=== PATIENT | female | born 1960 | race Caucasian/White ===

== ENCOUNTER 2016-11-08 20:42 | Emergency (ER) | payer MEDICARE ==
[2016-11-08] MEDS ORDERED: IPRATROPIUM/ALBUTEROL 0.5-2.5 MG/3 ML AMPUL NEB ONE ×2 (21:33→23:04)
[2016-11-08 22:10] LABS: HEMATOCRIT 41.4 % (36.0-47.0); HGB HCT DIFFERENCE 0.6; MEAN CORPUSCULAR HEMOGLOBIN 29.6 pg (27.0-33.4); MEAN CORPUSCULAR HGB CONC 33.8 g/dL (32.0-36.0); MEAN CORPUSCULAR VOLUME 88 fl (80-97); RED BLOOD COUNT 4.73 10^6/uL (3.72-5.28); RED CELL DISTRIBUTION WIDTH 14.5 % (11.5-14.0); WHITE BLOOD COUNT 18.8 10^3/uL (4.0-10.5)
--- NOTE | 2016-11-08 22:15 | EKG REPORT ---
SEVERITY:- BORDERLINE ECG - SINUS RHYTHM BORDERLINE RIGHT AXIS DEVIATION BORDERLINE T ABNORMALITIES, ANT-LAT LEADS : Confirmed by: Marcelle Esteves 08-Nov-2016 22:14:47
[2016-11-08 22:22] LABS: ALANINE AMINOTRANSFERASE 31 U/L (9-52); ALBUMIN 3.9 g/dL (3.5-5.0); ALKALINE PHOSPHATASE 121 U/L (38-126); ANION GAP 12 (5-19); ASPARTATE AMINO TRANSFERASE 23 U/L (14-36); BILIRUBIN,DIRECT 0.2 mg/dL (0.0-0.4); BILIRUBIN,TOTAL 0.5 mg/dL (0.2-1.3); BLOOD UREA NITROGEN 8 mg/dL (7-20); CALCIUM 9.8 mg/dL (8.4-10.2); CARBON DIOXIDE 31 mmol/L (22-30); CHLORIDE 94 mmol/L (98-107); CREATININE RESULT 0.54 mg/dL (0.52-1.25); GLUCOSE 142 mg/dL (75-110); SODIUM 136.7 mmol/L (137-145); TOTAL PROTEIN 7.1 g/dL (6.3-8.2)
[2016-11-08 22:27] LABS: BAND NEUTROPHILS % (MANUAL) 5 % (3-5); BASOPHILS % (MANUAL) 0 % (0-2); EOSINOPHILS % (MANUAL) 0 % (0-6); LYMPHOCYTES % (MANUAL) 3 % (13-45); TOTAL CELLS COUNTED 100
[2016-11-08 22:28] LABS: ANISOCYTOSIS SLIGHT; POLYCHROMASIA SLIGHT
[2016-11-08 23:19] LABS: APPEARANCE,URINE CLOUDY; BILIRUBIN,URINE NEGATIVE (NEGATIVE); GLUCOSE, URINE NEGATIVE (NEGATIVE); KETONES,URINE NEGATIVE (NEGATIVE); LEUKOCYTE ESTERASE,URINE NEGATIVE (NEGATIVE); NITRITE,URINE NEGATIVE (NEGATIVE); PROTEIN,URINE NEGATIVE (NEGATIVE); URINE SPECIFIC GRAVITY 1.028; UROBILINOGEN,URINE NEGATIVE mg/dL (<2.0)
[2016-11-08] MEDS ORDERED: ONDANSETRON 4 MG TAB.RAPDIS PO ONE (23:59)
--- NOTE | 2016-11-09 00:37 | ER Document Report ---
ED Respiratory Problem - General Chief Complaint: Shortness Of Breath Stated Complaint: SHORTNESS OF BREATH Notes: patient is a 55 year old female p/w COPD exacerbation since she has run out of nebulizer medications at home about 2 days ago. Admits to shortness of breath, GALLOWAY. Nonproductive cough. Denies chest pain, n/v/d/c. Current smoker with COPD on 2L at baseline. PMH: COPD, chronic pain, CAD (no previous ME, stress 2 years ago, coronary cath 2006) PSH: hysterectomy, cholecystectomy SH: 20 pack years, denies etoh or drug use No PCP, follows with [facility] for pulmonology TRAVEL OUTSIDE OF THE [place] IN LAST 30 DAYS: No - Related Data Allergies/Adverse Reactions: adhesive tape Allergy (Verified 10/18/15 18:12) roflumilast Adverse Reaction (Verified 10/18/15 18:12) Past Medical History - Social History Smoking Status: Smoker,Current Status Unk Frequency of alcohol use: None Drug Abuse: None Family History: Reviewed & Not Pertinent - Past Medical History Cardiac Medical History: Reports: Hx Hypercholesterolemia, Hx Hypertension Pulmonary Medical History: Reports: Hx COPD Endocrine Medical History: Reports: Hx Hypothyroidism GI Medical History: Reports: Hx Gastroesophageal Reflux Disease Musculoskeltal Medical History: Reports Hx Arthritis, Reports Hx Musculoskeletal Deformity, Reports Hx Musculoskeletal Trauma Psychiatric Medical History: Reports: Hx Depression Past Surgical History: Reports: Hx Cholecystectomy, Hx Hysterectomy - Immunizations Immunizations up to date: No Hx Diphtheria, Pertussis, Tetanus Vaccination: No Hx Pneumococcal Vaccination: 07/11/11 Review of Systems - Review of Systems Constitutional: No symptoms reported EENT: No symptoms reported Cardiovascular: No symptoms reported Respiratory: See HPI Gastrointestinal: No symptoms reported -: Yes All other systems reviewed and negative Physical Exam - Vital signs Vitals: Temp 99.5 F 11/08/16 20:51 - Notes Notes: PHYSICAL EXAM GENERAL: Alert, interacts well. HEAD: Normocephalic, atraumatic. EYES: Pupils equal, round, and reactive to light. Extraocular movements intact. ENT: Oral mucosa moist, tongue midline. NECK: Full range of motion. Supple. Trachea midline. LUNGS: On auscultation with bilateral wheezes and rhonchi. No respiratory distress. HEART: Regular rate and rhythm. No murmurs, gallops, or rubs. ABDOMEN: Soft, nondistended, nontender. No guarding, rebound, or rigidity.. Bowel sounds present in all 4 quadrants. EXTREMITIES: Moves all 4 extremities spontaneously. No edema, radial and dorsalis pedis pulses 2/4 bilaterally. No cyanosis. NEUROLOGICAL: Alert and oriented x4. Normal speech. PSYCH: Normal affect, normal mood. SKIN: Warm, dry, normal turgor. No rashes or lesions noted. Course - Re-evaluation Re-evalutation: 11/09/16 07:27 Patient is a 55 old female presents emergency department shortness of breath. Patient has not had access to her normal pulmonary meds at home since she ran out. Patient is responded well to 2 DuoNeb treatments here in the emergency department. During her stay she did admit to nausea but she states that she has baseline nausea that she has had for years. IV Compazine. Patient states that she typically takes Phenergan at home. Initiated patient on steroid therapy and told her to follow up with her ingredient scaler helper later this week. - Vital Signs Vital signs: Temp Pulse Resp BP Pulse Ox 98.1 F 23 H 132/80 H 97 11/09/16 02:00 11/09/16 02:00 11/09/16 02:00 11/09/16 02:00 - Laboratory Result Diagrams: 11/08/16 21:54 11/08/16 21:54 Laboratory results interpreted by me: 11/08/16 11/08/16 21:54 21:54 WBC 18.8 H RDW 14.5 H Seg Neuts % (Manual) 89 H Lymphocytes % (Manual) 3 L Monocytes % (Manual) 1 L Abs Neuts (Manual) 17.7 H Sodium 136.7 L Chloride 94 L Carbon Dioxide 31 H Glucose 142 H - Diagnostic Test Radiology reviewed: Image reviewed, Reports reviewed Discharge - Discharge Clinical Impression: COPD (chronic obstructive pulmonary disease) Qualifiers: COPD type: COPD with acute exacerbation Qualified Code(s): J44.1 - Chronic obstructive pulmonary disease with (acute) exacerbation Condition: Good Disposition: HOME, SELF-CARE Instructions: Chronic Obstructive Lung Disease ([facility]) Additional Instructions: Please be sure to follow up with your ingredient scaler helper within 7-10 days Please return to the emergency department if your symptoms do not improve while at home. Prescriptions: Albuterol Sulfate [Albuterol Sulfate 2.5mg/3 mL] 2.5 mg IH Q4HP PRN 7 Days PRN Reason: Prednisone [Deltasone 20 mg Tablet] 3 tab PO DAILY 5 Days Forms: Elevated Blood Pressure Referrals: KAREN DICKERSON MD [ACTIVE STAFF] - Follow up in 1 week
[2016-11-09] MEDS ORDERED: PROCHLORPERAZINE EDISYLATE INJ 10 MG/2 ML VIAL IV ONE (00:50)
[2016-11-09] MEDS ORDERED: ALBUTEROL SULFATE 0.083% NEB 2.5 MG/3 ML AMPUL NEB ONE (00:50)
[2016-11-09 02:11] VITALS: BP 132/80
== END 2016-11-09 02:20 | disposition home or self-care (01) ==
LOC: ER 20:42
DX: J44.1 Chronic obstructive pulmonary disease with (acute) exacerbation (principal); Z99.81 Dependence on supplemental oxygen; F17.200 Nicotine dependence, unspecified, uncomplicated; R11.0 Nausea; R06.02 Shortness of breath; R05 Cough; I25.10 Atherosclerotic heart disease of native coronary artery without angina pectoris; I10 Essential (primary) hypertension; Z91.048 Other nonmedicinal substance allergy status
CPT/HCPCS: 93005; 94640 ×2; 99285; 96374; 36415; 87070; 87205; 85025; 87077; 80053; 81001; 87186; 71020; 93010; A9270 ×3; J0780; J7620; S0119

== ENCOUNTER 2016-11-13 23:54 | Inpatient (IN) | payer MEDICARE ==
[2016-11-14] MEDS ORDERED: IPRATROPIUM/ALBUTEROL 0.5-2.5 MG/3 ML AMPUL NEB ONE ×2 (00:37→02:49)
[2016-11-14] MEDS ORDERED: LORAZEPAM INJ 2 MG/1 ML VIAL IV ONE (00:41)
--- NOTE | 2016-11-14 00:46 | ER Document Report ---
ED General - General Stated Complaint: SHORT OF BREATH Mode of Arrival: Medic Information source: Patient, Emergency Med Personnel, [facility] Records Notes: This is a 55-year-old female with history of oxygen-dependent COPD and continued tobacco abuse presents to the ER via EMS for worsening shortness of breath for the past 2 days. She states that today she has been too tired to get out of bed and reports increased dyspnea on exertion. She also states she had a fever of 100.5 earlier today. She has a cough productive of green sputum. No chest pain TRAVEL OUTSIDE OF THE [place] IN LAST 30 DAYS: No - Related Data Allergies/Adverse Reactions: adhesive tape Allergy (Verified 10/18/15 18:12) roflumilast Adverse Reaction (Verified 10/18/15 18:12) Past Medical History - Social History Smoking Status: Current Every Day Smoker Frequency of alcohol use: None Drug Abuse: None Lives with: Family Family History: Reviewed & Not Pertinent - Past Medical History Cardiac Medical History: Reports: Hx Hypercholesterolemia, Hx Hypertension Pulmonary Medical History: Reports: Hx COPD, Hx Pneumonia Endocrine Medical History: Reports: Hx Hypothyroidism GI Medical History: Reports: Hx Gastroesophageal Reflux Disease Musculoskeltal Medical History: Reports Hx Arthritis, Reports Hx Musculoskeletal Deformity, Reports Hx Musculoskeletal Trauma Psychiatric Medical History: Reports: Hx Depression Past Surgical History: Reports: Hx Cholecystectomy, Hx Hysterectomy - Immunizations Immunizations up to date: No Hx Diphtheria, Pertussis, Tetanus Vaccination: No Hx Pneumococcal Vaccination: 07/11/11 Review of Systems - Review of Systems Notes: REVIEW OF SYSTEMS: CONSTITUTIONAL : As per history of present illness EENT: Denies eye, ear, throat, or mouth pain or symptoms. Denies nasal or sinus congestion. CARDIOVASCULAR: Denies chest pain. RESPIRATORY: As per history of present illness GASTROINTESTINAL: Denies abdominal pain. Denies nausea, vomiting, or diarrhea. GENITOURINARY: Denies difficulty urinating, painful urination, burning, frequency, or blood in urine.MP: MUSCULOSKELETAL: No complaints SKIN: Denies rash or skin lesions. HEMATOLOGIC : Denies easy bruising or bleeding. LYMPHATIC: Denies swollen, enlarged glands. NEUROLOGICAL: Denies altered mental status or loss of consciousness. Denies headache. PSYCHIATRIC: Denies anxiety or stress or depression. ALL OTHER SYSTEMS REVIEWED AND NEGATIVE. Physical Exam - Vital signs Vitals: Pulse Ox 96 11/13/16 23:55 - Notes Notes: PHYSICAL EXAMINATION: GENERAL: Adult female, awake and conversant somewhat ill-appearing in mild respiratory distress. HEAD: Atraumatic, normocephalic. EYES: Pupils equal round and reactive to light, extraocular movements intact, sclera anicteric, conjunctiva are normal. ENT: nares patent, oropharynx clear without exudates. Moist mucous membranes. NECK: Normal range of motion, supple without lymphadenopathy LUNGS: Diffuse scattered inspiratory and expiratory wheezes bilaterally, air movement is tight. HEART: Tachycardic rate and regular rhythm without murmurs ABDOMEN: Soft, nontender, normoactive bowel sounds. No guarding, no rebound. No masses appreciated. EXTREMITIES: Normal range of motion, no pitting or edema. No cyanosis. NEUROLOGICAL: Cranial nerves grossly intact. Normal speech. No gross focal motor or sensory deficits appreciated. PSYCH: Normal mood, anxious affect SKIN: Warm, Dry, normal turgor, no rashes or lesions noted. Course - Re-evaluation Re-evalutation: 11/14/16 02:51 Patient reevaluated. She is laying on her side trying to sleep but noted to still be tachypneic with respiratory rate of 32. She states that she feels a little bit better since the neb treatment but is still wheezing some. Will proceed with 2 more nebs, Solu-Medrol, and Levaquin for COPD exacerbation. Her labs and chest x-ray are reviewed and there is no evidence of consolidation. 11/14/16 06:23 CTA reviewed, no PE, however there is evidence of inflammation/infection L lung. Discussed with Dr Mckeon, will admit for COPD exacerbation and pneumonia - Vital Signs Vital signs: Temp Pulse Resp BP Pulse Ox 99.2 F 30 H 123/76 93 11/14/16 00:04 11/14/16 04:01 11/14/16 04:01 11/14/16 04:01 - Laboratory Result Diagrams: 11/14/16 01:45 11/14/16 01:45 Laboratory results interpreted by me: 11/14/16 11/14/16 01:45 01:45 WBC 12.0 H RDW 14.2 H Absolute Neutrophils 8.7 H Alkaline Phosphatase 163 H Albumin 3.4 L - Diagnostic Test Radiology reviewed: Reports reviewed - COPD, no infiltrate Critical Care Note - Critical Care Note Total time excluding time spent on procedures (mins): 35 - minutes of critical care time spent in direct contact evaluating and reevaluating the patient, treating symptoms, reviewing labs and studies and speaking with family and consultants excluding any procedures Discharge - Discharge Clinical Impression: Obstructive chronic bronchitis with exacerbation Pneumonia Qualifiers: Pneumonia type: due to unspecified organism Laterality: unspecified laterality Lung location: unspecified part of lung Qualified Code(s): J18.9 - Pneumonia, unspecified organism Condition: Fair Disposition: ADMITTED INPATIENT Admitting Provider: Hospitalist - Dr Mckeon Unit Admitted: Telemetry
[2016-11-14 02:13] LABS: ABSOLUTE EOSINOPHILS # (AUTO) 0.2 10^3/uL (0.0-0.6); ABSOLUTE LYMPHOCYTES (AUTO) 1.9 10^3/uL (0.5-4.7); ABSOLUTE MONOCYTES (AUTO) 1.1 10^3/uL (0.1-1.4); ABSOLUTE NEUT (AUTO) 8.7 10^3/uL (1.7-8.2); BASOPHILS % (AUTO) 0.4 % (0-2); EOSINOPHILS % (AUTO) 1.9 % (0-6); HEMATOCRIT 40.6 % (36.0-47.0); HEMOGLOBIN 13.5 g/dL (12.0-15.5); HGB HCT DIFFERENCE -0.1; LYMPHOCYTES % (AUTO) 15.5 % (13-45); MEAN CORPUSCULAR HEMOGLOBIN 29.2 pg (27.0-33.4); MEAN CORPUSCULAR HGB CONC 33.2 g/dL (32.0-36.0); MEAN CORPUSCULAR VOLUME 88 fl (80-97); MONOCYTES % (AUTO) 9.1 % (3-13); RED BLOOD COUNT 4.62 10^6/uL (3.72-5.28); RED CELL DISTRIBUTION WIDTH 14.2 % (11.5-14.0); SEGMENTED NEUTROPHILS % (AUTO) 73.1 % (42-78)
[2016-11-14 02:27] LABS: ALANINE AMINOTRANSFERASE 44 U/L (9-52); ALBUMIN 3.4 g/dL (3.5-5.0); ALKALINE PHOSPHATASE 163 U/L (38-126); ANION GAP 12 (5-19); ASPARTATE AMINO TRANSFERASE 27 U/L (14-36); BILIRUBIN,DIRECT 0.3 mg/dL (0.0-0.4); BILIRUBIN,TOTAL 0.5 mg/dL (0.2-1.3); BLOOD UREA NITROGEN 7 mg/dL (7-20); CALCIUM 9.7 mg/dL (8.4-10.2); CARBON DIOXIDE 30 mmol/L (22-30); CHLORIDE 99 mmol/L (98-107); CREATINE KINASE 34 U/L (30-135); CREATININE RESULT 0.54 mg/dL (0.52-1.25); GLUCOSE 106 mg/dL (75-110); POTASSIUM 3.7 mmol/L (3.6-5.0); SODIUM 140.9 mmol/L (137-145); TOTAL PROTEIN 6.4 g/dL (6.3-8.2)
[2016-11-14 02:39] LABS: CREATINE KINASE MB 0.66 ng/mL (<4.55)
[2016-11-14 02:45] LABS: TROPONIN I < 0.012 ng/mL
[2016-11-14] MEDS ORDERED: METHYLPREDNISOLONE INJ 125 MG/2 ML SDV IV ONE (02:49)
[2016-11-14] MEDS ORDERED: ALBUTEROL SULFATE 0.083% NEB 2.5 MG/3 ML AMPUL NEB ONE (02:50)
[2016-11-14] MEDS ORDERED: LEVOFLOXACIN 750 MG TABLET PO ONE (02:50)
[2016-11-14] MEDS ORDERED: LEVALBUTEROL HCL NEB 1.25 MG/3 ML AMPUL NEB ONE (05:28)
[2016-11-14] MEDS ORDERED: NORMAL SALINE 1000 ML 1,000 ML IV ONE (05:42)
[2016-11-14] MEDS ORDERED: GUAIFENESIN SYRP 200 MG/10 ML UDC PO PRN (05:49)
--- NOTE | 2016-11-14 06:24 | PDOC H&P ---
History of Present Illness Admission Date/PCP: 11/14/16 05:57 Patient complains of: Shortness of breath and cough History of Present Illness: MAXWELL GREEN is a 55 year old female with a past medical history of COPD with persistent tobacco abuse, hypertension, hypothyroidism, osteoarthritis, fibromyalgia, dyslipidemia, GERD and depression. Who had been her usual state of health until approximately 1 week ago with complaints of shortness of breath and a nonproductive cough she sought evaluation emergency room 4 days ago started on IM prednisone 1 and DuoNeb. However over the last 24 hours she's developed a fever and a productive cough with green sputum and returns the emergency room for evaluation has a fever of 100.5. Chest x-ray is unremarkable but a CT of the chest is negative for PE but positive for left- sided infiltrate suggestive of pneumonia. She started on empiric and buttocks referred to the hospitalist for admission Past Medical History Cardiac Medical History: Reports: Hyperlipidema, Hypertension Pulmonary Medical History: Reports: Chronic Obstructive Pulmonary Disease (COPD) , Pneumonia Endocrine Medical History: Reports: Hypothyroidism GI Medical History: Reports: Gastroesophageal Reflux Disease Musculoskeltal Medical History: Reports: Arthritis Psychiatric Medical History: Reports: Depression Past Surgical History Past Surgical History: Reports: Cholecystectomy, Hysterectomy Social History Lives with: Family Smoking Status: Current Every Day Smoker Cigarettes Packs Per Day: 1 Frequency of Alcohol Use: None Hx Recreational Drug Use: No Drugs: None Hx Prescription Drug Abuse: No - Advance Directive Resuscitation Status: Full Code Family History Family History: COPD, Malignancy Family History: Mother and father of cancer Parental Family History Reviewed: Yes Children Family History Reviewed: Yes Sibling(s) Family History Reviewed.: Yes Medication/Allergy Home Medications: Nexium 40 mg PO DAILY 07/11/11 Premarin 1.25 mg Tablet 1.25 mg PO DAILY 07/11/11 Montelukast Sodium [Singulair 10 mg Tablet] 10 mg PO QHS 03/15/14 Albuterol Sulfate [Albuterol Sulfate Hfa] 1 puff IH PRN PRN 10/12/14 Amlodipine Besylate 10 mg PO DAILY 10/12/14 Duloxetine HCl [Cymbalta] 90 mg PO DAILY 10/12/14 Fluticasone/Salmeterol [Advair 500-50 Diskus 28 Dose] 1 puff IH Q12 10/12/14 Levothyroxine Sodium [Synthroid] 125 mcg PO DAILY 10/12/14 Lisinopril [Prinivil 5 mg Tablet] 5 mg PO DAILY 10/12/14 Metoprolol Succinate 75 mg PO DAILY 10/12/14 Oxycodone HCl [Oxy-Ir 5 mg Tablet] 10 mg PO Q4HP PRN 10/12/14 Oxycodone HCl [Oxycontin] 20 mg PO TID 10/12/14 Simvastatin 20 mg PO DAILY 10/12/14 Tiotropium Taft [Spiriva Handihaler 5 Cap/Kit (18 Mcg/Cap)] 1 cap IH DAILY Amox Tr/Potassium Clavulanate [Augmentin 875-125 mg Tablet] 1 tab PO BID #10 tablet 10/15/14 Aspirin [Aspirin 81 mg Chewable Tablet] 81 mg PO DAILY #0 tab.chew 10/15/14 Prednisone 10 mg PO ASDIR PRN #39 tablet 10/15/14 Levofloxacin [Levaquin 750 mg Tablet] 750 mg PO DAILY #10 tablet 05/31/15 Prednisone [Deltasone 20 mg Tablet] 3 tab PO DAILY 5 Days 05/31/15 Esomeprazole Magnesium [Nexium] 40 mg PO DAILY 09/25/15 Estrogens, Conjugated [Premarin] 0.3 mg PO DAILY 09/25/15 Levothyroxine Sodium [Synthroid] 125 mcg PO DAILY 09/25/15 Metoprolol Succinate [Toprol Xl] 75 mg PO DAILY 09/25/15 Amlodipine Besylate 10 mg PO DAILY 09/26/15 Cyclobenzaprine HCl 10 mg PO BID PRN 09/26/15 Duloxetine HCl 90 mg PO DAILY 09/26/15 Fluticasone Propionate [Flonase Nasal [place] 50 Mcg/[place] 16 gm] 1 spray NASL DAILY 09/26/15 Fluticasone/Salmeterol [Advair 500-50 Diskus 28 Dose] 1 inh IH Q12H 09/26/15 Lisinopril 5 mg PO DAILY 09/26/15 Oxycodone HCl [Oxycodone HCl ER] 20 mg PO TID 09/26/15 Aspirin 81 mg PO DAILY 09/27/15 Albuterol Sulfate [Ventolin 0.083% Neb 2.5 mg/3 mL Ampul] 2.5 mg NEB RTQ2HP PRN #60 vial.neb 09/28/15 Ipratropium/Albuterol Sulfate [Duoneb 3 ml Ampul] [address] [facility] [id number] #120 vial.[facility] 09/28/15 Levofloxacin [Levaquin 750 mg Tablet] 750 mg PO DAILY #9 tablet 10/23/15 Prednisone [Sterapred Ds] 1 pkg PO ASDIR PRN 12 Days 10/23/15 Albuterol Sulfate [Albuterol Sulfate 2.5mg/3 mL] 2.5 mg IH Q4HP PRN 7 Days 11/09 Prednisone [Deltasone 20 mg Tablet] 3 tab PO DAILY 5 Days 11/09/16 Allergies/Adverse Reactions: adhesive tape Allergy (Verified 10/18/15 18:12) roflumilast Adverse Reaction (Verified 10/18/15 18:12) Review of Systems Constitutional: ABSENT: chills, fever(s), headache(s), weight gain, weight loss Eyes: ABSENT: visual disturbances Ears: ABSENT: hearing changes Cardiovascular: ABSENT: chest pain, dyspnea on exertion, edema, orthropnea, palpitations Respiratory: ABSENT: cough, hemoptysis Gastrointestinal: ABSENT: abdominal pain, constipation, diarrhea, hematemesis, hematochezia, nausea, vomiting Genitourinary: ABSENT: dysuria, hematuria Musculoskeletal: ABSENT: joint swelling Integumentary: ABSENT: rash, wounds Neurological: ABSENT: abnormal gait, abnormal speech, confusion, dizziness, focal weakness, syncope Psychiatric: ABSENT: anxiety, depression, homidical ideation, suicidal ideation Endocrine: ABSENT: cold intolerance, heat intolerance, polydipsia, polyuria Hematologic/Lymphatic: ABSENT: easy bleeding, easy bruising Physical Exam Vital Signs: Temp Pulse Resp BP Pulse Ox 99.2 F 30 H 123/76 93 11/14/16 00:04 11/14/16 04:01 11/14/16 04:01 11/14/16 04:01 General appearance: PRESENT: cooperative, disheveled, mild distress, obese Head exam: PRESENT: atraumatic, normocephalic Eye exam: PRESENT: conjunctiva pink, EOMI, PERRLA. ABSENT: scleral icterus Ear exam: PRESENT: normal external ear exam Mouth exam: PRESENT: moist, tongue midline Neck exam: ABSENT: carotid bruit, JVD, lymphadenopathy, thyromegaly Respiratory exam: PRESENT: accessory muscle use, decreased breath sounds, prolonged expiratory phas, rhonchi, tachypnea Cardiovascular exam: PRESENT: RRR. ABSENT: diastolic murmur, rubs, systolic murmur Pulses: PRESENT: normal dorsalis pedis pul Vascular exam: PRESENT: normal capillary refill GI/Abdominal exam: PRESENT: normal bowel sounds, soft. ABSENT: distended, guarding, mass, organolmegaly, rebound, tenderness Rectal exam: PRESENT: deferred Extremities exam: PRESENT: full ROM. ABSENT: calf tenderness, clubbing, pedal edema Neurological exam: PRESENT: alert, awake, oriented to person, oriented to place , oriented to time, oriented to situation, CN II-XII grossly intact. ABSENT: motor sensory deficit Psychiatric exam: PRESENT: appropriate affect, normal mood. ABSENT: homicidal ideation, suicidal ideation Skin exam: PRESENT: dry, intact, warm. ABSENT: cyanosis, rash Results Impressions: Chest X-Ray 11/14/16 00:38 IMPRESSION: COPD. NO ACUTE RADIOGRAPHIC FINDING IN THE CHEST. Chest/Abdomen CTA 11/14/16 04:22 IMPRESSION: 1. NORMAL CTA OF THE CHEST. NO PULMONARY EMBOLI. 2. FAINT TREE-IN-BUD APPEARANCE PARTICULARLY IN THE LEFT LUNG. THIS IS NONSPECIFIC AND COULD BE INDICATIVE OF INFLAMMATION OR INFECTION. Assessment & Plan - Diagnosis (1) COPD exacerbation Is this a current diagnosis for this admission?: YesPlan: Chronic and uncontrolled she is admitted to a monitored bed with oxygen, flutter valve, incentive spirometry, prednisone, Flonase and Claritin (2) Pneumonia Qualifiers: Pneumonia type: due to unspecified organism Laterality: unspecified laterality Lung location: unspecified part of lung Qualified Code(s): J18.9 - Pneumonia, unspecified organism Is this a current diagnosis for this admission?: YesPlan: Acute uncontrolled complicated by COPD,Tobacco Dependence,chronic pain. Admitted to monitored bed with a pneumonia care set empiric antibiotics obtaining blood and sputum culture with reevaluation of labs in a.m. (3) Chronic pain Is this a current diagnosis for this admission?: YesPlan: Chronic and controlled avoid excessive sedation given risk of reduced respiratory drive and worsening pneumonia (4) Tobacco dependence Is this a current diagnosis for this admission?: YesPlan: Tobacco Dependence patient received tobacco cessation counseling and offered nicotine replacement options - Time Time Spent: 30 to 50 Minutes - Inpatient Certification Medical Necessity: Need Close Monitoring Due to Risk of Patient Decompensation
[2016-11-14] MEDS ORDERED: CEFTRIAXONE 1 GM/D5W RTU 50 ML IV SCH (08:00)
--- NOTE | 2016-11-14 08:01 | PDOC PROGRESS REPORT ---
Subjective Progress Note for:: 11/14/16 Subjective:: Patient is complaining of headache this morning and continued shortness of breath. She has no chest pain She has a persistent cough nonproductive She is alert and awake O2 sat is on the low side at 91% on the 3 L nasal cannula Physical Exam Vital Signs: Temp Pulse Resp BP Pulse Ox 98.3 F 30 H 125/77 91 L 11/14/16 06:46 11/14/16 07:01 11/14/16 07:01 11/14/16 07:01 General appearance: PRESENT: mild distress, well-developed, well-nourished Head exam: PRESENT: atraumatic, normocephalic Eye exam: PRESENT: conjunctiva pink, EOMI, PERRLA. ABSENT: scleral icterus Neck exam: ABSENT: carotid bruit, JVD, lymphadenopathy, thyromegaly Respiratory exam: PRESENT: rhonchi - Bilaterally, tachypnea, wheezes. ABSENT: accessory muscle use Cardiovascular exam: PRESENT: RRR, tachycardia Pulses: PRESENT: normal dorsalis pedis pul GI/Abdominal exam: PRESENT: normal bowel sounds, soft. ABSENT: distended, guarding, mass, organolmegaly, rebound, tenderness Rectal exam: PRESENT: deferred Neurological exam: PRESENT: alert, awake, oriented to person, oriented to place , oriented to time, oriented to situation, CN II-XII grossly intact. ABSENT: motor sensory deficit Results Laboratory Results: Labs- Entire Visit 11/14/16 11/14/16 11/14/16 01:45 01:45 01:45 WBC 12.0 H RBC 4.62 Hgb 13.5 Hct 40.6 MCV 88 MCH 29.2 MCHC 33.2 RDW 14.2 H Plt Count 415 Seg Neutrophils % 73.1 Lymphocytes % 15.5 Monocytes % 9.1 Eosinophils % 1.9 Basophils % 0.4 Absolute Neutrophils 8.7 H Absolute Lymphocytes 1.9 Absolute Monocytes 1.1 Absolute Eosinophils 0.2 Absolute Basophils 0.0 Sodium 140.9 Potassium 3.7 Chloride 99 Carbon Dioxide 30 Anion Gap 12 BUN 7 Creatinine 0.54 Est GFR ( Amer) > 60 Est GFR (Non-Af Amer) > 60 Glucose 106 Calcium 9.7 Total Bilirubin 0.5 Direct Bilirubin 0.3 Indirect Bilirubin Not Reportable Neonat Total Bilirubin Not Reportable AST 27 ALT 44 Alkaline Phosphatase 163 H Creatine Kinase 34 CK-MB (CK-2) 0.66 Troponin I < 0.012 NT-Pro-B Natriuret Pep Total Protein 6.4 Albumin 3.4 L 11/14/16 01:45 WBC RBC Hgb Hct MCV MCH MCHC RDW Plt Count Seg Neutrophils % Lymphocytes % Monocytes % Eosinophils % Basophils % Absolute Neutrophils Absolute Lymphocytes Absolute Monocytes Absolute Eosinophils Absolute Basophils Sodium Potassium Chloride Carbon Dioxide Anion Gap BUN Creatinine Est GFR ( Amer) Est GFR (Non-Af Amer) Glucose Calcium Total Bilirubin Direct Bilirubin Indirect Bilirubin Neonat Total Bilirubin AST ALT Alkaline Phosphatase Creatine Kinase CK-MB (CK-2) Troponin I NT-Pro-B Natriuret Pep 68 Total Protein Albumin Impressions: Chest X-Ray 11/14/16 00:38 IMPRESSION: COPD. NO ACUTE RADIOGRAPHIC FINDING IN THE CHEST. Chest/Abdomen CTA 11/14/16 04:22 IMPRESSION: 1. NORMAL CTA OF THE CHEST. NO PULMONARY EMBOLI. 2. FAINT TREE-IN-BUD APPEARANCE PARTICULARLY IN THE LEFT LUNG. THIS IS NONSPECIFIC AND COULD BE INDICATIVE OF INFLAMMATION OR INFECTION. Assessment & Plan - Diagnosis (1) COPD exacerbation Is this a current diagnosis for this admission?: YesPlan: Increased steroids; continue nebs (2) Pneumonia Qualifiers: Pneumonia type: due to unspecified organism Laterality: unspecified laterality Lung location: unspecified part of lung Qualified Code(s): J18.9 - Pneumonia, unspecified organism Is this a current diagnosis for this admission?: YesPlan: Patient does have clinical pneumonia no infiltrates visualized on chest xray We will switch the the coverage to cefepime and Levaquin to cover gram-negative Mucinex and Pulmicort were added (3) Tobacco dependence Is this a current diagnosis for this admission?: Yes - Time Time Spent with patient: 25-34 minutes
[2016-11-14] MEDS ORDERED: BUDESONIDE NEB 0.5 MG/2 ML AMPUL NEB ONE (08:08)
[2016-11-14] MEDS: IPRATROPIUM/ALBUTEROL 0.5-2.5 MG/3 ML AMPUL NEB SCH ×3 (08:08→20:11)
[2016-11-14] MEDS: ACETAMINOPHEN 325 MG TABLET PO PRN ×2 (08:22→20:00)
[2016-11-14] MEDS: AMLODIPINE BESYLATE 10 MG TABLET PO SCH (08:22)
[2016-11-14] MEDS: HEPARIN SOD (PORCINE) 5,000 UNIT/ML 1 ML SYRINGE SUBCUT SCH ×3 (08:24→22:36)
[2016-11-14] MEDS: BUDESONIDE NEB 0.5 MG/2 ML AMPUL NEB SCH ×2 (08:36→20:11)
[2016-11-14] MEDS ORDERED: LANSOPRAZOLE 30 MG TAB.RAP.DR PO ONE (09:30)
[2016-11-14] MEDS ORDERED: LEVOTHYROXINE SODIUM 0.025 MG TABLET PO SCH (10:00)
[2016-11-14] MEDS ORDERED: PREDNISONE 20 MG TABLET PO SCH (10:00)
[2016-11-14] MEDS ORDERED: AZITHROMYCIN 500 MG in DEXTROSE 5%-WATER 250 ML IV SCH (10:00)
[2016-11-14] MEDS: METOPROLOL SUCCINATE 25 MG TAB.SR.24H PO SCH (10:03)
[2016-11-14] MEDS: ASPIRIN 81 MG TABLET, CHEWABLE PO SCH (10:04)
[2016-11-14] MEDS: LISINOPRIL 5 MG TABLET PO SCH (10:04)
[2016-11-14] MEDS: DULOXETINE HCL 30 MG CAPSULE.DR PO SCH (10:04)
[2016-11-14] MEDS: CEFEPIME 1 GM/D5W RTU 50 ML IV SCH ×2 (10:08→22:43)
[2016-11-14] MEDS: GUAIFENESIN 600 MG TABLET.SA PO SCH ×2 (10:09→22:33)
[2016-11-14] MEDS: ESTROGENS,CONJUGATED 0.3 MG TABLET PO SCH (10:10)
[2016-11-14] MEDS: FLUTICASONE NASAL SPRAY 50 MCG/SPRY 120 SPRAY/16 GM NASL SCH (10:10)
[2016-11-14] MEDS: METHYLPREDNISOLONE INJ 125 MG/2 ML SDV IV SCH ×2 (10:10→18:27)
--- NOTE | 2016-11-14 13:31 | EKG REPORT ---
SEVERITY:- BORDERLINE ECG - SINUS TACHYCARDIA BORDERLINE RIGHT AXIS DEVIATION BORDERLINE T WAVE ABNORMALITIES INFEROLATERAL LEADS. : Confirmed by: Paulie Juarez MD 14-Nov-2016 13:30:09
[2016-11-14] MEDS: OXYCODONE HCL SR 10 MG TABLET PO SCH ×2 (14:28→22:34)
[2016-11-14] MEDS: LEVOTHYROXINE SODIUM 0.1 MG TABLET PO SCH (18:27)
[2016-11-14] MEDS: NICOTINE 14 MG/24 HR PATCH.TD24 TD PRN (18:53)
[2016-11-15] MEDS: METHYLPREDNISOLONE INJ 125 MG/2 ML SDV IV SCH ×2 (03:00→09:15)
[2016-11-15 05:41] LABS: ABSOLUTE BASOPHILS # (AUTO) 0.1 10^3/uL (0.0-0.2); ABSOLUTE LYMPHOCYTES (AUTO) 1.3 10^3/uL (0.5-4.7); ABSOLUTE MONOCYTES (AUTO) 0.4 10^3/uL (0.1-1.4); ABSOLUTE NEUT (AUTO) 14.2 10^3/uL (1.7-8.2); BASOPHILS % (AUTO) 0.7 % (0-2); HEMATOCRIT 37.5 % (36.0-47.0); HEMOGLOBIN 12.5 g/dL (12.0-15.5); LYMPHOCYTES % (AUTO) 7.9 % (13-45); MEAN CORPUSCULAR HEMOGLOBIN 29.1 pg (27.0-33.4); MEAN CORPUSCULAR HGB CONC 33.4 g/dL (32.0-36.0); MEAN CORPUSCULAR VOLUME 87 fl (80-97); MONOCYTES % (AUTO) 2.7 % (3-13); RED BLOOD COUNT 4.31 10^6/uL (3.72-5.28); RED CELL DISTRIBUTION WIDTH 14.1 % (11.5-14.0); SEGMENTED NEUTROPHILS % (AUTO) 88.7 % (42-78)
[2016-11-15 05:54] LABS: ANION GAP 11 (5-19); BLOOD UREA NITROGEN 13 mg/dL (7-20); CALCIUM 9.1 mg/dL (8.4-10.2); CARBON DIOXIDE 30 mmol/L (22-30); CHLORIDE 96 mmol/L (98-107); GLUCOSE 158 mg/dL (75-110); POTASSIUM 4.2 mmol/L (3.6-5.0); SODIUM 136.7 mmol/L (137-145)
[2016-11-15] MEDS ORDERED: LEVOFLOXACIN 750 MG/D5W RTU 750 MG/150 ML RTUPB IV SCH (06:00)
[2016-11-15] MEDS ORDERED: LANSOPRAZOLE 30 MG TAB.RAP.DR PO SCH (06:00)
[2016-11-15] MEDS: HEPARIN SOD (PORCINE) 5,000 UNIT/ML 1 ML SYRINGE SUBCUT SCH ×3 (06:31→21:42)
[2016-11-15] MEDS: OXYCODONE HCL SR 10 MG TABLET PO SCH ×3 (06:35→21:44)
[2016-11-15] MEDS: AMLODIPINE BESYLATE 10 MG TABLET PO SCH (07:38)
[2016-11-15] MEDS: BUDESONIDE NEB 0.5 MG/2 ML AMPUL NEB SCH ×2 (08:17→20:08)
[2016-11-15] MEDS: IPRATROPIUM/ALBUTEROL 0.5-2.5 MG/3 ML AMPUL NEB SCH ×2 (08:17→14:20)
[2016-11-15] MEDS: ACETAMINOPHEN 325 MG TABLET PO PRN (08:49)
[2016-11-15] MEDS: LISINOPRIL 5 MG TABLET PO SCH (09:13)
[2016-11-15] MEDS: DULOXETINE HCL 30 MG CAPSULE.DR PO SCH (09:14)
[2016-11-15] MEDS: ASPIRIN 81 MG TABLET, CHEWABLE PO SCH (09:14)
[2016-11-15] MEDS: GUAIFENESIN 600 MG TABLET.SA PO SCH ×2 (09:14→21:44)
[2016-11-15] MEDS: METOPROLOL SUCCINATE 25 MG TAB.SR.24H PO SCH (09:14)
[2016-11-15] MEDS: ESTROGENS,CONJUGATED 0.3 MG TABLET PO SCH (09:15)
[2016-11-15] MEDS: FLUTICASONE NASAL SPRAY 50 MCG/SPRY 120 SPRAY/16 GM NASL SCH (09:15)
[2016-11-15] MEDS: CEFEPIME 1 GM/D5W RTU 50 ML IV SCH (10:50)
[2016-11-15] MEDS ORDERED: METHYLPREDNISOLONE INJ 125 MG/2 ML SDV IV SCH (16:18)
[2016-11-15] MEDS: ALPRAZOLAM 0.5 MG TABLET PO PRN (16:38)
--- NOTE | 2016-11-15 16:58 | PDOC PROGRESS REPORT ---
Subjective Progress Note for:: 11/15/16 Subjective:: Patient complains of anxiety today. Patient also complains of a 3 month history of epigastric discomfort and gastric esophageal reflux symptoms. She takes Nexium currently with some relief. She has not had a recent endoscopy. She states that she has had prior cholecystectomy. Patient denies fever, chills , headache, new focal weakness, chest pain, abdominal pain, nausea, vomiting, diarrhea, constipation. Physical Exam Vital Signs: Temp Pulse Resp BP Pulse Ox 98.2 F 85 20 121/74 94 11/15/16 15:08 11/15/16 15:08 11/15/16 15:08 11/15/16 15:08 11/15/16 15:08 Intake & Output 11/14/16 11/15/16 11/16/16 06:59 06:59 06:59 Intake Total 1660 Balance 1660 Weight 84.9 kg GENERAL: No acute distress HEENT: Conjunctiva clear, nonicteric, moist mucous membranes, no JVD, midline trachea RESPIRATORY: Bilateral inspiratory/expiratory wheezes, good air excursion CARDIAC: Regular rate and rhythm, no murmurs/gallops/rubs ABDOMEN: Soft, nondistended, nontender, positive bowel sounds, no rebound, no guarding EXTREMETIES: No edema, cyanosis, clubbing NEUROLOGIC: Alert, oriented to person/place/time, CN's grossly intact, no focal deficits SKIN: No rash, wounds PSYCH: Normal mood, normal affect Results Laboratory Results: 11/15/16 04:40 11/15/16 04:40 11/15/16 11/15/16 04:40 04:40 WBC 16.0 H RBC 4.31 Hgb 12.5 Hct 37.5 MCV 87 MCH 29.1 MCHC 33.4 RDW 14.1 H Plt Count 408 Seg Neutrophils % 88.7 H Lymphocytes % 7.9 L Monocytes % 2.7 L Eosinophils % 0.0 Basophils % 0.7 Absolute Neutrophils 14.2 H Absolute Lymphocytes 1.3 Absolute Monocytes 0.4 Absolute Eosinophils 0.0 Absolute Basophils 0.1 Sodium 136.7 L Potassium 4.2 Chloride 96 L Carbon Dioxide 30 Anion Gap 11 BUN 13 Creatinine 0.50 L Est GFR ( Amer) > 60 Est GFR (Non-Af Amer) > 60 Glucose 158 H Calcium 9.1 Impressions: Chest X-Ray 11/14/16 00:38 IMPRESSION: COPD. NO ACUTE RADIOGRAPHIC FINDING IN THE CHEST. Chest/Abdomen CTA 11/14/16 04:22 IMPRESSION: 1. NORMAL CTA OF THE CHEST. NO PULMONARY EMBOLI. 2. FAINT TREE-IN-BUD APPEARANCE PARTICULARLY IN THE LEFT LUNG. THIS IS NONSPECIFIC AND COULD BE INDICATIVE OF INFLAMMATION OR INFECTION. Assessment & Plan - Diagnosis (1) Acute hypoxemic respiratory failure Is this a current diagnosis for this admission?: YesPlan: Continue oxygen supplementation. (2) COPD with exacerbation Is this a current diagnosis for this admission?: YesPlan: Discontinue IV Solu-Medrol. Start prednisone 40 mg daily. Discontinue scheduled duo nebs. When necessary albuterol nebulizer treatments. (3) Pneumonia Qualifiers: Pneumonia type: due to unspecified organism Laterality: unspecified laterality Lung location: unspecified part of lung Qualified Code(s): J18.9 - Pneumonia, unspecified organism Is this a current diagnosis for this admission?: YesPlan: Likely bacterial. Discontinue IV antibiotics. Start oral Levaquin. (4) HTN (hypertension) Qualifiers: Hypertension type: essential hypertension Qualified Code(s): I10 - Essential (primary) hypertension Is this a current diagnosis for this admission?: Yes (5) Hypothyroid Is this a current diagnosis for this admission?: YesPlan: Synthroid. (6) Tobacco dependence Is this a current diagnosis for this admission?: YesPlan: Counseled on smoking cessation. (7) Chronic pain Is this a current diagnosis for this admission?: YesPlan: Chronic opiate dependence. Continue oxycodone. (8) Epigastric pain Is this a current diagnosis for this admission?: YesPlan: Prevacid. Patient takes Nexium as an outpatient. She will need outpatient EGD once her respiratory status is stable. - Time Time Spent with patient: 35 or more minutes
[2016-11-15] MEDS: LEVOTHYROXINE SODIUM 0.1 MG TABLET PO SCH (17:47)
[2016-11-15] MEDS: LANSOPRAZOLE 30 MG TAB.RAP.DR PO SCH (17:47)
[2016-11-15] MEDS ORDERED: METHYLPREDNISOLONE INJ 40 MG/1 ML SDV IV SCH (18:00)
[2016-11-16 05:03] LABS: HEMATOCRIT 37.8 % (36.0-47.0); HEMOGLOBIN 12.8 g/dL (12.0-15.5); HGB HCT DIFFERENCE 0.6; MEAN CORPUSCULAR HEMOGLOBIN 29.6 pg (27.0-33.4); MEAN CORPUSCULAR VOLUME 87 fl (80-97); RED BLOOD COUNT 4.33 10^6/uL (3.72-5.28); WHITE BLOOD COUNT 20.2 10^3/uL (4.0-10.5)
[2016-11-16 05:08] LABS: ANION GAP 9 (5-19); BLOOD UREA NITROGEN 16 mg/dL (7-20); CALCIUM 9.3 mg/dL (8.4-10.2); CARBON DIOXIDE 31 mmol/L (22-30); CHLORIDE 96 mmol/L (98-107); CREATININE RESULT 0.54 mg/dL (0.52-1.25); GLUCOSE 104 mg/dL (75-110); POTASSIUM 4.2 mmol/L (3.6-5.0); SODIUM 136.3 mmol/L (137-145)
[2016-11-16 05:43] LABS: BASOPHILS % (MANUAL) 0 % (0-2); EOSINOPHILS % (MANUAL) 0 % (0-6); LYMPHOCYTES % (MANUAL) 8 % (13-45); TOTAL CELLS COUNTED 100
[2016-11-16 05:44] LABS: RBC MORPHOLOGY COMMENT NORMO-CYTIC/CHROMIC; TOXIC GRANULATION 1+
[2016-11-16] MEDS: HEPARIN SOD (PORCINE) 5,000 UNIT/ML 1 ML SYRINGE SUBCUT SCH ×3 (06:31→22:45)
[2016-11-16] MEDS: OXYCODONE HCL SR 10 MG TABLET PO SCH ×3 (06:31→22:45)
[2016-11-16] MEDS: LANSOPRAZOLE 30 MG TAB.RAP.DR PO SCH ×2 (06:31→17:13)
[2016-11-16] MEDS: AMLODIPINE BESYLATE 10 MG TABLET PO SCH (08:04)
[2016-11-16] MEDS: ALBUTEROL SULFATE 0.083% NEB 2.5 MG/3 ML AMPUL NEB PRN ×3 (08:13→20:08)
[2016-11-16] MEDS: BUDESONIDE NEB 0.5 MG/2 ML AMPUL NEB SCH ×2 (08:13→20:07)
[2016-11-16] MEDS ORDERED: PREDNISONE 20 MG TABLET PO SCH (10:00)
[2016-11-16] MEDS: DULOXETINE HCL 30 MG CAPSULE.DR PO SCH (10:36)
[2016-11-16] MEDS: METOPROLOL SUCCINATE 25 MG TAB.SR.24H PO SCH (10:37)
[2016-11-16] MEDS: FLUTICASONE NASAL SPRAY 50 MCG/SPRY 120 SPRAY/16 GM NASL SCH (10:37)
[2016-11-16] MEDS: ESTROGENS,CONJUGATED 0.3 MG TABLET PO SCH (10:37)
[2016-11-16] MEDS: LEVOFLOXACIN 750 MG TABLET PO SCH (10:40)
[2016-11-16] MEDS: GUAIFENESIN 600 MG TABLET.SA PO SCH ×2 (10:40→22:44)
[2016-11-16] MEDS: ASPIRIN 81 MG TABLET, CHEWABLE PO SCH (10:40)
[2016-11-16] MEDS: LISINOPRIL 5 MG TABLET PO SCH (10:40)
[2016-11-16] MEDS ORDERED: METHYLPREDNISOLONE INJ 125 MG/2 ML SDV IV ONE (11:30)
--- NOTE | 2016-11-16 12:17 | PDOC CONSULTATION ---
Consultation Consult Date: 11/16/16 Attending physician:: GONZALO JUDGE Consult reason:: I have been asked to see this patient by Dr Pan for epigastric pain History of Present Illness Admission Date/PCP: 11/14/16 05:49 History of Present Illness: Patient admitted for COPD and respiratory issues she is ambulatory patient does have SOB has been having several months of epigastric pain and discomfort it is associated with bloating she does admit to early satiety there is no melena denies use of excessive NSAIDS patient states no dysphagia odynophagia there is no nausea or vomiting she had not had an EGD in the past s/p cholecystectomy in the past Past Medical History Cardiac Medical History: Reports: Hyperlipidema, Hypertension Pulmonary Medical History: Reports: Chronic Obstructive Pulmonary Disease (COPD) , Pneumonia Endocrine Medical History: Reports: Hypothyroidism GI Medical History: Reports: Gastroesophageal Reflux Disease Musculoskeltal Medical History: Reports: Arthritis Psychiatric Medical History: Reports: Depression Past Surgical History Past Surgical History: Reports: Cholecystectomy, Hysterectomy Social History Lives with: Family Smoking Status: Current Some Day Smoker Cigarettes Packs Per Day: 1 Number of Years Smokin Frequency of Alcohol Use: None Hx Recreational Drug Use: No Drugs: None Hx Prescription Drug Abuse: No - Advance Directive Resuscitation Status: Full Code Family History Family History: Reviewed & Not Pertinent Parental Family History Reviewed: Yes Children Family History Reviewed: Unknown Sibling(s) Family History Reviewed.: Unknown Medication/Allergy Home Medications: Nexium 40 mg PO DAILY 07/11/11 Premarin 1.25 mg Tablet 1.25 mg PO DAILY 07/11/11 Montelukast Sodium [Singulair 10 mg Tablet] 10 mg PO QHS 03/15/14 Albuterol Sulfate [Albuterol Sulfate Hfa] 1 puff IH PRN PRN 10/12/14 Amlodipine Besylate 10 mg PO DAILY 10/12/14 Duloxetine HCl [Cymbalta] 90 mg PO DAILY 10/12/14 Fluticasone/Salmeterol [Advair 500-50 Diskus 28 Dose] 1 puff IH Q12 10/12/14 Levothyroxine Sodium [Synthroid] 125 mcg PO DAILY 10/12/14 Lisinopril [Prinivil 5 mg Tablet] 5 mg PO DAILY 10/12/14 Metoprolol Succinate 75 mg PO DAILY 10/12/14 Oxycodone HCl [Oxy-Ir 5 mg Tablet] 10 mg PO Q4HP PRN 10/12/14 Oxycodone HCl [Oxycontin] 20 mg PO TID 10/12/14 Simvastatin 20 mg PO DAILY 10/12/14 Tiotropium [place] [Spiriva Handihaler 5 Cap/Kit (18 Mcg/Cap)] 1 cap IH DAILY Amox Tr/Potassium Clavulanate [Augmentin 875-125 mg Tablet] 1 tab PO BID #10 tablet 10/15/14 Aspirin [Aspirin 81 mg Chewable Tablet] 81 mg PO DAILY #0 tab.chew 10/15/14 Prednisone 10 mg PO ASDIR PRN #39 tablet 10/15/14 Levofloxacin [Levaquin 750 mg Tablet] 750 mg PO DAILY #10 tablet 05/31/15 Prednisone [Deltasone 20 mg Tablet] 3 tab PO DAILY 5 Days 05/31/15 Amlodipine Besylate 10 mg PO DAILY 09/26/15 Duloxetine HCl 90 mg PO DAILY 09/26/15 Fluticasone/Salmeterol [Advair 500-50 Diskus 28 Dose] 1 inh IH Q12H 09/26/15 Aspirin 81 mg PO DAILY 09/27/15 Albuterol Sulfate [Albuterol Sulfate 2.5mg/3 mL] 2.5 mg IH Q4HP PRN 11/14/16 Atorvastatin Calcium [Lipitor 80 mg Tablet] 80 mg PO QHS 11/14/16 Esomeprazole Mag Trihydrate [Nexium] 40 mg PO DAILY 11/14/16 Fluticasone/Vilanterol [Breo Ellipta 100-25 Mcg INH] 1 puff IH DAILY 11/14/16 Levothyroxine Sodium [Synthroid 0.1 mg Tablet] 0.1 mg PO QPM 11/14/16 Metoprolol Succinate [Toprol Xl 50 mg Tab.sr] 50 mg PO DAILY 11/14/16 Montelukast Sodium [Singulair 10 mg Tablet] 10 mg PO QHS 11/14/16 Oxycodone HCl [Oxycodone HCl 10 MG Tablet] 10 mg PO 5XDP PRN 11/14/16 Oxycodone HCl [Oxycontin] 20 mg PO Q8 11/14/16 Allergies/Adverse Reactions: adhesive tape Allergy (Verified 10/18/15 18:12) roflumilast Adverse Reaction (Verified 10/18/15 18:12) Review of Systems Constitutional: ABSENT: fever(s), headache(s), night sweats, weakness Eyes: ABSENT: visual disturbances Ears: ABSENT: hearing changes Nose, Mouth, and Throat: ABSENT: mouth pain, sore throat Cardiovascular: PRESENT: dyspnea on exertion. ABSENT: chest pain, palpitations Respiratory: ABSENT: hemoptysis Gastrointestinal: PRESENT: abdominal pain. ABSENT: coffee ground emesis, diarrhea, nausea, vomiting Genitourinary: ABSENT: dysuria, hematuria Musculoskeletal: ABSENT: deformity Integumentary: ABSENT: lesions, pruritus Neurological: ABSENT: focal weakness, frequent falls, syncope, tingling, tremor( s), vertigo Endocrine: ABSENT: polydipsia, polyphagia, polyuria Hematologic/Lymphatic: ABSENT: easy bruising Physical Exam Vital Signs: Temp Pulse Resp BP Pulse Ox 97.4 F 75 14 151/95 H 93 11/16/16 08:00 11/16/16 08:13 11/16/16 08:13 11/16/16 08:00 11/16/16 08:13 Intake & Output 11/15/16 11/16/16 11/17/16 06:59 06:59 06:59 Intake Total 1660 1666 Balance 1660 1666 Weight 84.9 kg 86.2 kg General appearance: PRESENT: mild distress, well-developed, well-nourished Head exam: PRESENT: atraumatic, normocephalic Eye exam: PRESENT: EOMI, PERRLA. ABSENT: conjunctival injection, nystagmus, periorbital swelling Mouth exam: PRESENT: moist, neck supple Throat exam: ABSENT: tonsillar exudate, tonsillogmegaly Neck exam: ABSENT: meningismus, tenderness, thyromegaly Respiratory exam: PRESENT: symmetrical, tachypnea. ABSENT: chest wall tenderness, wheezes Cardiovascular exam: PRESENT: RRR, +S1, +S2 Pulses: PRESENT: normal carotid pulses GI/Abdominal exam: PRESENT: soft. ABSENT: ascites, Boyle's sign, rebound, rigid, tenderness Extremities exam: ABSENT: joint swelling Musculoskeletal exam: PRESENT: full ROM Neurological exam: PRESENT: oriented to time, oriented to situation, reflexes normal, CN II-XII grossly intact Psychiatric exam: PRESENT: appropriate affect Skin exam: PRESENT: normal color. ABSENT: mottled, pallor, petechiae, urticaria , vesicles Results Laboratory Results: 11/16/16 04:05 11/16/16 04:05 11/16/16 11/16/16 04:05 04:05 WBC 20.2 H RBC 4.33 Hgb 12.8 Hct 37.8 MCV 87 MCH 29.6 MCHC 34.0 RDW 14.0 Plt Count 462 H Seg Neutrophils % Not Reportable Lymphocytes % Not Reportable Monocytes % Not Reportable Eosinophils % Not Reportable Basophils % Not Reportable Absolute Neutrophils Not Reportable Absolute Lymphocytes Not Reportable Absolute Monocytes Not Reportable Absolute Eosinophils Not Reportable Absolute Basophils Not Reportable Sodium 136.3 L Potassium 4.2 Chloride 96 L Carbon Dioxide 31 H Anion Gap 9 BUN 16 Creatinine 0.54 Est GFR ( Amer) > 60 Est GFR (Non-Af Amer) > 60 Glucose 104 Calcium 9.3 11/14/16 06:45 Sputum Gram Stain - Final 11/14/16 06:45 Sputum Sputum Culture - Final NORMAL PASCUAL Impressions: Chest X-Ray 11/14/16 00:38 IMPRESSION: COPD. NO ACUTE RADIOGRAPHIC FINDING IN THE CHEST. Chest/Abdomen CTA 11/14/16 04:22 IMPRESSION: 1. NORMAL CTA OF THE CHEST. NO PULMONARY EMBOLI. 2. FAINT TREE-IN-BUD APPEARANCE PARTICULARLY IN THE LEFT LUNG. THIS IS NONSPECIFIC AND COULD BE INDICATIVE OF INFLAMMATION OR INFECTION. Assessment & Plan - Diagnosis (1) Epigastric pain Is this a current diagnosis for this admission?: YesPlan: could be related to peptic ulcer disease it is associated with bloating as well may have H.Pylori will need EGD Risks, benefits and alternatives are discussed with the patient in detail Further recommendations to follow she is already on a PPI patient has some SOB and so will allow for respiratory improvement prior to undertaking EGD patient is willing to have it done I have spoken with Dr Pan - Time Time Spent: 50 to 70 Minutes
[2016-11-16] MEDS: METHYLPREDNISOLONE INJ 125 MG/2 ML SDV IV SCH (17:13)
[2016-11-16] MEDS: LEVOTHYROXINE SODIUM 0.1 MG TABLET PO SCH (17:13)
[2016-11-16] MEDS: ALPRAZOLAM 0.5 MG TABLET PO PRN (17:20)
[2016-11-16] MEDS: NICOTINE 14 MG/24 HR PATCH.TD24 TD PRN (17:20)
--- NOTE | 2016-11-16 17:54 | PDOC PROGRESS REPORT ---
Subjective Progress Note for:: 11/16/16 Subjective:: Patient has worsening shortness of breath today. She continues to have epigastric discomfort and inquires about having GI evaluation or in the hospital. Patient denies fever, chills, headache, new focal weakness, chest pain , vomiting, diarrhea, constipation. Physical Exam Vital Signs: Temp Pulse Resp BP Pulse Ox 97.4 F 88 21 H 136/86 H 97 11/16/16 16:00 11/16/16 16:00 11/16/16 16:00 11/16/16 16:00 11/16/16 16:00 Intake & Output 11/15/16 11/16/16 11/17/16 06:59 06:59 06:59 Intake Total 1660 1666 724 Balance 1660 1666 724 Weight 84.9 kg 86.2 kg GENERAL: No acute distress HEENT: Conjunctiva clear, nonicteric, moist mucous membranes, no JVD, midline trachea RESPIRATORY: Bilateral inspiratory/expiratory wheezes, good air excursion CARDIAC: Regular rate and rhythm, no murmurs/gallops/rubs ABDOMEN: Soft, nondistended, mild epigastric tenderness, positive bowel sounds, no rebound, no guarding EXTREMETIES: No edema, cyanosis, clubbing NEUROLOGIC: Alert, oriented to person/place/time, CN's grossly intact, no focal deficits SKIN: No rash, wounds PSYCH: Normal mood, normal affect Results Laboratory Results: 11/16/16 04:05 11/16/16 04:05 11/16/16 11/16/16 04:05 04:05 WBC 20.2 H RBC 4.33 Hgb 12.8 Hct 37.8 MCV 87 MCH 29.6 MCHC 34.0 RDW 14.0 Plt Count 462 H Seg Neutrophils % Not Reportable Lymphocytes % Not Reportable Monocytes % Not Reportable Eosinophils % Not Reportable Basophils % Not Reportable Absolute Neutrophils Not Reportable Absolute Lymphocytes Not Reportable Absolute Monocytes Not Reportable Absolute Eosinophils Not Reportable Absolute Basophils Not Reportable Sodium 136.3 L Potassium 4.2 Chloride 96 L Carbon Dioxide 31 H Anion Gap 9 BUN 16 Creatinine 0.54 Est GFR ( Amer) > 60 Est GFR (Non-Af Amer) > 60 Glucose 104 Calcium 9.3 11/14/16 06:45 Sputum Gram Stain - Final 11/14/16 06:45 Sputum Sputum Culture - Final NORMAL PASCUAL Impressions: Chest X-Ray 11/14/16 00:38 IMPRESSION: COPD. NO ACUTE RADIOGRAPHIC FINDING IN THE CHEST. Chest/Abdomen CTA 11/14/16 04:22 IMPRESSION: 1. NORMAL CTA OF THE CHEST. NO PULMONARY EMBOLI. 2. FAINT TREE-IN-BUD APPEARANCE PARTICULARLY IN THE LEFT LUNG. THIS IS NONSPECIFIC AND COULD BE INDICATIVE OF INFLAMMATION OR INFECTION. Abdomen/Pelvis CT 11/16/16 00:00 IMPRESSION: 1. Hepatomegaly. 2. Diverticulosis coli with no evidence of acute inflammatory changes. Assessment & Plan - Diagnosis (1) Acute hypoxemic respiratory failure Is this a current diagnosis for this admission?: YesPlan: Continue oxygen supplementation. (2) COPD with exacerbation Is this a current diagnosis for this admission?: YesPlan: Patient has decompensated since transitioning from IV Solu-Medrol to prednisone. I will discontinue prednisone and resume IV Solu-Medrol. When necessary albuterol nebulizer treatments. (3) Pneumonia Qualifiers: Pneumonia type: due to unspecified organism Laterality: unspecified laterality Lung location: unspecified part of lung Qualified Code(s): J18.9 - Pneumonia, unspecified organism Is this a current diagnosis for this admission?: YesPlan: Likely bacterial. Continue oral Levaquin. (4) HTN (hypertension) Qualifiers: Hypertension type: essential hypertension Qualified Code(s): I10 - Essential (primary) hypertension Is this a current diagnosis for this admission?: Yes (5) Hypothyroid Is this a current diagnosis for this admission?: Yes (6) Tobacco dependence Is this a current diagnosis for this admission?: Yes (7) Chronic pain Is this a current diagnosis for this admission?: Yes (8) Epigastric pain Is this a current diagnosis for this admission?: YesPlan: Prevacid. Patient takes Nexium as an outpatient. Consult Dr. Saha of GI for EGD. CT of abdomen and pelvis on 11/16/2016 shows diverticulosis, hepatomegaly, but no acute process. - Time Time Spent with patient: 35 or more minutes Anticipated discharge: Home Within: within 72 hours
[2016-11-17] MEDS: METHYLPREDNISOLONE INJ 125 MG/2 ML SDV IV SCH ×3 (02:58→17:21)
[2016-11-17 05:11] LABS: ANION GAP 11 (5-19); BLOOD UREA NITROGEN 17 mg/dL (7-20); CALCIUM 8.9 mg/dL (8.4-10.2); CARBON DIOXIDE 32 mmol/L (22-30); CHLORIDE 93 mmol/L (98-107); CREATININE RESULT 0.61 mg/dL (0.52-1.25); GLUCOSE 142 mg/dL (75-110); SODIUM 136.4 mmol/L (137-145)
[2016-11-17 05:32] LABS: HEMATOCRIT 37.3 % (36.0-47.0); HEMOGLOBIN 12.7 g/dL (12.0-15.5); HGB HCT DIFFERENCE 0.8; MEAN CORPUSCULAR HEMOGLOBIN 29.6 pg (27.0-33.4); MEAN CORPUSCULAR HGB CONC 34.2 g/dL (32.0-36.0); MEAN CORPUSCULAR VOLUME 87 fl (80-97); RED BLOOD COUNT 4.31 10^6/uL (3.72-5.28); RED CELL DISTRIBUTION WIDTH 14.4 % (11.5-14.0); WHITE BLOOD COUNT 13.4 10^3/uL (4.0-10.5)
[2016-11-17 05:58] LABS: BAND NEUTROPHILS % (MANUAL) 4 % (3-5); BASOPHILS % (MANUAL) 0 % (0-2); EOSINOPHILS % (MANUAL) 0 % (0-6); LYMPHOCYTES % (MANUAL) 13 % (13-45); TOTAL CELLS COUNTED 100
[2016-11-17 05:59] LABS: ANISOCYTOSIS SLIGHT; OVALOCYTES SLIGHT; POIKILOCYTOSIS SLIGHT; SCHISTOCYTES SLIGHT; TOXIC GRANULATION SLIGHT
[2016-11-17] MEDS: LANSOPRAZOLE 30 MG TAB.RAP.DR PO SCH ×2 (06:17→17:21)
[2016-11-17] MEDS: OXYCODONE HCL SR 10 MG TABLET PO SCH ×3 (06:17→22:26)
[2016-11-17] MEDS: HEPARIN SOD (PORCINE) 5,000 UNIT/ML 1 ML SYRINGE SUBCUT SCH ×3 (06:18→22:25)
[2016-11-17] MEDS: ALBUTEROL SULFATE 0.083% NEB 2.5 MG/3 ML AMPUL NEB PRN ×2 (08:21→20:01)
[2016-11-17] MEDS: BUDESONIDE NEB 0.5 MG/2 ML AMPUL NEB SCH ×2 (08:21→20:00)
[2016-11-17] MEDS: AMLODIPINE BESYLATE 10 MG TABLET PO SCH (08:25)
[2016-11-17] MEDS: METOPROLOL SUCCINATE 25 MG TAB.SR.24H PO SCH (09:50)
[2016-11-17] MEDS: LEVOFLOXACIN 750 MG TABLET PO SCH (09:50)
[2016-11-17] MEDS: ASPIRIN 81 MG TABLET, CHEWABLE PO SCH (09:50)
[2016-11-17] MEDS: GUAIFENESIN 600 MG TABLET.SA PO SCH ×2 (09:51→22:26)
[2016-11-17] MEDS: LISINOPRIL 5 MG TABLET PO SCH (09:51)
[2016-11-17] MEDS: DULOXETINE HCL 30 MG CAPSULE.DR PO SCH (09:51)
[2016-11-17] MEDS: FLUTICASONE NASAL SPRAY 50 MCG/SPRY 120 SPRAY/16 GM NASL SCH (09:54)
[2016-11-17] MEDS: ESTROGENS,CONJUGATED 0.3 MG TABLET PO SCH (09:54)
--- NOTE | 2016-11-17 14:44 | PDOC PROGRESS REPORT ---
Subjective Progress Note for:: 11/17/16 Subjective:: patient is schedule for possible EGD tomorrow patient is having epigastric pain and burning sensation in her abdomen patient documented to have left floor, ? possible smoking should be able to proceed unless her respiratory status has taken a turn for the worse patient denies any fever or chills there is no melena Physical Exam Vital Signs: Temp Pulse Resp BP Pulse Ox 97.9 F 78 16 138/83 H 96 11/17/16 12:00 11/17/16 12:00 11/17/16 12:00 11/17/16 12:00 11/17/16 12:00 Intake & Output 11/16/16 11/17/16 11/18/16 06:59 06:59 06:59 Intake Total 1666 1380 Balance 1666 1380 Weight 86.2 kg 87.2 kg General appearance: PRESENT: well-developed, well-nourished Head exam: PRESENT: atraumatic, normocephalic Eye exam: PRESENT: EOMI, PERRLA. ABSENT: nystagmus, periorbital swelling, scleral icterus Throat exam: ABSENT: tonsillar exudate, tonsillogmegaly Neck exam: ABSENT: meningismus, tenderness, thyromegaly Respiratory exam: PRESENT: symmetrical, unlabored. ABSENT: wheezes Cardiovascular exam: PRESENT: RRR, +S1, +S2 GI/Abdominal exam: PRESENT: soft. ABSENT: Boyle's sign, rebound, rigid, tenderness Musculoskeletal exam: PRESENT: full ROM Neurological exam: PRESENT: oriented to time, oriented to situation, reflexes normal, CN II-XII grossly intact Psychiatric exam: PRESENT: appropriate affect Skin exam: PRESENT: normal color. ABSENT: mottled, pallor, urticaria, vesicles Results Laboratory Results: 11/17/16 04:01 11/17/16 04:01 11/17/16 11/17/16 04:01 04:01 WBC 13.4 H RBC 4.31 Hgb 12.7 Hct 37.3 MCV 87 MCH 29.6 MCHC 34.2 RDW 14.4 H Plt Count 465 H Seg Neutrophils % Not Reportable Lymphocytes % Not Reportable Monocytes % Not Reportable Eosinophils % Not Reportable Basophils % Not Reportable Absolute Neutrophils Not Reportable Absolute Lymphocytes Not Reportable Absolute Monocytes Not Reportable Absolute Eosinophils Not Reportable Absolute Basophils Not Reportable Sodium 136.4 L Potassium 4.0 Chloride 93 L Carbon Dioxide 32 H Anion Gap 11 BUN 17 Creatinine 0.61 Est GFR ( Amer) > 60 Est GFR (Non-Af Amer) > 60 Glucose 142 H Calcium 8.9 Impressions: Chest X-Ray 11/14/16 00:38 IMPRESSION: COPD. NO ACUTE RADIOGRAPHIC FINDING IN THE CHEST. Chest/Abdomen CTA 11/14/16 04:22 IMPRESSION: 1. NORMAL CTA OF THE CHEST. NO PULMONARY EMBOLI. 2. FAINT TREE-IN-BUD APPEARANCE PARTICULARLY IN THE LEFT LUNG. THIS IS NONSPECIFIC AND COULD BE INDICATIVE OF INFLAMMATION OR INFECTION. Abdomen/Pelvis CT 11/16/16 00:00 IMPRESSION: 1. Hepatomegaly. 2. Diverticulosis coli with no evidence of acute inflammatory changes. Assessment & Plan - Diagnosis (1) Epigastric pain Is this a current diagnosis for this admission?: YesPlan: ? possible PUD will need EGD Risks, benefits and alternatives are discussed with the patient in detail further recommendations to follow start her on PPI - Time Time Spent with patient: 15-24 minutes
[2016-11-17] MEDS: ALPRAZOLAM 0.5 MG TABLET PO PRN (14:49)
--- NOTE | 2016-11-17 15:42 | PDOC PROGRESS REPORT ---
Subjective Progress Note for:: 11/17/16 Subjective:: Patient has improved shortness of breath today. She continues to have epigastric discomfort. Patient denies fever, chills, headache, new focal weakness, chest pain, vomiting, diarrhea, constipation. Physical Exam Vital Signs: Temp Pulse Resp BP Pulse Ox 97.9 F 78 16 138/83 H 96 11/17/16 12:00 11/17/16 12:00 11/17/16 12:00 11/17/16 12:00 11/17/16 12:00 Intake & Output 11/16/16 11/17/16 11/18/16 06:59 06:59 06:59 Intake Total 1666 1380 Balance 1666 1380 Weight 86.2 kg 87.2 kg GENERAL: No acute distress HEENT: Conjunctiva clear, nonicteric, moist mucous membranes, no JVD, midline trachea RESPIRATORY: Bilateral inspiratory/expiratory wheezes, good air excursion CARDIAC: Regular rate and rhythm, no murmurs/gallops/rubs ABDOMEN: Soft, nondistended, mild epigastric tenderness, positive bowel sounds, no rebound, no guarding EXTREMETIES: No edema, cyanosis, clubbing NEUROLOGIC: Alert, oriented to person/place/time, CN's grossly intact, no focal deficits SKIN: No rash, wounds PSYCH: Normal mood, normal affect Results Laboratory Results: 11/17/16 04:01 11/17/16 04:01 11/17/16 11/17/16 04:01 04:01 WBC 13.4 H RBC 4.31 Hgb 12.7 Hct 37.3 MCV 87 MCH 29.6 MCHC 34.2 RDW 14.4 H Plt Count 465 H Seg Neutrophils % Not Reportable Lymphocytes % Not Reportable Monocytes % Not Reportable Eosinophils % Not Reportable Basophils % Not Reportable Absolute Neutrophils Not Reportable Absolute Lymphocytes Not Reportable Absolute Monocytes Not Reportable Absolute Eosinophils Not Reportable Absolute Basophils Not Reportable Sodium 136.4 L Potassium 4.0 Chloride 93 L Carbon Dioxide 32 H Anion Gap 11 BUN 17 Creatinine 0.61 Est GFR ( Amer) > 60 Est GFR (Non-Af Amer) > 60 Glucose 142 H Calcium 8.9 Impressions: Chest X-Ray 11/14/16 00:38 IMPRESSION: COPD. NO ACUTE RADIOGRAPHIC FINDING IN THE CHEST. Chest/Abdomen CTA 11/14/16 04:22 IMPRESSION: 1. NORMAL CTA OF THE CHEST. NO PULMONARY EMBOLI. 2. FAINT TREE-IN-BUD APPEARANCE PARTICULARLY IN THE LEFT LUNG. THIS IS NONSPECIFIC AND COULD BE INDICATIVE OF INFLAMMATION OR INFECTION. Abdomen/Pelvis CT 11/16/16 00:00 IMPRESSION: 1. Hepatomegaly. 2. Diverticulosis coli with no evidence of acute inflammatory changes. Assessment & Plan - Diagnosis (1) Acute hypoxemic respiratory failure Is this a current diagnosis for this admission?: YesPlan: Continue oxygen supplementation. (2) COPD with exacerbation Is this a current diagnosis for this admission?: YesPlan: Continue IV Solu-Medrol. When necessary albuterol nebulizer treatments. (3) Pneumonia Qualifiers: Pneumonia type: due to unspecified organism Laterality: unspecified laterality Lung location: unspecified part of lung Qualified Code(s): J18.9 - Pneumonia, unspecified organism Is this a current diagnosis for this admission?: YesPlan: Likely bacterial. Continue oral Levaquin. (4) HTN (hypertension) Qualifiers: Hypertension type: essential hypertension Qualified Code(s): I10 - Essential (primary) hypertension Is this a current diagnosis for this admission?: Yes (5) Hypothyroid Is this a current diagnosis for this admission?: YesPlan: Synthroid. (6) Tobacco dependence Is this a current diagnosis for this admission?: YesPlan: Counseled on smoking cessation. (7) Chronic pain Is this a current diagnosis for this admission?: Yes (8) Epigastric pain Is this a current diagnosis for this admission?: YesPlan: Prevacid. Patient takes Nexium as an outpatient. Consulted Dr. Saha of GI for EGD. CT of abdomen and pelvis on 11/16/2016 shows diverticulosis, hepatomegaly, but no acute process. - Time Time Spent with patient: 25-34 minutes Anticipated discharge: Home Within: within 48 hours
[2016-11-17] MEDS: LEVOTHYROXINE SODIUM 0.1 MG TABLET PO SCH (17:21)
[2016-11-18] MEDS: METHYLPREDNISOLONE INJ 125 MG/2 ML SDV IV SCH ×2 (02:46→13:55)
[2016-11-18] MEDS: OXYCODONE HCL SR 10 MG TABLET PO SCH ×2 (06:16→14:08)
[2016-11-18] MEDS: LANSOPRAZOLE 30 MG TAB.RAP.DR PO SCH (06:16)
[2016-11-18] MEDS: HEPARIN SOD (PORCINE) 5,000 UNIT/ML 1 ML SYRINGE SUBCUT SCH ×2 (06:17→14:00)
[2016-11-18 06:22] LABS: HEMATOCRIT 39.9 % (36.0-47.0); HEMOGLOBIN 13.1 g/dL (12.0-15.5); HGB HCT DIFFERENCE -0.6; MEAN CORPUSCULAR HEMOGLOBIN 28.8 pg (27.0-33.4); MEAN CORPUSCULAR HGB CONC 32.9 g/dL (32.0-36.0); MEAN CORPUSCULAR VOLUME 87 fl (80-97); RED BLOOD COUNT 4.57 10^6/uL (3.72-5.28); RED CELL DISTRIBUTION WIDTH 14.4 % (11.5-14.0); WHITE BLOOD COUNT 19.5 10^3/uL (4.0-10.5)
[2016-11-18 06:35] LABS: ANION GAP 9 (5-19); BLOOD UREA NITROGEN 16 mg/dL (7-20); CALCIUM 9.4 mg/dL (8.4-10.2); CARBON DIOXIDE 35 mmol/L (22-30); CHLORIDE 93 mmol/L (98-107); CREATININE RESULT 0.61 mg/dL (0.52-1.25); GLUCOSE 122 mg/dL (75-110); POTASSIUM 4.9 mmol/L (3.6-5.0); SODIUM 136.7 mmol/L (137-145)
[2016-11-18 06:41] LABS: BASOPHILS % (MANUAL) 0 % (0-2); EOSINOPHILS % (MANUAL) 0 % (0-6); LYMPHOCYTES % (MANUAL) 11 % (13-45); TOTAL CELLS COUNTED 100
[2016-11-18 06:42] LABS: ANISOCYTOSIS SLIGHT; TOXIC GRANULATION SLIGHT
[2016-11-18] MEDS: BUDESONIDE NEB 0.5 MG/2 ML AMPUL NEB SCH (07:53)
[2016-11-18] MEDS ORDERED: DIPHENHYDRAMINE HCL 50 MG/ML VIAL ONE (11:18)
[2016-11-18] MEDS ORDERED: NALOXONE HCL INJ/PF 0.4 MG/1 ML SDV ONE (11:18)
[2016-11-18] MEDS ORDERED: MIDAZOLAM 2 MG/2 ML INJ ONE ×2 (11:18)
[2016-11-18] MEDS ORDERED: ONDANSETRON HCL INJ/PF 4 MG/2 ML SDV ONE (11:18)
[2016-11-18] MEDS ORDERED: FLUMAZENIL INJ 0.5 MG/5 ML VIAL IV ONE (11:19)
[2016-11-18] MEDS ORDERED: EPINEPHRINE INJ 1 MG/10 ML DISP.SYRIN ONE (11:19)
[2016-11-18] MEDS ORDERED: FENTANYL CITRATE INJ/PF 100 MCG/2 ML AMPUL ONE (11:19)
[2016-11-18] MEDS ORDERED: GLUCAGON,HUMAN RECOMB 1 MG INJ ONE (11:19)
--- NOTE | 2016-11-18 13:13 | Operative Report ---
Operative Report DATE OF SURGERY: 11/18/16 Operative Report: The risks benefits and alternatives of the procedure explained to the patient in detail and informed consent is obtained that GIF Olympus video scope was inserted into the patient's mouth and hypopharynx the esophagus is identified intubated and insufflated the scope was then advanced through the esophagus stomach and duodenum retroflexion maneuver is done the esophagus stomach and first and second portions of the duodenum examined PREOPERATIVE DIAGNOSIS: Epigastric pain, abdominal distention POSTOPERATIVE DIAGNOSIS: Nodular gastritis status post biopsy OPERATION: EGD with biopsy SURGEON: GONZALO JUDGE ANESTHESIA: Moderate Sedation - 3 mg of Versed, 50 g of fentanyl. Conscious sedation monitoring time 30 minutes. TISSUE REMOVED OR ALTERED: Gastric specimens obtained COMPLICATIONS: None. ESTIMATED BLOOD LOSS: none. INTRAOPERATIVE FINDINGS: As described above. PROCEDURE: Patient tolerated procedure well. No immediate postprocedure complications are noted. Patient sent back to her room in good condition. Resume diet. Resume previous activity level. Wait on biopsies PPIs outpatient Treat for Helicobacter pylori if necessary
[2016-11-18] MEDS: METOPROLOL SUCCINATE 25 MG TAB.SR.24H PO SCH (14:05)
[2016-11-18] MEDS: DULOXETINE HCL 30 MG CAPSULE.DR PO SCH (14:07)
[2016-11-18] MEDS: ASPIRIN 81 MG TABLET, CHEWABLE PO SCH (14:07)
[2016-11-18] MEDS: LISINOPRIL 5 MG TABLET PO SCH (14:07)
[2016-11-18] MEDS: AMLODIPINE BESYLATE 10 MG TABLET PO SCH (14:07)
[2016-11-18] MEDS: GUAIFENESIN 600 MG TABLET.SA PO SCH (14:07)
[2016-11-18] MEDS: FLUTICASONE NASAL SPRAY 50 MCG/SPRY 120 SPRAY/16 GM NASL SCH (14:11)
[2016-11-18] MEDS: ESTROGENS,CONJUGATED 0.3 MG TABLET PO SCH (14:11)
[2016-11-18] MEDS: LEVOFLOXACIN 750 MG TABLET PO SCH (14:14)
[2016-11-18 16:44] VITALS: BP 145/80
--- NOTE | 2016-11-18 17:25 | PDOC DISCHARGE SUMMARY ---
General - Admit/Disc Date/PCP Admission Date/Primary Care Provider: 11/14/16 05:49 Discharge Date: 11/18/16 - Discharge Diagnosis (1) Acute hypoxemic respiratory failure Is this a current diagnosis for this admission?: Yes (2) COPD with exacerbation Is this a current diagnosis for this admission?: Yes (3) Pneumonia Is this a current diagnosis for this admission?: Yes (4) HTN (hypertension) Is this a current diagnosis for this admission?: Yes (5) Hypothyroid Is this a current diagnosis for this admission?: Yes (6) Tobacco dependence Is this a current diagnosis for this admission?: Yes (7) Chronic pain Is this a current diagnosis for this admission?: Yes (8) Acute gastritis Is this a current diagnosis for this admission?: Yes - Additional Information Resuscitation Status: Full Code Discharge Diet: Cardiac Discharge Activity: Slowly Increase Activity Home Medications: Nexium 40 mg PO DAILY 07/11/11 Premarin 1.25 mg Tablet 1.25 mg PO DAILY 07/11/11 Montelukast Sodium [Singulair 10 mg Tablet] 10 mg PO QHS 03/15/14 Albuterol Sulfate [Albuterol Sulfate Hfa] 1 puff IH PRN PRN 10/12/14 Amlodipine Besylate 10 mg PO DAILY 10/12/14 Duloxetine HCl [Cymbalta] 90 mg PO DAILY 10/12/14 Fluticasone/Salmeterol [Advair 500-50 Diskus 28 Dose] 1 puff IH Q12 10/12/14 Levothyroxine Sodium [Synthroid] 125 mcg PO DAILY 10/12/14 Lisinopril [Prinivil 5 mg Tablet] 5 mg PO DAILY 10/12/14 Metoprolol Succinate 75 mg PO DAILY 10/12/14 Oxycodone HCl [Oxy-Ir 5 mg Tablet] 10 mg PO Q4HP PRN 10/12/14 Oxycodone HCl [Oxycontin] 20 mg PO TID 10/12/14 Simvastatin 20 mg PO DAILY 10/12/14 Tiotropium [place] [Spiriva Handihaler 5 Cap/Kit (18 Mcg/Cap)] 1 cap IH DAILY Amox Tr/Potassium Clavulanate [Augmentin 875-125 mg Tablet] 1 tab PO BID #10 tablet 10/15/14 Aspirin [Aspirin 81 mg Chewable Tablet] 81 mg PO DAILY #0 tab.chew 10/15/14 Prednisone 10 mg PO ASDIR PRN #39 tablet 10/15/14 Levofloxacin [Levaquin 750 mg Tablet] 750 mg PO DAILY #10 tablet 05/31/15 Prednisone [Deltasone 20 mg Tablet] 3 tab PO DAILY 5 Days 05/31/15 Amlodipine Besylate 10 mg PO DAILY 09/26/15 Duloxetine HCl 90 mg PO DAILY 09/26/15 Aspirin 81 mg PO DAILY 09/27/15 Albuterol Sulfate [Albuterol Sulfate 2.5mg/3 mL] 2.5 mg IH Q4HP PRN 11/14/16 Atorvastatin Calcium [Lipitor 80 mg Tablet] 80 mg PO QHS 11/14/16 Fluticasone/Vilanterol [Breo Ellipta 100-25 Mcg INH] 1 puff IH DAILY 11/14/16 Levothyroxine Sodium [Synthroid 0.1 mg Tablet] 0.1 mg PO QPM 11/14/16 Metoprolol Succinate [Toprol Xl 50 mg Tab.sr] 50 mg PO DAILY 11/14/16 Montelukast Sodium [Singulair 10 mg Tablet] 10 mg PO QHS 11/14/16 Oxycodone HCl [Oxycodone HCl 10 MG Tablet] 10 mg PO 5XDP PRN 11/14/16 Oxycodone HCl [Oxycontin] 20 mg PO Q8 11/14/16 Alprazolam [Xanax 0.5 mg Tablet] 0.5 mg PO Q8HP PRN #30 tablet 11/18/16 Esomeprazole Mag Trihydrate [Nexium] 40 mg PO BID #60 capsule. 11/18/16 Estrogens,Conjugated [Premarin 0.3 mg Tablet] 0.3 mg PO DAILY tablet 11/18/16 Levofloxacin [Levaquin 750 mg Tablet] 750 mg PO DAILY #5 tablet 11/18/16 Lisinopril [Prinivil 5 mg Tablet] 5 mg PO DAILY #30 tablet 11/18/16 Prednisone [Deltasone 10 mg Tablet] 10 mg PO ASDIR PRN #21 tablet 11/18/16 History of Present Illness Patient complains of: Shortness of breath History of Present Illness: MAXWELL GREEN is a 55 year old female with a past medical history of COPD with persistent tobacco abuse, hypertension, hypothyroidism, osteoarthritis, fibromyalgia, dyslipidemia, GERD and depression. Who had been her usual state of health until approximately 1 week ago with complaints of shortness of breath and a nonproductive cough she sought evaluation emergency room 4 days ago started on IM prednisone 1 and DuoNeb. However over the last 24 hours she's developed a fever and a productive cough with green sputum and returns the emergency room for evaluation has a fever of 100.5. Chest x-ray is unremarkable but a CT of the chest is negative for PE but positive for left- sided infiltrate suggestive of pneumonia. She started on empiric and buttocks referred to the hospitalist for admission Hospital Course Hospital Course: Patient was admitted for COPD exacerbation. Treated with steroids and antibiotics and improved her course of hospitalization. She was counseled on cessation. She'll be discharged on steroid taper and antibiotics. Patient has epigastric pain and reflux disease. She takes Nexium as an outpatient. She underwent upper endoscopy by Dr. Saha which showed gastritis. She is status post cholecystectomy. Physical Exam Vital Signs: Temp Pulse Resp BP Pulse Ox 97.5 F 100 18 145/80 H 96 11/18/16 16:39 11/18/16 16:39 11/18/16 16:39 11/18/16 16:39 11/18/16 16:39 Intake & Output 11/17/16 11/18/16 11/19/16 06:59 06:59 06:59 Intake Total 1380 818 200 Balance 1380 818 200 Weight 87.2 kg 88.1 kg GENERAL: No acute distress HEENT: Conjunctiva clear, nonicteric, moist mucous membranes, no JVD, midline trachea RESPIRATORY: Faint bilateral wheezes, no rhonchi CARDIAC: Regular rate and rhythm, no murmurs/gallops/rubs ABDOMEN: Soft, nondistended, nontender, positive bowel sounds, no rebound, no guarding EXTREMETIES: No edema, cyanosis, clubbing NEUROLOGIC: Alert, oriented to person/place/time, CN's grossly intact, no focal deficits SKIN: No rash, wounds PSYCH: Normal mood, normal affect Results Laboratory Results: 11/18/16 05:32 11/18/16 05:32 11/18/16 11/18/16 05:32 05:32 WBC 19.5 H RBC 4.57 Hgb 13.1 Hct 39.9 MCV 87 MCH 28.8 MCHC 32.9 RDW 14.4 H Plt Count 469 H Seg Neutrophils % Not Reportable Lymphocytes % Not Reportable Monocytes % Not Reportable Eosinophils % Not Reportable Basophils % Not Reportable Absolute Neutrophils Not Reportable Absolute Lymphocytes Not Reportable Absolute Monocytes Not Reportable Absolute Eosinophils Not Reportable Absolute Basophils Not Reportable Sodium 136.7 L Potassium 4.9 Chloride 93 L Carbon Dioxide 35 H Anion Gap 9 BUN 16 Creatinine 0.61 Est GFR ( Amer) > 60 Est GFR (Non-Af Amer) > 60 Glucose 122 H Calcium 9.4 Impressions: Chest X-Ray 11/14/16 00:38 IMPRESSION: COPD. NO ACUTE RADIOGRAPHIC FINDING IN THE CHEST. Chest/Abdomen CTA 11/14/16 04:22 IMPRESSION: 1. NORMAL CTA OF THE CHEST. NO PULMONARY EMBOLI. 2. FAINT TREE-IN-BUD APPEARANCE PARTICULARLY IN THE LEFT LUNG. THIS IS NONSPECIFIC AND COULD BE INDICATIVE OF INFLAMMATION OR INFECTION. Abdomen/Pelvis CT 11/16/16 00:00 IMPRESSION: 1. Hepatomegaly. 2. Diverticulosis coli with no evidence of acute inflammatory changes. Qualifiers [place]INT BEING DISCHARGED WITH ANY OF THE FOLLOWING DIAGNOSIS?: No Plan Time Spent: Less than 30 Minutes
== END 2016-11-18 17:00 | disposition home or self-care (01) | DRG 189 ==
LOC: ER 23:54 → EH 11-14 05:49 → UNDOADMIN 11-14 05:57 → EH 11-14 05:57 → 4N 11-14 12:57
PROVIDERS: ADMIT Internal Medicine; ATTEND Internal Medicine
PROC: 0DB68ZX Excision of Stomach, Via Natural or Artificial Opening Endoscopic, Diagnostic (ICD-10-PCS; principal; 2016-11-18 11:00)
DX: J96.01 Acute respiratory failure with hypoxia (principal); J18.9 Pneumonia, unspecified organism; J44.0 Chronic obstructive pulmonary disease with (acute) lower respiratory infection; J44.1 Chronic obstructive pulmonary disease with (acute) exacerbation; K29.00 Acute gastritis without bleeding; I10 Essential (primary) hypertension; E03.9 Hypothyroidism, unspecified; G89.29 Other chronic pain; E78.5 Hyperlipidemia, unspecified; K21.9 Gastro-esophageal reflux disease without esophagitis; F32.9 Major depressive disorder, single episode, unspecified; M79.7 Fibromyalgia; M19.90 Unspecified osteoarthritis, unspecified site; Z79.82 Long term (current) use of aspirin; Z79.899 Other long term (current) drug therapy; F17.210 Nicotine dependence, cigarettes, uncomplicated; Z88.8 Allergy status to other drugs, medicaments and biological substances; Z90.49 Acquired absence of other specified parts of digestive tract; Z90.710 Acquired absence of both cervix and uterus
CPT/HCPCS: 36415; 43239; 71020; 71275; 74177; 80048; 80053; 82550; 82553; 83880; 84484; 85025; 87040; 87070; 87205; 88305; 93005; 93010; 94640; 94667; 94668; 94799; 96374; 96375; 99291; J0171; J0692; J1200; J1610; J1644; J1956; J2060; J2250; J2310; J2405; J2930; J3010; J3490; J7030; J7512; J7620

== ENCOUNTER 2016-12-16 21:50 | Inpatient (IN) | payer MEDICARE ==
[2016-12-16] MEDS ORDERED: IPRATROPIUM/ALBUTEROL 0.5-2.5 MG/3 ML AMPUL NEB ONE (22:05)
[2016-12-16] MEDS ORDERED: METHYLPREDNISOLONE INJ 125 MG/2 ML SDV IV ONE (22:06)
[2016-12-16] MEDS ORDERED: LEVOFLOXACIN 750 MG/D5W RTU 150 ML IV ONE (22:08)
--- NOTE | 2016-12-16 22:14 | ER Document Report ---
ED Respiratory Problem - General Stated Complaint: DIFFICULTY BREATHING Time Seen by Provider: 12/16/16 21:57 Mode of Arrival: Medic Information source: Patient, Emergency Med Personnel, [facility] Records Notes: This 56-year-old female patient past history of COPD, GERD, hypertension, hyperlipidemia, depression, chronic pain syndrome, fibromyalgia, osteoarthritis , hypothyroidism, who is on normally 2 L oxygen at home comes emergency room by EMS for worsening dyspnea. She reports she started getting worse with green productive cough late Monday evening or early Monday morning. He has been getting progressively worse. She was supposed to follow-up with her primary care provider Dr. Allen yesterday but felt too poorly to go. She has been running fevers. She reports taking Tylenol just after 8 PM this evening, her last breathing treatment treatment was just before 8 PM this evening. Last admitted here for COPD exacerbation and a left lower lobe infiltrate on 11/14. EMS reported a blood pressure of 80/40 in route and started normal saline IV. At this time her blood pressure is 135 systolic. TRAVEL OUTSIDE OF THE [place] IN LAST 30 DAYS: No - Related Data Allergies/Adverse Reactions: adhesive tape Allergy (Verified 12/16/16 22:29) roflumilast Adverse Reaction (Verified 12/16/16 22:29) Past Medical History - General Information source: Patient, Emergency Med Personnel, [facility] Records - Social History Smoking Status: Current Every Day Smoker Cigarette use (# per day): Yes Chew tobacco use (# tins/day): No Smoking Education Provided: No Frequency of alcohol use: None Drug Abuse: None Occupation: Unemployed Lives with: Alone Family History: Reviewed & Not Pertinent - Past Medical History Cardiac Medical History: Reports: Hx Hypercholesterolemia, Hx Hypertension Pulmonary Medical History: Reports: Hx COPD, Hx Pneumonia EENT Medical History: Reports: None Neurological Medical History: Reports: None Endocrine Medical History: Reports: Hx Hypothyroidism Renal/ Medical History: Reports: None GI Medical History: Reports: Hx Gastroesophageal Reflux Disease Musculoskeltal Medical History: Reports Hx Arthritis, Reports Hx Fibromyalgia, Reports Hx Musculoskeletal Deformity, Reports Hx Musculoskeletal Trauma, Reports Other - Chronic pain syndrome Skin Medical History: Reports None Psychiatric Medical History: Reports: Hx Depression Past Surgical History: Reports: Hx Cholecystectomy, Hx Hysterectomy - Immunizations Immunizations up to date: No Hx Diphtheria, Pertussis, Tetanus Vaccination: No Hx Pneumococcal Vaccination: 07/11/11 Review of Systems - Review of Systems Constitutional: Fever EENT: No symptoms reported Cardiovascular: No symptoms reported Respiratory: Cough, Short of breath, Sputum, Wheezing Gastrointestinal: No symptoms reported Genitourinary: No symptoms reported Female Genitourinary: Post menopausal Musculoskeletal: Back pain Skin: No symptoms reported Hematologic/Lymphatic: No symptoms reported Neurological/Psychological: Depression Physical Exam - Vital signs Vitals: Resp BP Pulse Ox 34 H 131/89 H 98 12/16/16 21:56 12/16/16 21:56 12/16/16 21:56 Interpretation: Tachycardic, Febrile - General General appearance: Alert In distress: Mild - HEENT Head: Normocephalic, Atraumatic Eyes: Normal Pupils: PERRL Neck: Normal - Respiratory Respiratory status: Retractions, Tachypnea Breath sounds: Productive cough, Rhonchi, Wheezing Chest palpation: Normal - Cardiovascular Rhythm: Regular, Tachycardia Heart sounds: Normal auscultation Murmur: No - Abdominal Inspection: Normal Bowel sounds: Normal Tenderness: Nontender - Back Back: Normal - Extremities General upper extremity: Normal inspection General lower extremity: Normal inspection. No: Edema - Neurological Neuro grossly intact: Yes - Psychological Associated symptoms: Normal affect, Normal mood - Skin Skin Temperature: Warm Skin Moisture: Dry Skin Color: Normal Course - Re-evaluation Re-evalutation: 12/17/16 00:13 Patient continues to have some retractions, tachypnea, pulse ox 95% on 2 L nasal cannula, prolonged expiratory phase with wheezes. - Vital Signs Vital signs: Temp Pulse Resp BP Pulse Ox 98.2 F 29 H 138/93 H 94 12/17/16 01:00 12/17/16 01:00 12/16/16 22:31 12/17/16 01:00 - Laboratory Result Diagrams: 12/16/16 21:55 12/16/16 21:55 Laboratory results interpreted by me: 12/16/16 12/16/16 12/17/16 21:55 21:55 01:13 WBC 16.8 H RDW 15.0 H Seg Neutrophils % 85.3 H Lymphocytes % 7.9 L Absolute Neutrophils 14.3 H Carbonic Acid 1.66 H ABG pCO2 55.2 H ABG pO2 70.0 L ABG HCO3 30.1 H ABG Total CO2 31.8 H ABG O2 Saturation 93.0 L Sodium 133.7 L Chloride 95 L Glucose 165 H Alkaline Phosphatase 149 H Creatine Kinase 28 L - Diagnostic Test Radiology reviewed: Image reviewed, Reports reviewed - Chest x-ray showed COPD without acute change - EKG Interpretation by Me EKG shows normal: Sinus rhythm, [place], Intervals, QRS Complexes. abnormal: ST-T Waves - T abnormalities Rate: Tachycardia - 126 [place]/QRS: Right axis deviation When compared to previous EKG there are: No significant change - Consults Dr. Lynn Time consulted: 02:10 Discharge - Discharge Clinical Impression: Acute exacerbation of chronic obstructive pulmonary disease (COPD) Hypotension Qualifiers: Hypotension type: unspecified hypotension type Qualified Code(s): I95.9 - Hypotension, unspecified Fever Qualifiers: Fever type: unspecified Qualified Code(s): R50.9 - Fever, unspecified Condition: Stable Disposition: ADMITTED INPATIENT Admitting Provider: Hospitalist Unit Admitted: IMCU Referrals: ZOE ALLEN DO [Primary Care Provider] - Follow up as needed
[2016-12-16 22:15] LABS: ABSOLUTE BASOPHILS # (AUTO) 0.1 10^3/uL (0.0-0.2); ABSOLUTE EOSINOPHILS # (AUTO) 0.1 10^3/uL (0.0-0.6); ABSOLUTE LYMPHOCYTES (AUTO) 1.3 10^3/uL (0.5-4.7); ABSOLUTE NEUT (AUTO) 14.3 10^3/uL (1.7-8.2); BASOPHILS % (AUTO) 0.5 % (0-2); EOSINOPHILS % (AUTO) 0.4 % (0-6); HEMATOCRIT 38.9 % (36.0-47.0); HEMOGLOBIN 12.7 g/dL (12.0-15.5); HGB HCT DIFFERENCE -0.8; LYMPHOCYTES % (AUTO) 7.9 % (13-45); MEAN CORPUSCULAR HGB CONC 32.7 g/dL (32.0-36.0); MEAN CORPUSCULAR VOLUME 89 fl (80-97); MONOCYTES % (AUTO) 5.9 % (3-13); RED BLOOD COUNT 4.39 10^6/uL (3.72-5.28); SEGMENTED NEUTROPHILS % (AUTO) 85.3 % (42-78); WHITE BLOOD COUNT 16.8 10^3/uL (4.0-10.5)
[2016-12-16 22:27] LABS: ALANINE AMINOTRANSFERASE 45 U/L (9-52); ALBUMIN 3.6 g/dL (3.5-5.0); ALKALINE PHOSPHATASE 149 U/L (38-126); ANION GAP 9 (5-19); ASPARTATE AMINO TRANSFERASE 27 U/L (14-36); BILIRUBIN,DIRECT 0.3 mg/dL (0.0-0.4); BILIRUBIN,TOTAL 0.5 mg/dL (0.2-1.3); BLOOD UREA NITROGEN 7 mg/dL (7-20); CALCIUM 9.6 mg/dL (8.4-10.2); CARBON DIOXIDE 30 mmol/L (22-30); CHLORIDE 95 mmol/L (98-107); CREATINE KINASE 28 U/L (30-135); CREATININE RESULT 0.57 mg/dL (0.52-1.25); GLUCOSE 165 mg/dL (75-110); POTASSIUM 3.7 mmol/L (3.6-5.0); SODIUM 133.7 mmol/L (137-145); TOTAL PROTEIN 6.5 g/dL (6.3-8.2)
[2016-12-16 22:38] LABS: CREATINE KINASE MB 0.42 ng/mL (<4.55)
[2016-12-16 22:41] LABS: TROPONIN I < 0.012 ng/mL
--- NOTE | 2016-12-16 22:58 | RADIOLOGY REPORT (SQ) ---
EXAM DESCRIPTION: CHEST SINGLE VIEW COMPLETED DATE/TIME: 12/16/2016 10:43 pm REASON FOR STUDY: COPD exacerbation COMPARISON: 11/14/2016 NUMBER OF VIEWS: One view. TECHNIQUE: Single frontal radiographic view of the chest acquired. LIMITATIONS: None. FINDINGS: LUNGS AND PLEURA: No opacities, masses or pneumothorax. No pleural effusion. Attenuated bl ood vessels and flattened anna-diaphragms. MEDIASTINUM AND HILAR STRUCTURES: No masses. Contour normal. HEART AND VASCULAR STRUCTURES: Heart normal in size. Normal vasculature. BONES: No acute findings. HARDWARE: None in the chest. OTHER: No other significant finding. IMPRESSION: COPD. NO ACUTE RADIOGRAPHIC FINDING IN THE CHEST. NO SIGNIFICANT CHANGE FROM PRIOR LAURA DY. TECHNICAL DOCUMENTATION: JOB ID: [id number] [employer]- All Rights Reserved
[2016-12-16] MEDS ORDERED: ALBUTEROL SULFATE 0.083% NEB 2.5 MG/3 ML AMPUL NEB ONE (23:12)
[2016-12-17] MEDS ORDERED: ALBUTEROL SULFATE 0.083% NEB 2.5 MG/3 ML AMPUL NEB ONE (00:11)
[2016-12-17] MEDS ORDERED: ACETAMINOPHEN 325 MG TABLET PO ONE (01:27)
[2016-12-17 01:34] LABS: ARTERIAL BLOOD BASE EXCESS 3.3 mmol/L
[2016-12-17 01:59] LABS: APPEARANCE,URINE SLIGHTLY-CLOUDY; BILIRUBIN,URINE NEGATIVE (NEGATIVE); GLUCOSE, URINE NEGATIVE (NEGATIVE); KETONES,URINE NEGATIVE (NEGATIVE); LEUKOCYTE ESTERASE,URINE NEGATIVE (NEGATIVE); NITRITE,URINE NEGATIVE (NEGATIVE); PROTEIN,URINE NEGATIVE (NEGATIVE); URINE SPECIFIC GRAVITY 1.013; UROBILINOGEN,URINE NEGATIVE mg/dL (<2.0)
[2016-12-17] MEDS ORDERED: NORMAL SALINE 1000 ML 1,000 ML IV ONE (02:19)
[2016-12-17] MEDS ORDERED: IPRATROPIUM/ALBUTEROL 0.5-2.5 MG/3 ML AMPUL NEB ONE (02:19)
[2016-12-17 05:32] LABS: VENOUS BLOOD HCO3 24.7 mmol/L (20-32); VENOUS BLOOD PCO2 61.5 mmHg (35-63); VENOUS BLOOD PH 7.22 (7.30-7.42)
[2016-12-17] MEDS ORDERED: INSULIN LISPRO 100 UNIT/ML 3 ML VIAL SUBCUT PRN (05:32)
[2016-12-17] MEDS ORDERED: GLUCAGON,HUMAN RECOMB 1 MG INJ IM PRN (05:32)
[2016-12-17] MEDS ORDERED: DEXTROSE 50%-WATER 25 GM/50 ML DISP.SYRIN IV PRN ×2 (05:32)
[2016-12-17] MEDS ORDERED: DEXTROSE 40% GEL 15 GM TUBE PO PRN ×2 (05:32)
[2016-12-17] MEDS ORDERED: GUAIFENESIN SYRP 200 MG/10 ML UDC PO PRN (05:34)
[2016-12-17] MEDS ORDERED: ALBUTEROL SULFATE 0.083% NEB 2.5 MG/3 ML AMPUL NEB PRN (05:34)
[2016-12-17] MEDS ORDERED: POTASSI CL 20 MEQ/50 ML RIDER 20 MEQ/50 ML RTUPB IV ONE (05:45)
--- NOTE | 2016-12-17 05:55 | PDOC H&P ---
History of Present Illness Admission Date/PCP: 12/17/16 02:21 DO David NG Patient complains of: Difficulty breathing History of Present Illness: MAXWELL GREEN is a 56 year old female with 2 L per nasal cannula 24/ 7 home O2 dependent COPD, continuing to smoke, one half pack of cigarettes a day , who presents to the emergency room for evaluation of a 48 hour history or so of progressive difficulty breathing, in particular much of any exertion. Green sputum. She has had nausea but no vomiting. Subjective fever. Mild dysuria. Several small diarrhea stools over the last 2 days. No abdominal discomfort. Mild chest discomfort only with a cough or when her shortness of breath is at its worst. Currently no chest discomfort. Has never been intubated for respiratory difficulty. Hospitalized on our service the first through the fifth of last month, with final diagnoses including acute hypoxemic respiratory failure, COPD exacerbation and pneumonia. Upper endoscopy at that time by Dr. Cook revealed gastritis. Discharge summary has been reviewed. Admitted to our service September 25 of last year with diagnoses including pneumonia , COPD exacerbation. History and physical has been reviewed. Patient has been discussed with emergency room physician who evaluated the patient. . Laboratory results are listed in [email or web address] and are reviewed. X-ray summary results are listed below, with full report(s) reviewed. EKG reviewed. Social history/personal habits: . Son lives with her. Unemployed. Half pack of cigarettes per day. No alcohol or illicit drug use. Allergies/adverse reactions are listed in [email or web address] and are reviewed. Home medications initially autopopulated into [employer] may not accurately reflect patient's true medications, dosages, and/or frequencies. ekg tech to reconcile medications. Unfortunately, patient not certain of all medications/dosages/frequencies. REVIEW OF SYSTEMS: Constitutional: See history and present illness. Eyes: Wears glasses ENT: Occasional mild dysphagia without aspiration. Denies hearing loss. Pulmonary: See history and present illness. Cardiovascular: See history and present illness. Gastrointestinal: See history and present illness. Skin: No current complaints, including rashes. Hematologic: Easy bruising. Neurologic: No current complaints, including numbness or tingling. Musculoskeletal: Chronic back pain. Psychiatric: Mild anxiety and depression. Denies suicidal or homicidal ideation. Endocrine: No current complaints, including polyuria. Genitourinary: See history and present illness. PHYSICAL EXAMINATION: 5 feet 10 inches tall. 85.5 kg. BMI 27 kg/m. Blood pressure 109/73. Pulse 92 and regular. 98% saturation on 2 L oxygen per nasal cannula. Respirations are 28 and unlabored, although patient has coarse breath sounds, audible without a stethoscope at times. Temperature 98.0. Slightly overweight otherwise well-nourished well-developed though chronically ill-appearing female who appears a number of years older than her stated age. Appears not to feel very well. Mildly anxious, without agitation. Cooperative. Female emergency room nurse Dolly is present. Skin is warm and dry. No grossly obvious evidence of rash in areas of skin examined. No subcutaneous nodules palpated. ENT: Hearing grossly normal to normal conversation. Tongue midline on protrusion pink and slightly tacky. Eyes: No scleral icterus. Pupils equal and reactive to light at 4 mm. Stephens conjunctivae. Neck is supple and nontender to gentle active range of motion and palpation. Midline trachea. No palpable thyroid nodule mass enlargement or tenderness. Lymphatic: No palpable cervical or clavicular nodes. Neck and lymphatic exams limited by patient body habitus. Psychiatric: Reasonable insight into acute and chronic medical issues. Oriented to time location and why here. Lungs: Auscultation reveals equal breath sounds bilaterally. Bilateral diffuse somewhat coarse breath sounds, with mild expiratory wheezing. Occasional rare use of her accessory respiratory muscles. Cardiovascular: Heart regular rate and rhythm, without gallop murmur or rub. No carotid or abdominal aortic bruits. No ankle or pedal edema. Faintly palpable dorsalis pedis pulses. Abdomen:soft slightly distended nontender with positive bowel sounds. Unable to adequately evaluate abdomen for masses or organomegaly due to distention. Extremities: Feet are warm and dry. No calf tenderness to compression. No grossly obvious visual evidence of calf swelling. Gentle manipulation of lower extremities fails to reveal any obvious evidence of injury or instability to knees hips or ankles. Neurologic: Moves upper extremities grossly normally. Patellar reflexes 1+ and symmetric.. Absent Babinski. Light touch is intact at feet. Dorsiflexion and plantarflexion of feet 5 / 5 and symmetric. Past Medical History Cardiac Medical History: Reports: Hyperlipidema, Hypertension Denies: Congestive Heart Failure, Coronary Artery Disease, DVT, Pulmonary Embolism Pulmonary Medical History: Reports: Chronic Obstructive Pulmonary Disease (COPD) , Pneumonia Denies: Sleep Apnea EENT Medical History: Reports: Eyes - Glasses, Throat - Mild occasional dysphagia without aspiration Denies: Ears Neurological Medical History: Denies: Hemorrhagic CVA, Ischemic CVA, Seizures Endocrine Medical History: Reports: Hypothyroidism Denies: Diabetes Mellitus Type 1, Diabetes Mellitus Type 2, Hyperthyroidism Renal/ Medical History: Reports: None GI Medical History: Reports: Gastroesophageal Reflux Disease Denies: Cirrhosis, Hepatitis, Peptic Ulcer Disease Musculoskeltal Medical History: Reports: Arthritis, Fibromyalgia, Other - Chronic pain syndrome Skin Medical History: Reports: None Psychiatric Medical History: Reports: Depression, General Anxiety Disorder, Tobacco Dependency Denies: Alcohol Dependency, Substance Abuse Hematology: Reports: Other - Easy bruising Infectious Medical History: Denies: Clostridium Difficile, Hepatitis B, Hepatitis C, Methicillin- Resistant Staph Aureus Past Surgical History Past Surgical History: Reports: Cholecystectomy, Hysterectomy Social History Information Source: Patient, Emergency Med Personnel, [facility] Records Lives with: Family Smoking Status: Current Every Day Smoker Frequency of Alcohol Use: None Hx Recreational Drug Use: No Drugs: None Hx Prescription Drug Abuse: No - Advance Directive Resuscitation Status: Full Code Surrogate healthcare decision maker:: Her son Family History Family History: Reviewed & Not Pertinent Parental Family History Reviewed: Yes - Parents of cancer. Children Family History Reviewed: Yes - Son is healthy. Sibling(s) Family History Reviewed.: Yes - Brother with COPD. Medication/Allergy Home Medications: Nexium 40 mg PO DAILY 07/11/11 Premarin 1.25 mg Tablet 1.25 mg PO DAILY 07/11/11 Montelukast Sodium [Singulair 10 mg Tablet] 10 mg PO QHS 03/15/14 Albuterol Sulfate [Albuterol Sulfate Hfa] 1 puff IH PRN PRN 10/12/14 Amlodipine Besylate 10 mg PO DAILY 10/12/14 Duloxetine HCl [Cymbalta] 90 mg PO DAILY 10/12/14 Fluticasone/Salmeterol [Advair 500-50 Diskus 28 Dose] 1 puff IH Q12 10/12/14 Levothyroxine Sodium [Synthroid] 125 mcg PO DAILY 10/12/14 Lisinopril [Prinivil 5 mg Tablet] 5 mg PO DAILY 10/12/14 Metoprolol Succinate 75 mg PO DAILY 10/12/14 Oxycodone HCl [Oxy-Ir 5 mg Tablet] 10 mg PO Q4HP PRN 10/12/14 Oxycodone HCl [Oxycontin] 20 mg PO TID 10/12/14 Simvastatin 20 mg PO DAILY 10/12/14 Tiotropium [place] [Spiriva Handihaler 5 Cap/Kit (18 Mcg/Cap)] 1 cap IH DAILY Amox Tr/Potassium Clavulanate [Augmentin 875-125 mg Tablet] 1 tab PO BID #10 tablet 10/15/14 Aspirin [Aspirin 81 mg Chewable Tablet] 81 mg PO DAILY #0 tab.chew 10/15/14 Prednisone 10 mg PO ASDIR PRN #39 tablet 10/15/14 Levofloxacin [Levaquin 750 mg Tablet] 750 mg PO DAILY #10 tablet 05/31/15 Prednisone [Deltasone 20 mg Tablet] 3 tab PO DAILY 5 Days 05/31/15 Albuterol Sulfate [Albuterol Sulfate 2.5mg/3 mL] 3 ml IN Q4HP PRN 12/17/16 Alprazolam [Xanax 0.5 mg Tablet] 0.5 mg PO Q8HP PRN 12/17/16 Amlodipine Besylate [Norvasc 10 mg Tablet] 10 mg PO DAILY 12/17/16 Aspirin [Ecotrin 81 mg EC Tablet] 81 mg PO DAILY 12/17/16 Atorvastatin Calcium [Lipitor 80 mg Tablet] 80 mg PO QHS 12/17/16 Duloxetine HCl 90 mg PO DAILY 12/17/16 Esomeprazole Magnesium [Nexium] 40 mg PO BID 12/17/16 Estrogens,Conjugated [Premarin 1.25 mg Tablet] 1.25 mg PO DAILY 12/17/16 Fluticasone/Salmeterol [Advair 500-50 Diskus 14 Dose/Diskus] 1 puff IH Q12 12/17 Levothyroxine Sodium [Synthroid 0.1 mg Tablet] 0.1 mg PO QPM 12/17/16 Lisinopril [Prinivil 5 mg Tablet] 5 mg PO DAILY 12/17/16 Metoprolol Succinate [Toprol Xl 50 mg Tab.sr] 50 mg PO DAILY 12/17/16 Montelukast Sodium [Singulair 10 mg Tablet] 10 mg PO QHS 12/17/16 Oxycodone HCl [Oxycodone HCl 10 MG Tablet] 10 mg PO 5XDP PRN 12/17/16 Oxycodone HCl [Oxycontin] 20 mg PO Q8 12/17/16 Acetaminophen [Tylenol 325 mg Tablet] 650 mg PO Q4HP PRN tablet 12/22/16 Amox Tr/Potassium Clavulanate [Augmentin 875-125 mg Tablet] 1 tab PO BID #16 tablet 12/22/16 Fluticasone Propionate [Flonase Nasal [place] 50 Mcg/[place] 16 gm] 2 spray NASL Q12A spray.pump 12/22/16 Prednisone [Deltasone 20 mg Tablet] 20 mg PO DAILY #3 tablet 12/22/16 Allergies/Adverse Reactions: adhesive tape Allergy (Verified 12/16/16 22:29) roflumilast Adverse Reaction (Verified 12/16/16 22:29) Physical Exam Vital Signs: Temp Pulse Resp BP Pulse Ox 98 F 18 109/73 98 12/17/16 05:14 12/17/16 05:14 12/17/16 05:14 12/17/16 05:14 Intake & Output 12/16/16 12/17/16 12/18/16 00:59 00:59 00:59 Weight 85.5 kg Results Laboratory Results: 12/17/16 05:10 VBG pH 7.22 L VBG pCO2 61.5 VBG HCO3 24.7 VBG Base Excess -4.0 Impressions: Chest X-Ray 12/16/16 22:07 IMPRESSION: COPD. NO ACUTE RADIOGRAPHIC FINDING IN THE CHEST. NO SIGNIFICANT CHANGE FROM PRIOR STUDY. Assessment & Plan - Diagnosis (1) Acute and chronic respiratory failure with hypercapnia Is this a current diagnosis for this admission?: Yes (2) Acute exacerbation of chronic obstructive pulmonary disease (COPD) Is this a current diagnosis for this admission?: YesPlan: Patient will be admitted under COPD exacerbation protocol. Incentive spirometry twice a day. Scheduled DuoNeb's. As needed albuterol nebs. Solu-Medrol. Prevacid for gastritis prophylaxis. Pulmonology consult. Antibiotics will consist of cefepime and intravenous Zithromax.. I strongly encouraged patient to notify staff should patient feel that breathing is worsening. Patient is a full code. I have strongly encouraged patient not to get out of bed without notifying staff , to avoid a fall with injury. Knee high SCDs for DVT prophylaxis, along with subcutaneous Lovenox. Impression and plans were discussed with patient who concurs. Time spent in evaluation and management of patient: 64 critical-care minutes. (3) HTN (hypertension) Qualifiers: Hypertension type: essential hypertension Qualified Code(s): I10 - Essential (primary) hypertension Is this a current diagnosis for this admission?: YesPlan: Resume home medications as appropriate once these have been determined and reviewed. (4) Hypothyroid Qualifiers: Hypothyroidism type: unspecified Qualified Code(s): E03.9 - Hypothyroidism, unspecified Is this a current diagnosis for this admission?: YesPlan: Resume home medications as appropriate once these have been determined and reviewed. - Inpatient Certification Based on my medical assessment, after consideration of the patient's comorbidities, presenting symptoms, or acuity I expect that the services needed warrant INPATIENT care.: Yes I certify that my determination is in accordance with my understanding of Medicare's requirements for reasonable and necessary INPATIENT services [42 CFR 412.3e].: Yes Medical Necessity: Significant Comorbidiites Make Outpatient Treatment Too Risky , Need Close Monitoring Due to Risk of Patient Decompensation, Need For IV Fluids, Need For Continuous Telemetry Monitoring, Need for Nebulizer Therapy and Monitoring of Response, Need for IV Antibiotics, Risk of Diagnosis Which Will Require Inpatient Eval/Care/Monitoring Post Hospital Care: D/C or Transfer Summary
[2016-12-17 05:57] LABS: ADD ON TESTING BLD IN LAB ACKNOWLEDGE
[2016-12-17] MEDS ORDERED: METHYLPREDNISOLONE INJ 125 MG/2 ML SDV IV SCH (06:00)
[2016-12-17] MEDS: ACETAMINOPHEN 325 MG TABLET PO PRN ×2 (06:19→21:48)
[2016-12-17] MEDS: NORMAL SALINE 1000 ML 1,000 ML IV PRN ×2 (06:20→18:20)
[2016-12-17] MEDS: LANSOPRAZOLE 30 MG TAB.RAP.DR PO SCH (06:20)
[2016-12-17 06:30] LABS: MAGNESIUM 0.9 mg/dL (1.6-2.3)
[2016-12-17] MEDS ORDERED: MAGNESIUM SULFATE 100 ML IV ONE (07:21)
[2016-12-17 08:05] LABS: HEMATOCRIT 35.5 % (36.0-47.0); HEMOGLOBIN 11.7 g/dL (12.0-15.5); HGB HCT DIFFERENCE -0.4; MEAN CORPUSCULAR HEMOGLOBIN 29.1 pg (27.0-33.4); MEAN CORPUSCULAR HGB CONC 32.9 g/dL (32.0-36.0); MEAN CORPUSCULAR VOLUME 88 fl (80-97); RED BLOOD COUNT 4.02 10^6/uL (3.72-5.28); RED CELL DISTRIBUTION WIDTH 15.3 % (11.5-14.0); VENOUS BLOOD BASE EXCESS 2.5 mmol/L; VENOUS BLOOD HCO3 29.3 mmol/L (20-32); VENOUS BLOOD PCO2 54.8 mmHg (35-63); VENOUS BLOOD PH 7.35 (7.30-7.42); WHITE BLOOD COUNT 17.5 10^3/uL (4.0-10.5)
[2016-12-17 08:25] LABS: ANION GAP 12 (5-19); BLOOD UREA NITROGEN 6 mg/dL (7-20); CARBON DIOXIDE 28 mmol/L (22-30); CHLORIDE 97 mmol/L (98-107); CREATININE RESULT 0.47 mg/dL (0.52-1.25); GLUCOSE 167 mg/dL (75-110); SODIUM 137.2 mmol/L (137-145)
[2016-12-17] MEDS: IPRATROPIUM/ALBUTEROL 0.5-2.5 MG/3 ML AMPUL NEB SCH ×2 (08:26→14:03)
[2016-12-17 08:32] LABS: BASOPHILS % (MANUAL) 1 % (0-2); EOSINOPHILS % (MANUAL) 0 % (0-6); LYMPHOCYTES % (MANUAL) 2 % (13-45); TOTAL CELLS COUNTED 100
[2016-12-17 08:36] LABS: ANISOCYTOSIS SLIGHT; BAND NEUTROPHILS % (MANUAL) 12 % (3-5); HYPOCHROMASIA SLIGHT; POLYCHROMASIA SLIGHT
--- NOTE | 2016-12-17 08:40 | Progress Note ---
Provider Note Provider Note: PASHA ARREOLA Search Criteria: Last Name 'Pasha' and First Name 'Lexy' and = ' and Request Period = '06/20/16' to '12/17/16' - 5 out of 5 Recipients Selected. Fill Date Product, Str, Form Qty Days Pt ID Prescriber Written RX# N/R* Pharm MED+ ------ ---- --------- --- ------- ----- --------- ------ 12/09/2016 ALPRAZOLAM 0.5 MG TABLET 30.00 30 [id number] 12/01/2016 [id number] N [id number] 00.0 11/19/2016 OXYCODONE HCL ER 20 MG TABLET 90.00 30 [id number] 10/19/2016 [id number] N [id number] 90.0 11/19/2016 OXYCODONE HCL 10 MG TABLET 160.00 30 [id number] 10/19/2016 [id number] N [id number] 80.0 11/18/2016 ALPRAZOLAM 0.5 MG TABLET 30.00 10 [id number] 11/18/2016 [id number] N [id number] 00.0 10/20/2016 OXYCODONE HCL 10 MG TABLET 160.00 31 [id number] 10/20/2016 [id number] N [id number] 77.42 10/20/2016 OXYCONTIN 20 MG TABLET 90.00 30 [id number] 10/19/2016 [id number] N [id number] 90.0 08/22/2016 OXYCODONE HCL 10 MG TABLET 160.00 30 [id number] 08/22/2016 [id number] N [id number] 80.0 08/22/2016 OXYCONTIN 20 MG TABLET 90.00 30 [id number] 08/22/2016 [id number] N [id number] 90.0 07/22/2016 OXYCONTIN 30 MG TABLET 90.00 30 [id number] 06/21/2016 [id number] N [id number] 135.0 07/22/2016 OXYCODONE HCL 10 MG TABLET 70.00 30 [id number] 06/21/2016 [id number] N [id number] 35.0 07/19/2016 ALPRAZOLAM 0.5 MG TABLET 90.00 30 [id number] 07/19/2016 [id number] N [id number] 00.0 06/22/2016 OXYCODONE HCL 10 MG TABLET 160.00 30 [id number] 06/21/2016 [id number] N [id number] 80.0 06/22/2016 OXYCONTIN 20 MG TABLET 90.00 30 [id number] 06/21/2016 [id number] N [id number] 90.0 [id number] JAYESH BOATENG E; [facility], [address] , [facility] [address] [id number] JAYESH BOATENG M, PA; [facility] [address] [facility] ,[facility] [address] [id number] ARMINDA RANDHAWA K, [employer]; [facility]3], [facility] [place] [address],[facility] [address] [id number] SARY FELICIANO MD; [facility], [address] [place] [id number] ZOE ALLEN; [facility], [address] [place] [address], [address], [facility] [address] Pharmacies that dispensed prescriptions listed
[2016-12-17] MEDS: ASPIRIN 81 MG TABLET, CHEWABLE PO SCH (09:41)
[2016-12-17] MEDS: LISINOPRIL 5 MG TABLET PO SCH (09:41)
[2016-12-17] MEDS: AMLODIPINE BESYLATE 10 MG TABLET PO SCH (09:41)
[2016-12-17] MEDS: DULOXETINE HCL 30 MG CAPSULE.DR PO SCH (09:42)
[2016-12-17] MEDS: METOPROLOL SUCCINATE 50 MG TAB.SR.24H PO SCH (09:42)
[2016-12-17] MEDS: ENOXAPARIN SODIUM INJ 40 MG/0.4 ML DISP.SYRIN SUBCUT SCH (09:47)
[2016-12-17] MEDS ORDERED: CEFEPIME 2 GM/D5W RTU 50 ML IV SCH (10:00)
[2016-12-17] MEDS ORDERED: (PENDING PHARMACY ID) (Fluticasone/Vilanterol [Breo Ellipta 100-25 Mcg Inh] 1 PUFF) IH SCH (10:00)
[2016-12-17] MEDS ORDERED: CEFEPIME HCL 2 GM in DEXTROSE 5%-WATER 50 ML IV SCH (10:00)
[2016-12-17] MEDS ORDERED: AZITHROMYCIN 500 MG in DEXTROSE 5%-WATER 250 ML IV SCH (10:00)
[2016-12-17] MEDS: OXYCODONE HCL SR 10 MG TABLET PO SCH ×2 (10:14→18:15)
[2016-12-17] MEDS: OXYCODONE HCL IR 5 MG TABLET PO PRN ×4 (10:15→22:48)
[2016-12-17] MEDS: ALPRAZOLAM 0.5 MG TABLET PO PRN (10:34)
--- NOTE | 2016-12-17 10:43 | EKG REPORT ---
SEVERITY:- BORDERLINE ECG - SINUS TACHYCARDIA BORDERLINE RIGHT AXIS DEVIATION BORDERLINE T WAVE ABNORMALITIES : Confirmed by: Marcelle Esteves 17-Dec-2016 10:42:44
[2016-12-17] MEDS ORDERED: NICOTINE 21 MG/24 HR PATCH.TD24 TD ONE (11:45)
[2016-12-17] MEDS: PROMETHAZINE HCL 25 MG TABLET PO PRN ×2 (12:12→22:37)
[2016-12-17] MEDS: METHYLPREDNISOLONE INJ 125 MG/2 ML SDV IV SCH ×2 (13:39→21:37)
[2016-12-17] MEDS ORDERED: LEVALBUTEROL HCL NEB 0.63 MG/3 ML AMPUL NEB PRN (14:13)
--- NOTE | 2016-12-17 14:49 | PROGRESS NOTE E ---
Progress Note NAME: MAXWELL GREEN : 1960 AGE: 56Y DATE: 12/17/2016 ROOM: 326 SUBJECTIVE: The patient is lying in bed. She states that she does not feel much better than when she came in at this time. The patient denies any nausea, vomiting. No diarrhea, dizziness, or chest pain. The patient's shortness of breath does persist. At times, the patient is unable to fully complete sentences. The patient has been afebrile. Her blood pressure has been in a good range and the patient does not voice any other concerns at this time. REVIEW OF SYSTEMS: The rest of the review of systems is negative. MEDICATIONS: Medications have been reviewed. OBJECTIVE: GENERAL: The patient is a 56-year-old female who is awake, alert, and oriented to person, place, time, and situation. She is verbal, conversational, does not appear to be in any acute distress. VITAL SIGNS: Temperature is 98.0, pulse is 96, respirations 16, blood pressure is 116/67, oxygen saturation is 100% on room air. SKIN: Warm and dry. There is no rash. She is not diaphoretic. HEENT: Pupils equal, round and reactive to light and accommodation. Conjunctivae are pink. NECK: There is no JVP. CARDIOVASCULAR: Heart is regular. There is no murmur or rub. CHEST: The patient does have expiratory wheezes noted in the upper lung king, symmetrical, slightly labored. ABDOMEN: Soft, nontender and nondistended. BACK: No CVA tenderness or sacral edema. EXTREMITIES: No clubbing, cyanosis, or edema. PSYCHIATRIC: Appropriate affect. Pleasant mood. DIAGNOSTIC DATA: Lab values are as follows: Hematology obtained on 12/17/2016: WBC's are 17.5; hemoglobin is 11.7; hematocrit is 35.5; platelet count is 301,000. Chemistries obtained on 12/17/2016: Sodium is 137, potassium 4.0, chloride is 97, carbon dioxide is 28, BUN is 6, creatinine is 0.97, glucose 167, calcium is 9.0. T4 is 0.8. IMPRESSION AND PLAN: 1. ACUTE ON CHRONIC OBSTRUCTIVE PULMONARY DISEASE EXACERBATION. Will continue with nebulizers and resume home inhalers. 2. ACUTE ON CHRONIC HYPOXEMIC RESPIRATORY FAILURE. Will continue nebulizers as well as supplemental O2 and follow. 3. TOBACCO DEPENDENCY. Spent 3 minutes discussing tobacco cessation education. The patient declines any pharmacological intervention at this time. However, will add p.r.n. nicotine patch. The patient is open to possible SNRI. However, she is currently on Cymbalta. 4. HYPOMAGNESEMIA. This has been repleted. 5. ELEVATED TSH. Will add T4. 6. HYPERTENSION. The patient blood pressures are in a good range. Will continue her home medications. 7. HYPERLIPIDEMIA. Will continue statin. 8. HYPOTHYROIDISM. Will continue home meds. 9. OPIOID DEPENDENCY, CONTINUOUS. Will continue the patient's home doses of medication. 10. CORONARY ARTERY DISEASE. Continue home meds. DISPOSITION: The patient is a FULL CODE. Pending the patient's symptomatology and diagnostic findings, will reevaluate in the a.m. TIME: Time spent on this followup including assessment, plan, physical examination, and patient education and speciality collaboration was 35 minutes. DICTATING PHYSICIAN: KELLEN REYNAGA NP [id number] PHY#: [id number] ID: [id number] JOB#: [id number] ACCT: [id number] cc: >
[2016-12-17] MEDS ORDERED: FLUTICASONE/SALMETEROL DISKUS 500-50 MCG/DOSE IH ONE (16:00)
[2016-12-17] MEDS: LEVOTHYROXINE SODIUM 0.1 MG TABLET PO SCH (18:15)
[2016-12-17] MEDS: FLUTICASONE NASAL SPRAY 50 MCG/SPRY 120 SPRAY/16 GM NASL SCH (18:18)
[2016-12-17] MEDS: LEVALBUTEROL HCL NEB 1.25 MG/3 ML AMPUL NEB SCH (20:42)
[2016-12-17] MEDS: ATORVASTATIN CALCIUM 80 MG TABLET PO SCH (21:38)
[2016-12-17] MEDS: DOXYCYCLINE HYCLATE 100 MG TABLET PO SCH (21:39)
[2016-12-17] MEDS: MONTELUKAST SODIUM 10 MG TABLET PO SCH (21:39)
[2016-12-18] MEDS: OXYCODONE HCL SR 10 MG TABLET PO SCH ×3 (02:37→16:47)
[2016-12-18 04:54] LABS: HEMATOCRIT 35.9 % (36.0-47.0); HEMOGLOBIN 11.7 g/dL (12.0-15.5); HGB HCT DIFFERENCE -0.8; MEAN CORPUSCULAR HEMOGLOBIN 28.8 pg (27.0-33.4); MEAN CORPUSCULAR HGB CONC 32.6 g/dL (32.0-36.0); MEAN CORPUSCULAR VOLUME 88 fl (80-97); RED BLOOD COUNT 4.06 10^6/uL (3.72-5.28); RED CELL DISTRIBUTION WIDTH 15.2 % (11.5-14.0); WHITE BLOOD COUNT 19.3 10^3/uL (4.0-10.5)
[2016-12-18] MEDS: METHYLPREDNISOLONE INJ 125 MG/2 ML SDV IV SCH ×3 (05:03→22:09)
[2016-12-18 05:04] LABS: ANION GAP 8 (5-19); BLOOD UREA NITROGEN 11 mg/dL (7-20); CALCIUM 8.7 mg/dL (8.4-10.2); CARBON DIOXIDE 29 mmol/L (22-30); CHLORIDE 100 mmol/L (98-107); CREATININE RESULT 0.56 mg/dL (0.52-1.25); GLUCOSE 177 mg/dL (75-110); MAGNESIUM 1.8 mg/dL (1.6-2.3); POTASSIUM 4.3 mmol/L (3.6-5.0); SODIUM 136.6 mmol/L (137-145)
[2016-12-18] MEDS: FLUTICASONE/SALMETEROL DISKUS 500-50 MCG/DOSE IH SCH ×2 (05:04→16:48)
[2016-12-18] MEDS: FLUTICASONE NASAL SPRAY 50 MCG/SPRY 120 SPRAY/16 GM NASL SCH ×2 (05:05→16:46)
[2016-12-18] MEDS: LANSOPRAZOLE 30 MG TAB.RAP.DR PO SCH (05:05)
[2016-12-18 05:09] LABS: BAND NEUTROPHILS % (MANUAL) 3 % (3-5); BASOPHILS % (MANUAL) 0 % (0-2); EOSINOPHILS % (MANUAL) 0 % (0-6); LYMPHOCYTES % (MANUAL) 4 % (13-45); TOTAL CELLS COUNTED 100
[2016-12-18 05:12] LABS: POLYCHROMASIA SLIGHT; TOXIC GRANULATION 1+
[2016-12-18 05:13] LABS: ANISOCYTOSIS SLIGHT
[2016-12-18] MEDS: NORMAL SALINE 1000 ML 1,000 ML IV PRN (06:24)
[2016-12-18] MEDS: OXYCODONE HCL IR 5 MG TABLET PO PRN ×2 (07:21→19:39)
[2016-12-18] MEDS: LEVALBUTEROL HCL NEB 1.25 MG/3 ML AMPUL NEB SCH ×3 (08:07→20:18)
[2016-12-18] MEDS: NICOTINE 21 MG/24 HR PATCH.TD24 TD SCH (09:02)
[2016-12-18] MEDS: ALPRAZOLAM 0.5 MG TABLET PO PRN ×2 (09:02→22:09)
[2016-12-18] MEDS: DULOXETINE HCL 30 MG CAPSULE.DR PO SCH (09:03)
[2016-12-18] MEDS: LISINOPRIL 5 MG TABLET PO SCH (09:03)
[2016-12-18] MEDS: METOPROLOL SUCCINATE 50 MG TAB.SR.24H PO SCH (09:03)
[2016-12-18] MEDS: AMLODIPINE BESYLATE 10 MG TABLET PO SCH (09:03)
[2016-12-18] MEDS: ENOXAPARIN SODIUM INJ 40 MG/0.4 ML DISP.SYRIN SUBCUT SCH (09:04)
[2016-12-18] MEDS: ASPIRIN 81 MG TABLET, CHEWABLE PO SCH (09:04)
[2016-12-18] MEDS: DOXYCYCLINE HYCLATE 100 MG TABLET PO SCH ×2 (09:11→22:09)
[2016-12-18] MEDS: LEVOTHYROXINE SODIUM 0.1 MG TABLET PO SCH (16:47)
--- NOTE | 2016-12-18 17:09 | PROGRESS NOTE E ---
Progress Note NAME: MAXWELL GREEN : 1960 AGE: 56Y DATE: 12/18/2016 ROOM: 326 SUBJECTIVE: The patient is lying in bed. She states that she feels about the same as yesterday. The patient is able to speak without being as dyspneic as yesterday. The patient denies ever being evaluated for alpha-1 antitrypsin deficiency. The patient once again did discuss smoking cessation. There have been no reported episodes of vomiting or diarrhea, nausea, dizziness, chest pain, no fever or chills. The patient has not been producing any sputums and the patient does not voice any other concerns at this time. REVIEW OF SYSTEMS: The rest of the review of systems is negative. MEDICATIONS: Medications have been reviewed. OBJECTIVE: GENERAL: The patient is a 56-year-old female who is awake and alert. She is oriented to person, place, time, and situation. She is verbal, conversational, does not appear to be in any acute distress. VITAL SIGNS: Temperature is 97.2, pulse is 91, respirations 16, blood pressure is 123/69, oxygen saturation is 96% on 2 L nasal cannula. SKIN: Warm and dry. There is no rash. She is not diaphoretic. HEENT: Pupils equal, round and reactive to light and accommodation. Conjunctivae are pink. NECK: There is no JVP. CARDIOVASCULAR: Heart is regular. There is no murmur or rub. CHEST: The patient does have expiratory wheezes noted in the right lung field, symmetrical, slightly labored. ABDOMEN: Soft, nontender and nondistended. BACK: No CVA tenderness or sacral edema. EXTREMITIES: No clubbing, cyanosis, or edema. PSYCHIATRIC: Appropriate affect. Pleasant mood. DIAGNOSTIC DATA: Lab values are as follows: Hematology obtained on 12/18/2016: WBC's are 19.3. hemoglobin is 11.7, hematocrit is 35.9, platelet count is 310,000. Chemistries obtained on 12/18/2016: Sodium is 136, potassium 4.3, chloride is 100, carbon dioxide 29, BUN is 11, creatinine is 0.56, glucose 177, calcium is 9.0, magnesium 1.8, T4 is 0.8. Sputum culture obtained on 12/17/2016 is still pending. IMPRESSION AND PLAN: 1. ACUTE ON CHRONIC OBSTRUCTIVE PULMONARY DISEASE EXACERBATION. Will continue nebulizers and continue home inhalers. Have added alpha trypsin labs and will follow. The patient is followed by Dr. Hernandez with Pulmonology. She would like for him to see her while she is in the hospital as well. 2. ACUTE ON CHRONIC HYPOXEMIC RESPIRATORY FAILURE. Will continue nebulizers as well as supplemental O2 and follow. 3. TOBACCO DEPENDENCY. The patient is open to trying Zyban, however, she is currently on Cymbalta. Will discuss this further before adding additional agent. 4. HYPOMAGNESEMIA. This has been repleted. 5. ELEVATED TSH. Will add T4. 6. HYPERTENSION. The patient blood pressures are in a good range. Will continue her home medications. 7. HYPERLIPIDEMIA. Will continue statin. 8. HYPOTHYROIDISM. Will continue the home medications. T4 is in a good range. 9. HYPERTENSION. Blood pressures are in a good range. Will continue current medications. 10. HYPERLIPIDEMIA. Will continue statin. 11. OPIOID DEPENDENCY, CONTINUOUS. Will continue the patient's home medications. 12. CORONARY ARTERY DISEASE. Will continue home meds. DISPOSITION: The patient is a FULL CODE. Pending the patient's symptomatology and diagnostic findings, will reevaluate in the a.m. TIME: Time spent on this followup including assessment, plan, physical examination and patient education is 25 minutes. DICTATING PHYSICIAN: KELLEN REYNAGA NP [id number] PHY#: [id number] ID: [id number] JOB#: [id number] ACCT: [id number] cc: >
[2016-12-18] MEDS: MONTELUKAST SODIUM 10 MG TABLET PO SCH (22:09)
[2016-12-18] MEDS: ATORVASTATIN CALCIUM 80 MG TABLET PO SCH (22:09)
[2016-12-19] MEDS: OXYCODONE HCL SR 10 MG TABLET PO SCH ×3 (02:05→18:29)
[2016-12-19] MEDS: NORMAL SALINE 1000 ML 1,000 ML IV PRN (02:43)
[2016-12-19] MEDS: ACETAMINOPHEN 325 MG TABLET PO PRN (05:47)
[2016-12-19] MEDS: FLUTICASONE/SALMETEROL DISKUS 500-50 MCG/DOSE IH SCH ×2 (05:48→21:57)
[2016-12-19] MEDS: FLUTICASONE NASAL SPRAY 50 MCG/SPRY 120 SPRAY/16 GM NASL SCH ×2 (05:48→18:33)
[2016-12-19] MEDS: METHYLPREDNISOLONE INJ 125 MG/2 ML SDV IV SCH ×3 (05:48→21:56)
[2016-12-19] MEDS ORDERED: LANSOPRAZOLE 30 MG TAB.RAP.DR PO SCH (06:00)
[2016-12-19 06:57] LABS: HEMATOCRIT 36.2 % (36.0-47.0); HEMOGLOBIN 11.6 g/dL (12.0-15.5); HGB HCT DIFFERENCE -1.4; MEAN CORPUSCULAR HEMOGLOBIN 28.8 pg (27.0-33.4); MEAN CORPUSCULAR HGB CONC 32.1 g/dL (32.0-36.0); MEAN CORPUSCULAR VOLUME 90 fl (80-97); RED BLOOD COUNT 4.03 10^6/uL (3.72-5.28); RED CELL DISTRIBUTION WIDTH 15.2 % (11.5-14.0)
[2016-12-19 07:05] LABS: ANION GAP 8 (5-19); BLOOD UREA NITROGEN 14 mg/dL (7-20); CALCIUM 8.5 mg/dL (8.4-10.2); CARBON DIOXIDE 29 mmol/L (22-30); CHLORIDE 100 mmol/L (98-107); CREATININE RESULT 0.47 mg/dL (0.52-1.25); GLUCOSE 155 mg/dL (75-110); MAGNESIUM 1.5 mg/dL (1.6-2.3); SODIUM 137.4 mmol/L (137-145)
[2016-12-19 07:37] LABS: BASOPHILS % (MANUAL) 0 % (0-2); EOSINOPHILS % (MANUAL) 0 % (0-6); LYMPHOCYTES % (MANUAL) 3 % (13-45); TOTAL CELLS COUNTED 100
[2016-12-19 07:38] LABS: ANISOCYTOSIS 1+; TOXIC GRANULATION 1+
[2016-12-19] MEDS: LEVALBUTEROL HCL NEB 1.25 MG/3 ML AMPUL NEB SCH ×3 (08:12→20:44)
[2016-12-19] MEDS: ENOXAPARIN SODIUM INJ 40 MG/0.4 ML DISP.SYRIN SUBCUT SCH (09:31)
[2016-12-19] MEDS: DULOXETINE HCL 30 MG CAPSULE.DR PO SCH (09:31)
[2016-12-19] MEDS: DOXYCYCLINE HYCLATE 100 MG TABLET PO SCH (09:32)
[2016-12-19] MEDS: AMLODIPINE BESYLATE 10 MG TABLET PO SCH (09:32)
[2016-12-19] MEDS: METOPROLOL SUCCINATE 50 MG TAB.SR.24H PO SCH (09:33)
[2016-12-19] MEDS: LISINOPRIL 5 MG TABLET PO SCH (09:33)
[2016-12-19] MEDS: NICOTINE 21 MG/24 HR PATCH.TD24 TD SCH (09:34)
[2016-12-19] MEDS: ASPIRIN 81 MG TABLET, CHEWABLE PO SCH (09:34)
[2016-12-19] MEDS: OXYCODONE HCL IR 5 MG TABLET PO PRN (13:03)
[2016-12-19] MEDS ORDERED: PANTOPRAZOLE SODIUM 40 MG VIAL IV ONE (13:18)
[2016-12-19] MEDS ORDERED: OXYCODONE HCL IR 5 MG TABLET PO PRN (13:30)
[2016-12-19] MEDS ORDERED: OXYCODONE HCL SR 10 MG TABLET PO SCH (14:00)
--- NOTE | 2016-12-19 14:09 | PROGRESS NOTE E ---
Progress Note NAME: MAXWELL GREEN : 1960 AGE: 56Y DATE: 12/19/2016 ROOM: [facility] SUBJECTIVE: The patient is sitting up in bed. Her son is present at the bedside, active in the patient's care, asking questions about his own medical care. The patient states that she feels slightly better than yesterday, that her dyspnea has improved. She does not feel quite as weak; however, the patient is still unable to complete sentences. The patient also notes having severe reflux problems to the point that she felt she coughed last night and choked and may have aspirated her own reflux. The patient is typically on Dexilant at home for severe reflux and feels that she has aspirated reflux in the past. The patient does not voice any other concerns at this time. BRIEF HISTORY: The patient is a 56-year-old female that is known to the hospitalist service. The patient has had admissions for persistent COPD type symptoms and the patient states that she has never recovered from discharge. The patient is followed by Dr. Hernandez outpatient and is compliant with her inhalers; however, she continues to smoke. REVIEW OF SYSTEMS: Rest of review of systems negative. MEDICATIONS: Medications have been reviewed. OBJECTIVE: GENERAL: The patient is a 56-year-old female who is awake, alert, and oriented to person, place, time, and situation. She is verbal, conversational, and does not appear to be in any acute distress. VITAL SIGNS: Temperature is 98.6, pulse 98, respirations 16, blood pressure is 144/84, oxygen saturation is 98% on 2 L nasal cannula. SKIN: Warm and dry. No rash. Not diaphoretic. HEENT: Pupils equal, round, and reactive to light and accommodation. Conjunctiva is pink. No JVP. CARDIOVASCULAR SYSTEM: Heart is regular. There is no murmur or rub. CHEST: Severely diminished. Some faint wheezes. Symmetrical, labored with discussion. ABDOMEN: Soft, nontender, nondistended. BACK: No CVA tenderness or sacral edema. EXTREMITIES: No clubbing, cyanosis, edema. PSYCHIATRIC: Appropriate affect, pleasant mood. DIAGNOSTICS: Lab values are as follows: Hematology obtained on 12/19/2016: WBCs are 23.0, hemoglobin is 11.6, hematocrit is 36.2, platelet count is 324,000. Chemistries obtained on 12/19/2016: Sodium is 137, potassium 4.0, chloride is 100, carbon dioxide 29, BUN 14, creatinine is 0.47, glucose 155, calcium is 8.5, magnesium is 1.5. IMPRESSION AND PLAN: 1. ACUTE CHRONIC OBSTRUCTIVE PULMONARY DISEASE EXACERBATION. Will continue nebulizer as well as home inhalers. Did add an alpha [address] Hernandez with Pulmonology is following as well. Given the patient's readmission and previous findings on CT, will repeat her CTA of the chest at this time and follow accordingly. 2. POSSIBLE REFLUX ASPIRATION PNEUMONIA. Will start the patient on IV Protonix. Unfortunately, Dexilant is not available in the facility and will expand to anaerobe coverage given the patient's bump in her white count. 3. ACUTE ON CHRONIC HYPOXEMIC RESPIRATORY FAILURE. Will obtain ambulating O2 sat. Continue nebulizers and supplemental O2. 4. TOBACCO DEPENDENCY. Will continue nicotine patch. The patient is currently on a very large dose of Cymbalta. Do not feel comfortable adding yet additional agents, such as Zyban. 5. HYPOMAGNESEMIA. This was repleted, but will continue to supplement. 6. ELEVATED TSH. T4 is unremarkable. 7. HYPERTENSION. Blood pressure is in a good range. Will continue home medications. 8. HYPERLIPIDEMIA. Will continue statin. 9. HYPOTHYROIDISM. Will continue home medications. 10. HYPERTENSION. Blood pressures are in a good range. Will continue home medication. 11. HYPERLIPIDEMIA. Will continue statin. 12. OPIATE DEPENDENCY, CONTINUOUS. Will continue the patient's home medication. 13. CORONARY ARTERY DISEASE. Will continue home meds. DISPOSITION: The patient is a FULL CODE. Pending patient's symptomatology and diagnostic findings, will re-evaluate in the a.m. for possible discharge. Time spent on this followup including assessment, plan, physical examination, patient education, and family meeting is 25 minutes. DICTATING PHYSICIAN: KELLEN REYNAGA NP [id number] PHY#: [id number] ID: [id number] JOB#: [id number] ACCT: [id number] cc: >
[2016-12-19] MEDS: ALPRAZOLAM 0.5 MG TABLET PO PRN ×2 (14:46→23:41)
[2016-12-19] MEDS: MAGNESIUM OXIDE 400 MG TABLET PO SCH ×2 (14:47→18:29)
--- NOTE | 2016-12-19 15:37 | RADIOLOGY REPORT (SQ) ---
EXAM DESCRIPTION: CTA CHEST COMPLETED DATE/TIME: 12/19/2016 3:19 pm REASON FOR STUDY: FU Tree bud appearance, persistant hypoxia, dyspne COMPARISON: CT chest 01/22/2007, 12/04/2012, 10/13/2014, 09/25/2015, 01/26/2016, 11/14/2016 TECHNIQUE: CT scan of the chest performed using helical scanning technique with dynamic intravenous contrast injection. Images reviewed with lung, soft tissue and bone windows. Reconstructed coronal and sagittal MPR images reviewed. Additional 3 dimensional post-processing performed to develop Maximal Intensity Projection images (IA P). All images stored on PACS. All CT scanners at this facility use dose modulation, iterative reconstruction, and/or weight based d osing when appropriate to reduce radiation dose to as low as reasonably achievable (ALARA). [facility]: Dose Right [facility]: CareDose [facility]: Dose Right [facility]: Teradose 4D [facility]: [employer]Share CONTRAST TYPE AND DOSE: 72 mL Isovue 370- low osmolar. RENAL FUNCTION: Creatinine 0.5 RADIATION DOSE: 23.03 mGy. LIMITATIONS: None. FINDINGS: LUNGS AND PLEURA: Upper lobes exhibit enlarged airspaces from obstructive disease. 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 There is no pleural effusion or pneumothorax. On the current study, there is bandlike atelectasis at both lung bases left greater than right, new c ompared to prior studies. AORTA AND GREAT VESSELS: No aneurysm or dissection. HEART: No pericardial effusion. PULMONARY ARTERIES: No emboli visualized in the main pulmonary arteries or the segmental branches. HILAR AND MEDIASTINAL STRUCTURES: No identified masses or abnormal nodes. HARDWARE: None in the chest. UPPER ABDOMEN: No significant findings. Limited exam. THYROID AND OTHER SOFT TISSUES: Enlarged right lobe thyroid, small left lobe thyroid similar compared to previous studies. BONES: No acute or significant finding. 3D MIPS: Confirm above findings. OTHER: No other significant finding. IMPRESSION: Tree in bud or bronchiolitis pattern has resolved compared to 11/14/2016 Few thickened interlobular septa are present around the periphery of both lung bases, nonspecific Obstructive lung disease at the apices New bibasilar atelectasis as compared to CT chest 11/14/[address] angio evidence of acute pulmonary emboli or thoracic aortic dissection. TECHNICAL DOCUMENTATION: JOB ID: [id number] Quality ID # [id number]: Final reports with documentation of one or more dose reduction techniques (e.g., Au tomated exposure control, adjustment of the mA and/or kV according to patient size, use of iterative reconstruction technique) 2010 [employer]- All Rights Reserved
[2016-12-19 18:23] LABS: PATH REVIEW PATHOLOGIST REVIEWED
[2016-12-19 18:27] LABS: PATH REVIEW PATHOLOGIST REVIEWED
[2016-12-19] MEDS: LEVOTHYROXINE SODIUM 0.1 MG TABLET PO SCH (18:29)
[2016-12-19] MEDS: PANTOPRAZOLE SODIUM 40 MG VIAL IV SCH (18:29)
[2016-12-19] MEDS: PIPERACILLIN SODIUM/TAZOBACTAM 4.5 GM in NORMAL SALINE 100 ML IV SCH ×2 (18:33→23:41)
[2016-12-19] MEDS: MONTELUKAST SODIUM 10 MG TABLET PO SCH (21:58)
[2016-12-19] MEDS: ATORVASTATIN CALCIUM 80 MG TABLET PO SCH (21:58)
[2016-12-20] MEDS: OXYCODONE HCL SR 10 MG TABLET PO SCH ×3 (01:05→18:55)
[2016-12-20 05:46] LABS: HEMATOCRIT 34.6 % (36.0-47.0); HEMOGLOBIN 11.3 g/dL (12.0-15.5); HGB HCT DIFFERENCE -0.7; MEAN CORPUSCULAR HEMOGLOBIN 28.7 pg (27.0-33.4); MEAN CORPUSCULAR HGB CONC 32.6 g/dL (32.0-36.0); MEAN CORPUSCULAR VOLUME 88 fl (80-97); RED BLOOD COUNT 3.93 10^6/uL (3.72-5.28); RED CELL DISTRIBUTION WIDTH 15.4 % (11.5-14.0); WHITE BLOOD COUNT 19.4 10^3/uL (4.0-10.5)
[2016-12-20] MEDS: FLUTICASONE NASAL SPRAY 50 MCG/SPRY 120 SPRAY/16 GM NASL SCH ×2 (06:09→18:56)
[2016-12-20] MEDS: PIPERACILLIN SODIUM/TAZOBACTAM 4.5 GM in NORMAL SALINE 100 ML IV SCH ×4 (06:09→23:18)
[2016-12-20] MEDS: PANTOPRAZOLE SODIUM 40 MG VIAL IV SCH ×2 (06:11→18:56)
[2016-12-20] MEDS: METHYLPREDNISOLONE INJ 125 MG/2 ML SDV IV SCH (06:11)
[2016-12-20 06:14] LABS: ANION GAP 10 (5-19); BLOOD UREA NITROGEN 13 mg/dL (7-20); CALCIUM 8.2 mg/dL (8.4-10.2); CARBON DIOXIDE 34 mmol/L (22-30); CHLORIDE 94 mmol/L (98-107); CREATININE RESULT 0.55 mg/dL (0.52-1.25); GLUCOSE 150 mg/dL (75-110); MAGNESIUM 1.4 mg/dL (1.6-2.3); SODIUM 138.1 mmol/L (137-145)
[2016-12-20] MEDS: LEVALBUTEROL HCL NEB 1.25 MG/3 ML AMPUL NEB SCH ×3 (07:37→20:54)
[2016-12-20] MEDS: ESTROGENS,CONJUGATED 1.25 MG TABLET PO SCH (09:55)
[2016-12-20] MEDS: NICOTINE 21 MG/24 HR PATCH.TD24 TD SCH (09:55)
[2016-12-20] MEDS: AMLODIPINE BESYLATE 10 MG TABLET PO SCH (09:57)
[2016-12-20] MEDS: ASPIRIN 81 MG TABLET, ENT COATED PO SCH (09:57)
[2016-12-20] MEDS: DULOXETINE HCL 30 MG CAPSULE.DR PO SCH (09:57)
[2016-12-20] MEDS: LISINOPRIL 5 MG TABLET PO SCH (09:58)
[2016-12-20] MEDS: FLUTICASONE/SALMETEROL DISKUS 500-50 MCG/DOSE IH SCH ×2 (09:58→21:50)
[2016-12-20] MEDS: MAGNESIUM OXIDE 400 MG TABLET PO SCH ×3 (09:58→18:55)
[2016-12-20] MEDS: ENOXAPARIN SODIUM INJ 40 MG/0.4 ML DISP.SYRIN SUBCUT SCH (09:58)
[2016-12-20] MEDS: METOPROLOL SUCCINATE 50 MG TAB.SR.24H PO SCH (09:58)
[2016-12-20] MEDS ORDERED: LIDOCAINE 5% (700 MG) TRANSDERMAL ADH..PATCH TP ONE (11:30)
--- NOTE | 2016-12-20 13:46 | PDOC PROGRESS REPORT ---
Subjective Progress Note for:: 12/20/16 Subjective:: Patient is seen on morning rounds. She is presently resting in bed. She states she feels somewhat better than she did yesterday. She states she did not sleep well last night she thinks because of the IV steroids. Her breathing however, has improved over the last 24 hours. She states she still has some wheezing but it is much better than it was yesterday or the day prior. Patient does wear oxygen 24/ at home, she is back to her baseline oxygen requirements. She denies any chest pain, dyspnea or dizziness. She states her cough is no longer productive. Physical Exam Vital Signs: Temp Pulse Resp BP Pulse Ox 97.7 F 98 22 H 140/85 H 98 12/20/16 08:04 12/20/16 08:04 12/20/16 08:04 12/20/16 08:04 12/20/16 08:04 Intake & Output 12/19/16 12/20/16 12/21/16 06:59 06:59 06:59 Intake Total 4923 1749 Output Total 1000 Balance 4923 749 Weight 93.2 kg 93.5 kg General appearance: PRESENT: no acute distress, obese, well-developed, well- nourished Head exam: PRESENT: atraumatic, normocephalic Eye exam: PRESENT: conjunctiva pink, EOMI, PERRLA. ABSENT: scleral icterus Ear exam: PRESENT: normal external ear exam Mouth exam: PRESENT: moist, tongue midline Neck exam: ABSENT: carotid bruit, JVD, lymphadenopathy, thyromegaly Respiratory exam: PRESENT: symmetrical, unlabored, wheezes - expiratory bilaterally Cardiovascular exam: PRESENT: RRR. ABSENT: diastolic murmur, rubs, systolic murmur Pulses: PRESENT: normal dorsalis pedis pul Vascular exam: PRESENT: normal capillary refill GI/Abdominal exam: PRESENT: normal bowel sounds, soft. ABSENT: distended, guarding, mass, organolmegaly, rebound, tenderness Rectal exam: PRESENT: deferred Extremities exam: PRESENT: full ROM. ABSENT: calf tenderness, clubbing, pedal edema Neurological exam: PRESENT: alert, awake, oriented to person, oriented to place , oriented to time, oriented to situation, CN II-XII grossly intact. ABSENT: motor sensory deficit Psychiatric exam: PRESENT: appropriate affect, normal mood. ABSENT: homicidal ideation, suicidal ideation Skin exam: PRESENT: dry, intact, warm. ABSENT: cyanosis, rash Results Laboratory Results: 12/20/16 04:13 12/20/16 05:13 12/17/16 12/19/16 12/20/16 07:51 06:17 04:13 WBC 17.5 H 23.0 H 19.4 H RBC 4.02 4.03 3.93 Hgb 11.7 L 11.6 L 11.3 L Hct 35.5 L 36.2 34.6 L MCV 88 90 88 MCH 29.1 28.8 28.7 MCHC 32.9 32.1 32.6 RDW 15.3 H 15.2 H 15.4 H Plt Count 301 324 341 Sodium Potassium Chloride Carbon Dioxide Anion Gap BUN Creatinine Est GFR ( Amer) Est GFR (Non-Af Amer) Glucose Calcium Magnesium 12/20/16 05:13 WBC RBC Hgb Hct MCV MCH MCHC RDW Plt Count Sodium 138.1 Potassium 4.0 Chloride 94 L Carbon Dioxide 34 H Anion Gap 10 BUN 13 Creatinine 0.55 Est GFR ( Amer) > 60 Est GFR (Non-Af Amer) > 60 Glucose 150 H Calcium 8.2 L Magnesium 1.4 L Impressions: Chest X-Ray 12/16/16 22:07 IMPRESSION: COPD. NO ACUTE RADIOGRAPHIC FINDING IN THE CHEST. NO SIGNIFICANT CHANGE FROM PRIOR STUDY. Chest/Abdomen CTA 12/19/16 00:00 IMPRESSION: Tree in bud or bronchiolitis pattern has resolved compared to 2016 Few thickened interlobular septa are present around the periphery of both lung bases, nonspecific Obstructive lung disease at the apices New bibasilar atelectasis as compared to CT chest 11/14/[address] angio evidence of acute pulmonary emboli or thoracic aortic dissection. Assessment & Plan - Diagnosis (1) Acute and chronic respiratory failure with hypercapnia Is this a current diagnosis for this admission?: YesPlan: Improving towards her baseline. We will decrease IV steroids. Appreciate Dr. Hernandez input as well (2) COPD with exacerbation Is this a current diagnosis for this admission?: Yes (3) Hypotension Qualifiers: Hypotension type: unspecified hypotension type Qualified Code(s): I95.9 - Hypotension, unspecified Is this a current diagnosis for this admission?: YesPlan: Resolved likely secondary to dehydration and infection (4) Acute gastritis Qualifiers: Gastritis type: unspecified gastritis Is this a current diagnosis for this admission?: YesPlan: Continue PPI therapy (5) HTN (hypertension) Qualifiers: Hypertension type: essential hypertension Qualified Code(s): I10 - Essential (primary) hypertension Is this a current diagnosis for this admission?: YesPlan: normotensive continue current medications (6) Chronic pain Is this a current diagnosis for this admission?: Yes (7) Opiate dependence, continuous Is this a current diagnosis for this admission?: Yes (8) Tobacco dependence Is this a current diagnosis for this admission?: YesPlan: Patient counseled at length on need for tobacco cessation - Time Time Spent with patient: 25-34 minutes Critical Time spent with patient: 15-24 minutes Smoking Cessation Education: 3 to 10 minutes Medications reviewed and adjusted accordingly: Yes Anticipated discharge: Home with Homehealth Within: within 48 hours
[2016-12-20] MEDS: OXYCODONE HCL IR 5 MG TABLET PO PRN ×2 (14:44→21:48)
[2016-12-20] MEDS: LEVOTHYROXINE SODIUM 0.1 MG TABLET PO SCH (18:55)
[2016-12-20] MEDS: METHYLPREDNISOLONE INJ 40 MG/1 ML SDV IV SCH (21:48)
[2016-12-20] MEDS: MONTELUKAST SODIUM 10 MG TABLET PO SCH (21:49)
[2016-12-20] MEDS: ALPRAZOLAM 0.5 MG TABLET PO PRN (21:49)
[2016-12-20] MEDS: ATORVASTATIN CALCIUM 80 MG TABLET PO SCH (21:49)
[2016-12-21] MEDS: OXYCODONE HCL SR 10 MG TABLET PO SCH ×3 (01:10→18:31)
[2016-12-21] MEDS: PANTOPRAZOLE SODIUM 40 MG VIAL IV SCH ×2 (05:24→18:33)
[2016-12-21] MEDS: PIPERACILLIN SODIUM/TAZOBACTAM 4.5 GM in NORMAL SALINE 100 ML IV SCH ×4 (05:24→23:32)
[2016-12-21] MEDS: FLUTICASONE NASAL SPRAY 50 MCG/SPRY 120 SPRAY/16 GM NASL SCH ×2 (05:24→18:36)
[2016-12-21] MEDS: ACETAMINOPHEN 325 MG TABLET PO PRN (05:37)
[2016-12-21] MEDS: OXYCODONE HCL IR 5 MG TABLET PO PRN ×4 (07:34→23:42)
[2016-12-21] MEDS: ENOXAPARIN SODIUM INJ 40 MG/0.4 ML DISP.SYRIN SUBCUT SCH (07:34)
[2016-12-21] MEDS: LEVALBUTEROL HCL NEB 1.25 MG/3 ML AMPUL NEB SCH ×3 (07:54→20:49)
--- NOTE | 2016-12-21 09:17 | ST Inp Modified Barium Swallow ---
Medical Diagnosis - Medical Diagnoses Medical Diagnosis Description & ICD-10 Code(s): choking - ICD-10 Tx Diagnosis Coding (1) Dysphagia, unspecified ICD-10 Code(s): R13.10 - DYSPHAGIA, UNSPECIFIED ST Inpatient [facility] [place] - General Date: 12/21/16 Date of Onset: 12/17/16 - History History Obtained From: Patient - per EMR -: Medical - per EMR; breathing difficulty, COPD exacerbation, respiratory failure, hypotension, acute gastritis, HTN, chronic pain, opiate dependence, tobacco use. chest xray shows COPD. chest CTA shows bibasilar atelectasis. PMHx : HLD, HTN, COPD, PNA, GERD, fibromyalgia, anxiety. Pt reports she :feels her throat close up" states "does not happen all the time." Pt also reports " liquids come back up" and she will "throw up acid reflux like stuff at night." Medications: Medications Reviewed Allergies: Refer to medical record - Subjective Current Nutritional Means: PO Current PO Diet: Regular Current Symptoms: Coughing Pain: 0/5 - Objective Assessment: Upright, Left Lateral - Food Trials Food Trials Used: Thin liquids, Pureed, Regular The Patient: Was Able to Self Feed - Assessment Labial Function: Within Normal Limits Lingual Function: Within Normal Limits Mandibular Function: Within Normal Limits Velo-Pharyngeal Function: Unremarkable Laryngeal Function: Volitional Cough, Volitional Swallow - Pharyngeal Stage Initiation of Pharyngeal Stage: Normal Decreased Laryngeal Elevation: No Reduced Velo-Pharyngeal Closure: no Reduced Pressure Generation: No Reduced Tongue Base Retraction: No Pre-Swallowing Pooling in Valleculae: None Pre-Swallowing Pooling in Pyriforms: None Reduced Thyro-Hyiod Approximation: No Reduced Epiglottic Excursion: No Reduced Pharyngeal Peristalsis: No Post Swallow Residuals in Valleculae: None Post Swallow Residuals in Pyriforms: None - Impression/Summary Laryngeal Penetration: No Tracheal Aspiration: no Patient Presents With: Normal swallow at eval - safe and effective swallow observed during study Risk of Aspiration: Minimal - Recommendations NPO: no Solid Diet Recommendations: Regular Liquid Diet Recommendations: Thin Dysphagia Therapy with [employer]: No Recommended Techniques: Fully Upright During Meal Supervision: Independent Other Recommendations: 1) DIET: recommend continued current diet of regular and thin. 2) Pt reports after she swallows "liquids come back up" and she will "throw up acid reflux like stuff at night." Pt reports initially taking Nexium, however states has started taking new reflux medication which she does not recall the name of, pt states is not sure if has decreased reflux symptoms or not. Medical team may wish to consider GI consult as pt reports appears consistent with GI issues. SUMMARY: Pt presents with safe and effective oral and pharyngeal swallow function. No pentration or aspiration observed. No pharyngeal residuals observed. ST to sign off at this time, please re-consult PRN. - Time Total Time: 20 Total Timed Minutes: 0 ST F.L. Impairment Category - Rationale Based On Rationale Based On: Clin Find., Obj Measures - Swallowing Current G8996: CH 0% Impaired Goal G8997: CH 0% Impaired Discharge G8998: CH 0% Impaired
[2016-12-21] MEDS ORDERED: LIDOCAINE 5% (700 MG) TRANSDERMAL ADH..PATCH TP SCH (10:00)
[2016-12-21] MEDS: METHYLPREDNISOLONE INJ 40 MG/1 ML SDV IV SCH (10:01)
[2016-12-21] MEDS: LISINOPRIL 5 MG TABLET PO SCH (10:02)
[2016-12-21] MEDS: MAGNESIUM OXIDE 400 MG TABLET PO SCH ×3 (10:03→18:32)
[2016-12-21] MEDS: DULOXETINE HCL 30 MG CAPSULE.DR PO SCH (10:03)
[2016-12-21] MEDS: ASPIRIN 81 MG TABLET, ENT COATED PO SCH (10:03)
[2016-12-21] MEDS: METOPROLOL SUCCINATE 50 MG TAB.SR.24H PO SCH (10:03)
[2016-12-21] MEDS: AMLODIPINE BESYLATE 10 MG TABLET PO SCH (10:07)
[2016-12-21] MEDS: NICOTINE 21 MG/24 HR PATCH.TD24 TD SCH (10:07)
[2016-12-21] MEDS: ESTROGENS,CONJUGATED 1.25 MG TABLET PO SCH (10:08)
[2016-12-21] MEDS: FLUTICASONE/SALMETEROL DISKUS 500-50 MCG/DOSE IH SCH ×2 (10:09→21:08)
[2016-12-21] MEDS: ALPRAZOLAM 0.5 MG TABLET PO PRN ×2 (12:11→23:41)
[2016-12-21] MEDS ORDERED: LIDOCAINE 5% (700 MG) TRANSDERMAL ADH..PATCH TP ONE (12:30)
--- NOTE | 2016-12-21 13:57 | PDOC PROGRESS REPORT ---
Subjective Progress Note for:: 12/21/16 Subjective:: Patient is seen on morning rounds. She is presently resting in bed. She states she is continuing to feel better. She continues to have a cough but it is no longer productive. Wheezing has mostly resolved. She states she did not sleep well last night she thinks because of the IV steroids. Her breathing however, has improved over the last 24 hours. She states she still has some wheezing but it is much better than it was yesterday or the day prior. Patient does wear oxygen 06/02 at home, she is back to her baseline oxygen requirements. She denies any chest pain, dyspnea or dizziness. She states her cough is no longer productive. Physical Exam Vital Signs: Temp Pulse Resp BP Pulse Ox 98.5 F 82 18 145/93 H 96 12/21/16 13:30 12/21/16 13:30 12/21/16 13:30 12/21/16 13:30 12/21/16 13:30 Intake & Output 12/20/16 12/21/16 12/22/16 06:59 06:59 06:59 Intake Total 1749 3075 940 Output Total 1000 Balance 749 3075 940 Weight 93.5 kg 93.5 kg General appearance: PRESENT: no acute distress, well-developed, well-nourished Head exam: PRESENT: atraumatic, normocephalic Eye exam: PRESENT: conjunctiva pink, EOMI, PERRLA. ABSENT: scleral icterus Ear exam: PRESENT: normal external ear exam Mouth exam: PRESENT: moist, tongue midline Neck exam: ABSENT: carotid bruit, JVD, lymphadenopathy, thyromegaly Respiratory exam: PRESENT: rhonchi, symmetrical, unlabored Cardiovascular exam: PRESENT: RRR. ABSENT: diastolic murmur, rubs, systolic murmur Pulses: PRESENT: normal dorsalis pedis pul Vascular exam: PRESENT: normal capillary refill GI/Abdominal exam: PRESENT: normal bowel sounds, soft. ABSENT: distended, guarding, mass, organolmegaly, rebound, tenderness Rectal exam: PRESENT: deferred Extremities exam: PRESENT: full ROM. ABSENT: calf tenderness, clubbing, pedal edema Musculoskeletal exam: PRESENT: ambulatory, full ROM, normal inspection Neurological exam: PRESENT: alert, awake, oriented to person, oriented to place , oriented to time, oriented to situation, CN II-XII grossly intact. ABSENT: motor sensory deficit Psychiatric exam: PRESENT: appropriate affect, normal mood. ABSENT: homicidal ideation, suicidal ideation Skin exam: PRESENT: abrasion Results Laboratory Results: 12/20/16 04:13 12/20/16 05:13 Impressions: Chest X-Ray 12/16/16 22:07 IMPRESSION: COPD. NO ACUTE RADIOGRAPHIC FINDING IN THE CHEST. NO SIGNIFICANT CHANGE FROM PRIOR STUDY. Chest/Abdomen CTA 12/19/16 00:00 IMPRESSION: Tree in bud or bronchiolitis pattern has resolved compared to 2016 Few thickened interlobular septa are present around the periphery of both lung bases, nonspecific Obstructive lung disease at the apices New bibasilar atelectasis as compared to CT chest 11/14/[address] angio evidence of acute pulmonary emboli or thoracic aortic dissection. Assessment & Plan - Diagnosis (1) Acute and chronic respiratory failure with hypercapnia Is this a current diagnosis for this admission?: YesPlan: Improving towards her baseline. We will decrease IV steroids. Appreciate Dr. Hernandez input as well (2) COPD with exacerbation Is this a current diagnosis for this admission?: YesPlan: Continue nebulizer treatment, inhalers, wean steroids (3) Hypotension Qualifiers: Hypotension type: unspecified hypotension type Qualified Code(s): I95.9 - Hypotension, unspecified Is this a current diagnosis for this admission?: YesPlan: Resolved likely secondary to dehydration and infection (4) Acute gastritis Qualifiers: Gastritis type: unspecified gastritis Is this a current diagnosis for this admission?: YesPlan: Continue PPI therapy (5) HTN (hypertension) Qualifiers: Hypertension type: essential hypertension Qualified Code(s): I10 - Essential (primary) hypertension Is this a current diagnosis for this admission?: YesPlan: normotensive continue current medications (6) Chronic pain Qualifiers: Chronic pain type: chronic pain syndrome Qualified Code(s): G89.4 - Chronic pain syndrome Is this a current diagnosis for this admission?: Yes (7) Opiate dependence, continuous Is this a current diagnosis for this admission?: YesPlan: Continue prn pain medications (8) Tobacco dependence Is this a current diagnosis for this admission?: YesPlan: Patient counseled at length on need for tobacco cessation - Time Time Spent with patient: 25-34 minutes Critical Time spent with patient: 15-24 minutes Medications reviewed and adjusted accordingly: Yes Anticipated discharge: Home Within: within 24 hours
--- NOTE | 2016-12-21 16:19 | PDOC PROGRESS REPORT ---
Subjective Progress Note for:: 12/21/16 Subjective:: Patient is seen on morning rounds. She is presently resting in bed. She states she is continuing to feel better. She continues to have a cough but it is no longer productive. Wheezing has mostly resolved. She states she did not sleep well last night she thinks because of the IV steroids. Her breathing however, has improved over the last 24 hours. She states she still has some wheezing but it is much better than it was yesterday or the day prior. Patient does wear oxygen 06/02 at home, she is back to her baseline oxygen requirements. She denies any chest pain, dyspnea or dizziness. She states her cough is no longer productive. Physical Exam Vital Signs: Temp Pulse Resp BP Pulse Ox 98.5 F 71 18 145/93 H 95 12/21/16 13:30 12/21/16 14:35 12/21/16 14:35 12/21/16 13:30 12/21/16 14:35 Intake & Output 12/20/16 12/21/16 12/22/16 06:59 06:59 06:59 Intake Total 1749 3075 940 Output Total 1000 Balance 749 3075 940 Weight 93.5 kg 93.5 kg General appearance: PRESENT: no acute distress, obese, well-developed, well- nourished Head exam: PRESENT: atraumatic, normocephalic Eye exam: PRESENT: conjunctiva pink, EOMI, PERRLA. ABSENT: scleral icterus Ear exam: PRESENT: normal external ear exam Mouth exam: PRESENT: moist, tongue midline Neck exam: ABSENT: carotid bruit, JVD, lymphadenopathy, thyromegaly Respiratory exam: PRESENT: rhonchi, symmetrical, unlabored. ABSENT: rales, wheezes Cardiovascular exam: PRESENT: RRR. ABSENT: diastolic murmur, rubs, systolic murmur Pulses: PRESENT: normal dorsalis pedis pul Vascular exam: PRESENT: normal capillary refill GI/Abdominal exam: PRESENT: normal bowel sounds, soft. ABSENT: distended, guarding, mass, organolmegaly, rebound, tenderness Rectal exam: PRESENT: deferred Extremities exam: PRESENT: full ROM. ABSENT: calf tenderness, clubbing, pedal edema Neurological exam: PRESENT: alert, awake, oriented to person, oriented to place , oriented to time, oriented to situation, CN II-XII grossly intact. ABSENT: motor sensory deficit Psychiatric exam: PRESENT: appropriate affect, normal mood. ABSENT: homicidal ideation, suicidal ideation Skin exam: PRESENT: dry, intact, warm. ABSENT: cyanosis, rash Results Laboratory Results: 12/20/16 04:13 12/20/16 05:13 Impressions: Chest X-Ray 12/16/16 22:07 IMPRESSION: COPD. NO ACUTE RADIOGRAPHIC FINDING IN THE CHEST. NO SIGNIFICANT CHANGE FROM PRIOR STUDY. Chest/Abdomen CTA 12/19/16 00:00 IMPRESSION: Tree in bud or bronchiolitis pattern has resolved compared to 2016 Few thickened interlobular septa are present around the periphery of both lung bases, nonspecific Obstructive lung disease at the apices New bibasilar atelectasis as compared to CT chest 11/14/[address] angio evidence of acute pulmonary emboli or thoracic aortic dissection. Assessment & Plan - Diagnosis (1) Acute and chronic respiratory failure with hypercapnia Is this a current diagnosis for this admission?: YesPlan: Improving towards her baseline. We will decrease IV steroids. Appreciate Dr. Hernandez input as well (2) COPD with exacerbation Is this a current diagnosis for this admission?: YesPlan: Continue nebulizer treatment, inhalers, wean steroids (3) Hypotension Qualifiers: Hypotension type: unspecified hypotension type Qualified Code(s): I95.9 - Hypotension, unspecified Is this a current diagnosis for this admission?: YesPlan: Resolved likely secondary to dehydration and infection (4) Acute gastritis Qualifiers: Gastritis type: unspecified gastritis Is this a current diagnosis for this admission?: YesPlan: Continue PPI therapy (5) HTN (hypertension) Qualifiers: Hypertension type: essential hypertension Qualified Code(s): I10 - Essential (primary) hypertension Is this a current diagnosis for this admission?: YesPlan: normotensive continue current medications (6) Chronic pain Qualifiers: Chronic pain type: chronic pain syndrome Qualified Code(s): G89.4 - Chronic pain syndrome Is this a current diagnosis for this admission?: Yes (7) Opiate dependence, continuous Is this a current diagnosis for this admission?: YesPlan: Continue prn pain medications (8) Tobacco dependence Is this a current diagnosis for this admission?: YesPlan: Patient counseled at length on need for tobacco cessation - Time Time Spent with patient: 25-34 minutes Critical Time spent with patient: 15-24 minutes Medications reviewed and adjusted accordingly: Yes Anticipated discharge: Home with Homehealth
[2016-12-21] MEDS: LEVOTHYROXINE SODIUM 0.1 MG TABLET PO SCH (18:32)
[2016-12-21] MEDS: PROMETHAZINE HCL 25 MG TABLET PO PRN (18:46)
[2016-12-21] MEDS: MONTELUKAST SODIUM 10 MG TABLET PO SCH (21:08)
[2016-12-21] MEDS: ATORVASTATIN CALCIUM 80 MG TABLET PO SCH (21:08)
[2016-12-22] MEDS: OXYCODONE HCL SR 10 MG TABLET PO SCH ×2 (01:49→10:27)
[2016-12-22] MEDS: FLUTICASONE NASAL SPRAY 50 MCG/SPRY 120 SPRAY/16 GM NASL SCH (05:14)
[2016-12-22] MEDS: PIPERACILLIN SODIUM/TAZOBACTAM 4.5 GM in NORMAL SALINE 100 ML IV SCH ×2 (05:15→11:31)
[2016-12-22] MEDS: PANTOPRAZOLE SODIUM 40 MG VIAL IV SCH (05:23)
[2016-12-22 06:25] LABS: HEMATOCRIT 37.9 % (36.0-47.0); HEMOGLOBIN 12.5 g/dL (12.0-15.5); HGB HCT DIFFERENCE -0.4; MEAN CORPUSCULAR HEMOGLOBIN 28.9 pg (27.0-33.4); MEAN CORPUSCULAR HGB CONC 32.9 g/dL (32.0-36.0); MEAN CORPUSCULAR VOLUME 88 fl (80-97); RED BLOOD COUNT 4.32 10^6/uL (3.72-5.28); RED CELL DISTRIBUTION WIDTH 15.3 % (11.5-14.0); WHITE BLOOD COUNT 15.6 10^3/uL (4.0-10.5)
[2016-12-22 06:50] LABS: BAND NEUTROPHILS % (MANUAL) 2 % (3-5); BASOPHILS % (MANUAL) 0 % (0-2); EOSINOPHILS % (MANUAL) 1 % (0-6); LYMPHOCYTES % (MANUAL) 19 % (13-45); NUCLEATED RED BLOOD CELLS 1 /100 WBC (0); TOTAL CELLS COUNTED 100
[2016-12-22 06:53] LABS: ANISOCYTOSIS SLIGHT; OVALOCYTES SLIGHT; POIKILOCYTOSIS SLIGHT; POLYCHROMASIA SLIGHT; SCHISTOCYTES SLIGHT; TOXIC GRANULATION 1+
[2016-12-22] MEDS: LEVALBUTEROL HCL NEB 1.25 MG/3 ML AMPUL NEB SCH (08:29)
[2016-12-22] MEDS: ENOXAPARIN SODIUM INJ 40 MG/0.4 ML DISP.SYRIN SUBCUT SCH (08:52)
[2016-12-22] MEDS: OXYCODONE HCL IR 5 MG TABLET PO PRN ×3 (08:54→14:02)
[2016-12-22] MEDS ORDERED: LIDOCAINE 5% (700 MG) TRANSDERMAL ADH..PATCH TP SCH (10:00)
[2016-12-22] MEDS ORDERED: PREDNISONE 20 MG TABLET PO SCH (10:00)
[2016-12-22] MEDS: ESTROGENS,CONJUGATED 1.25 MG TABLET PO SCH (10:18)
[2016-12-22] MEDS: FLUTICASONE/SALMETEROL DISKUS 500-50 MCG/DOSE IH SCH (10:19)
[2016-12-22] MEDS: ASPIRIN 81 MG TABLET, ENT COATED PO SCH (10:25)
[2016-12-22] MEDS: MAGNESIUM OXIDE 400 MG TABLET PO SCH ×2 (10:25→14:02)
[2016-12-22] MEDS: DULOXETINE HCL 30 MG CAPSULE.DR PO SCH (10:26)
[2016-12-22] MEDS: AMLODIPINE BESYLATE 10 MG TABLET PO SCH (10:26)
[2016-12-22] MEDS: ALPRAZOLAM 0.5 MG TABLET PO PRN (10:26)
[2016-12-22] MEDS: LISINOPRIL 5 MG TABLET PO SCH (10:27)
[2016-12-22] MEDS: METOPROLOL SUCCINATE 50 MG TAB.SR.24H PO SCH (10:27)
[2016-12-22] MEDS: NICOTINE 21 MG/24 HR PATCH.TD24 TD SCH (10:28)
[2016-12-22 13:05] VITALS: BP 140/89
--- NOTE | 2016-12-22 14:04 | PDOC DISCHARGE SUMMARY ---
General - Admit/Disc Date/PCP Admission Date/Primary Care Provider: 12/17/16 05:34 ZOE ALLEN, Discharge Date: 12/22/16 - Discharge Diagnosis (1) Acute and chronic respiratory failure with hypercapnia Is this a current diagnosis for this admission?: YesSummary: Improved to baseline oxygen requirements (2) COPD with exacerbation Is this a current diagnosis for this admission?: YesSummary: Continue inhalers, nebulizers and antibiotics (3) Hypotension Is this a current diagnosis for this admission?: Yes (4) Acute gastritis Is this a current diagnosis for this admission?: Yes (5) HTN (hypertension) Is this a current diagnosis for this admission?: Yes (6) Chronic pain Is this a current diagnosis for this admission?: Yes (7) Opiate dependence, continuous Is this a current diagnosis for this admission?: Yes (8) Tobacco dependence Is this a current diagnosis for this admission?: Yes - Additional Information Resuscitation Status: Full Code Discharge Diet: Regular Discharge Activity: Activity As Tolerated, Balance Activity w/Rest Home Medications: Nexium 40 mg PO DAILY 07/11/11 Premarin 1.25 mg Tablet 1.25 mg PO DAILY 07/11/11 Montelukast Sodium [Singulair 10 mg Tablet] 10 mg PO QHS 03/15/14 Albuterol Sulfate [Albuterol Sulfate Hfa] 1 puff IH PRN PRN 10/12/14 Amlodipine Besylate 10 mg PO DAILY 10/12/14 Duloxetine HCl [Cymbalta] 90 mg PO DAILY 10/12/14 Fluticasone/Salmeterol [Advair 500-50 Diskus 28 Dose] 1 puff IH Q12 10/12/14 Levothyroxine Sodium [Synthroid] 125 mcg PO DAILY 10/12/14 Lisinopril [Prinivil 5 mg Tablet] 5 mg PO DAILY 10/12/14 Metoprolol Succinate 75 mg PO DAILY 10/12/14 Oxycodone HCl [Oxy-Ir 5 mg Tablet] 10 mg PO Q4HP PRN 10/12/14 Oxycodone HCl [Oxycontin] 20 mg PO TID 10/12/14 Simvastatin 20 mg PO DAILY 10/12/14 Tiotropium [place] [Spiriva Handihaler 5 Cap/Kit (18 Mcg/Cap)] 1 cap IH DAILY Amox Tr/Potassium Clavulanate [Augmentin 875-125 mg Tablet] 1 tab PO BID #10 tablet 10/15/14 Aspirin [Aspirin 81 mg Chewable Tablet] 81 mg PO DAILY #0 tab.chew 10/15/14 Prednisone 10 mg PO ASDIR PRN #39 tablet 10/15/14 Levofloxacin [Levaquin 750 mg Tablet] 750 mg PO DAILY #10 tablet 05/31/15 Prednisone [Deltasone 20 mg Tablet] 3 tab PO DAILY 5 Days 05/31/15 Albuterol Sulfate [Albuterol Sulfate 2.5mg/3 mL] 3 ml IN Q4HP PRN 12/17/16 Alprazolam [Xanax 0.5 mg Tablet] 0.5 mg PO Q8HP PRN 12/17/16 Amlodipine Besylate [Norvasc 10 mg Tablet] 10 mg PO DAILY 12/17/16 Aspirin [Ecotrin 81 mg EC Tablet] 81 mg PO DAILY 12/17/16 Atorvastatin Calcium [Lipitor 80 mg Tablet] 80 mg PO QHS 12/17/16 Duloxetine HCl 90 mg PO DAILY 12/17/16 Esomeprazole Magnesium [Nexium] 40 mg PO BID 12/17/16 Estrogens,Conjugated [Premarin 1.25 mg Tablet] 1.25 mg PO DAILY 12/17/16 Fluticasone/Salmeterol [Advair 500-50 Diskus 14 Dose/Diskus] 1 puff IH Q12 12/17 Levothyroxine Sodium [Synthroid 0.1 mg Tablet] 0.1 mg PO QPM 12/17/16 Lisinopril [Prinivil 5 mg Tablet] 5 mg PO DAILY 12/17/16 Metoprolol Succinate [Toprol Xl 50 mg Tab.sr] 50 mg PO DAILY 12/17/16 Montelukast Sodium [Singulair 10 mg Tablet] 10 mg PO QHS 12/17/16 Oxycodone HCl [Oxycodone HCl 10 MG Tablet] 10 mg PO 5XDP PRN 12/17/16 Oxycodone HCl [Oxycontin] 20 mg PO Q8 12/17/16 Acetaminophen [Tylenol 325 mg Tablet] 650 mg PO Q4HP PRN tablet 12/22/16 Amox Tr/Potassium Clavulanate [Augmentin 875-125 mg Tablet] 1 tab PO BID #16 tablet 12/22/16 Fluticasone Propionate [Flonase Nasal [place] 50 Mcg/[place] 16 gm] 2 spray NASL Q12A spray.pump 12/22/16 Prednisone [Deltasone 20 mg Tablet] 20 mg PO DAILY #3 tablet 12/22/16 History of Present Illness Patient complains of: Cough and increasing shortness of breath History of Present Illness: MAXWELL GREEN is a 56 year old female with 2 L per nasal cannula 24/ 7 home O2 dependent COPD, continuing to smoke, one half pack of cigarettes a day , who presents to the emergency room for evaluation of a 48 hour history or so of progressive difficulty breathing, in particular much of any exertion. Green sputum. She has had nausea but no vomiting. Subjective fever. Mild dysuria. Several small diarrhea stools over the last 2 days. No abdominal discomfort. Mild chest discomfort only with a cough or when her shortness of breath is at its worst. Currently no chest discomfort. Has never been intubated for respiratory difficulty. Hospitalized on our service the first through the fifth of last month, with final diagnoses including acute hypoxemic respiratory failure, COPD exacerbation and pneumonia. Upper endoscopy at that time by Dr. Cook revealed gastritis. Discharge summary has been reviewed. Admitted to our service September 25 of last year with diagnoses including pneumonia , COPD exacerbation. History and physical has been reviewed. Hospital Course Hospital Course: Patient was admitted to [facility] on BIPAP therapy. She was started on IV antibiotics , steroids and nebulizer treatments. She was gradually able to be weaned off the BIPAP to nasal cannula. She complained of difficulty with acid reflux and regurgitation with aspiration. She was evaluated by speech therapy and found to have no dysplasia or problems with swallowing. She continued to improve the next 2 days. Today she is back to her baseline oxygen requirements her wheezing has resolved. Dr. Hernandez did see the patient in consult during her hospitalization as well. She will follow up with him on an outpatient basis. Physical Exam Vital Signs: Temp Pulse Resp BP Pulse Ox 97.8 F 72 20 140/93 H 93 12/22/16 12:29 12/22/16 12:29 12/22/16 12:29 12/22/16 12:29 12/22/16 12:29 Intake & Output 12/21/16 12/22/16 12/23/16 06:59 06:59 06:59 Intake Total 3075 1891 473 Balance 307 1891 473 Weight 93.5 kg 89.4 kg General appearance: PRESENT: no acute distress, well-developed, well-nourished Head exam: PRESENT: atraumatic, normocephalic Eye exam: PRESENT: conjunctiva pink, EOMI, PERRLA. ABSENT: scleral icterus Ear exam: PRESENT: normal external ear exam Mouth exam: PRESENT: moist, tongue midline Neck exam: ABSENT: carotid bruit, JVD, lymphadenopathy, thyromegaly Respiratory exam: PRESENT: rhonchi, symmetrical, unlabored Cardiovascular exam: PRESENT: RRR. ABSENT: diastolic murmur, rubs, systolic murmur Pulses: PRESENT: normal dorsalis pedis pul Vascular exam: PRESENT: normal capillary refill GI/Abdominal exam: PRESENT: normal bowel sounds, soft. ABSENT: distended, guarding, mass, organolmegaly, rebound, tenderness Rectal exam: PRESENT: deferred Extremities exam: PRESENT: full ROM. ABSENT: calf tenderness, clubbing, pedal edema Neurological exam: PRESENT: alert, awake, oriented to person, oriented to place , oriented to time, oriented to situation, CN II-XII grossly intact. ABSENT: motor sensory deficit Psychiatric exam: PRESENT: appropriate affect, normal mood. ABSENT: homicidal ideation, suicidal ideation Results Laboratory Results: 12/22/16 06:04 12/20/16 05:13 12/22/16 06:04 WBC 15.6 H RBC 4.32 Hgb 12.5 Hct 37.9 MCV 88 MCH 28.9 MCHC 32.9 RDW 15.3 H Plt Count 412 Seg Neutrophils % Not Reportable Lymphocytes % Not Reportable Monocytes % Not Reportable Eosinophils % Not Reportable Basophils % Not Reportable Absolute Neutrophils Not Reportable Absolute Lymphocytes Not Reportable Absolute Monocytes Not Reportable Absolute Eosinophils Not Reportable Absolute Basophils Not Reportable Impressions: Chest X-Ray 12/16/16 22:07 IMPRESSION: COPD. NO ACUTE RADIOGRAPHIC FINDING IN THE CHEST. NO SIGNIFICANT CHANGE FROM PRIOR STUDY. Chest/Abdomen CTA 12/19/16 00:00 IMPRESSION: Tree in bud or bronchiolitis pattern has resolved compared to 2016 Few thickened interlobular septa are present around the periphery of both lung bases, nonspecific Obstructive lung disease at the apices New bibasilar atelectasis as compared to CT chest 11/14/[address] angio evidence of acute pulmonary emboli or thoracic aortic dissection. Qualifiers PATEINT BEING DISCHARGED WITH ANY OF THE FOLLOWING DIAGNOSIS?: No Plan Discharge Plan: Home with family. Patient declined home health services
--- NOTE | 2016-12-22 14:28 | PDOC PROGRESS REPORT ---
Subjective Progress Note for:: 12/22/16 Subjective:: I feel better Physical Exam Vital Signs: Temp Pulse Resp BP Pulse Ox 97.8 F 72 20 140/93 H 93 12/22/16 12:29 12/22/16 12:29 12/22/16 12:29 12/22/16 12:29 12/22/16 12:29 Intake & Output 12/21/16 12/22/16 12/23/16 06:59 06:59 06:59 Intake Total 3075 1891 473 Balance 3075 1891 473 Weight 93.5 kg 89.4 kg General appearance: PRESENT: no acute distress, cooperative, disheveled, obese, well-developed Head exam: PRESENT: atraumatic, normocephalic Eye exam: PRESENT: conjunctiva pale, EOMI Mouth exam: PRESENT: moist, neck supple Neck exam: ABSENT: carotid bruit, JVD, lymphadenopathy, thyromegaly Respiratory exam: PRESENT: decreased breath sounds, prolonged expiratory phas, rhonchi, symmetrical, unlabored Cardiovascular exam: PRESENT: RRR, +S1, +S2 Pulses: PRESENT: normal radial pulses GI/Abdominal exam: PRESENT: normal bowel sounds, soft. ABSENT: distended, guarding, mass, organolmegaly, rebound, tenderness Rectal exam: PRESENT: deferred Musculoskeletal exam: PRESENT: normal inspection Neurological exam: PRESENT: alert, awake Psychiatric exam: PRESENT: normal mood Skin exam: PRESENT: dry, warm Results Laboratory Results: 12/22/16 06:04 12/20/16 05:13 12/22/16 06:04 WBC 15.6 H RBC 4.32 Hgb 12.5 Hct 37.9 MCV 88 MCH 28.9 MCHC 32.9 RDW 15.3 H Plt Count 412 Seg Neutrophils % Not Reportable Lymphocytes % Not Reportable Monocytes % Not Reportable Eosinophils % Not Reportable Basophils % Not Reportable Absolute Neutrophils Not Reportable Absolute Lymphocytes Not Reportable Absolute Monocytes Not Reportable Absolute Eosinophils Not Reportable Absolute Basophils Not Reportable Impressions: Chest X-Ray 12/16/16 22:07 IMPRESSION: COPD. NO ACUTE RADIOGRAPHIC FINDING IN THE CHEST. NO SIGNIFICANT CHANGE FROM PRIOR STUDY. Chest/Abdomen CTA 12/19/16 00:00 IMPRESSION: Tree in bud or bronchiolitis pattern has resolved compared to 2016 Few thickened interlobular septa are present around the periphery of both lung bases, nonspecific Obstructive lung disease at the apices New bibasilar atelectasis as compared to CT chest 11/14/[address] angio evidence of acute pulmonary emboli or thoracic aortic dissection. Assessment & Plan - Diagnosis (1) Acute and chronic respiratory failure with hypercapnia Is this a current diagnosis for this admission?: YesPlan: Improved at or near baseline (2) Mediastinal lymphadenopathy Is this a current diagnosis for this admission?: YesPlan: Additional workup as outpatient see [facility] (3) COPD exacerbation Is this a current diagnosis for this admission?: YesPlan: Bronchodilator therapy (4) HTN (hypertension) Qualifiers: Hypertension type: essential hypertension Qualified Code(s): I10 - Essential (primary) hypertension Is this a current diagnosis for this admission?: Yes
--- NOTE | 2016-12-22 14:29 | PDOC CONSULTATION ---
Consultation Consult Date: 12/20/16 Attending physician:: KELLEN REYNAGA Consult reason:: dyspnea History of Present Illness Admission Date/PCP: 12/17/16 05:34 ZOE ALLEN DO History of Present Illness: MAXWELL GREEN is a 56 year old female with 2 L per nasal cannula 24/ 7 home O2 dependent COPD, continuing to smoke, one half pack of cigarettes a day , who presents to the emergency room for evaluation of a 48 hour history or so of progressive difficulty breathing, in particular much of any exertion. Green sputum. She has had nausea but no vomiting. Subjective fever. Mild dysuria. Several small diarrhea stools over the last 2 days. No abdominal discomfort. Mild chest discomfort only with a cough or when her shortness of breath is at its worst. Currently no chest discomfort. Hospitalized the first through the fifth of last month, with final diagnoses including acute hypoxemic respiratory failure, COPD exacerbation and pneumonia. Upper . Past Medical History Cardiac Medical History: Reports: Hyperlipidema, Hypertension Denies: Congestive Heart Failure, Coronary Artery Disease, DVT, Pulmonary Embolism Pulmonary Medical History: Reports: Chronic Obstructive Pulmonary Disease (COPD) , Pneumonia Denies: Sleep Apnea EENT Medical History: Reports: None, Eyes - Glasses, Throat - Mild occasional dysphagia without aspiration, Other - Easy bruising Denies: Ears Neurological Medical History: Reports: None Denies: Hemorrhagic CVA, Ischemic CVA, Seizures Endocrine Medical History: Reports: Hypothyroidism Denies: Diabetes Mellitus Type 1, Diabetes Mellitus Type 2, Hyperthyroidism Renal/ Medical History: Reports: None GI Medical History: Reports: Gastroesophageal Reflux Disease Denies: Cirrhosis, Hepatitis, Peptic Ulcer Disease Musculoskeltal Medical History: Reports: Arthritis, Fibromyalgia, Other - Chronic pain syndrome Skin Medical History: Reports: None Psychiatric Medical History: Reports: Depression, General Anxiety Disorder, Tobacco Dependency Denies: Alcohol Dependency, Substance Abuse Hematology: Reports: Other - Easy bruising Infectious Medical History: Denies: Clostridium Difficile, Hepatitis B, Hepatitis C, Methicillin- Resistant Staph Aureus Past Surgical History Past Surgical History: Reports: Cholecystectomy, Hysterectomy Social History Information Source: Patient, [facility] Records Lives with: Family Smoking Status: Current Every Day Smoker Cigarettes Packs Per Day: 1 Number of Years Smokin Passive smoke exposure as: Both Frequency of Alcohol Use: None Hx Recreational Drug Use: No Drugs: None Hx Prescription Drug Abuse: No - Advance Directive Resuscitation Status: Full Code Family History Family History: Reviewed & Not Pertinent Parental Family History Reviewed: Yes Children Family History Reviewed: Yes Sibling(s) Family History Reviewed.: Yes Medication/Allergy Home Medications: Nexium 40 mg PO DAILY 07/11/11 Premarin 1.25 mg Tablet 1.25 mg PO DAILY 07/11/11 Montelukast Sodium [Singulair 10 mg Tablet] 10 mg PO QHS 03/15/14 Albuterol Sulfate [Albuterol Sulfate Hfa] 1 puff IH PRN PRN 10/12/14 Amlodipine Besylate 10 mg PO DAILY 10/12/14 Duloxetine HCl [Cymbalta] 90 mg PO DAILY 10/12/14 Fluticasone/Salmeterol [Advair 500-50 Diskus 28 Dose] 1 puff IH Q12 10/12/14 Levothyroxine Sodium [Synthroid] 125 mcg PO DAILY 10/12/14 Lisinopril [Prinivil 5 mg Tablet] 5 mg PO DAILY 10/12/14 Metoprolol Succinate 75 mg PO DAILY 10/12/14 Oxycodone HCl [Oxy-Ir 5 mg Tablet] 10 mg PO Q4HP PRN 10/12/14 Oxycodone HCl [Oxycontin] 20 mg PO TID 10/12/14 Simvastatin 20 mg PO DAILY 10/12/14 Tiotropium [place] [Spiriva Handihaler 5 Cap/Kit (18 Mcg/Cap)] 1 cap IH DAILY Amox Tr/Potassium Clavulanate [Augmentin 875-125 mg Tablet] 1 tab PO BID #10 tablet 10/15/14 Aspirin [Aspirin 81 mg Chewable Tablet] 81 mg PO DAILY #0 tab.chew 10/15/14 Prednisone 10 mg PO ASDIR PRN #39 tablet 10/15/14 Levofloxacin [Levaquin 750 mg Tablet] 750 mg PO DAILY #10 tablet 05/31/15 Prednisone [Deltasone 20 mg Tablet] 3 tab PO DAILY 5 Days 05/31/15 Albuterol Sulfate [Albuterol Sulfate 2.5mg/3 mL] 3 ml IN Q4HP PRN 12/17/16 Alprazolam [Xanax 0.5 mg Tablet] 0.5 mg PO Q8HP PRN 12/17/16 Amlodipine Besylate [Norvasc 10 mg Tablet] 10 mg PO DAILY 12/17/16 Aspirin [Ecotrin 81 mg EC Tablet] 81 mg PO DAILY 12/17/16 Atorvastatin Calcium [Lipitor 80 mg Tablet] 80 mg PO QHS 12/17/16 Duloxetine HCl 90 mg PO DAILY 12/17/16 Esomeprazole Magnesium [Nexium] 40 mg PO BID 12/17/16 Estrogens,Conjugated [Premarin 1.25 mg Tablet] 1.25 mg PO DAILY 12/17/16 Fluticasone/Salmeterol [Advair 500-50 Diskus 14 Dose/Diskus] 1 puff IH Q12 12/17 Levothyroxine Sodium [Synthroid 0.1 mg Tablet] 0.1 mg PO QPM 12/17/16 Lisinopril [Prinivil 5 mg Tablet] 5 mg PO DAILY 12/17/16 Metoprolol Succinate [Toprol Xl 50 mg Tab.sr] 50 mg PO DAILY 12/17/16 Montelukast Sodium [Singulair 10 mg Tablet] 10 mg PO QHS 12/17/16 Oxycodone HCl [Oxycodone HCl 10 MG Tablet] 10 mg PO 5XDP PRN 12/17/16 Oxycodone HCl [Oxycontin] 20 mg PO Q8 12/17/16 Acetaminophen [Tylenol 325 mg Tablet] 650 mg PO Q4HP PRN tablet 12/22/16 Amox Tr/Potassium Clavulanate [Augmentin 875-125 mg Tablet] 1 tab PO BID #16 tablet 12/22/16 Fluticasone Propionate [Flonase Nasal [place] 50 Mcg/[place] 16 gm] 2 spray NASL Q12A spray.pump 12/22/16 Prednisone [Deltasone 20 mg Tablet] 20 mg PO DAILY #3 tablet 12/22/16 Allergies/Adverse Reactions: adhesive tape Allergy (Verified 12/16/16 22:29) roflumilast Adverse Reaction (Verified 12/16/16 22:29) Physical Exam Vital Signs: Temp Pulse Resp BP Pulse Ox 98.5 F 95 20 147/90 H 98 12/20/16 12:40 12/20/16 14:18 12/20/16 14:18 12/20/16 12:40 12/20/16 14:18 Intake & Output 12/19/16 12/20/16 12/21/16 06:59 06:59 06:59 Intake Total 4923 1745 980 Output Total 1000 Balance 4921 749 980 Weight 93.2 kg 93.5 kg General appearance: PRESENT: no acute distress, cooperative, disheveled, obese, well-developed Head exam: PRESENT: atraumatic, normocephalic Eye exam: PRESENT: conjunctiva pale, EOMI Mouth exam: PRESENT: dry mucosa, neck supple, tongue midline Respiratory exam: PRESENT: crackles, decreased breath sounds, prolonged expiratory phas, rhonchi, symmetrical, unlabored Cardiovascular exam: PRESENT: RRR, +S1, +S2 Pulses: PRESENT: normal radial pulses GI/Abdominal exam: PRESENT: normal bowel sounds, soft. ABSENT: distended, guarding, mass, organolmegaly, rebound, tenderness Rectal exam: PRESENT: deferred Musculoskeletal exam: PRESENT: normal inspection Neurological exam: PRESENT: alert, awake Psychiatric exam: PRESENT: normal mood Skin exam: PRESENT: dry, warm Results Laboratory Results: 12/20/16 04:13 12/20/16 05:13 12/17/16 12/19/16 12/20/16 07:51 06:17 04:13 WBC 17.5 H 23.0 H 19.4 H RBC 4.02 4.03 3.93 Hgb 11.7 L 11.6 L 11.3 L Hct 35.5 L 36.2 34.6 L MCV 88 90 88 MCH 29.1 28.8 28.7 MCHC 32.9 32.1 32.6 RDW 15.3 H 15.2 H 15.4 H Plt Count 301 324 341 Sodium Potassium Chloride Carbon Dioxide Anion Gap BUN Creatinine Est GFR ( Amer) Est GFR (Non-Af Amer) Glucose Calcium Magnesium 12/20/16 05:13 WBC RBC Hgb Hct MCV MCH MCHC RDW Plt Count Sodium 138.1 Potassium 4.0 Chloride 94 L Carbon Dioxide 34 H Anion Gap 10 BUN 13 Creatinine 0.55 Est GFR ( Amer) > 60 Est GFR (Non-Af Amer) > 60 Glucose 150 H Calcium 8.2 L Magnesium 1.4 L Impressions: Chest X-Ray 12/16/16 22:07 IMPRESSION: COPD. NO ACUTE RADIOGRAPHIC FINDING IN THE CHEST. NO SIGNIFICANT CHANGE FROM PRIOR STUDY. Chest/Abdomen CTA 12/19/16 00:00 IMPRESSION: Tree in bud or bronchiolitis pattern has resolved compared to 2016 Few thickened interlobular septa are present around the periphery of both lung bases, nonspecific Obstructive lung disease at the apices New bibasilar atelectasis as compared to CT chest 11/14/[address] angio evidence of acute pulmonary emboli or thoracic aortic dissection. Assessment & Plan - Diagnosis (1) Acute and chronic respiratory failure with hypercapnia Is this a current diagnosis for this admission?: Yes (2) Mediastinal lymphadenopathy Is this a current diagnosis for this admission?: Yes (4) HTN (hypertension) Qualifiers: Hypertension type: essential hypertension Qualified Code(s): I10 - Essential (primary) hypertension Is this a current diagnosis for this admission?: Yes
--- NOTE | 2016-12-22 16:23 | RADIOLOGY REPORT (SQ) ---
EXAM DESCRIPTION: AFSHINIE SWALLOW COMPLETED DATE/TIME: 12/21/2016 10:42 am REASON FOR STUDY: Dysphagia, unspecified R 13.10, food in pharynx causing other injury, sequela T17. 228S chocking COMPARISON: None. TECHNIQUE: Videofluoroscopic swallowing examination was performed in conjunction with speech patholo gy. Videofluoroscopic imaging was obtained and reviewed and these are the findings: RADIATION DOSE: Total fluoroscopy time: 0.7 minutes 2 fluoroscopy images saved to PACS. LIMITATIONS: None FINDINGS: The patient was brought into the fluoro room and placed upright on a modified barium swall ow chair. The patient was then given multiple consistencies mixed with barium to swallow under live fluoroscopic video guidance. According to the Speech Pathologist there was no laryngeal penetration and no tracheal aspiration. Normal oral and pharyngeal transit time was observed. No significant po st swallow residual was seen. Please see speech pathology report for further details and recommendat ions. IMPRESSION: NO EVIDENCE OF LARYNGEAL PENETRATION OR TRACHEAL ASPIRATIONPLEASE SEE SPEECH PATHOLOGIST REPORT FOR OTHER FINDINGS AND RECOMMENDATIONS. COMMENT: Quality ID [id number]: Final reports for procedures using fluoroscopy that document radiation exp osure indices, or exposure time and number of fluorographic images (if radiation exposure indices are not available) TECHNICAL DOCUMENTATION: JOB ID: [id number] [employer] All Rights Reserved
--- NOTE | 2016-12-27 12:33 | PDOC PROGRESS REPORT ---
Subjective Progress Note for:: 12/21/16 Subjective:: I doing okay Physical Exam Vital Signs: Temp Pulse Resp BP Pulse Ox 97.8 F 72 20 140/93 H 93 12/22/16 12:29 12/22/16 12:29 12/22/16 12:29 12/22/16 12:29 12/22/16 12:29 Intake & Output 12/21/16 12/22/16 12/23/16 06:59 06:59 06:59 Intake Total 3075 1891 473 Balance 3075 1891 473 Weight 93.5 kg 89.4 kg General appearance: PRESENT: no acute distress, disheveled, well-developed Head exam: PRESENT: atraumatic, normocephalic Eye exam: PRESENT: conjunctiva pale, EOMI Mouth exam: PRESENT: moist, neck supple Neck exam: ABSENT: carotid bruit, JVD, lymphadenopathy, thyromegaly Respiratory exam: PRESENT: decreased breath sounds, prolonged expiratory phas, rhonchi, unlabored Cardiovascular exam: PRESENT: RRR, +S1, +S2 Pulses: PRESENT: normal radial pulses GI/Abdominal exam: PRESENT: normal bowel sounds, soft. ABSENT: distended, guarding, mass, organolmegaly, rebound, tenderness Rectal exam: PRESENT: deferred Gentrourinary exam: PRESENT: indwelling catheter Musculoskeletal exam: PRESENT: normal inspection Neurological exam: PRESENT: alert, awake Psychiatric exam: PRESENT: normal mood Skin exam: PRESENT: dry, warm Results Laboratory Results: 12/22/16 06:04 12/20/16 05:13 12/22/16 06:04 WBC 15.6 H RBC 4.32 Hgb 12.5 Hct 37.9 MCV 88 MCH 28.9 MCHC 32.9 RDW 15.3 H Plt Count 412 Seg Neutrophils % Not Reportable Lymphocytes % Not Reportable Monocytes % Not Reportable Eosinophils % Not Reportable Basophils % Not Reportable Absolute Neutrophils Not Reportable Absolute Lymphocytes Not Reportable Absolute Monocytes Not Reportable Absolute Eosinophils Not Reportable Absolute Basophils Not Reportable Impressions: Chest X-Ray 12/16/16 22:07 IMPRESSION: COPD. NO ACUTE RADIOGRAPHIC FINDING IN THE CHEST. NO SIGNIFICANT CHANGE FROM PRIOR STUDY. Chest/Abdomen CTA 12/19/16 00:00 IMPRESSION: Tree in bud or bronchiolitis pattern has resolved compared to 2016 Few thickened interlobular septa are present around the periphery of both lung bases, nonspecific Obstructive lung disease at the apices New bibasilar atelectasis as compared to CT chest 11/14/[address] angio evidence of acute pulmonary emboli or thoracic aortic dissection. Assessment & Plan - Diagnosis (1) Acute and chronic respiratory failure with hypercapnia Is this a current diagnosis for this admission?: Yes (2) Mediastinal lymphadenopathy Is this a current diagnosis for this admission?: Yes (3) COPD exacerbation Is this a current diagnosis for this admission?: Yes (4) HTN (hypertension) Qualifiers: Hypertension type: essential hypertension Qualified Code(s): I10 - Essential (primary) hypertension Is this a current diagnosis for this admission?: Yes
== END 2016-12-22 14:35 | disposition home or self-care (01) | DRG 190 ==
LOC: ER 21:50 → EH 12-17 02:21 → UNDOADMIN 12-17 02:21 → EH 12-17 05:34 → 3S 12-17 05:51
PROVIDERS: ADMIT Family Medicine; ATTEND Family Medicine
PROC: 3E0F73Z Introduction of Anti-inflammatory into Respiratory Tract, Via Natural or Artificial Opening (ICD-10-PCS; principal; 2016-12-17)
PROC: 5A09357 Assistance with Respiratory Ventilation, Less than 24 Consecutive Hours, Continuous Positive Airway Pressure (ICD-10-PCS; 2016-12-18)
DX: J44.1 Chronic obstructive pulmonary disease with (acute) exacerbation (principal); J96.22 Acute and chronic respiratory failure with hypercapnia; J96.21 Acute and chronic respiratory failure with hypoxia; F17.210 Nicotine dependence, cigarettes, uncomplicated; I10 Essential (primary) hypertension; E78.5 Hyperlipidemia, unspecified; R13.10 Dysphagia, unspecified; K21.9 Gastro-esophageal reflux disease without esophagitis; M79.7 Fibromyalgia; G89.4 Chronic pain syndrome; F32.9 Major depressive disorder, single episode, unspecified; F41.1 Generalized anxiety disorder; E83.42 Hypomagnesemia; E03.9 Hypothyroidism, unspecified; Z99.81 Dependence on supplemental oxygen; R59.0 Localized enlarged lymph nodes; I25.10 Atherosclerotic heart disease of native coronary artery without angina pectoris; K29.70 Gastritis, unspecified, without bleeding; I95.89 Other hypotension; E86.0 Dehydration; M19.90 Unspecified osteoarthritis, unspecified site; Z79.899 Other long term (current) drug therapy; Z79.891 Long term (current) use of opiate analgesic; Z79.82 Long term (current) use of aspirin; Z80.9 Family history of malignant neoplasm, unspecified; Z88.8 Allergy status to other drugs, medicaments and biological substances; Z90.49 Acquired absence of other specified parts of digestive tract; Z90.710 Acquired absence of both cervix and uterus
CPT/HCPCS: 36415; 71010; 71275; 74230; 80048; 80053; 81001; 81332; 82550; 82553; 82803; 82962; 83735; 84439; 84443; 84484; 85025; 85027; 87040; 87070; 87077; 87205; 93005; 93010; 94640; 94667; 94668; 94799; 96365; 96366; 96375; 99285; G8996-GN; G8997-GN; G8998-GN; J0456; J0692; J1650; J1956; J2543; J2920; J2930; J3475; J3480; J3490; J7030; J7060; J7512; J7620; S0164

== ENCOUNTER 2017-01-15 21:12 | Emergency (ER) | payer MEDICARE ==
--- NOTE | 2017-01-15 21:37 | EKG REPORT ---
SEVERITY:- OTHERWISE NORMAL ECG - SINUS TACHYCARDIA BORDERLINE RIGHT AXIS DEVIATION : Confirmed by: Marcelle Esteves 15-Jan-2017 21:37:43
[2017-01-15] MEDS ORDERED: METHYLPREDNISOLONE INJ 125 MG/2 ML SDV IV ONE (21:44)
[2017-01-15] MEDS ORDERED: IPRATROPIUM/ALBUTEROL 0.5-2.5 MG/3 ML AMPUL NEB ONE (21:44)
[2017-01-15] MEDS ORDERED: ALBUTEROL SULFATE 0.083% NEB 2.5 MG/3 ML AMPUL NEB SCH (21:59)
--- NOTE | 2017-01-15 22:05 | ER Document Report ---
ED General - General Chief Complaint: Chest Pain Stated Complaint: CHEST PAIN Time Seen by Provider: 01/15/17 22:04 Mode of Arrival: Ambulatory Information source: Patient TRAVEL OUTSIDE OF THE [place] IN LAST 30 DAYS: No - HPI Notes: Pt. reports chest pain radiating into back where it started at yesterday. Pt. has COPD, last neb few hours ago. Has used inhaler X4 today. Pt. has difficulty breathing. Pt. still smokes. Pt. has bilateral wheezing. - Related Data Allergies/Adverse Reactions: adhesive tape Allergy (Verified 12/16/16 22:29) roflumilast Adverse Reaction (Verified 12/16/16 22:29) Past Medical History - Social History Family History: Reviewed & Not Pertinent Patient has suicidal ideation: No Patient has homicidal ideation: No - Past Medical History Cardiac Medical History: Reports: Hx Hypercholesterolemia, Hx Hypertension Denies: Hx Congestive Heart Failure, Hx Coronary Artery Disease, Hx DVT, Hx Pulmonary Embolism Pulmonary Medical History: Reports: Hx COPD, Hx Pneumonia Denies: Hx Sleep Apnea Neurological Medical History: Denies: Hx Seizures Endocrine Medical History: Reports: Hx Hypothyroidism. Denies: Hx Diabetes Mellitus Type 1, Hx Diabetes Mellitus Type 2, Hx Hyperthyroidism Renal/ Medical History: Denies: Hx Peritoneal Dialysis GI Medical History: Reports: Hx Gastroesophageal Reflux Disease. Denies: Hx Cirrhosis, Hx Hepatitis Musculoskeltal Medical History: Reports Hx Arthritis, Reports Hx Fibromyalgia, Reports Hx Musculoskeletal Deformity, Reports Hx Musculoskeletal Trauma Psychiatric Medical History: Reports: Hx Depression Infectious Medical History: Denies: Hx C-Diff, Hx Hepatitis, Hx MRSA Past Surgical History: Reports: Hx Cholecystectomy, Hx Hysterectomy - Immunizations Immunizations up to date: No Hx Diphtheria, Pertussis, Tetanus Vaccination: No Hx Pneumococcal Vaccination: 07/11/11 Physical Exam - Vital signs Vitals: Temp Pulse Resp BP Pulse Ox 98.2 F 100 22 H 135/81 H 91 L 01/15/17 21:24 01/15/17 21:24 01/15/17 21:24 01/15/17 21:24 01/15/17 21:24 Course - Vital Signs Vital signs: Temp Pulse Resp BP Pulse Ox 98.2 F 100 22 H 135/81 H 91 L 01/15/17 21:24 01/15/17 21:24 01/15/17 21:24 01/15/17 21:24 01/15/17 21:24
[2017-01-15 22:47] LABS: ABSOLUTE BASOPHILS # (AUTO) 0.1 10^3/uL (0.0-0.2); ABSOLUTE EOSINOPHILS # (AUTO) 0.2 10^3/uL (0.0-0.6); ABSOLUTE LYMPHOCYTES (AUTO) 2.4 10^3/uL (0.5-4.7); ABSOLUTE MONOCYTES (AUTO) 0.7 10^3/uL (0.1-1.4); ABSOLUTE NEUT (AUTO) 3.7 10^3/uL (1.7-8.2); BASOPHILS % (AUTO) 1.2 % (0-2); EOSINOPHILS % (AUTO) 3.2 % (0-6); HEMATOCRIT 39.4 % (36.0-47.0); HEMOGLOBIN 12.8 g/dL (12.0-15.5); LYMPHOCYTES % (AUTO) 33.5 % (13-45); MEAN CORPUSCULAR HEMOGLOBIN 28.9 pg (27.0-33.4); MEAN CORPUSCULAR HGB CONC 32.4 g/dL (32.0-36.0); MEAN CORPUSCULAR VOLUME 89 fl (80-97); MONOCYTES % (AUTO) 9.3 % (3-13); RED BLOOD COUNT 4.41 10^6/uL (3.72-5.28); RED CELL DISTRIBUTION WIDTH 15.8 % (11.5-14.0); SEGMENTED NEUTROPHILS % (AUTO) 52.8 % (42-78); WHITE BLOOD COUNT 7.1 10^3/uL (4.0-10.5)
--- NOTE | 2017-01-15 22:50 | ER Document Report ---
ED General - General Chief Complaint: Chest Pain Stated Complaint: CHEST PAIN Time Seen by Provider: 01/15/17 22:04 Mode of Arrival: Ambulatory Information source: Patient TRAVEL OUTSIDE OF THE [place] IN LAST 30 DAYS: No - HPI Notes: Patient is a 56-year-old female history of oxygen dependent COPD, still smoking , history of recurrent COPD flareups, presents emergency department with report of progressive difficulty breathing associated with some recent weight gain and lower extremity swelling. The patient states that associated with her largely nonproductive cough she has had for the past 2-3 days. patient reports gradual onset and worsening of right-sided chest wall pain and pain through to her back. Patient states she had a negative cardiac stress test year and half ago. She has had negative CTA of the chest on 11/14/16 and during recent hospitalization for COPD on 12/19/16. The patient states 1 week ago she was discontinued from Cymbalta and started on Wellbutrin. She reports 1 month ago she was also started on metformin for rising blood sugars secondary to steroid use. She has no history of congestive heart failure family history cardiac disease with brother dying of a MN in his 50s., But brother was also a smoker. - Related Data Allergies/Adverse Reactions: adhesive tape Allergy (Verified 12/16/16 22:29) roflumilast Adverse Reaction (Verified 12/16/16 22:29) Past Medical History - General Information source: Patient - Social History Smoking Status: Current Every Day Smoker Frequency of alcohol use: None Drug Abuse: None Lives with: Alone Family History: Reviewed & Not Pertinent Patient has suicidal ideation: No Patient has homicidal ideation: No - Past Medical History Cardiac Medical History: Reports: Hx Hypercholesterolemia, Hx Hypertension Denies: Hx Congestive Heart Failure, Hx Coronary Artery Disease, Hx DVT, Hx Pulmonary Embolism Pulmonary Medical History: Reports: Hx COPD, Hx Pneumonia Denies: Hx Sleep Apnea Neurological Medical History: Denies: Hx Seizures Endocrine Medical History: Reports: Hx Hypothyroidism. Denies: Hx Diabetes Mellitus Type 1, Hx Diabetes Mellitus Type 2, Hx Hyperthyroidism Renal/ Medical History: Denies: Hx Peritoneal Dialysis GI Medical History: Reports: Hx Gastroesophageal Reflux Disease. Denies: Hx Cirrhosis, Hx Hepatitis Musculoskeltal Medical History: Reports Hx Arthritis, Reports Hx Fibromyalgia, Reports Hx Musculoskeletal Deformity, Reports Hx Musculoskeletal Trauma Psychiatric Medical History: Reports: Hx Depression Infectious Medical History: Denies: Hx C-Diff, Hx Hepatitis, Hx MRSA Past Surgical History: Reports: Hx Cholecystectomy, Hx Hysterectomy - Immunizations Immunizations up to date: No Hx Diphtheria, Pertussis, Tetanus Vaccination: No Hx Pneumococcal Vaccination: 07/11/11 Review of Systems - Review of Systems Notes: REVIEW OF SYSTEMS: CONSTITUTIONAL : Denies fever, chills, or sweats. EENT: Denies eye, ear, throat, or mouth pain or symptoms. Denies nasal or sinus congestion or discharge. Denies throat, tongue, or mouth swelling or difficulty swallowing. CARDIOVASCULAR: Denies palpitations or racing or irregular heart beat. RESPIRATORY: Reports dyspnea and wheezing. GASTROINTESTINAL: Denies abdominal pain or distention. Denies nausea, vomiting , or diarrhea. Denies blood in vomitus, stools, or per rectum. Denies black, tarry stools. Denies constipation. GENITOURINARY: Denies difficulty urinating, painful urination, burning, frequency, blood in urine, or discharge. FEMALE GENITOURINARY: Denies vaginal bleeding, heavy or abnormal periods, irregular periods. Denies vaginal discharge or odor. MUSCULOSKELETAL: The patient reports chronic pain everywhere throughout her joints and back which is unchanged. She reports pain on the plantar aspect of the heels and feet when she is attempting to ambulate. SKIN: Denies rash, lesions or sores. HEMATOLOGIC : Denies easy bruising or bleeding. LYMPHATIC: Denies swollen, enlarged glands. NEUROLOGICAL: Denies confusion or altered mental status. Denies passing out or loss of consciousness. Denies dizziness or lightheadedness. Denies headache. Denies weakness or paralysis or loss of use of either side. Denies problems with gait or speech. Denies sensory loss, numbness, or tingling. Denies seizures. PSYCHIATRIC: Denies anxiety or stress. Denies depression, suicidal ideation, or homicidal ideation. ALL OTHER SYSTEMS REVIEWED AND NEGATIVE. Dictation was performed using [employer] voice recognition software Physical Exam - Vital signs Vitals: Temp Pulse Resp BP Pulse Ox 98.2 F 100 22 H 135/81 H 91 L 01/15/17 21:24 01/15/17 21:24 01/15/17 21:24 01/15/17 21:24 01/15/17 21:24 - Notes Notes: PHYSICAL EXAMINATION: GENERAL: Well-appearing, well-nourished and in no acute distress. HEAD: Atraumatic, normocephalic. EYES: Pupils equal round and reactive to light, extraocular movements intact, conjunctiva are normal. ENT: Nares patent, oropharynx clear without exudates. Moist mucous membranes. NECK: Normal range of motion, supple without lymphadenopathy. No JVD. LUNGS: Breath sounds show wheezes without significant accessory muscle use or retraction. Patient shows no significant rales. Breath sounds are equal bilaterally. HEART: Regular rate and rhythm without murmurs. Pain over the R lateral chest wall region and back. No crepitance or bony deformity. ABDOMEN: Soft, nontender, nondistended abdomen. No guarding, no rebound. No masses appreciated. Prior choley scar noted. Female : deferred Musculoskeletal: Normal range of motion. No cyanosis. Patient has 1+ bilateral lower extremity edema. No palpable cord. Good distal pulses. There is no proximal erythema or adenopathy noted. Negative Homans. No palpable cord. The patient does have pain on palpation. Bilateral plantar arches. No erythema or crepitance. Good distal capillary refill. NEUROLOGICAL: Cranial nerves grossly intact. Normal speech, normal gait. Normal sensory, motor exams PSYCH: Normal mood, normal affect. SKIN: Warm, Dry, normal turgor, no rashes or lesions noted. Patient has pain on palpation through the right lateral chest wall region and back. Course - Re-evaluation Re-evalutation: 01/15/17 23:07 Patient was given a DuoNeb. Repeat lung auscultation showed improvement in wheezing. Patient was given IV Solu-Medrol. Magnesium level is low, the patient was given supplemental magnesium 2 g IV. Patient was kept on her usual home oxygen requirement of 2 L. 01/16/17 00:36 Given the low magnesium and history of COPD, I will start the patient on a magnesium supplement chronically. Patient's lower extremity swelling may be related to her increase in weight recently, but could also be related to relative hypothyroidism. We will also increase the patient's Synthroid level from 125 mcg to 150 mcg. Patient was counseled about quitting smoking. There is no evidence for CHF or pneumonia, the patient's had [address] scans of the chest for similar symptoms in the last 2 months. No suggestion for pulmonary embolus. No evidence for cardiac ischemia or acute MN. Patient is given Zithromax. No evidence for pneumonia. Patient has stable oxygen saturations and she has home oxygen and nebulizer treatments and she agrees she is stable for discharge home 01/16/17 01:27 - Vital Signs Vital signs: Temp Pulse Resp BP Pulse Ox 98.2 F 100 20 118/74 96 01/15/17 21:24 01/15/17 21:24 01/16/17 00:01 01/16/17 00:01 01/16/17 00:01 - Laboratory Result Diagrams: 01/15/17 22:08 01/15/17 22:08 Laboratory results interpreted by me: 01/15/17 01/15/17 01/15/17 22:08 22:08 22:08 RDW 15.8 H Potassium 3.5 L Magnesium 0.7 L* TSH 31.80 H - EKG Interpretation by Me EKG shows normal: Sinus rhythm Additional EKG results interpreted by me: 01/15/17 23:09 EKG as interpreted by me showed sinus tachycardia heart rate of 103. There is no gross evidence for acute MN or ischemia noted. There is evidence for right atrial enlargement. There is no gross change from previous EKG reviewed from 12/16/16. 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 Elevate your feet for swelling. Use arch supports for your feet. Stop smoking. Take steroid taper if your wheezing worsens. Return to the ED in case of high fever, difficulty breathing or severe pain. Prescriptions: Azithromycin [Zithromax 250 mg Tablet] 250 mg PO DAILY #4 tablet Fluconazole [Diflucan] 150 mg PO ONCE PRN #1 tablet PRN Reason: Magnesium Oxide [Magnesium] 400 mg PO DAILY #60 capsule Prednisone [Deltasone 10 mg Tablet] 10 mg PO ASDIR PRN #21 tablet PRN Reason: Referrals: ZOE ALLEN DO [Primary Care Provider] - Follow up as needed
[2017-01-15 22:53] LABS: ALANINE AMINOTRANSFERASE 30 U/L (9-52); ALBUMIN 4.2 g/dL (3.5-5.0); ALKALINE PHOSPHATASE 110 U/L (38-126); ANION GAP 11 (5-19); ASPARTATE AMINO TRANSFERASE 33 U/L (14-36); BILIRUBIN,DIRECT 0.3 mg/dL (0.0-0.4); BILIRUBIN,TOTAL 0.3 mg/dL (0.2-1.3); BLOOD UREA NITROGEN 11 mg/dL (7-20); CALCIUM 9.3 mg/dL (8.4-10.2); CARBON DIOXIDE 30 mmol/L (22-30); CHLORIDE 98 mmol/L (98-107); CREATININE RESULT 0.71 mg/dL (0.52-1.25); GLUCOSE 108 mg/dL (75-110); POTASSIUM 3.5 mmol/L (3.6-5.0); SODIUM 139.3 mmol/L (137-145); TOTAL PROTEIN 7.5 g/dL (6.3-8.2)
[2017-01-15 23:00] LABS: MAGNESIUM 0.7 mg/dL (1.6-2.3)
[2017-01-15 23:14] LABS: TROPONIN I < 0.012 ng/mL
--- NOTE | 2017-01-15 23:25 | RADIOLOGY REPORT (SQ) ---
EXAM DESCRIPTION: CHEST PA/LAT COMPLETED DATE/TIME: 01/15/2017 11:08 pm REASON FOR STUDY: COUGH, R CHEST PAIN COMPARISON: 11/14/2016. CT 12/19/2016. NUMBER OF VIEWS: Two view. TECHNIQUE: Frontal and lateral radiographic views of the chest acquired. LIMITATIONS: None. FINDINGS: LUNGS AND PLEURA: No opacities, masses or pneumothorax. No pleural effusion. Attenuated bl ood vessels and flattened anna-diaphragms. MEDIASTINUM AND HILAR STRUCTURES: No masses. No contour abnormalities. HEART AND VASCULAR STRUCTURES: Heart normal in size and contour. No evidence for failure. BONES: No acute findings. HARDWARE: None in the chest. OTHER: No other significant finding. IMPRESSION: COPD. NO ACUTE RADIOGRAPHIC FINDING IN THE CHEST. TECHNICAL DOCUMENTATION: JOB ID: [id number] [employer]- All Rights Reserved
[2017-01-15 23:27] LABS: THYROID STIMULATING HORMONE 31.8 uIU/mL (0.47-4.68)
[2017-01-15] MEDS: MAGNESIUM SULFATE/D5W 100 ML IV SCH ×2 (23:32→23:33)
[2017-01-15] MEDS ORDERED: POTASSIUM CHLORIDE 10 MEQ TABLET.SA PO ONE (23:38)
[2017-01-16] MEDS ORDERED: IPRATROPIUM/ALBUTEROL 0.5-2.5 MG/3 ML AMPUL NEB ONE (00:24)
[2017-01-16] MEDS ORDERED: AZITHROMYCIN 250 MG TABLET PO ONE (00:24)
[2017-01-16 02:32] VITALS: BP 125/91
== END 2017-01-16 02:32 | disposition home or self-care (01) ==
LOC: ER 21:12
DX: J44.1 Chronic obstructive pulmonary disease with (acute) exacerbation (principal); Z99.81 Dependence on supplemental oxygen; R09.1 Pleurisy; E06.3 Autoimmune thyroiditis; R60.0 Localized edema; M72.2 Plantar fascial fibromatosis; R63.5 Abnormal weight gain; Z68.29 Body mass index [BMI] 29.0-29.9, adult; R00.0 Tachycardia, unspecified; I51.7 Cardiomegaly; R05 Cough; M54.9 Dorsalgia, unspecified; M25.50 Pain in unspecified joint; G89.29 Other chronic pain; I10 Essential (primary) hypertension; F32.9 Major depressive disorder, single episode, unspecified; F17.200 Nicotine dependence, unspecified, uncomplicated; Z71.6 Tobacco abuse counseling; Z79.899 Other long term (current) drug therapy; Z79.84 Long term (current) use of oral hypoglycemic drugs; Z82.49 Family history of ischemic heart disease and other diseases of the circulatory system; Z91.048 Other nonmedicinal substance allergy status
CPT/HCPCS: 93005; 94640 ×2; 99285; 96375; 96365; 36415; 84439; 83735; 84443; 85025; 80053; 84484; 83880; 71020; 93010; A9270 ×5; J2930; J3475; J7620

== ENCOUNTER → 2017-11-02 | Outpatient (CLI) | payer MEDICARE ==
--- NOTE | 2017-11-02 14:22 | RADIOLOGY REPORT (SQ) ---
EXAM DESCRIPTION: CHEST 2 VIEWS COMPLETED DATE/TIME: 11/02/2017 11:34 am REASON FOR STUDY: COUGH COMPARISON: January 2017 EXAM PARAMETERS: NUMBER OF VIEWS: two views TECHNIQUE: Digital Frontal and Lateral radiographic views of the chest acquired. RADIATION DOSE: NA LIMITATIONS: none FINDINGS: LUNGS AND PLEURA: No opacities, masses or pneumothorax. No pleural effusion. Again there is evidence for obstructive lung disease. MEDIASTINUM AND HILAR STRUCTURES: No masses or contour abnormalities. HEART AND VASCULAR STRUCTURES: Heart normal size. No evidence for failure. BONES: No acute findings. HARDWARE: None in the chest. OTHER: No other significant finding. IMPRESSION: No significant interval change. No acute findings. Again there is evidence for obstruc tive lung disease. Other findings as noted above TECHNICAL DOCUMENTATION: JOB ID: [id number] [employer]- All Rights Reserved Reading location - IP/workstation name: [email or web address]
--- NOTE | 2017-11-02 14:50 | RADIOLOGY REPORT (SQ) ---
EXAM DESCRIPTION: MRI LT LOWER JOINT WITHOUT; MRI RT LOWER JOINT WITHOUT COMPLETED DATE/TIME: 11/02/2017 11:17 am REASON FOR STUDY: CHRONIC HIP PAIN Z87.891 PERSONAL HISTORY OF NICOTINE DEPENDENCE M25.551 PAIN IN RIGHT HIP M25.552 PAIN IN LEFT HIP COMPARISON: None. TECHNIQUE: Bilateralhip images acquired and stored on PACS. Multiplanar images to include fat sensit danii sequences as T1, fluid sensitive sequences as T2/STIR and gradient echo sequences. Large FOV fat and fluid sensitive sequences include pelvis and opposite hip. LIMITATIONS: None. FINDINGS: BONE CORTEX AND MARROW: No generalized marrow replacement. No occult fracture. No worriso me bone lesions. HIPS: FEMORAL HEAD: Small femoral head osteophytes. No evidence of AVN. ACETABULUM: Erosions articular surface of the acetabulum. LABRUM: Degenerative changes. No paralabral cyst. TROCHANTER: No trochanteric bursal effusion. No edema/fluid at the insertions of the gluteus medius and gluteus minimus. PELVIS, LOWER LUMBAR SPINE, SACROILIAC JOINTS: PELVIS : No insufficiency/stress fractures. No significant degenerative changes. Sacroiliac joints normal. L SPINE: Spondylosis. MUSCLES AND SOFT TISSUES: Adductors and piriformis normal. Abductors and greater trochanteric bursa n ormal without edema or fluid. Iliopsoas bursa without fluid. Hamstring attachments without edema or t ear. PELVIC SOFT TISSUES: No masses or adenopathy. There are mild inflammatory changes to left of midline in the pelvis associated with segment of sigmoid colon containing multiple diverticulum. SCIATIC NERVE: Identified, without masses or abnormal signal. OTHER: No other significant finding. IMPRESSION: 1. Bilateral osteoarthritis with associated small erosions in both acetabula. 2. Incidental inflammatory changes consistent with mild sigmoid diverticulitis. Clinical correlation is recommended. TECHNICAL DOCUMENTATION: JOB ID: [id number] [employer]- All Rights Reserved Reading location - IP/workstation name: [email or web address]
--- NOTE | 2017-11-02 14:50 | RADIOLOGY REPORT (SQ) ---
EXAM DESCRIPTION: MRI LT LOWER JOINT WITHOUT; MRI RT LOWER JOINT WITHOUT COMPLETED DATE/TIME: 11/02/2017 11:17 am REASON FOR STUDY: CHRONIC HIP PAIN Z87.891 PERSONAL HISTORY OF NICOTINE DEPENDENCE M25.551 PAIN IN RIGHT HIP M25.552 PAIN IN LEFT HIP COMPARISON: None. TECHNIQUE: Bilateralhip images acquired and stored on PACS. Multiplanar images to include fat sensit danii sequences as T1, fluid sensitive sequences as T2/STIR and gradient echo sequences. Large FOV fat and fluid sensitive sequences include pelvis and opposite hip. LIMITATIONS: None. FINDINGS: BONE CORTEX AND MARROW: No generalized marrow replacement. No occult fracture. No worriso me bone lesions. HIPS: FEMORAL HEAD: Small femoral head osteophytes. No evidence of AVN. ACETABULUM: Erosions articular surface of the acetabulum. LABRUM: Degenerative changes. No paralabral cyst. TROCHANTER: No trochanteric bursal effusion. No edema/fluid at the insertions of the gluteus medius and gluteus minimus. PELVIS, LOWER LUMBAR SPINE, SACROILIAC JOINTS: PELVIS : No insufficiency/stress fractures. No significant degenerative changes. Sacroiliac joints normal. L SPINE: Spondylosis. MUSCLES AND SOFT TISSUES: Adductors and piriformis normal. Abductors and greater trochanteric bursa n ormal without edema or fluid. Iliopsoas bursa without fluid. Hamstring attachments without edema or t ear. PELVIC SOFT TISSUES: No masses or adenopathy. There are mild inflammatory changes to left of midline in the pelvis associated with segment of sigmoid colon containing multiple diverticulum. SCIATIC NERVE: Identified, without masses or abnormal signal. OTHER: No other significant finding. IMPRESSION: 1. Bilateral osteoarthritis with associated small erosions in both acetabula. 2. Incidental inflammatory changes consistent with mild sigmoid diverticulitis. Clinical correlation is recommended. TECHNICAL DOCUMENTATION: JOB ID: [id number] [employer]- All Rights Reserved Reading location - IP/workstation name: [email or web address]
--- NOTE | 2017-11-02 15:09 | RADIOLOGY REPORT (SQ) ---
EXAM DESCRIPTION: CT LUNG CANCER SCREENING COMPLETED DATE/TIME: 11/02/2017 10:18 am REASON FOR STUDY: PERSONAL HISTORY OF TOBACCO USE Z87.891 PERSONAL HISTORY OF NICOTINE DEPENDENCE M 25.551 PAIN IN RIGHT HIP M25.552 PAIN IN LEFT HIP Has the patient had a Chest CT scan within the past year? Was the patient offered tobacco cessation counseling? Was the patient engaged in shared decision making for this test? Does the patient have signs or symptoms of Lung Cancer? Is the patient a smoker? How many packs per year? How many years since quitting smoking? Patients age: COMPARISON: None. TECHNIQUE: Low Dose CT scan performed of the chest without intravenous contrast for purposes of scre ening for lung cancer. Images reviewed with lung, soft tissue and bone windows. Reconstructed coron al and sagittal MPR images reviewed. All images stored on PACS. All CT scanners at this facility use dose modulation, iterative reconstruction, and/or weight based d osing when appropriate to reduce radiation dose to as low as reasonably achievable (ALARA). [facility]: Dose Right [facility]: CareDose [facility]: Dose Right [facility]: Teradose 4D [facility]: HaloSource RADIATION DOSE: CT Rad equipment meets quality standard of care and radiation dose reduction techniq ues were employed. CTDIvol: 2.1 mGy. DLP: 85 mGy-cm. mGy. . LIMITATIONS: None FINDINGS: LUNGS AND PLEURA: No masses or nodules. No pleural effusions or calcifications. Interl obular septal thickening in the lower lobes. Mild bandlike scarring. HILAR AND MEDIASTINAL STRUCTURES: No identified masses. No abnormal nodes. HEART AND VASCULAR STRUCTURES: No aortic aneurysm. No pericardial effusion. No cardiac devices. CORONARY ARTERY CALCIFICATIONS: Mild to moderate calcifications. UPPER ABDOMEN, THYROID, BONES, OTHER SOFT TISSUES: No significant findings. IMPRESSION: NEGATIVE LUNG CANCER SCREENING. OTHER FINDINGS ABOVE. LUNGRADS: LUNGRADS: 1 NEGATIVE. NO NODULES, OR DEFINITELY BENIGN NODULES MODIFIER: NONE RECOMMENDATION: Continue annual screening with LDCT in 12 months. COMMENT: CRITERIA: No lung nodules. Nodules with specific calcifications: Complete, central, popcorn, concentric rings and fat containin g nodules. TECHNICAL DOCUMENTATION: JOB ID: [id number] Quality ID # [id number]: Final reports with documentation of one or more dose reduction techniques (e.g., Au tomated exposure control, adjustment of the mA and/or kV according to patient size, use of iterative reconstruction technique) 2010 [facility] Reading location - IP/workstation name: [email or web address]
== END ==
LOC: RAD 09:47
PROVIDERS: ATTEND Physician Assistant
DX: M25.552 Pain in left hip (principal); M25.551 Pain in right hip; Z87.891 Personal history of nicotine dependence
CPT/HCPCS: 73721 ×2; 71046; G0297

== ENCOUNTER 2018-02-21 04:55 | Inpatient (IN) | payer MEDICARE, MEDICAID ==
[2018-02-21] MEDS ORDERED: ACETAMINOPHEN 325 MG TABLET PO ONE ×2 (04:58→13:52)
[2018-02-21] MEDS ORDERED: NORMAL SALINE 1000 ML 1,000 ML IV ONE (04:58)
[2018-02-21] MEDS ORDERED: IPRATROPIUM/ALBUTEROL 0.5-2.5 MG/3 ML AMPUL NEB ONE (05:06)
--- NOTE | 2018-02-21 05:09 | ER Document Report ---
Doctor's Note Notes: 02/21/18 05:08 I performed a quick triage evaluation the patient. Patient is a pleasant 49- year-old female with a history of COPD who still smokes who presents with complaint of difficulty breathing and fevers. Temp is 103. She does have a BiPAP-like machine at home. She says that she felt she was smothering with that and her breathing treatments were not working and therefore she called the embolus. Paramedics gave her DuoNeb as well as Solu-Medrol and one thousand milligrams of Tylenol. Patient says breathing treatment is helping some. She does have coarse rhonchorous breath sounds with some wheezing. Air exchange is fair. She has mild accessory muscle use. Blood work has been ordered. Chest x -ray has been ordered. We have ordered magnesium as well as recurrent breathing treatments. Patient received Solu-Medrol in the ambulance. Patient will be closely monitored. 02/21/18 05:09 Dictation of this chart was performed using voice recognition software; therefore, there may be some unintended grammatical errors.
[2018-02-21] MEDS: MAGNESIUM SULFATE/D5W 1 GM/100 ML RTUPB IV SCH ×2 (05:27→07:02)
[2018-02-21 05:34] LABS: VENOUS BLOOD BASE EXCESS 0.8 mmol/L; VENOUS BLOOD HCO3 25.6 mmol/L (20-32); VENOUS BLOOD PCO2 41.7 mmHg (35-63); VENOUS BLOOD PH 7.41 (7.30-7.42)
[2018-02-21 05:37] LABS: ABSOLUTE BASOPHILS # (AUTO) 0.1 10^3/uL (0.0-0.2); ABSOLUTE EOSINOPHILS # (AUTO) 0.2 10^3/uL (0.0-0.6); ABSOLUTE LYMPHOCYTES (AUTO) 1.6 10^3/uL (0.5-4.7); ABSOLUTE MONOCYTES (AUTO) 0.9 10^3/uL (0.1-1.4); ABSOLUTE NEUT (AUTO) 6.5 10^3/uL (1.7-8.2); BASOPHILS % (AUTO) 0.6 % (0-2); HEMATOCRIT 38.5 % (36.0-47.0); HEMOGLOBIN 13.1 g/dL (12.0-15.5); LYMPHOCYTES % (AUTO) 17.4 % (13-45); MEAN CORPUSCULAR HEMOGLOBIN 28.7 pg (27.0-33.4); MEAN CORPUSCULAR HGB CONC 33.9 g/dL (32.0-36.0); MEAN CORPUSCULAR VOLUME 85 fl (80-97); MONOCYTES % (AUTO) 9.9 % (3-13); PLATELET COUNT 317 10^3/uL (150-450); RED BLOOD COUNT 4.56 10^6/uL (3.72-5.28); SEGMENTED NEUTROPHILS % (AUTO) 70.1 % (42-78); TOTAL CELLS COUNTED % (AUTO) 100 %; WHITE BLOOD COUNT 9.3 10^3/uL (4.0-10.5)
[2018-02-21 05:40] LABS: INTERNATIONAL RATION (INR) 0.96; PROTHROMBIN TIME 13.3 SEC (11.4-15.4)
--- NOTE | 2018-02-21 05:40 | RADIOLOGY REPORT (SQ) ---
EXAM DESCRIPTION: XR CHEST 1 VIEW COMPLETED DATE/TME: 02/21/2018 04:58 CLINICAL HISTORY: SOB/ fever COMPARISON: 11/01/2017 FINDINGS: Single frontal view of the chest. The cardiomediastinal silhouette has normal size and contour. No consolidation, pneumothorax, or pleural effusion. Endplate spondylosis. Hyperinflation. Leads overlie the chest. Upper abdominal soft tissues are unremarkable. IMPRESSION: 1. No acute pulmonary process identified. Findings suggest obstructive lung disease.
[2018-02-21 05:55] LABS: ALANINE AMINOTRANSFERASE 29 U/L (9-52); ALBUMIN 3.7 g/dL (3.5-5.0); ALKALINE PHOSPHATASE 145 U/L (38-126); ANION GAP 11 (5-19); ASPARTATE AMINO TRANSFERASE 21 U/L (14-36); BILIRUBIN,DIRECT 0.2 mg/dL (0.0-0.4); BILIRUBIN,TOTAL 0.3 mg/dL (0.2-1.3); BLOOD UREA NITROGEN 9 mg/dL (7-20); CALCIUM 9.7 mg/dL (8.4-10.2); CARBON DIOXIDE 27 mmol/L (22-30); CHLORIDE 100 mmol/L (98-107); GLUCOSE 122 mg/dL (75-110); POTASSIUM 4.1 mmol/L (3.6-5.0); SODIUM 137.9 mmol/L (137-145); TOTAL PROTEIN 6.6 g/dL (6.3-8.2)
--- NOTE | 2018-02-21 06:17 | ER Document Report ---
ED Respiratory Problem - General Chief Complaint: Respiratory Distress Stated Complaint: BREATHING PROBLEM Time Seen by Provider: 02/21/18 05:05 Notes: This is a 57-year-old female patient presents to the emergency department via EMS for respiratory distress and fever. Patient followed by Dr. Hernandez with pulmonology. Continues to smoke. Reported had a fever of 103. Has diffuse body aches and chills. Difficulty breathing. Wheezing. Patient was seen initially on arrival by Dr. Ortega. Orders placed. BiPAP orders placed. Patient feeling much better at this time on BiPAP. TRAVEL OUTSIDE OF THE [place] IN LAST 30 DAYS: No - HPI Patient complains to provider of: COPD, Short of breath Onset: This morning Duration: Better - Related Data Allergies/Adverse Reactions: adhesive tape Allergy (Verified 02/21/18 08:13) roflumilast Adverse Reaction (Verified 02/21/18 08:13) Past Medical History - General Information source: Patient - Social History Smoking Status: Current Every Day Smoker Cigarette use (# per day): Yes Chew tobacco use (# tins/day): No Frequency of alcohol use: None Drug Abuse: None Lives with: Family Family History: Reviewed & Not Pertinent Patient has suicidal ideation: No Patient has homicidal ideation: No - Past Medical History Cardiac Medical History: Reports: Hx Hypercholesterolemia, Hx Hypertension Denies: Hx Congestive Heart Failure, Hx Coronary Artery Disease, Hx DVT, Hx Pulmonary Embolism Pulmonary Medical History: Reports: Hx COPD, Hx Pneumonia Denies: Hx Sleep Apnea Neurological Medical History: Denies: Hx Seizures Endocrine Medical History: Reports: Hx Hypothyroidism. Denies: Hx Diabetes Mellitus Type 1 - boarderline, Hx Diabetes Mellitus Type 2, Hx Hyperthyroidism Renal/ Medical History: Denies: Hx Peritoneal Dialysis GI Medical History: Reports: Hx Gastroesophageal Reflux Disease. Denies: Hx Cirrhosis, Hx Hepatitis Musculoskeletal Medical History: Reports Hx Arthritis, Reports Hx Fibromyalgia, Reports Hx Musculoskeletal Deformity, Reports Hx Musculoskeletal Trauma Psychiatric Medical History: Reports: Hx Depression Infectious Medical History: Denies: Hx C-Diff, Hx Hepatitis, Hx MRSA Past Surgical History: Reports: Hx Cholecystectomy, Hx Hysterectomy - Immunizations Immunizations up to date: No Hx Diphtheria, Pertussis, Tetanus Vaccination: No Hx Pneumococcal Vaccination: 07/11/11 Review of Systems - Review of Systems Constitutional: Chills, Fever, Malaise, Weakness EENT: denies: Blurred vision, Throat pain, Difficulty swallowing Cardiovascular: Palpitations, Dyspnea. denies: Chest pain, Heart racing, Orthopnea, Edema Gastrointestinal: denies: Abdominal pain, Diarrhea, Nausea, Vomiting Genitourinary: denies: Burning, Dysuria, Discharge Musculoskeletal: denies: Back pain, Joint pain, Muscle pain, Leg swelling Skin: denies: Dryness, Lesions, Lumps, Rash Hematologic/Lymphatic: denies: Anemia, Blood clots, Easy bleeding, Easy bruising Neurological/Psychological: denies: Confusion, Weakness, Numbness Physical Exam - Vital signs Vitals: Pulse Ox 97 02/21/18 04:59 Interpretation: Tachycardic, Tachypneic, Febrile - General General appearance: Appears well, Alert In distress: Moderate - HEENT Head: Normocephalic, Atraumatic Eyes: Normal Pupils: PERRL - Respiratory Respiratory status: Respiratory distress Chest status: Nontender Breath sounds: Decreased air movement, Rales, Wheezing Chest palpation: Normal - Cardiovascular Rhythm: Tachycardia Heart sounds: Normal auscultation Murmur: No - Abdominal Inspection: Normal Distension: No distension Bowel sounds: Normal Tenderness: Nontender Organomegaly: No organomegaly - Back Back: Normal, Nontender - Extremities General upper extremity: Normal inspection, Nontender, Normal color, Normal ROM , Normal temperature General lower extremity: Normal inspection, Nontender, Normal color, Normal ROM , Normal temperature. No: Lilliam's sign - Neurological Neuro grossly intact: Yes Cognition: Normal Orientation: AAOx4 [place] Coma Scale Eye Opening: Spontaneous [place] Coma Scale Verbal: Oriented [place] Coma Scale Motor: Obeys Commands [place] Coma Scale Total: 15 Speech: Normal Motor strength normal: LUE, RUE, LLE, RLE Sensory: Normal - Psychological Associated symptoms: Normal affect, Normal mood - Skin Skin Temperature: Warm Skin Moisture: Dry Skin Color: Normal Course - Re-evaluation Re-evalutation: 02/21/18 07:21 At this time patient's labs are actually quite unremarkable but with her history of severe COPD and requiring BiPAP at this time will start her on antibiotics. Did have a fever of 103 but no obvious pneumonia. Patient was complaining of some tightness in the chest. EKG shows sinus tachycardia. Will start on antibiotics, steroids, continue BiPAP and breathing treatments. Anticipate admission. 02/21/18 07:22 Laboratory 02/21/18 02/21/18 02/21/18 05:06 05:06 05:06 WBC 9.3 RBC 4.56 Hgb 13.1 Hct 38.5 MCV 85 MCH 28.7 MCHC 33.9 RDW 15.0 H Plt Count 317 Seg Neutrophils % 70.1 Lymphocytes % 17.4 Monocytes % 9.9 Eosinophils % 2.0 Basophils % 0.6 Absolute Neutrophils 6.5 Absolute Lymphocytes 1.6 Absolute Monocytes 0.9 Absolute Eosinophils 0.2 Absolute Basophils 0.1 PT 13.3 INR 0.96 VBG pH VBG pCO2 VBG HCO3 VBG Base Excess Sodium 137.9 Potassium 4.1 Chloride 100 Carbon Dioxide 27 Anion Gap 11 BUN 9 Creatinine 0.55 Est GFR ( Amer) > 60 Est GFR (Non-Af Amer) > 60 Glucose 122 H POC Glucose Lactic Acid Calcium 9.7 Total Bilirubin 0.3 Direct Bilirubin 0.2 Neonat Total Bilirubin Not Reportable Neonat Direct Bilirubin Not Reportable Neonat Indirect Bili Not Reportable AST 21 ALT 29 Alkaline Phosphatase 145 H Total Protein 6.6 Albumin 3.7 02/21/18 02/21/18 02/21/18 05:06 05:06 05:34 WBC RBC Hgb Hct MCV MCH MCHC RDW Plt Count Seg Neutrophils % Lymphocytes % Monocytes % Eosinophils % Basophils % Absolute Neutrophils Absolute Lymphocytes Absolute Monocytes Absolute Eosinophils Absolute Basophils PT INR VBG pH 7.41 VBG pCO2 41.7 VBG HCO3 25.6 VBG Base Excess 0.8 Sodium Potassium Chloride Carbon Dioxide Anion Gap BUN Creatinine Est GFR ( Amer) Est GFR (Non-Af Amer) Glucose POC Glucose 135 H Lactic Acid 0.9 Calcium Total Bilirubin Direct Bilirubin Neonat Total Bilirubin Neonat Direct Bilirubin Neonat Indirect Bili AST ALT Alkaline Phosphatase Total Protein Albumin Chest X-Ray 02/21/18 04:58 IMPRESSION: 1. No acute pulmonary process identified. Findings suggest obstructive lung disease. 02/21/18 08:13 Patient currently off the BiPAP. Consulted hospitalist for admission. Will admit to the hospital at this time for further treatment. ABG, influenza, troponin ordered. - Vital Signs Vital signs: Temp Pulse Resp BP Pulse Ox 98.4 F 88 25 H 93/54 L 99 02/21/18 13:43 02/21/18 13:28 02/21/18 14:01 02/21/18 14:00 02/21/18 14:01 - Laboratory Result Diagrams: 02/21/18 05:06 02/21/18 05:06 Laboratory results interpreted by me: 02/21/18 02/21/18 02/21/18 05:06 05:06 05:34 RDW 15.0 H Glucose 122 H POC Glucose 135 H Alkaline Phosphatase 145 H Discharge - Discharge Clinical Impression: COPD exacerbation Disposition: ADMITTED INPATIENT Admitting Provider: Hospitalist - [facility] Admitted: [facility]
[2018-02-21] MEDS ORDERED: CEFTRIAXONE 1 GM/D5W RTU 1 GM/50 ML RTUPB IV ONE (06:23)
[2018-02-21] MEDS ORDERED: AZITHROMYCIN INJ 500 MG VIAL IV ONE (06:23)
[2018-02-21] MEDS ORDERED: KETOROLAC TROMETHAMINE INJ/PF 30 MG/1 ML SDV IV ONE (07:19)
[2018-02-21] MEDS ORDERED: NICOTINE 21 MG/24 HR PATCH.TD24 TD ONE (07:50)
[2018-02-21 08:02] LABS: APPEARANCE,URINE CLEAR; BILIRUBIN,URINE NEGATIVE (NEGATIVE); COLOR,URINE YELLOW; GLUCOSE, URINE NEGATIVE (NEGATIVE); KETONES,URINE NEGATIVE (NEGATIVE); LEUKOCYTE ESTERASE,URINE NEGATIVE (NEGATIVE); NITRITE,URINE NEGATIVE (NEGATIVE); PROTEIN,URINE NEGATIVE (NEGATIVE); URINE SPECIFIC GRAVITY 1.008; UROBILINOGEN,URINE NEGATIVE mg/dL (<2.0)
[2018-02-21] MEDS ORDERED: ONDANSETRON HCL INJ/PF 4 MG/2 ML SDV IV ONE (08:52)
[2018-02-21] MEDS ORDERED: ALPRAZOLAM 0.5 MG TABLET PO PRN (08:53)
[2018-02-21] MEDS ORDERED: CEFTRIAXONE SODIUM 1,000 MG in DEXTROSE 5%-WATER 50 ML IV ONE (09:30)
[2018-02-21 09:39] LABS: A TYPE INFLUENZA AG NEGATIVE (NEGATIVE); B INFLUENZA AG NEGATIVE (NEGATIVE)
[2018-02-21 09:44] LABS: ARTERIAL BLOOD BASE EXCESS 2.3 mmol/L; ARTERIAL BLOOD H2CO3 1.26 mmol/L (1.05-1.35); ARTERIAL BLOOD HCO3 26.9 mmol/L (20-26); ARTERIAL BLOOD O2 SATURATION 95.1 % (94-98); ARTERIAL BLOOD PCO2 41.8 mmHg (35-45); ARTERIAL BLOOD PH 7.43 (7.35-7.45); ARTERIAL BLOOD PO2 73.5 mmHg (80-100); ARTERIAL BLOOD TOTAL CO2 28.2 mmol/L (21-25)
[2018-02-21 09:52] LABS: ARTERIAL BLOOD FIO2 2L
[2018-02-21] MEDS ORDERED: CEFTRIAXONE SODIUM 1,000 MG in NORMAL SALINE 50 ML IV ONE (10:00)
[2018-02-21] MEDS ORDERED: AMLODIPINE BESYLATE 10 MG TABLET PO SCH (10:00)
[2018-02-21] MEDS ORDERED: ASPIRIN 81 MG TABLET, ENT COATED PO SCH (10:00)
[2018-02-21] MEDS ORDERED: (PENDING PHARMACY ID) (Magnesium Oxide [Magnesium] 400 MG) PO SCH (10:00)
[2018-02-21] MEDS ORDERED: DULOXETINE HCL 30 MG CAPSULE.DR PO SCH (10:00)
[2018-02-21] MEDS: LISINOPRIL 5 MG TABLET PO SCH (10:14)
[2018-02-21] MEDS: METOPROLOL SUCCINATE 50 MG TAB.SR.24H PO SCH (10:15)
[2018-02-21] MEDS: MAGNESIUM OXIDE 400 MG TABLET PO SCH (10:16)
[2018-02-21] MEDS: ENOXAPARIN SODIUM INJ 40 MG/0.4 ML DISP.SYRIN SUBCUT SCH (10:18)
--- NOTE | 2018-02-21 11:30 | EKG REPORT ---
SEVERITY:- ABNORMAL ECG - SINUS TACHYCARDIA NONSPECIFIC T ABNORMALITIES, LATERAL LEADS : Confirmed by: Janina Lund MD 21-Feb-2018 11:30:14
[2018-02-21] MEDS: OXYCODONE HCL IR 5 MG TABLET PO PRN ×2 (11:44→17:53)
[2018-02-21] MEDS: IPRATROPIUM/ALBUTEROL 0.5-2.5 MG/3 ML AMPUL NEB SCH ×2 (13:26→19:36)
--- NOTE | 2018-02-21 13:29 | PDOC H&P ---
History of Present Illness Admission Date/PCP: 02/21/18 08:36 EDUIN OLIVEIRA Patient complains of: Shortness of breath. History of Present Illness: MAXWELL GREEN is a 57 year old female who has severe COPD and chronic respiratory failure. The patient states felt that her respiratory status has been a little worse than usual for the last 2-3 days, but that this morning she felt that it was acutely worse. She states that she just could not catch her breath this morning despite her usual 2-3 L O2 by nc. She also has had fevers up to 103 as was recorded in the ED and myalgias. She states that she has had a cough that has not been productive. She has also felt nauseated. She is not aware of any sick contacts. Past Medical History Cardiac Medical History: Reports: Hyperlipidema, Hypertension Denies: Congestive Heart Failure, Coronary Artery Disease, DVT, Pulmonary Embolism Pulmonary Medical History: Reports: Chronic Obstructive Pulmonary Disease (COPD) , Pneumonia Denies: Sleep Apnea Neurological Medical History: Denies: Seizures Endocrine Medical History: Reports: Hypothyroidism Denies: Diabetes Mellitus Type 1 - boarderline, Diabetes Mellitus Type 2, Hyperthyroidism GI Medical History: Reports: Gastroesophageal Reflux Disease Denies: Cirrhosis, Hepatitis Musculoskeltal Medical History: Reports: Arthritis, Fibromyalgia Psychiatric Medical History: Reports: Depression Infectious Medical History: Denies: Clostridium Difficile, Methicillin-Resistant Staph Aureus Past Surgical History Past Surgical History: Reports: Cholecystectomy, Hysterectomy Social History Lives with: Family Smoking Status: Current Every Day Smoker Frequency of Alcohol Use: None Hx Recreational Drug Use: No Drugs: None Hx Prescription Drug Abuse: No Family History Family History: Reviewed & Not Pertinent Parental Family History Reviewed: Yes Children Family History Reviewed: Yes Sibling(s) Family History Reviewed.: Yes Medication/Allergy Home Medications: Albuterol Sulfate [Albuterol Sulfate 2.5mg/3 mL] 3 ml IN Q6H PRN 12/17/16 Alprazolam [Xanax 0.5 mg Tablet] 0.5 mg PO Q12HP PRN 12/17/16 Amlodipine Besylate [Norvasc 10 mg Tablet] 10 mg PO DAILY 12/17/16 Aspirin [Ecotrin 81 mg EC Tablet] 81 mg PO DAILY 12/17/16 Atorvastatin Calcium [Lipitor 80 mg Tablet] 40 mg PO QHS 12/17/16 Duloxetine HCl 90 mg PO DAILY 12/17/16 Estrogens,Conjugated [Premarin 1.25 mg Tablet] 1.25 mg PO DAILY 12/17/16 Fluticasone/Salmeterol [Advair 500-50 Diskus 14 Dose/Diskus] 1 puff IH Q12 12/17 Lisinopril [Prinivil 5 mg Tablet] 5 mg PO DAILY 12/17/16 Metoprolol Succinate [Toprol Xl 50 mg Tab.sr] 50 mg PO DAILY 12/17/16 Montelukast Sodium [Singulair 10 mg Tablet] 10 mg PO QHS 12/17/16 Oxycodone HCl [Oxycodone HCl 10 MG Tablet] 10 mg PO TIDP PRN 12/17/16 Oxycodone HCl [Oxycontin] 20 mg PO BID 12/17/16 Acetaminophen [Tylenol 325 mg Tablet] 650 mg PO Q4HP PRN tablet 12/22/16 Fluticasone Propionate [Flonase Nasal Red[place] 50 Mcg/Redbird 16 gm] 2 spray NASL Q12A spray.pump 12/22/16 Albuterol Sulfate [Ventolin HFA MDI 18 GM] 1 - 2 puff IH Q4H PRN 02/21/18 Dexlansoprazole [Dexilant 60 mg Capsule] 60 mg PO DAILY 02/21/18 Fluticasone/Salmeterol [Advair 500-50 Diskus 28 Dose] 1 inh IH Q12H 02/21/18 Levothyroxine Sodium [Synthroid] 125 mcg PO DAILY 02/21/18 Meloxicam 15 mg PO QHS 02/21/18 Ropinirole HCl [Requip] 0.5 mg PO DAILYP PRN 02/21/18 Umeclidinium [place] [Incruse Ellipta] 1 puff IH DAILY 02/21/18 Allergies/Adverse Reactions: adhesive tape Allergy (Verified 02/21/18 08:13) roflumilast Adverse Reaction (Verified 02/21/18 08:13) Review of Systems Constitutional: PRESENT: fever(s), weakness Eyes: ABSENT: visual disturbances Ears: ABSENT: hearing changes Nose, Mouth, and Throat: ABSENT: headache(s), mouth pain, sore throat, vertigo Cardiovascular: PRESENT: dyspnea on exertion. ABSENT: chest pain, edema, orthropnea, palpitations Respiratory: PRESENT: cough, dyspnea. ABSENT: sputum Gastrointestinal: PRESENT: nausea. ABSENT: constipation, dysphagia, heartburn, hematemesis, vomiting Genitourinary: ABSENT: dysuria, hematuria Musculoskeletal: ABSENT: deformity, joint swelling, muscle weakness Integumentary: ABSENT: diaphoresis, lesions, rash Neurological: ABSENT: abnormal speech, confusion, dizziness, focal weakness, paresthesias, syncope Psychiatric: ABSENT: anxiety, depression Endocrine: ABSENT: cold intolerance, heat intolerance, polydipsia, polyphagia Hematologic/Lymphatic: ABSENT: easy bleeding, easy bruising, lymphadenopathy Physical Exam Vital Signs: Temp Pulse Resp BP Pulse Ox 98.1 F 29 H 93/66 L 99 02/21/18 09:40 02/21/18 12:01 02/21/18 12:00 02/21/18 12:01 Intake & Output 02/20/18 02/21/18 02/22/18 06:59 06:59 06:59 Intake Total 1100 Balance 1100 General appearance: PRESENT: mild distress - Dyspnea, well-developed, well- nourished Head exam: PRESENT: atraumatic, normocephalic Eye exam: PRESENT: conjunctiva pink, EOMI, PERRLA. ABSENT: scleral icterus Ear exam: PRESENT: normal external ear exam Mouth exam: PRESENT: moist, tongue midline Throat exam: ABSENT: tonsillar erythema, tonsillar exudate, tonsillogmegaly Neck exam: ABSENT: carotid bruit, JVD, lymphadenopathy, meningismus, tenderness , thyromegaly Respiratory exam: PRESENT: accessory muscle use, other - Positive for increased work of breathing. Diminished breath sounds.. ABSENT: rales, rhonchi, wheezes Cardiovascular exam: PRESENT: RRR, other - No lateral PMI. No thrills.. ABSENT : diastolic murmur, rubs, systolic murmur Pulses: PRESENT: other - Diminished distal pulses. GI/Abdominal exam: PRESENT: normal bowel sounds, soft. ABSENT: distended, guarding, mass, organolmegaly, rebound, tenderness Rectal exam: PRESENT: deferred Extremities exam: PRESENT: full ROM. ABSENT: calf tenderness, clubbing, pedal edema Musculoskeletal exam: PRESENT: normal inspection. ABSENT: deformity, dislocation Neurological exam: PRESENT: alert, awake, oriented to person, oriented to place , oriented to time, oriented to situation, CN II-XII grossly intact. ABSENT: motor sensory deficit Psychiatric exam: PRESENT: appropriate affect, normal mood. ABSENT: homicidal ideation, suicidal ideation Skin exam: PRESENT: dry, intact, warm. ABSENT: cyanosis, rash Results Laboratory Results: 02/21/18 09:30 Carbonic Acid 1.26 HCO3/H2CO3 Ratio 21:1 ABG pH 7.43 ABG pCO2 41.8 ABG pO2 73.5 L ABG HCO3 26.9 H ABG O2 Saturation 95.1 ABG Base Excess 2.3 FiO2 2L EKG Comments: Sinus tachycardia. No ischemic changes. Impressions: Chest X-Ray 02/21/18 04:58 IMPRESSION: 1. No acute pulmonary process identified. Findings suggest obstructive lung disease. Status: Image reviewed by me - Hyperinflation. No acute pathology. No effusion, edema, or infiltrates are identified. Assessment & Plan - Diagnosis (1) Acute and chronic respiratory failure with hypercapnia Is this a current diagnosis for this admission?: Yes Plan: The patient has had relief with BIPAP. Will attempt to wean off. The patient's baseline O2 requirements are 2-3 liters. (2) Acute and chronic respiratory failure with hypoxia Is this a current diagnosis for this admission?: Yes Plan: Supplementary O2. Baseline O2 requirements are 2-3 liters by nc. (3) Acute bronchitis due to Haemophilus influenzae Is this a current diagnosis for this admission?: Yes Plan: Presumed. Azithromycin. (4) Acute exacerbation of chronic obstructive pulmonary disease (COPD) Is this a current diagnosis for this admission?: Yes Plan: Nebulizers, steroids, IV antibiotics. (5) DVT prophylaxis Is this a current diagnosis for this admission?: Yes Plan: Lovenox. (6) Fever Qualifiers: Fever type: due to other condition Qualified Code(s): R50.81 - Fever presenting with conditions classified elsewhere Is this a current diagnosis for this admission?: Yes (7) CAD (coronary artery disease) Qualifiers: Coronary Disease-Associated Artery/Lesion type: [place] artery [place] vs. transplanted heart: [place] heart Associated angina: without angina Qualified Code(s): I25.10 - Atherosclerotic heart disease of [place] coronary artery without angina pectoris Is this a current diagnosis for this admission?: Yes Plan: Continue home medications. EKG and troponins are negative. (8) Chronic pain Qualifiers: Chronic pain type: chronic pain syndrome Qualified Code(s): G89.4 - Chronic pain syndrome Is this a current diagnosis for this admission?: Yes Plan: Continue home medications. (9) HTN (hypertension) Qualifiers: Hypertension type: essential hypertension Qualified Code(s): I10 - Essential (primary) hypertension Is this a current diagnosis for this admission?: Yes Plan: Continue home medications. (10) Hypothyroid Qualifiers: Hypothyroidism type: acquired Qualified Code(s): E03.9 - Hypothyroidism, unspecified Is this a current diagnosis for this admission?: Yes Plan: Continue levothyroxine as at home. (11) Opiate dependence, continuous Is this a current diagnosis for this admission?: Yes Plan: Continue home medications. (12) Tobacco dependence Is this a current diagnosis for this admission?: Yes Plan: Nicotine patch and tobacco cessation counseling. - Time Time Spent: Greater than 70 Minutes Medications reviewed and adjusted accordingly: Yes - Inpatient Certification Based on my medical assessment, after consideration of the patient's comorbidities, presenting symptoms, or acuity I expect that the services needed warrant INPATIENT care.: Yes I certify that my determination is in accordance with my understanding of Medicare's requirements for reasonable and necessary INPATIENT services [42 CFR 412.3e].: Yes Medical Necessity: Need Close Monitoring Due to Risk of Patient Decompensation, Need for Nebulizer Therapy and Monitoring of Response, Need for IV Antibiotics, Risk of Complication if Not Cared For in Hospital
[2018-02-21] MEDS: METHYLPREDNISOLONE INJ 40 MG/1 ML SDV IV SCH ×2 (13:38→22:31)
[2018-02-21] MEDS: LANSOPRAZOLE 30 MG TAB.RAP.DR PO SCH (17:53)
[2018-02-21] MEDS ORDERED: LEVOTHYROXINE SODIUM 0.1 MG TABLET PO SCH (18:00)
[2018-02-21] MEDS ORDERED: FLUTICASONE NASAL SPRAY 50 MCG/SPRY 120 SPRAY/16 GM NASL SCH (18:00)
[2018-02-21] MEDS ORDERED: ATORVASTATIN CALCIUM 80 MG TABLET PO SCH (22:00)
[2018-02-21] MEDS ORDERED: MONTELUKAST SODIUM 10 MG TABLET PO SCH (22:00)
[2018-02-21] MEDS ORDERED: ALBUTEROL SULFATE 0.083% NEB 2.5 MG/3 ML AMPUL NEB PRN (22:04)
[2018-02-21] MEDS ORDERED: ALBUTEROL SULFATE HFA (90 MCG/PUFF) 8 GM MDI (1 MDI/ER DISP) IH PRN (22:04)
[2018-02-21] MEDS: OXYCODONE HCL SR 10 MG TABLET PO SCH (22:25)
[2018-02-21] MEDS: MELOXICAM 15 MG TABLET PO SCH (22:29)
[2018-02-21] MEDS: MONTELUKAST SODIUM 10 MG TABLET PO SCH (22:30)
[2018-02-21] MEDS: ACETAMINOPHEN 325 MG TABLET PO PRN (22:32)
[2018-02-22] MEDS: OXYCODONE HCL IR 5 MG TABLET PO PRN ×6 (03:56→20:56)
[2018-02-22] MEDS: ACETAMINOPHEN 325 MG TABLET PO PRN ×3 (03:59→20:56)
[2018-02-22] MEDS: IPRATROPIUM/ALBUTEROL 0.5-2.5 MG/3 ML AMPUL NEB SCH ×4 (03:59→19:46)
[2018-02-22] MEDS: METHYLPREDNISOLONE INJ 40 MG/1 ML SDV IV SCH ×3 (05:30→22:58)
[2018-02-22] MEDS: LANSOPRAZOLE 30 MG TAB.RAP.DR PO SCH ×2 (05:31→17:11)
[2018-02-22 06:09] LABS: ABSOLUTE LYMPHOCYTES (AUTO) 0.7 10^3/uL (0.5-4.7); ABSOLUTE MONOCYTES (AUTO) 0.2 10^3/uL (0.1-1.4); ABSOLUTE NEUT (AUTO) 9.2 10^3/uL (1.7-8.2); BASOPHILS % (AUTO) 0.1 % (0-2); HEMATOCRIT 35.6 % (36.0-47.0); LYMPHOCYTES % (AUTO) 6.8 % (13-45); MEAN CORPUSCULAR HEMOGLOBIN 28.8 pg (27.0-33.4); MEAN CORPUSCULAR HGB CONC 33.7 g/dL (32.0-36.0); MEAN CORPUSCULAR VOLUME 86 fl (80-97); PLATELET COUNT 284 10^3/uL (150-450); RED BLOOD COUNT 4.16 10^6/uL (3.72-5.28); RED CELL DISTRIBUTION WIDTH 15.1 % (11.5-14.0); SEGMENTED NEUTROPHILS % (AUTO) 91.1 % (42-78); TOTAL CELLS COUNTED % (AUTO) 100 %
[2018-02-22 06:39] LABS: ANION GAP 9 (5-19); BLOOD UREA NITROGEN 9 mg/dL (7-20); CALCIUM 8.8 mg/dL (8.4-10.2); CARBON DIOXIDE 26 mmol/L (22-30); CHLORIDE 103 mmol/L (98-107); GLUCOSE 175 mg/dL (75-110); POTASSIUM 4.3 mmol/L (3.6-5.0); SODIUM 137.5 mmol/L (137-145)
[2018-02-22] MEDS: LEVOTHYROXINE SODIUM 0.1 MG TABLET PO SCH (08:45)
[2018-02-22] MEDS: LEVOTHYROXINE SODIUM 0.025 MG TABLET PO SCH (08:45)
[2018-02-22] MEDS: FLUTICASONE/SALMETEROL DISKUS 500-50 MCG/DOSE IH SCH ×2 (09:07→22:53)
[2018-02-22] MEDS: FLUTICASONE NASAL SPRAY 50 MCG/SPRY 120 SPRAY/16 GM NASL SCH ×2 (09:07→22:54)
[2018-02-22] MEDS: ENOXAPARIN SODIUM INJ 40 MG/0.4 ML DISP.SYRIN SUBCUT SCH (09:07)
[2018-02-22] MEDS: DULOXETINE HCL 30 MG CAPSULE.DR PO SCH (09:08)
[2018-02-22] MEDS: CEFTRIAXONE SODIUM 1,000 MG in NORMAL SALINE 50 ML IV SCH (09:08)
[2018-02-22] MEDS: OXYCODONE HCL SR 10 MG TABLET PO SCH ×2 (09:08→22:52)
[2018-02-22] MEDS: ASPIRIN 81 MG TABLET, ENT COATED PO SCH (09:09)
[2018-02-22] MEDS: METOPROLOL SUCCINATE 50 MG TAB.SR.24H PO SCH (09:09)
[2018-02-22] MEDS: LISINOPRIL 5 MG TABLET PO SCH (09:10)
[2018-02-22] MEDS: AMLODIPINE BESYLATE 10 MG TABLET PO SCH (09:10)
[2018-02-22] MEDS: MAGNESIUM OXIDE 400 MG TABLET PO SCH (09:10)
[2018-02-22] MEDS: ESTROGENS,CONJUGATED 1.25 MG TABLET PO SCH (09:11)
[2018-02-22] MEDS: ROPINIROLE HCL 0.25 MG TABLET PO SCH (09:12)
[2018-02-22] MEDS ORDERED: LISINOPRIL 5 MG TABLET PO SCH (10:00)
[2018-02-22] MEDS ORDERED: METOPROLOL SUCCINATE 50 MG TAB.SR.24H PO SCH (10:00)
[2018-02-22] MEDS ORDERED: (PENDING PHARMACY ID) (Umeclidinium Bromide [Incruse Ellipta] 1 PUFF) IH SCH (10:00)
[2018-02-22] MEDS ORDERED: CEFTRIAXONE 1 GM/D5W RTU 1 GM/50 ML RTUPB IV SCH (10:00)
[2018-02-22] MEDS: AZITHROMYCIN 500 MG in DEXTROSE 5%-WATER 250 ML IV SCH (10:37)
[2018-02-22] MEDS ORDERED: ONDANSETRON HCL INJ/PF 4 MG/2 ML SDV ONE (11:21)
[2018-02-22] MEDS ORDERED: DOCUSATE SODIUM 100 MG CAPSULE PO ONE (12:33)
[2018-02-22] MEDS: BISACODYL 10 MG SUPP.RECT PR ONE ×2 (12:50→14:02)
--- NOTE | 2018-02-22 17:33 | PDOC PROGRESS REPORT ---
Subjective Progress Note for:: 02/22/18 Subjective:: The patient states that she is feeling better. No new complaints other than she hasn't had a BM in 3 days. Reason For Visit: ACUTE ON CHRONIC HYPOXIC RESPIRATORY FAILURE,COPD Physical Exam Vital Signs: Temp Pulse Resp BP Pulse Ox 98.8 F 77 18 122/72 97 02/22/18 11:08 02/22/18 14:22 02/22/18 14:22 02/22/18 11:08 02/22/18 14:22 Intake & Output 02/21/18 02/22/18 02/23/18 06:59 06:59 06:59 Intake Total 2437 773 Balance 2437 773 Weight 81.7 kg General appearance: PRESENT: mild distress Respiratory exam: PRESENT: rhonchi, wheezes, other - Positive for increased work of breathing.. ABSENT: rales Cardiovascular exam: PRESENT: RRR, other - No lateral PMI. No thrills.. ABSENT : gallop, rubs, systolic murmur Pulses: PRESENT: other - Diminished distal pulses. GI/Abdominal exam: PRESENT: normal bowel sounds, soft. ABSENT: hernia, mass, organolmegaly, tenderness Rectal exam: PRESENT: deferred Extremities exam: ABSENT: clubbing, tenderness, +1 edema Musculoskeletal exam: ABSENT: deformity, dislocation, normal inspection Neurological exam: PRESENT: alert, awake, oriented to person, oriented to place , oriented to time, oriented to situation, CN II-XII grossly intact. ABSENT: motor sensory deficit Psychiatric exam: PRESENT: appropriate affect, normal mood Skin exam: PRESENT: dry, intact, warm Results Laboratory Results: 02/22/18 05:14 02/22/18 05:14 02/22/18 02/22/18 05:14 05:14 WBC 10.0 RBC 4.16 Hgb 12.0 Hct 35.6 L MCV 86 MCH 28.8 MCHC 33.7 RDW 15.1 H Plt Count 284 Seg Neutrophils % 91.1 H Lymphocytes % 6.8 L Monocytes % 2.0 L Eosinophils % 0.0 Basophils % 0.1 Absolute Neutrophils 9.2 H Absolute Lymphocytes 0.7 Absolute Monocytes 0.2 Absolute Eosinophils 0.0 Absolute Basophils 0.0 Sodium 137.5 Potassium 4.3 Chloride 103 Carbon Dioxide 26 Anion Gap 9 BUN 9 Creatinine 0.47 L Est GFR ( Amer) > 60 Est GFR (Non-Af Amer) > 60 Glucose 175 H Calcium 8.8 02/21/18 12:11 Troponin I < 0.012 Impressions: Chest X-Ray 02/21/18 04:58 IMPRESSION: 1. No acute pulmonary process identified. Findings suggest obstructive lung disease. Assessment & Plan - Diagnosis (1) Acute bronchitis due to Haemophilus influenzae Is this a current diagnosis for this admission?: Yes Plan: Presumed. Azithromycin. (2) Acute exacerbation of chronic obstructive pulmonary disease (COPD) Is this a current diagnosis for this admission?: Yes Plan: Nebulizers, steroids, IV antibiotics. (3) DVT prophylaxis Is this a current diagnosis for this admission?: Yes Plan: Lovenox. (4) Fever Qualifiers: Fever type: due to other condition Qualified Code(s): R50.81 - Fever presenting with conditions classified elsewhere Is this a current diagnosis for this admission?: Yes Plan: Resolved. (5) CAD (coronary artery disease) Qualifiers: Coronary Disease-Associated Artery/Lesion type: [place] artery [place] vs. transplanted heart: [place] heart Associated angina: without angina Qualified Code(s): I25.10 - Atherosclerotic heart disease of [place] coronary artery without angina pectoris Is this a current diagnosis for this admission?: Yes Plan: Continue home medications. EKG and troponins are negative. (6) Chronic pain Qualifiers: Chronic pain type: chronic pain syndrome Qualified Code(s): G89.4 - Chronic pain syndrome Is this a current diagnosis for this admission?: Yes Plan: Continue home medications. (7) HTN (hypertension) Qualifiers: Hypertension type: essential hypertension Qualified Code(s): I10 - Essential (primary) hypertension Is this a current diagnosis for this admission?: Yes Plan: Continue home medications. (8) Hypothyroid Qualifiers: Hypothyroidism type: acquired Qualified Code(s): E03.9 - Hypothyroidism, unspecified Is this a current diagnosis for this admission?: Yes Plan: Continue levothyroxine as at home. (9) Opiate dependence, continuous Is this a current diagnosis for this admission?: Yes Plan: Continue home medications. (10) Tobacco dependence Is this a current diagnosis for this admission?: Yes Plan: Nicotine patch and tobacco cessation counseling. (11) Acute on chronic respiratory failure with hypoxia and hypercapnia Is this a current diagnosis for this admission?: Yes Plan: Supplemental O2, nebulizer treatments, and steroids. - Time Time Spent with patient: 25-34 minutes Medications reviewed and adjusted accordingly: Yes Anticipated discharge: Home - Inpatient Certification Based on my medical assessment, after consideration of the patient's comorbidities, presenting symptoms, or acuity I expect that the services needed warrant INPATIENT care.: Yes I certify that my determination is in accordance with my understanding of Medicare's requirements for reasonable and necessary INPATIENT services [42 CFR 412.3e].: Yes Medical Necessity: Need Close Monitoring Due to Risk of Patient Decompensation, Need for Nebulizer Therapy and Monitoring of Response, Risk of Complication if Not Cared For in Hospital
[2018-02-22] MEDS ORDERED: NICOTINE 21 MG/24 HR PATCH.TD24 TD ONE (22:45)
[2018-02-22] MEDS: MONTELUKAST SODIUM 10 MG TABLET PO SCH (22:50)
[2018-02-22] MEDS: MELOXICAM 15 MG TABLET PO SCH (22:50)
[2018-02-22] MEDS: ATORVASTATIN CALCIUM 40 MG TABLET PO SCH (22:52)
[2018-02-22] MEDS ORDERED: GUAIFENESIN 600 MG TABLET.SA PO ONE (23:00)
[2018-02-23] MEDS: IPRATROPIUM/ALBUTEROL 0.5-2.5 MG/3 ML AMPUL NEB SCH ×4 (02:30→19:57)
[2018-02-23] MEDS: ACETAMINOPHEN 325 MG TABLET PO PRN ×3 (03:36→20:08)
[2018-02-23] MEDS: OXYCODONE HCL IR 5 MG TABLET PO PRN ×4 (03:37→18:15)
[2018-02-23] MEDS ORDERED: ONDANSETRON 4 MG TAB.RAPDIS PO PRN (03:55)
[2018-02-23] MEDS: METHYLPREDNISOLONE INJ 40 MG/1 ML SDV IV SCH ×3 (06:14→21:53)
[2018-02-23] MEDS: LEVOTHYROXINE SODIUM 0.025 MG TABLET PO SCH (08:29)
[2018-02-23] MEDS: LEVOTHYROXINE SODIUM 0.1 MG TABLET PO SCH (08:29)
[2018-02-23] MEDS: LANSOPRAZOLE 30 MG TAB.RAP.DR PO SCH ×2 (08:30→18:16)
[2018-02-23] MEDS: ALPRAZOLAM 0.5 MG TABLET PO PRN (09:28)
[2018-02-23] MEDS: ENOXAPARIN SODIUM INJ 40 MG/0.4 ML DISP.SYRIN SUBCUT SCH (10:17)
[2018-02-23] MEDS: LISINOPRIL 5 MG TABLET PO SCH (10:17)
[2018-02-23] MEDS: ASPIRIN 81 MG TABLET, ENT COATED PO SCH (10:17)
[2018-02-23] MEDS: OXYCODONE HCL SR 10 MG TABLET PO SCH ×2 (10:17→21:54)
[2018-02-23] MEDS: AMLODIPINE BESYLATE 10 MG TABLET PO SCH (10:18)
[2018-02-23] MEDS: MAGNESIUM OXIDE 400 MG TABLET PO SCH (10:18)
[2018-02-23] MEDS: METOPROLOL SUCCINATE 50 MG TAB.SR.24H PO SCH (10:18)
[2018-02-23] MEDS: DULOXETINE HCL 30 MG CAPSULE.DR PO SCH (10:19)
[2018-02-23] MEDS: FLUTICASONE/SALMETEROL DISKUS 500-50 MCG/DOSE IH SCH ×2 (10:19→21:55)
[2018-02-23] MEDS: ROPINIROLE HCL 0.25 MG TABLET PO SCH (10:19)
[2018-02-23] MEDS: ESTROGENS,CONJUGATED 1.25 MG TABLET PO SCH (10:20)
[2018-02-23] MEDS: CEFTRIAXONE SODIUM 1,000 MG in NORMAL SALINE 50 ML IV SCH (10:26)
[2018-02-23] MEDS: FLUTICASONE NASAL SPRAY 50 MCG/SPRY 120 SPRAY/16 GM NASL SCH ×2 (10:27→21:55)
[2018-02-23] MEDS: AZITHROMYCIN 500 MG in DEXTROSE 5%-WATER 250 ML IV SCH (11:26)
--- NOTE | 2018-02-23 17:02 | PDOC PROGRESS REPORT ---
Subjective Progress Note for:: 02/23/18 Subjective:: The patient states that she feels that her breathing has deteriorated since yesterday afternoon. She states that she has felt more short of breath and tighter since last evening. Reason For Visit: ACUTE ON CHRONIC HYPOXIC RESPIRATORY FAILURE,COPD Physical Exam Vital Signs: Temp Pulse Resp BP Pulse Ox 98.4 F 97 20 146/68 H 90 L 02/23/18 16:00 02/23/18 16:00 02/23/18 16:00 02/23/18 16:00 02/23/18 16:00 Intake & Output 02/22/18 02/23/18 02/24/18 06:59 06:59 06:59 Intake Total 2437 2539 800 Balance 2437 2539 800 Weight 81.7 kg 98.2 kg General appearance: PRESENT: mild distress, morbidly obese Respiratory exam: PRESENT: rhonchi, wheezes, other - Positive for increased work of breathing.. ABSENT: rales Cardiovascular exam: PRESENT: RRR, other - No lateral PMI. No thrills.. ABSENT : gallop, rubs, systolic murmur Pulses: PRESENT: normal dorsalis pedis pul GI/Abdominal exam: PRESENT: normal bowel sounds, soft. ABSENT: hernia, mass, tenderness Rectal exam: PRESENT: deferred Extremities exam: ABSENT: clubbing, joint swelling, tenderness Musculoskeletal exam: ABSENT: deformity, dislocation, normal inspection Neurological exam: PRESENT: alert, awake, oriented to person, oriented to place , oriented to time, oriented to situation, CN II-XII grossly intact. ABSENT: motor sensory deficit Psychiatric exam: PRESENT: appropriate affect, normal mood Skin exam: PRESENT: dry, intact, warm Results Laboratory Results: 02/22/18 05:14 02/22/18 05:14 02/21/18 12:11 Troponin I < 0.012 Impressions: Chest X-Ray 02/21/18 04:58 IMPRESSION: 1. No acute pulmonary process identified. Findings suggest obstructive lung disease. Assessment & Plan - Diagnosis (1) Acute bronchitis due to Haemophilus influenzae Is this a current diagnosis for this admission?: Yes Plan: Presumed. Azithromycin. (2) Acute exacerbation of chronic obstructive pulmonary disease (COPD) Is this a current diagnosis for this admission?: Yes Plan: Nebulizers, steroids. Will convert to PO antibiotics. (3) DVT prophylaxis Is this a current diagnosis for this admission?: Yes Plan: Lovenox. (4) Fever Qualifiers: Fever type: due to other condition Qualified Code(s): R50.81 - Fever presenting with conditions classified elsewhere Is this a current diagnosis for this admission?: Yes Plan: Resolved. (5) CAD (coronary artery disease) Qualifiers: Coronary Disease-Associated Artery/Lesion type: [place] artery [place] vs. transplanted heart: [place] heart Associated angina: without angina Qualified Code(s): I25.10 - Atherosclerotic heart disease of [place] coronary artery without angina pectoris Is this a current diagnosis for this admission?: Yes Plan: Continue home medications. EKG and troponins are negative. (6) Chronic pain Qualifiers: Chronic pain type: chronic pain syndrome Qualified Code(s): G89.4 - Chronic pain syndrome Is this a current diagnosis for this admission?: Yes Plan: Continue home medications. (7) HTN (hypertension) Qualifiers: Hypertension type: essential hypertension Qualified Code(s): I10 - Essential (primary) hypertension Is this a current diagnosis for this admission?: Yes Plan: Continue home medications. (8) Hypothyroid Qualifiers: Hypothyroidism type: acquired Qualified Code(s): E03.9 - Hypothyroidism, unspecified Is this a current diagnosis for this admission?: Yes Plan: Continue levothyroxine as at home. (9) Opiate dependence, continuous Is this a current diagnosis for this admission?: Yes Plan: Continue home medications. (10) Tobacco dependence Is this a current diagnosis for this admission?: Yes Plan: Nicotine patch and tobacco cessation counseling. (11) Acute on chronic respiratory failure with hypoxia and hypercapnia Is this a current diagnosis for this admission?: Yes Plan: Supplemental O2, nebulizer treatments, and steroids. - Time Time Spent with patient: 25-34 minutes Medications reviewed and adjusted accordingly: Yes Anticipated discharge: Home
[2018-02-23] MEDS: NICOTINE 21 MG/24 HR PATCH.TD24 TD SCH (21:52)
[2018-02-23] MEDS: GUAIFENESIN 600 MG TABLET.SA PO SCH (21:53)
[2018-02-23] MEDS: ATORVASTATIN CALCIUM 40 MG TABLET PO SCH (21:53)
[2018-02-23] MEDS: MONTELUKAST SODIUM 10 MG TABLET PO SCH (21:54)
[2018-02-23] MEDS: MELOXICAM 15 MG TABLET PO SCH (21:54)
[2018-02-24] MEDS: ALPRAZOLAM 0.5 MG TABLET PO PRN ×3 (00:06→23:17)
[2018-02-24] MEDS: IPRATROPIUM/ALBUTEROL 0.5-2.5 MG/3 ML AMPUL NEB SCH ×4 (02:00→19:51)
[2018-02-24] MEDS: METHYLPREDNISOLONE INJ 40 MG/1 ML SDV IV SCH ×3 (06:00→21:44)
[2018-02-24] MEDS: LANSOPRAZOLE 30 MG TAB.RAP.DR PO SCH ×2 (06:04→18:02)
[2018-02-24] MEDS: LEVOTHYROXINE SODIUM 0.025 MG TABLET PO SCH (07:57)
[2018-02-24] MEDS: OXYCODONE HCL IR 5 MG TABLET PO PRN ×2 (07:57→14:25)
[2018-02-24] MEDS: LEVOTHYROXINE SODIUM 0.1 MG TABLET PO SCH (07:57)
[2018-02-24] MEDS: AMLODIPINE BESYLATE 10 MG TABLET PO SCH (09:48)
[2018-02-24] MEDS: METOPROLOL SUCCINATE 50 MG TAB.SR.24H PO SCH (09:50)
[2018-02-24] MEDS: ASPIRIN 81 MG TABLET, ENT COATED PO SCH (09:50)
[2018-02-24] MEDS: OXYCODONE HCL SR 10 MG TABLET PO SCH ×2 (09:50→21:46)
[2018-02-24] MEDS: LISINOPRIL 5 MG TABLET PO SCH (09:50)
[2018-02-24] MEDS: ESTROGENS,CONJUGATED 1.25 MG TABLET PO SCH (09:50)
[2018-02-24] MEDS: MAGNESIUM OXIDE 400 MG TABLET PO SCH (09:51)
[2018-02-24] MEDS: GUAIFENESIN 600 MG TABLET.SA PO SCH ×2 (09:51→21:41)
[2018-02-24] MEDS: ROPINIROLE HCL 0.25 MG TABLET PO SCH (09:51)
[2018-02-24] MEDS: DULOXETINE HCL 30 MG CAPSULE.DR PO SCH (09:51)
[2018-02-24] MEDS: AZITHROMYCIN 250 MG TABLET PO SCH (09:51)
[2018-02-24] MEDS: FLUTICASONE NASAL SPRAY 50 MCG/SPRY 120 SPRAY/16 GM NASL SCH ×2 (09:52→21:45)
[2018-02-24] MEDS: FLUTICASONE/SALMETEROL DISKUS 500-50 MCG/DOSE IH SCH ×2 (09:52→21:45)
[2018-02-24] MEDS: ENOXAPARIN SODIUM INJ 40 MG/0.4 ML DISP.SYRIN SUBCUT SCH (09:52)
[2018-02-24] MEDS: AMOXICILLIN TR/POT CLAVULANATE 500-125 MG TAB PO SCH ×2 (14:00→21:45)
[2018-02-24] MEDS: ACETAMINOPHEN 325 MG TABLET PO PRN ×2 (14:20→21:53)
[2018-02-24] MEDS: NICOTINE 21 MG/24 HR PATCH.TD24 TD SCH (21:45)
[2018-02-24] MEDS: ATORVASTATIN CALCIUM 40 MG TABLET PO SCH (21:46)
[2018-02-24] MEDS: MELOXICAM 15 MG TABLET PO SCH (21:46)
[2018-02-24] MEDS: MONTELUKAST SODIUM 10 MG TABLET PO SCH (21:58)
[2018-02-25] MEDS: IPRATROPIUM/ALBUTEROL 0.5-2.5 MG/3 ML AMPUL NEB SCH ×2 (01:24→08:40)
[2018-02-25] MEDS: METHYLPREDNISOLONE INJ 40 MG/1 ML SDV IV SCH (05:49)
[2018-02-25] MEDS: AMOXICILLIN TR/POT CLAVULANATE 500-125 MG TAB PO SCH (05:49)
[2018-02-25] MEDS: LANSOPRAZOLE 30 MG TAB.RAP.DR PO SCH (05:49)
[2018-02-25] MEDS: OXYCODONE HCL IR 5 MG TABLET PO PRN (07:55)
[2018-02-25 07:58] VITALS: BP 141/83
[2018-02-25] MEDS: LEVOTHYROXINE SODIUM 0.025 MG TABLET PO SCH (08:30)
[2018-02-25] MEDS: LEVOTHYROXINE SODIUM 0.1 MG TABLET PO SCH (08:30)
[2018-02-25] MEDS: ROPINIROLE HCL 0.25 MG TABLET PO SCH (09:00)
[2018-02-25] MEDS: GUAIFENESIN 600 MG TABLET.SA PO SCH (09:00)
[2018-02-25] MEDS: AMLODIPINE BESYLATE 10 MG TABLET PO SCH (09:01)
[2018-02-25] MEDS: MAGNESIUM OXIDE 400 MG TABLET PO SCH (09:01)
[2018-02-25] MEDS: ESTROGENS,CONJUGATED 1.25 MG TABLET PO SCH (09:01)
[2018-02-25] MEDS: AZITHROMYCIN 250 MG TABLET PO SCH (09:01)
[2018-02-25] MEDS: LISINOPRIL 5 MG TABLET PO SCH (09:01)
[2018-02-25] MEDS: DULOXETINE HCL 30 MG CAPSULE.DR PO SCH (09:01)
[2018-02-25] MEDS: METOPROLOL SUCCINATE 50 MG TAB.SR.24H PO SCH (09:01)
[2018-02-25] MEDS: OXYCODONE HCL SR 10 MG TABLET PO SCH (09:02)
[2018-02-25] MEDS: ENOXAPARIN SODIUM INJ 40 MG/0.4 ML DISP.SYRIN SUBCUT SCH (09:02)
[2018-02-25] MEDS: ASPIRIN 81 MG TABLET, ENT COATED PO SCH (09:02)
[2018-02-25] MEDS: FLUTICASONE NASAL SPRAY 50 MCG/SPRY 120 SPRAY/16 GM NASL SCH (09:03)
[2018-02-25] MEDS: FLUTICASONE/SALMETEROL DISKUS 500-50 MCG/DOSE IH SCH (09:03)
== END 2018-02-25 10:33 | disposition home or self-care (01) | DRG 202 ==
LOC: ER 04:55 → EH 08:36 → 4S 17:08
PROVIDERS: ADMIT Internal Medicine; ATTEND Internal Medicine
PROC: 5A09557 Assistance with Respiratory Ventilation, Greater than 96 Consecutive Hours, Continuous Positive Airway Pressure (ICD-10-PCS; principal; 2018-02-21)
DX: J20.1 Acute bronchitis due to Hemophilus influenzae (principal); J96.22 Acute and chronic respiratory failure with hypercapnia; J96.21 Acute and chronic respiratory failure with hypoxia; J44.1 Chronic obstructive pulmonary disease with (acute) exacerbation; F11.20 Opioid dependence, uncomplicated; J44.0 Chronic obstructive pulmonary disease with (acute) lower respiratory infection; F17.210 Nicotine dependence, cigarettes, uncomplicated; E78.5 Hyperlipidemia, unspecified; I10 Essential (primary) hypertension; E03.9 Hypothyroidism, unspecified; G89.4 Chronic pain syndrome; K21.9 Gastro-esophageal reflux disease without esophagitis; M79.7 Fibromyalgia; I25.10 Atherosclerotic heart disease of native coronary artery without angina pectoris; Z90.49 Acquired absence of other specified parts of digestive tract; Z90.710 Acquired absence of both cervix and uterus; Z79.82 Long term (current) use of aspirin; Z79.51 Long term (current) use of inhaled steroids; Z79.899 Other long term (current) drug therapy
CPT/HCPCS: 36415; 71045; 80048; 80053; 81001; 82803; 82962; 83036; 83605; 84484; 85025; 85610; 87040; 87086; 87804; 93005; 93010; 94640; 94660; 96365; 96366; 96375; 99285; J0456; J0696; J1650; J1885; J2405; J2920; J3475; J3490; J7030; J7060; J7620; S0119

== ENCOUNTER 2018-02-26 23:13 | Inpatient (IN) | payer MEDICARE, MEDICAID ==
[2018-02-27] MEDS: IPRATROPIUM/ALBUTEROL 0.5-2.5 MG/3 ML AMPUL NEB ONE ×2 (00:04→00:37)
[2018-02-27] MEDS ORDERED: IPRATROPIUM/ALBUTEROL 0.5-2.5 MG/3 ML AMPUL NEB ONE (00:05)
--- NOTE | 2018-02-27 00:05 | ER Document Report ---
ED General - General Chief Complaint: Breathing Difficulty Stated Complaint: BREATHING DIFFICULTY/BACK PAIN Time Seen by Provider: 02/26/18 23:58 Notes: Patient 57-year-old female with a history of COPD and emphysema who presents with complaint of difficulty breathing. She was just admitted and to the hospital. She was just discharged a day and a half ago. She says she is feeling some better but then became much worse shortly after going home. No fevers. She still smokes. She wears 2 L oxygen at home. She does wear a trilogy machine at night. Patient took prednisone at home just prior to coming in. TRAVEL OUTSIDE OF THE [place] IN LAST 30 DAYS: No - Related Data Allergies/Adverse Reactions: adhesive tape Allergy (Verified 02/21/18 08:13) roflumilast Adverse Reaction (Verified 02/21/18 08:13) Past Medical History - Social History Smoking Status: Current Every Day Smoker Frequency of alcohol use: None Drug Abuse: None Family History: Reviewed & Not Pertinent - Past Medical History Cardiac Medical History: Reports: Hx Hypercholesterolemia, Hx Hypertension Denies: Hx Congestive Heart Failure, Hx Coronary Artery Disease, Hx DVT, Hx Pulmonary Embolism Pulmonary Medical History: Reports: Hx COPD, Hx Pneumonia Denies: Hx Sleep Apnea Neurological Medical History: Denies: Hx Seizures Endocrine Medical History: Reports: Hx Hypothyroidism. Denies: Hx Diabetes Mellitus Type 1 - boarderline, Hx Diabetes Mellitus Type 2, Hx Hyperthyroidism Renal/ Medical History: Denies: Hx Peritoneal Dialysis GI Medical History: Reports: Hx Gastroesophageal Reflux Disease. Denies: Hx Cirrhosis, Hx Hepatitis Musculoskeletal Medical History: Reports Hx Arthritis, Reports Hx Fibromyalgia, Reports Hx Musculoskeletal Deformity, Reports Hx Musculoskeletal Trauma Psychiatric Medical History: Reports: Hx Depression Infectious Medical History: Denies: Hx C-Diff, Hx Hepatitis, Hx MRSA Past Surgical History: Reports: Hx Cholecystectomy, Hx Hysterectomy - Immunizations Immunizations up to date: No Hx Diphtheria, Pertussis, Tetanus Vaccination: No Hx Pneumococcal Vaccination: 07/11/11 Review of Systems - Review of Systems Notes: My Normal Review Basic REVIEW OF SYSTEMS: CONSTITUTIONAL : Denies fever, chills, or sweats. Denies recent illness. EENT: Denies eye, ear, throat, or mouth pain or symptoms. Denies nasal or sinus congestion. CARDIOVASCULAR: Denies chest pain. RESPIRATORY: Difficulty breathing GASTROINTESTINAL: Denies abdominal pain. Denies nausea, vomiting, or diarrhea. Denies constipation. Last BM: GENITOURINARY: Denies difficulty urinating, painful urination, burning, frequency, or blood in urine. FEMALE GENITOURINARY: Denies vaginal bleeding, abnormal or irregular periods. LMP: MUSCULOSKELETAL: Pain in back when she coughs or takes a deep breath. SKIN: Denies rash or skin lesions. NEUROLOGICAL: Denies altered mental status or loss of consciousness. Denies headache. Denies weakness or paralysis or loss of use of either side. Denies problems with gait or speech. Denies sensory or motor loss. ALL OTHER SYSTEMS REVIEWED AND NEGATIVE. Physical Exam - Vital signs Vitals: Temp Pulse Resp BP Pulse Ox 98.8 F 90 20 174/92 H 91 L 02/26/18 23:20 02/26/18 23:20 02/26/18 23:20 02/26/18 23:20 02/26/18 23:20 - Notes Notes: General Appearance: Well nourished, alert, cooperative, moderate acute distress , no obvious discomfort. Vitals: reviewed, See vital signs table. Head: no swelling or tenderness to the head Eyes: PERRL, EOMI, Conjuctiva clear Mouth: No decreasd moisture Throat: No tonsillar inflammation, No airway obstruction, No lymphadenopathy Neck: Supple, no neck tenderness, No thyromegaly Lungs: Diffuse wheezing, No rales, diffuse rhonci, mild accessory muscle use, fair air exchange bilaterally. Heart: Normal rate, Regular rythm, No murmur, no rub Abdomen: Normal BS, soft, No rigidity, No abdominal tenderness, No guarding, no rebound, no abdominal masses, no organomegaly Extremities: strength 5/5 in all extremities, good pulses in all extremities, no swelling or tenderness in the extremities, no edema. Skin: warm, dry, appropriate color, no rash Neuro: speech clear, oriented x 3, normal affect, responds appropriately to questions. Course - Re-evaluation Re-evalutation: 02/27/18 01:14 On reevaluation patient's work of breathing has improved however she still has a lot of tightness and wheezing throughout her lung king. I will give her another albuterol treatment. Patient says Levaquin has really helped her in the past when she has a lot of thick yellowish mucus like she has been coughing. I will therefore give her a dose Levaquin. 02/27/18 04:26 Despite multiple breathing treatments, magnesium, and the patient's home prednisone she is still having large amount of wheezing and tightness her lung king. Her work of breathing is improved however she is definitely not back to baseline. Patient will be admitted. I did speak with Dr. Resendez, hospitalist , who agrees with the patient. Dictation of this chart was performed using voice recognition software; therefore, there may be some unintended grammatical errors. - Vital Signs Vital signs: Temp Pulse Resp BP Pulse Ox 98.8 F 90 21 H 143/86 H 98 02/26/18 23:20 02/26/18 23:20 02/27/18 02:01 02/27/18 02:01 02/27/18 02:01 - Laboratory Result Diagrams: 02/27/18 00:10 02/27/18 02:25 Laboratory results interpreted by me: 02/27/18 02/27/18 02/27/18 00:10 00:10 02:25 WBC 13.9 H RDW 14.9 H Seg Neutrophils % 84.2 H Lymphocytes % 10.9 L Absolute Neutrophils 11.7 H VBG HCO3 34.7 H Chloride 96 L Glucose 173 H - EKG Interpretation by Me Additional EKG results interpreted by me: 02/27/18 01:44 EKG is reviewed and interpreted by me. EKG shows sinus rhythm with rate of [address] segment elevation or depression. No ischemic T-wave inversions. NH interval, QRS duration, QTc intervals are within normal range. Old EKG for comparison is from February 21, 2018. Discharge - Discharge Clinical Impression: COPD with exacerbation Condition: Stable Disposition: ADMITTED OBSERVATION Admitting Provider: Hospitalist Unit Admitted: Telemetry Referrals: ZOE ALLEN DO [NO LOCAL MD] - Follow up as needed
[2018-02-27 00:33] LABS: VENOUS BLOOD BASE EXCESS 8.2 mmol/L; VENOUS BLOOD HCO3 34.7 mmol/L (20-32); VENOUS BLOOD PCO2 54.3 mmHg (35-63); VENOUS BLOOD PH 7.42 (7.30-7.42)
[2018-02-27 00:35] LABS: ABSOLUTE BASOPHILS # (AUTO) 0.1 10^3/uL (0.0-0.2); ABSOLUTE LYMPHOCYTES (AUTO) 1.5 10^3/uL (0.5-4.7); ABSOLUTE MONOCYTES (AUTO) 0.6 10^3/uL (0.1-1.4); ABSOLUTE NEUT (AUTO) 11.7 10^3/uL (1.7-8.2); BASOPHILS % (AUTO) 0.6 % (0-2); HEMATOCRIT 44.4 % (36.0-47.0); HEMOGLOBIN 14.8 g/dL (12.0-15.5); LYMPHOCYTES % (AUTO) 10.9 % (13-45); MEAN CORPUSCULAR HEMOGLOBIN 28.3 pg (27.0-33.4); MEAN CORPUSCULAR HGB CONC 33.3 g/dL (32.0-36.0); MEAN CORPUSCULAR VOLUME 85 fl (80-97); MONOCYTES % (AUTO) 4.3 % (3-13); PLATELET COUNT 432 10^3/uL (150-450); RED BLOOD COUNT 5.22 10^6/uL (3.72-5.28); RED CELL DISTRIBUTION WIDTH 14.9 % (11.5-14.0); SEGMENTED NEUTROPHILS % (AUTO) 84.2 % (42-78); TOTAL CELLS COUNTED % (AUTO) 100 %; WHITE BLOOD COUNT 13.9 10^3/uL (4.0-10.5)
[2018-02-27] MEDS: MAGNESIUM SULFATE/D5W 1 GM/100 ML RTUPB IV SCH ×2 (00:37→00:44)
[2018-02-27] MEDS ORDERED: LEVOFLOXACIN 750 MG TABLET PO ONE (01:13)
[2018-02-27] MEDS ORDERED: ALBUTEROL SULFATE 0.083% NEB 2.5 MG/3 ML AMPUL NEB ONE (01:14)
--- NOTE | 2018-02-27 01:16 | RADIOLOGY REPORT (SQ) ---
EXAM DESCRIPTION: XR CHEST 1 VIEW COMPLETED DATE/TME: 02/27/2018 00:04 CLINICAL HISTORY: 57 years Female, dyspnea COMPARISON: 8.8.18 NUMBER OF VIEWS/TECHNIQUE: 1/AP FINDINGS: Increased lung volume, consistent with the right pulmonary artery, No pneumothorax. Stable bony thorax. IMPRESSION: No significant change.
[2018-02-27 02:58] LABS: ALANINE AMINOTRANSFERASE 51 U/L (9-52); ALBUMIN 3.9 g/dL (3.5-5.0); ALKALINE PHOSPHATASE 104 U/L (38-126); ANION GAP 13 (5-19); ASPARTATE AMINO TRANSFERASE 21 U/L (14-36); BILIRUBIN,DIRECT 0.2 mg/dL (0.0-0.4); BILIRUBIN,TOTAL 0.2 mg/dL (0.2-1.3); BLOOD UREA NITROGEN 17 mg/dL (7-20); CALCIUM 9.2 mg/dL (8.4-10.2); CARBON DIOXIDE 30 mmol/L (22-30); CHLORIDE 96 mmol/L (98-107); GLUCOSE 173 mg/dL (75-110); SODIUM 139.4 mmol/L (137-145); TOTAL PROTEIN 6.9 g/dL (6.3-8.2)
[2018-02-27] MEDS ORDERED: IPRATROPIUM/ALBUTEROL 0.5-2.5 MG/3 ML AMPUL NEB PRN (04:59)
[2018-02-27] MEDS ORDERED: ACETAMINOPHEN 325 MG TABLET PO PRN ×2 (04:59→05:05)
[2018-02-27] MEDS ORDERED: MAGNESIUM HYDROXIDE SUSP 30 ML UDCUP PO PRN (04:59)
[2018-02-27] MEDS ORDERED: MAG HYDROX/AL HYDROX/SIMETH SUSP 30 ML UDCUP PO PRN (04:59)
[2018-02-27] MEDS ORDERED: ONDANSETRON HCL INJ/PF 4 MG/2 ML SDV IV PRN (04:59)
[2018-02-27] MEDS ORDERED: ALPRAZOLAM 0.25 MG TABLET PO ONE (05:01)
[2018-02-27] MEDS ORDERED: ALPRAZOLAM 0.5 MG TABLET PO PRN (05:05)
[2018-02-27] MEDS ORDERED: NICOTINE 21 MG/24 HR PATCH.TD24 TD ONE (05:12)
[2018-02-27 06:52] LABS: ARTERIAL BLOOD FIO2 28%; ARTERIAL BLOOD H2CO3 1.61 mmol/L (1.05-1.35); ARTERIAL BLOOD HCO3 35.1 mmol/L (20-26); ARTERIAL BLOOD O2 SATURATION 94.1 % (94-98); ARTERIAL BLOOD PCO2 53.5 mmHg (35-45); ARTERIAL BLOOD PH 7.44 (7.35-7.45); ARTERIAL BLOOD PO2 69.3 mmHg (80-100); ARTERIAL BLOOD TOTAL CO2 36.8 mmol/L (21-25)
--- NOTE | 2018-02-27 07:32 | EKG REPORT ---
SEVERITY:- BORDERLINE ECG - SINUS RHYTHM BORDERLINE T ABNORMALITIES, ANT-LAT LEADS : Confirmed by: Paulie Juarez MD 27-Feb-2018 07:31:43
--- NOTE | 2018-02-27 07:36 | PDOC H&P ---
History of Present Illness Admission Date/PCP: 02/27/18 04:33 Edwige Vieira PA-C Patient complains of: Worsening shortness of breath History of Present Illness: MAXWELL GREEN is a 57 year old female with history of multiple medical problems that will be mentioned below presented to the emergency room with acute onset of worsening dyspnea with associated congested cough with inability to expectorate and wheezing despite her home O2 at 2 L/min. She was recently admitted for similar symptoms with COPD exacerbation and acute on chronic respiratory failure with hypoxia and hypercarbia and has been on BiPAP that was weaned off. She has been feeling slightly better and therefore wants discharged a couple of days ago. Since she went home she went back smoking is usual and her symptoms have been since worsening. The patient however stated that she was not feeling at her baseline before discharge. She denies any fever or chills. No chest pain or palpitations. No nausea vomiting or abdominal pain. No dysuria oliguria hematuria or flank pain. No rhinorrhea or nasal congestion or sore throat or earache. Upon presentation to the emergency room, her blood pressure was elevated at 174/ 92 with a pulse of 90 respiratory rate 20 temperature 98.8 and pulse oximetry 91 % on her home O2. Her labs revealed leukocytosis of 13.9 with neutrophilia and BMP should hypochloremia with a blood glucose of 173. Troponin I was less than 0.0 12. Portable chest x-ray showed no acute cardiopulmonary disease and EKG showed sinus rhythm with rate of 88 with T-wave inversion in V1, V2 and aVL. The patient was given 3 nebulized duo nebs as well as 2 albuterol, IV magnesium sulfate and Levaquin. She was still having similar symptoms. She will be admitted to a medically monitored bed for further evaluation and management. Past Medical History Cardiac Medical History: Reports: Hyperlipidema, Hypertension Denies: Congestive Heart Failure, Coronary Artery Disease, DVT, Pulmonary Embolism Pulmonary Medical History: Reports: Chronic Obstructive Pulmonary Disease (COPD) , Pneumonia Denies: Sleep Apnea Neurological Medical History: Denies: Seizures Endocrine Medical History: Reports: Hypothyroidism Denies: Diabetes Mellitus Type 1 - [place], Diabetes Mellitus Type 2, Hyperthyroidism GI Medical History: Reports: Gastroesophageal Reflux Disease Denies: Cirrhosis, Hepatitis Musculoskeltal Medical History: Reports: Arthritis, Fibromyalgia Psychiatric Medical History: Reports: Depression Infectious Medical History: Denies: Clostridium Difficile, Methicillin-Resistant Staph Aureus Past Surgical History Past Surgical History: Reports: Cholecystectomy, Hysterectomy Social History Smoking Status: Current Every Day Smoker Frequency of Alcohol Use: None Hx Recreational Drug Use: No Drugs: None Hx Prescription Drug Abuse: No Family History Family History: CAD, CVA, Malignancy - In both parents Parental Family History Reviewed: Yes Children Family History Reviewed: Yes Sibling(s) Family History Reviewed.: Yes Medication/Allergy Home Medications: Acetaminophen [Tylenol 325 mg Tablet] 650 mg PO Q4HP PRN 02/21/18 Albuterol Sulfate [Ventolin 0.083% Neb 2.5 mg/3 mL Ampul] 1 vial NEB RTQ6HP PRN 02/21/18 Albuterol Sulfate [Ventolin Hfa] 2 puff IH Q4HP PRN 02/21/18 Alprazolam [Xanax 0.5 mg Tablet] 0.5 mg PO Q12HP PRN 02/21/18 Amlodipine Besylate [Norvasc 10 mg Tablet] 10 mg PO DAILY 02/21/18 Aspirin [Aspirin EC] 81 mg PO DAILY 02/21/18 Atorvastatin Calcium [Lipitor 40 mg Tablet] 40 mg PO QHS 02/21/18 Dexlansoprazole [Dexilant 60 mg Capsule] 60 mg PO DAILY 02/21/18 Duloxetine HCl [Cymbalta] 90 mg PO DAILY 02/21/18 Estrogens,Conjugated [Premarin 1.25 mg Tablet] 1.25 mg PO DAILY 02/21/18 Fluticasone Propionate [Flonase Nasal [place] 50 Mcg/[place] 16 gm] 1 spray NASL Q12 02/21/18 Fluticasone/Salmeterol [Advair 500-50 Diskus 28 Dose] 1 inh IH Q12 02/21/18 Levothyroxine Sodium [Synthroid] 125 mcg PO ACBRKFST 02/21/18 Meloxicam [Mobic] 15 mg PO QHS 02/21/18 Metoprolol Succinate [Toprol Xl 50 mg Tab.sr] 50 mg PO DAILY 02/21/18 Oxycodone HCl [Oxy-Ir 5 mg Tablet] 10 mg PO Q8HP PRN 02/21/18 Ropinirole HCl [Requip] 0.5 mg PO DAILY 02/21/18 Umeclidinium [place] [Incruse Ellipta] 1 puff IH DAILY 02/21/18 Azithromycin [Zithromax 250 mg Tablet] 500 mg PO DAILY #3 tablet 02/24/18 Ipratropium/Albuterol Sulfate [Duoneb 3 ml Ampul] 3 ml NEB RTQ6 #30 vial.neb 06/03 Metoprolol Succinate [Toprol Xl 50 mg Tab.sr] 50 mg PO DAILY #30 tab.sr.24h 06/03 Nicotine [Nicoderm 21 mg/24 Hr Transderm Patch] 1 each TD QHS #30 patch.td24 06/03 Prednisone [Sterapred Ds] 1 pkg PO ASDIR PRN 12 Days tab.ds.pk 02/24/18 Amoxicillin/Potassium Clav [Augmentin 500-125 Tablet] 1 tab PO Q8 5 Days #15 tablet 02/25/18 Allergies/Adverse Reactions: adhesive tape Allergy (Verified 02/21/18 08:13) roflumilast Adverse Reaction (Verified 02/21/18 08:13) Review of Systems Review of Systems: As per history of present illness. All pertinent systems were reviewed above. Constitutional, HEENT, cardiovascular, respiratory, GI, , musculoskeletal, neuro, psychiatric, endocrine, integumentary and hematologic systems were reviewed and are otherwise negative/unremarkable except for positive findings mentioned above in the HPI. Physical Exam Vital Signs: Temp Pulse Resp BP Pulse Ox 98.8 F 90 21 H 143/86 H 98 02/26/18 23:20 02/26/18 23:20 02/27/18 02:01 02/27/18 02:01 02/27/18 02:01 Exam: Generally: Pleasant middle-aged female in mild respiratory distress with conversational dyspnea Vital signs-as listed Head - atraumatic, normocephalic. Pupils - equal, round and reactive to light and accommodation. Extraocular movements are intact. No scleral icterus. Oropharynx - moist mucous membranes and tongue. No pharyngeal erythema or exudate. Neck - supple. No JVD. Carotid pulses 2+ bilaterally. No carotid bruits. No palpable thyromegaly or lymphadenopathy. Cardiovascular - regular rate and rhythm. Normal S1 and S2. No murmurs, gallops or rubs. Lungs -diffuse expiratory wheezes with tight expiratory airflow and a harsh vesicular breathing. Abdomen - soft and nontender. Positive bowel sounds. No palpable organomegaly or masses. Extremities - no pitting edema, clubbing or cyanosis. Neuro - grossly non-focal. Skin - no rashes. Breast, pelvic and rectal - deferred Results Impressions: Chest X-Ray 02/27/18 00:04 IMPRESSION: No significant change. Assessment & Plan - Diagnosis (1) COPD exacerbation Is this a current diagnosis for this admission?: Yes Plan: The patient will be admitted to a medically monitored bed and will be placed on IV steroid therapy with IV Solu-Medrol as well as nebulized bronchodilator therapy with duonebs q.i.d. and q.4 hours p.r.n., mucolytic therapy with Mucinex and antibiotic therapy with IV Rocephin and p.o. Zithromax. Sputum Gram stain culture and sensitivity will be obtained. O2 protocol will be followed. The patient had associated chest pain likely related to her cough, probably musculoskeletal due to intercostal muscle strain. Will still follow 3 sets of cardiac enzymes. Will obtain a cardiology consultation by Dr. Esteves. (2) Acute on chronic respiratory failure with hypoxia and hypercapnia Is this a current diagnosis for this admission?: Yes Plan: O2 protocol will be followed. Will obtain a stat ABG and utilize BiPAP as needed. (3) Tobacco dependence Is this a current diagnosis for this admission?: Yes Plan: I counseled her for smoking cessation and she will receive further counseling here. (4) Dyslipidemia Is this a current diagnosis for this admission?: Yes Plan: Statin therapy will be resumed (5) Depression with anxiety Is this a current diagnosis for this admission?: Yes Plan: We will continue Xanax and Cymbalta. (6) HTN (hypertension) Qualifiers: Hypertension type: essential hypertension Qualified Code(s): I10 - Essential (primary) hypertension Is this a current diagnosis for this admission?: Yes Plan: We will continue her amlodipine (7) Hypothyroid Qualifiers: Hypothyroidism type: acquired Qualified Code(s): E03.9 - Hypothyroidism, unspecified Is this a current diagnosis for this admission?: Yes Plan: We will continue her Synthroid and check a TSH level. (8) DVT prophylaxis Is this a current diagnosis for this admission?: Yes Plan: Subcutaneous Lovenox and GI prophylaxis with PPI given current steroid therapy - Plan Summary Plan Summary: The plan of care was discussed in details with the patient. I answered all questions. The patient agreed to proceed with the above-mentioned plan. The patient is presumably full code. This note was created by [employer] software and may contain typo errors that may have not been proofread.
[2018-02-27] MEDS ORDERED: LEVOTHYROXINE SODIUM 0.1 MG TABLET PO SCH (08:00)
[2018-02-27] MEDS: IPRATROPIUM/ALBUTEROL 0.5-2.5 MG/3 ML AMPUL NEB SCH ×4 (08:40→20:34)
[2018-02-27 09:12] LABS: CREATINE KINASE MB 0.82 ng/mL (<4.55)
[2018-02-27 09:20] LABS: TROPONIN I < 0.012 ng/mL
[2018-02-27] MEDS ORDERED: CEFTRIAXONE INJ 1000 MG VIAL IV SCH (10:00)
[2018-02-27] MEDS: NORMAL SALINE 1000 ML 1,000 ML IV PRN ×2 (10:00→20:43)
[2018-02-27] MEDS ORDERED: (PENDING PHARMACY ID) (Umeclidinium Bromide [Incruse Ellipta] 1 PUFF) IH SCH (10:00)
[2018-02-27] MEDS ORDERED: METOPROLOL SUCCINATE 50 MG TAB.SR.24H PO SCH (10:00)
[2018-02-27] MEDS: AMLODIPINE BESYLATE 10 MG TABLET PO SCH (10:51)
[2018-02-27] MEDS: GUAIFENESIN 600 MG TABLET.SA PO SCH ×2 (10:51→22:06)
[2018-02-27] MEDS: LEVOTHYROXINE SODIUM 0.025 MG TABLET PO SCH (10:51)
[2018-02-27] MEDS: DULOXETINE HCL 30 MG CAPSULE.DR PO SCH (10:51)
[2018-02-27] MEDS: LANSOPRAZOLE 30 MG TAB.RAP.DR PO SCH (10:51)
[2018-02-27] MEDS: ASPIRIN 81 MG TABLET, ENT COATED PO SCH (10:51)
[2018-02-27] MEDS: LEVOTHYROXINE SODIUM 0.1 MG TABLET PO SCH (10:52)
[2018-02-27] MEDS: ENOXAPARIN SODIUM INJ 40 MG/0.4 ML DISP.SYRIN SUBCUT SCH (10:52)
[2018-02-27] MEDS: OXYCODONE HCL IR 5 MG TABLET PO PRN ×2 (10:58→20:42)
[2018-02-27] MEDS: NICOTINE 21 MG/24 HR PATCH.TD24 TD SCH (11:12)
--- NOTE | 2018-02-27 13:55 | EKG REPORT ---
SEVERITY:- ABNORMAL ECG - SINUS RHYTHM NONSPECIFIC -T INVERSIONS , NEW SINCE 11/14/16 EKG, CLINICAL CORRELATION NEEDED. : Confirmed by: Paulie Juarez MD 27-Feb-2018 13:55:04
[2018-02-27] MEDS: FLUTICASONE NASAL SPRAY 50 MCG/SPRY 120 SPRAY/16 GM NASL SCH ×2 (14:57→22:07)
[2018-02-27] MEDS: ROPINIROLE HCL 0.25 MG TABLET PO SCH (14:58)
[2018-02-27] MEDS: ESTROGENS,CONJUGATED 1.25 MG TABLET PO SCH (15:00)
[2018-02-27] MEDS: METOPROLOL SUCCINATE 50 MG TAB.SR.24H PO SCH (15:01)
[2018-02-27] MEDS: METHYLPREDNISOLONE INJ 40 MG/1 ML SDV IV SCH ×3 (15:04→22:06)
[2018-02-27 15:44] LABS: CREATINE KINASE MB 0.72 ng/mL (<4.55)
[2018-02-27 15:47] LABS: TROPONIN I < 0.012 ng/mL
[2018-02-27] MEDS: CEFTRIAXONE 1 GM/D5W RTU 1 GM/50 ML RTUPB IV SCH (16:39)
[2018-02-27 21:09] LABS: CREATINE KINASE MB 0.61 ng/mL (<4.55)
[2018-02-27 21:29] LABS: TROPONIN I < 0.012 ng/mL
[2018-02-27] MEDS: ATORVASTATIN CALCIUM 40 MG TABLET PO SCH (22:06)
[2018-02-27] MEDS: OXYCODONE HCL SR 10 MG TABLET PO SCH (22:06)
[2018-02-28] MEDS ORDERED: CEFTRIAXONE INJ 500 MG VIAL ONE (05:54)
[2018-02-28 06:10] LABS: ABSOLUTE BASOPHILS # (AUTO) 0.1 10^3/uL (0.0-0.2); ABSOLUTE LYMPHOCYTES (AUTO) 1.3 10^3/uL (0.5-4.7); ABSOLUTE MONOCYTES (AUTO) 0.3 10^3/uL (0.1-1.4); ABSOLUTE NEUT (AUTO) 9.8 10^3/uL (1.7-8.2); BASOPHILS % (AUTO) 0.9 % (0-2); HEMATOCRIT 40.6 % (36.0-47.0); HEMOGLOBIN 13.4 g/dL (12.0-15.5); LYMPHOCYTES % (AUTO) 11.4 % (13-45); MEAN CORPUSCULAR HEMOGLOBIN 27.9 pg (27.0-33.4); MEAN CORPUSCULAR HGB CONC 32.9 g/dL (32.0-36.0); MEAN CORPUSCULAR VOLUME 85 fl (80-97); MONOCYTES % (AUTO) 2.2 % (3-13); PLATELET COUNT 385 10^3/uL (150-450); RED BLOOD COUNT 4.79 10^6/uL (3.72-5.28); RED CELL DISTRIBUTION WIDTH 14.5 % (11.5-14.0); SEGMENTED NEUTROPHILS % (AUTO) 85.5 % (42-78); TOTAL CELLS COUNTED % (AUTO) 100 %; WHITE BLOOD COUNT 11.5 10^3/uL (4.0-10.5)
[2018-02-28] MEDS: METHYLPREDNISOLONE INJ 40 MG/1 ML SDV IV SCH ×4 (06:34→22:36)
[2018-02-28 06:39] LABS: ANION GAP 8 (5-19); BLOOD UREA NITROGEN 16 mg/dL (7-20); CALCIUM 9.1 mg/dL (8.4-10.2); CARBON DIOXIDE 28 mmol/L (22-30); CHLORIDE 101 mmol/L (98-107); GLUCOSE 117 mg/dL (75-110); POTASSIUM 4.9 mmol/L (3.6-5.0); SODIUM 137.1 mmol/L (137-145)
[2018-02-28] MEDS: NORMAL SALINE 1000 ML 1,000 ML IV PRN ×2 (06:43→17:34)
[2018-02-28] MEDS: IPRATROPIUM/ALBUTEROL 0.5-2.5 MG/3 ML AMPUL NEB SCH ×4 (08:21→20:43)
[2018-02-28] MEDS: LANSOPRAZOLE 30 MG TAB.RAP.DR PO SCH (09:09)
[2018-02-28] MEDS: OXYCODONE HCL SR 10 MG TABLET PO SCH ×2 (09:09→21:40)
[2018-02-28] MEDS: AMLODIPINE BESYLATE 10 MG TABLET PO SCH (09:09)
[2018-02-28] MEDS: METOPROLOL SUCCINATE 50 MG TAB.SR.24H PO SCH (09:09)
[2018-02-28] MEDS: DULOXETINE HCL 30 MG CAPSULE.DR PO SCH (09:09)
[2018-02-28] MEDS: ASPIRIN 81 MG TABLET, ENT COATED PO SCH (09:10)
[2018-02-28] MEDS: AZITHROMYCIN 250 MG TABLET PO SCH (09:10)
[2018-02-28] MEDS: NICOTINE 21 MG/24 HR PATCH.TD24 TD SCH (09:10)
[2018-02-28] MEDS: GUAIFENESIN 600 MG TABLET.SA PO SCH ×2 (09:10→21:40)
[2018-02-28] MEDS: ROPINIROLE HCL 0.25 MG TABLET PO SCH (09:11)
[2018-02-28] MEDS: ENOXAPARIN SODIUM INJ 40 MG/0.4 ML DISP.SYRIN SUBCUT SCH (09:11)
[2018-02-28] MEDS: ESTROGENS,CONJUGATED 1.25 MG TABLET PO SCH (09:11)
[2018-02-28] MEDS: FLUTICASONE NASAL SPRAY 50 MCG/SPRY 120 SPRAY/16 GM NASL SCH ×2 (09:12→21:39)
[2018-02-28] MEDS: LEVOTHYROXINE SODIUM 0.025 MG TABLET PO SCH (09:16)
[2018-02-28] MEDS: LEVOTHYROXINE SODIUM 0.1 MG TABLET PO SCH (09:16)
[2018-02-28] MEDS: CEFTRIAXONE 1 GM/D5W RTU 1 GM/50 ML RTUPB IV SCH (10:54)
[2018-02-28] MEDS: OXYCODONE HCL IR 5 MG TABLET PO PRN (10:56)
[2018-02-28] MEDS ORDERED: ACETYLCYSTEINE 10% NEB 400 MG/4 ML VIAL NEB SCH (14:00)
--- NOTE | 2018-02-28 15:03 | PDOC PROGRESS REPORT ---
Subjective Progress Note for:: 02/28/18 Subjective:: Patient was admitted for COPD exacerbation. No acute event overnight. No fever chills. Patient this morning says her shortness of breath has significantly improved but she is not at her baseline yet. She has minimally productive cough. No chest pain. She has been off the BiPAP and saturating well on nasal cannula. Reason For Visit: COPD EXACERBATION Physical Exam Vital Signs: Temp Pulse Resp BP Pulse Ox 98.0 F 80 16 125/72 96 02/28/18 11:28 02/28/18 11:54 02/28/18 11:54 02/28/18 11:28 02/28/18 11:28 Intake & Output 02/27/18 02/28/18 03/01/18 06:59 06:59 06:59 Intake Total 2459 474 Balance 2459 474 Weight 179 lb 3.773 oz 185 lb 3.013 oz General appearance: PRESENT: no acute distress, well-developed, well-nourished Head exam: PRESENT: atraumatic, normocephalic Eye exam: PRESENT: conjunctiva pink, EOMI, PERRLA. ABSENT: scleral icterus Neck exam: ABSENT: carotid bruit, JVD, lymphadenopathy, thyromegaly Respiratory exam: PRESENT: wheezes - General scattered wheezing albeit significantly improved from yesterday, no crackles or rhonchi Cardiovascular exam: PRESENT: RRR. ABSENT: diastolic murmur, rubs, systolic murmur Pulses: PRESENT: normal dorsalis pedis pul GI/Abdominal exam: PRESENT: normal bowel sounds, soft. ABSENT: distended, guarding, mass, organolmegaly, rebound, tenderness Rectal exam: PRESENT: deferred Neurological exam: PRESENT: alert, awake, oriented to person, oriented to place , oriented to time, oriented to situation, CN II-XII grossly intact. ABSENT: motor sensory deficit Results Laboratory Results: 02/28/18 05:46 02/28/18 05:46 02/28/18 02/28/18 05:46 05:46 WBC 11.5 H RBC 4.79 Hgb 13.4 Hct 40.6 MCV 85 MCH 27.9 MCHC 32.9 RDW 14.5 H Plt Count 385 Seg Neutrophils % 85.5 H Lymphocytes % 11.4 L Monocytes % 2.2 L Eosinophils % 0.0 Basophils % 0.9 Absolute Neutrophils 9.8 H Absolute Lymphocytes 1.3 Absolute Monocytes 0.3 Absolute Eosinophils 0.0 Absolute Basophils 0.1 Sodium 137.1 Potassium 4.9 Chloride 101 Carbon Dioxide 28 Anion Gap 8 BUN 16 Creatinine 0.44 L Est GFR ( Amer) > 60 Est GFR (Non-Af Amer) > 60 Glucose 117 H Calcium 9.1 02/27/18 02/27/18 02/27/18 08:10 08:10 14:50 Creatine Kinase 23 L 26 L CK-MB (CK-2) 0.82 Troponin I < 0.012 02/27/18 02/27/18 02/27/18 14:50 20:17 20:17 Creatine Kinase 24 L CK-MB (CK-2) 0.72 0.61 Troponin I < 0.012 < 0.012 Impressions: Chest X-Ray 02/27/18 00:04 IMPRESSION: No significant change. Assessment & Plan - Diagnosis (1) Acute and chronic respiratory failure with hypercapnia Is this a current diagnosis for this admission?: Yes Plan: Secondary to remission. Continue steroids for now. Continue azithromycin and Rocephin. (2) HTN (hypertension) Qualifiers: Hypertension type: essential hypertension Qualified Code(s): I10 - Essential (primary) hypertension Is this a current diagnosis for this admission?: Yes Plan: Controlled. Continue amlodipine and metoprolol. (3) Dyslipidemia Is this a current diagnosis for this admission?: Yes Plan: Continue statin. - Time Time Spent with patient: 15-24 minutes
--- NOTE | 2018-02-28 17:41 | RADIOLOGY REPORT (SQ) ---
EXAM DESCRIPTION: CTA CHEST COMPLETED DATE/TIME: 02/28/2018 5:15 pm REASON FOR STUDY: R/O PE COMPARISON: None. TECHNIQUE: CT scan of the chest performed using helical scanning technique with dynamic intravenous contrast injection. Images reviewed with lung, soft tissue and bone windows. Reconstructed coronal and sagittal MPR images reviewed. Additional 3 dimensional post-processing performed to develop Maximal Intensity Projection images (OR P). All images stored on PACS. All CT scanners at this facility use dose modulation, iterative reconstruction, and/or weight based d osing when appropriate to reduce radiation dose to as low as reasonably achievable (ALARA). [facility]: Dose Right [facility]: CareDose [facility]: Dose Right [facility]: Teradose 4D [facility]: Pressly CONTRAST TYPE AND DOSE: contrast/concentration: Isovue 350.00 mg/ml; Total Contrast Delivered: 74.0 ml; Total Saline Delivered: 90.0 ml Contrast bolus optimized for the pulmonary arteries. Not diagnostic for the aorta. RENAL FUNCTION: Not recorded here. RADIATION DOSE: CT Rad equipment meets quality standard of care and radiation dose reduction techniq ues were employed. CTDIvol: 5.0 - 24.8 mGy. DLP: 627 mGy-cm. . LIMITATIONS: None. FINDINGS: LUNGS AND PLEURA: No masses, infiltrates, or pneumothorax. No pleural effusions or pleura l calcifications. AORTA AND GREAT VESSELS: No aneurysm. Contrast bolus not optimized for the aorta. HEART: No pericardial effusion. No significant coronary artery calcifications. PULMONARY ARTERIES: No emboli visualized in the main pulmonary arteries or the segmental branches. HILAR AND MEDIASTINAL STRUCTURES: No identified masses or abnormal nodes. HARDWARE: None in the chest. UPPER ABDOMEN: No significant findings. Limited exam. THYROID AND OTHER SOFT TISSUES: No masses. No adenopathy. BONES: No acute or significant finding. 3D MIPS: Confirm above findings. OTHER: No other significant finding. IMPRESSION: NORMAL CTA OF THE CHEST. NO PULMONARY EMBOLI. COMMENT: Quality ID # [id number]: Final reports with documentation of one or more dose reduction techniques (e.g., Automated exposure control, adjustment of the mA and/or kV according to patient size, use of iterative reconstruction technique) TECHNICAL DOCUMENTATION: JOB ID: [id number] [employer]- All Rights Reserved Reading location - IP/workstation name: [email or web address]
[2018-02-28] MEDS: ACETYLCYSTEINE 10% NEB 400 MG/4 ML VIAL NEB SCH (20:42)
[2018-02-28] MEDS: ATORVASTATIN CALCIUM 40 MG TABLET PO SCH (21:40)
[2018-03-01] MEDS: NORMAL SALINE 1000 ML 1,000 ML IV PRN (05:00)
[2018-03-01] MEDS ORDERED: LANSOPRAZOLE 30 MG TAB.RAP.DR PO SCH (06:00)
[2018-03-01] MEDS ORDERED: CEFTRIAXONE SODIUM 1,000 MG in NORMAL SALINE 50 ML IV SCH (06:00)
[2018-03-01] MEDS: METHYLPREDNISOLONE INJ 40 MG/1 ML SDV IV SCH ×2 (06:37→09:05)
[2018-03-01 06:40] LABS: HEMOGLOBIN 12.9 g/dL (12.0-15.5); MEAN CORPUSCULAR HEMOGLOBIN 28.1 pg (27.0-33.4); MEAN CORPUSCULAR HGB CONC 33.2 g/dL (32.0-36.0); MEAN CORPUSCULAR VOLUME 85 fl (80-97); PLATELET COUNT 399 10^3/uL (150-450); RED BLOOD COUNT 4.61 10^6/uL (3.72-5.28); RED CELL DISTRIBUTION WIDTH 14.6 % (11.5-14.0); WHITE BLOOD COUNT 15.8 10^3/uL (4.0-10.5)
[2018-03-01 07:15] LABS: ANION GAP 10 (5-19); BLOOD UREA NITROGEN 21 mg/dL (7-20); CALCIUM 9.3 mg/dL (8.4-10.2); CARBON DIOXIDE 30 mmol/L (22-30); CHLORIDE 97 mmol/L (98-107); GLUCOSE 116 mg/dL (75-110); POTASSIUM 4.9 mmol/L (3.6-5.0); SODIUM 137.3 mmol/L (137-145)
--- NOTE | 2018-03-01 07:26 | EKG REPORT ---
SEVERITY:- ABNORMAL ECG - SINUS RHYTHM NONSPECIFIC T ABNORMALITIES, ANT-LAT LEADS : Confirmed by: Paulie Juarez MD 01-Mar-2018 07:25:40
[2018-03-01 07:30] LABS: FREE T3 2.43 pg/mL (2.77-5.27); FREE T4 (FREE THYROXINE) 0.99 ng/dL (0.78-2.19)
[2018-03-01 07:43] LABS: THYROID STIMULATING HORMONE 0.06 uIU/mL (0.47-4.68)
[2018-03-01 07:53] LABS: ABSOLUTE LYMPHOCYTES# (MANUAL) 1.7 10^3/uL (0.5-4.7); ABSOLUTE MONOCYTES # (MANUAL) 0.6 10^3/uL (0.1-1.4); ABSOLUTE NEUTROPHILS# (MANUAL) 13.4 10^3/uL (1.7-8.2); BASOPHILS % (MANUAL) 0 % (0-2); EOSINOPHILS % (MANUAL) 0 % (0-6); HYPOCHROMASIA 1+; LYMPHOCYTES % (MANUAL) 11 % (13-45); MONOCYTES % (MANUAL) 4 % (3-13); PLATELET COMMENT ADEQUATE; POLYCHROMASIA SLIGHT; SEGMENTED NEUTROPHILS % (MAN) 85 % (42-78); TOTAL CELLS COUNTED 100
[2018-03-01] MEDS: IPRATROPIUM/ALBUTEROL 0.5-2.5 MG/3 ML AMPUL NEB SCH ×2 (08:15→12:31)
[2018-03-01] MEDS: ACETYLCYSTEINE 10% NEB 400 MG/4 ML VIAL NEB SCH (08:15)
[2018-03-01] MEDS: FLUTICASONE NASAL SPRAY 50 MCG/SPRY 120 SPRAY/16 GM NASL SCH (09:05)
[2018-03-01] MEDS: ROPINIROLE HCL 0.25 MG TABLET PO SCH (09:05)
[2018-03-01] MEDS: DULOXETINE HCL 30 MG CAPSULE.DR PO SCH (09:05)
[2018-03-01] MEDS: LEVOTHYROXINE SODIUM 0.1 MG TABLET PO SCH (09:06)
[2018-03-01] MEDS: ASPIRIN 81 MG TABLET, ENT COATED PO SCH (09:06)
[2018-03-01] MEDS: AZITHROMYCIN 250 MG TABLET PO SCH (09:06)
[2018-03-01] MEDS: OXYCODONE HCL SR 10 MG TABLET PO SCH (09:07)
[2018-03-01] MEDS: LEVOTHYROXINE SODIUM 0.025 MG TABLET PO SCH (09:07)
[2018-03-01] MEDS: AMLODIPINE BESYLATE 10 MG TABLET PO SCH (09:07)
[2018-03-01] MEDS: METOPROLOL SUCCINATE 50 MG TAB.SR.24H PO SCH (09:07)
[2018-03-01] MEDS: GUAIFENESIN 600 MG TABLET.SA PO SCH (09:07)
[2018-03-01] MEDS: NICOTINE 21 MG/24 HR PATCH.TD24 TD SCH (09:08)
[2018-03-01] MEDS: ESTROGENS,CONJUGATED 1.25 MG TABLET PO SCH (09:08)
[2018-03-01] MEDS: ENOXAPARIN SODIUM INJ 40 MG/0.4 ML DISP.SYRIN SUBCUT SCH (09:08)
[2018-03-01] MEDS: OXYCODONE HCL IR 5 MG TABLET PO PRN (10:28)
--- NOTE | 2018-03-01 10:45 | Physician Advisory Note ---
Physician Advisor ProgressNote .: [facility] medical [facility] for this patient. Physician Advisor Statement: Pt who needs O2 2L, and Trilogy machine for breathing at night, back in w/ relapse of COPD exac after going home & smoking. ED dr noted increased work of breathing that did not return to baseline after tx.s in ED. Pt has hypercarbia. Nice documentation of Ac on Chr Hypoxemic/hypercarbic Resp Failure. Please consider documenting, if you agree: 1. "Possible acute bronchitis" (or whatever is being tx'd with abx, since COPD exac alone doesn't necessarily require abx unless underlying bacterial superinfxn is suspected.) 2. Please continue to list "COPD exacerbation" as a dx in the Imp/Plan section of each note & DCSummary (unless it gets ruled out). Thanks! CK
[2018-03-01 13:01] VITALS: BP 152/92
--- NOTE | 2018-03-01 14:07 | CONSULTATION REPORT E ---
Consultation Report NAME: MAXWELL GREEN : 1960 AGE: 57Y DATE: 02/28/2018 334 A TO: CASANDRA FRANK M.D. FROM: ISRAEL ARELLANO M.D. Requesting Physician REASON FOR CONSULTATION: Patient with chest pain and EKG changes. HISTORY: The patient is a 57-year-old female with a history of significant COPD who continues to smoke and has hypertension who recently was admitted to the hospital and discharged a few days ago. States since after discharge, she started having increasing shortness of breath with orthopnea and wheezing and cough productive of yellowish sputum. Also, because of the cough, she had pain in the left chest wall which increased with coughing but no true anginal symptoms but her EKG today shows new T-wave inversion in the anterior leads which are new compared to that of November of 2017. The patient denies any palpitations or leg edema or syncope. When she first came to the Emergency Room, her blood pressure was elevated at 174/92. She had a temperature of 98.8 degrees Fahrenheit and her pulse ox was 91% on her home oxygen. Her labs reveals a leukocytosis of 13.9 with neutrophils and BMP showed hyponatremia with a blood glucose of 173. Troponin I was less than 0.12. EKG shows sinus rhythm with rate of 88 beats per minute with T-wave inversion in V1, V2 and aVL which seems to be new. There was no chest pain or discomfort. There were no palpitations. There was no PND or leg edema. There was no dizziness or near syncope. There were no palpitations. There were no recent symptoms of TIA or CVA. PAST MEDICAL HISTORY: Positive for history of hyperlipidemia, hypertension. There is no history of coronary artery disease. She has a history of COPD and is on home oxygen for that. She has a history of hypothyroidism and also has a history of diabetes mellitus, borderline type 2, diet controlled. She also has a history of GERD. There is no history of TIA or CVA. There is no history of chronic kidney disease. She has a history of arthritis and fibromyalgia. She has a history of depression, although no anxiety. PAST SURGICAL HISTORY: Cholecystectomy and hysterectomy. FAMILY HISTORY: Positive for coronary artery disease, stroke and malignancy in both parents. SOCIAL HISTORY: Smoking: The patient is a smoker. There is no history of ETOH abuse. DISPOSITION: The patient is a FULL CODE and her son is the surrogate healthcare decision maker. ALLERGIES: 1. . 2. ROFLUMILAST. MEDICATIONS: 1. Tylenol 650 mg p.o. q. 4 hours p.r.n. 2. Mucomyst 400 mg respiratory treatment b.i.d. 3. Xanax 0.25 mg p.o. q. 12 hours p.r.n. 4. Amlodipine 10 mg p.o. daily. 5. Aspirin 81 mg p.o. daily. 6. Atorvastatin 40 mg p.o. at bedtime. 7. Zithromax 500 mg p.o. daily. 8. Ceftriaxone 1 g IV piggyback q. a.m. 9. Cymbalta 90 mg p.o. daily. 10. Lovenox 40 mg subcutaneously daily. 11. Estrogen conjugated 1.25 mg p.o. daily. 12. Fluticasone propionate/Flonase 1 spray nasally q. 12 hours. 13. Mucinex 600 mg p.o. q. 12 hours. 14. Ipratropium 3 mL nebulizer treatment q. 4 hours p.r.n. 15. Ipratropium/albuterol sulfate 3 mL nebulizer treatment q.i.d. 16. Normal saline at 100 mL/hr. 17. Prevacid 30 mg p.o. q. a.m. 18. Levaquin 750 mg p.o. x1. 19. Levothyroxine 0.125 mg p.o. daily. 20. Maalox Plus 30 mL p.o. q. 6 hours p.r.n. 21. Milk of Magnesia 30 mL p.o. at bedtime p.r.n. 22. Solu-Medrol 40 mg IV q. 12 hours. 23. Metoprolol succinate/Toprol XL 50 mg p.o. daily. 24. Nicoderm 1 transdermally daily, that is 21 mg/24 hours. 25. Zofran 4 mg q. 4 hours p.r.n. 26. Oxycodone 10 mg p.o. q. 8 hours p.r.n. 27. Ropinirole 0.5 mg p.o. daily. 28. Umeclidinium bromide 1 puff inhalation daily. REVIEW OF SYSTEMS: CONSTITUTIONAL: Denies any fevers, chills or rigors, but feels feverish. Complains of generalized fatigue and weakness. HEAD: Denies headaches or head injury. EYES: No history of diplopia or amblyopia. No history of amaurosis fugax. EARS: No history of hearing loss. No history of tinnitus. No history of recurrent ear infections. NOSE: Historical nasal allergies. Patient is on fluticasone, that is Flonase spray inhalation once daily. She has no nosebleeds. There are no nasal polyps. MOUTH: No altered taste sensation. No ulcers in the mouth. No bleeding from the gums. THROAT: No odynophagia or dysphagia. No history of recurrent sore throats. SKIN: No pruritus. No excoriation. No yellowish discoloration of the skin. NECK: Denies symptoms of C-spine arthritis. There is no swelling in the neck. There is no goiter. LUNGS: History of COPD, on home oxygen. The patient continues to smoke. No history of sleep apnea. No history of pulmonary embolism. Recent symptoms suggestive of acute exacerbation of COPD. The patient recently was admitted for acute exacerbation of COPD and respiratory failure. The patient has cough and she has scanty yellowish sputum production. Chest wall pain secondary to coughing, as mentioned earlier. Wheezing present. CARDIAC: History of hypertension present. History of hyperlipidemia present. No history of coronary artery disease. No history of congestive heart failure. No history of cardiac arrhythmia. GASTROINTESTINAL: History of GERD. No history of GI bleed. No history of fatty food intolerance. No history of cirrhosis. No history of ascites. No history of GI bleed. No history of altered bowel movements. Appetite has been decreased. MUSCULOSKELETAL: History of arthritis present. No history of collagen-vascular disease. RENAL: No history of chronic kidney disease. No symptoms of UTI. No history of hematuria, pyuria or dysuria. ENDOCRINE: History of borderline diabetes mellitus. History of hypothyroidism. No history of polydipsia, polyuria. No history of heat or cold intolerance. CENTRAL NERVOUS SYSTEM: No history of TIA or CVA. No history seizures, headaches or migraines. No history of gait imbalance. PSYCHIATRIC: No history of suicidal ideation. No history of homicidal ideation. History of significant depression present. History of anxiety also present. HEMATOLOGICAL: No history of bleeding diathesis. No history of clotting disorders. VASCULAR: No history of calf or buttocks claudication. No history of DVT. PHYSICAL EXAMINATION: GENERAL: The patient is slightly overweight but well groomed, in no acute distress. VITAL SIGNS: She is afebrile with a temperature of 98 degrees Fahrenheit orally. Pulse is 83 beats per minute. Blood pressure 125/72. Respirations 20 per minute. O2 sats are 96% on room air on 2 L nasal cannula. HEENT: Head is atraumatic and normocephalic. Eyes: Pupils are equal, round, regular, reactive to light and accommodation. Extraocular movements are normal. There is no conjunctival pallor. There is no scleral icterus. Ears: Tympanic membranes are intact. External auditory canals are clear. Nose: There is no deviated nasal septum. There is no inflammation of the nasal mucous membranes. Mouth: Mucous membranes of the mouth are moist. Tongue is moist. There are no ulcers. There is no bleeding from the gums. Throat: There is no redness of the oropharynx. There are no exudates. SKIN: There are no skin rashes. There are no skin lesions. There is no petechia or ecchymosis. NECK: Supple. There is no JVD. There are no axillary muscles of respiration in use. Carotids are equal. There is no bruit. There is no lymphadenopathy. Trachea central. LUNGS: Show bilateral wheezing and rhonchi. No rales of CHF. There is diminished air entry. prolonged expiration. On percussion, there is hyperresonance. HEART: S1 and S2 is heard. There is no S3 gallop. There is no S4 gallop. There is here are systolic murmur in the left sternal border on the apex. There is no rub. ABDOMEN: Soft, slightly obese, nontender. There is no hepatosplenomegaly. Bowel sounds are well heard. There are no tender areas or masses. EXTREMITIES: Femorals are diminished. Femorals are without bruits. Leg pulses are diminished. There is trace pedal edema bilaterally. There is no DVT or cellulitis. There is no calf tenderness. There is no cyanosis or clubbing. Capillary refill is normal. CENTRAL NERVOUS SYSTEM: The patient is conscious, awake, alert, and oriented x3 with no focal deficits. PSYCHIATRIC: The patient does appear to be slightly anxious and also appears to be slightly depressed and withdrawn. The patient is not agitated. DIAGNOSTICS: The patient's chest x-ray shows no acute changes. The patient's EKG initially shows sinus rhythm, borderline T abnormalities, anterolateral leads. This was done on 27 February. The patient's second EKG done on the shows sinus rhythm, nonspecific T abnormalities with T inversion V1, V3 and also in aVL, and nonspecific ST-T changes diffusely. This is slightly more pronounced than that compared to the earlier EKG on the . A chest CTA shows no pulmonary emboli. No aortic aneurysm or dissection. No infiltrates. The patient's white count is 11,500; hemoglobin is 13.4; hematocrit is 40.6; the platelet count is 385,000. The patient's sodium is 137.1, potassium 4.9, chloride 101, CO2 is 28; the patient's BUN is 16, creatinine is 0.44, GFR is greater than 60, glucose is 117, her calcium is 9.1. Her troponin I is negative x3. A CPK-MB is negative x3. The patient's albumin is 3.9; her total protein is 6.9. The patient's liver function tests are normal. Her glucose on the was at 173. Her ABGs on the showed a pH of 7.44, pCO2 was elevated at 53.5, pO2 was low at 69.3, and her O2 sats were 94.1% on FiO2 of 28%. IMPRESSION: 1. CHEST WALL PAIN, NONCARDIAC SECONDARY TO COUGHING. 2. ABNORMAL EKG WITH SUBTLE NEW EKG CHANGES IN A PATIENT WITH MULTIPLE CAD RISK FACTORS. THE CORONARY RISK FACTORS ARE PATIENT'S AGE, FAMILY HISTORY OF CORONARY ARTERY DISEASE, HYPERTENSION, HYPERLIPIDEMIA, AND TOBACCO ABUSE DISORDER. 3. COPD EXACERBATION. Continue nebulizer treatment. Continue steroids and antibiotics. 4. ACUTE ON CHRONIC RESPIRATORY FAILURE WITH HYPOXEMIA AND HYPERCAPNIA, SLIGHTLY IMPROVED. The patient's O2 saturations are acceptable on current nasal cannula. 5. DEPRESSION AND ANXIETY. Continue Xanax and Cymbalta. 6. HYPERTENSION. Blood pressure well controlled. Continue amlodipine. 7. HYPOTHYROIDISM. Continue thyroid replacement. Please check a TSH level and free T3 and free T4 levels. 8. BORDERLINE DIABETES MELLITUS. Continue to watch the patient's blood sugar and use insulin if required. 9. DYSLIPIDEMIA. Continue the patient's statin. 10. TOBACCO ABUSE DISORDER. The patient was counseled to stop smoking. Tobacco cessation counseling given. Ill effects from tobacco were discussed. Three minutes spent on this apart from the consultation time. PLAN: Continue current treatment, as mentioned earlier. Continue aspirin along with the amlodipine. I would hold the patient's Toprol for now until the patient's wheezing subsides. Then we can restart the patient's Toprol. Once the patient's COPD status is stable, then if possible, if the patient's lung condition would allow, then would recommend doing an IV Lexiscan Cardiolite stress test either this admission or as an outpatient. If the patient develops more EKG changes and if the patient does have angina typical or atypical, then would strongly recommend to go forward with cardiac catheterization. TIME SPENT: The patient was seen at 11:00 a.m. Sixty minutes spent on the patient with more than 50% of the time spent on direct patient care. Medical decision making is highly complex. We will order EKG in the a.m. We will order thyroid tests, as mentioned earlier. We will hold the patient's Toprol for now. Discussed with the hospitalist. Discussed with the patient. DICTATING PHYSICIAN: CASANDRA FRANK M.D. [id number] PHY#: [id number] ID: [id number] JOB#: [id number] ACCT: [id number] cc:CASANDRA FRANK M.D. >
--- NOTE | 2018-03-01 16:50 | PDOC DISCHARGE SUMMARY ---
General - Admit/Disc Date/PCP Admission Date/Primary Care Provider: 02/27/18 04:33 Discharge Date: 03/01/18 - Discharge Diagnosis (1) Acute and chronic respiratory failure with hypercapnia Is this a current diagnosis for this admission?: Yes (2) HTN (hypertension) Is this a current diagnosis for this admission?: Yes (3) Dyslipidemia Is this a current diagnosis for this admission?: Yes - Additional Information Prescriptions: Prednisone 20 mg PO BID 12 Days #24 tablet Home Medications: Albuterol Sulfate [Ventolin HFA MDI 18 GM] 1 puff IH Q6HP PRN 02/27/18 Alprazolam [Xanax 0.5 mg Tablet] 0.5 mg PO Q12HP PRN 02/27/18 Amlodipine Besylate [Norvasc 10 mg Tablet] 10 mg PO DAILY 02/27/18 Dexlansoprazole [Dexilant 60 mg Capsule] 60 mg PO DAILY 02/27/18 Duloxetine HCl [Cymbalta] 90 mg PO DAILY 02/27/18 Estrogens,Conjugated [Premarin 1.25 mg Tablet] 1.25 mg PO DAILY 02/27/18 Fluticasone/Salmeterol [Advair 500-50 Diskus 14 Dose/Diskus] 1 puff IH Q12 02/27 Levothyroxine Sodium [Synthroid] 125 mcg PO Q6AM 02/27/18 Lisinopril [Prinivil] 5 mg PO DAILY 02/27/18 Meloxicam [Mobic] 15 mg PO DAILY 02/27/18 Metoprolol Succinate [Toprol Xl 50 mg Tab.sr] 50 mg PO DAILY 02/27/18 Montelukast Sodium [Singulair 10 mg Tablet] 10 mg PO QPM 02/27/18 Oxycodone HCl [Oxycodone HCl 10 MG Tablet] 10 mg PO Q6HP PRN 02/27/18 Oxycodone HCl [Oxycontin] 20 mg PO Q12 02/27/18 Ropinirole HCl [Requip] 0.5 mg PO DAILY 02/27/18 Umeclidinium [place] [Incruse Ellipta] 1 puff IH DAILY 02/27/18 Alprazolam [Xanax 0.5 mg Tablet] 0.5 mg PO Q12HP PRN tablet 03/01/18 Atorvastatin Calcium [Lipitor 40 mg Tablet] 40 mg PO QHS tablet 03/01/18 Nicotine [Nicoderm 21 mg/24 Hr Transderm Patch] 1 each TD DAILY patch.td24 Prednisone 20 mg PO BID 12 Days #24 tablet 03/01/18 History of Present Illness History of Present Illness: MAXWELL GREEN is a 57 year old female with history of multiple medical problems that will be mentioned below presented to the emergency room with acute onset of worsening dyspnea with associated congested cough with inability to expectorate and wheezing despite her home O2 at 2 L/min. She was recently admitted for similar symptoms with COPD exacerbation and acute on chronic respiratory failure with hypoxia and hypercarbia and has been on BiPAP that was weaned off. She has been feeling slightly better and therefore wants discharged a couple of days ago. Since she went home she went back smoking is usual and her symptoms have been since worsening. The patient however stated that she was not feeling at her baseline before discharge. She denies any fever or chills. No chest pain or palpitations. No nausea vomiting or abdominal pain. No dysuria oliguria hematuria or flank pain. No rhinorrhea or nasal congestion or sore throat or earache. Upon presentation to the emergency room, her blood pressure was elevated at 174/ 92 with a pulse of 90 respiratory rate 20 temperature 98.8 and pulse oximetry 91 % on her home O2. Her labs revealed leukocytosis of 13.9 with neutrophilia and BMP should hypochloremia with a blood glucose of 173. Troponin I was less than 0.0 12. Portable chest x-ray showed no acute cardiopulmonary disease and EKG showed sinus rhythm with rate of 88 with T-wave inversion in V1, V2 and aVL. The patient was given 3 nebulized duo nebs as well as 2 albuterol, IV magnesium sulfate and Levaquin. She was still having similar symptoms. She will be admitted to a medically monitored bed for further evaluation and management. Hospital Course Hospital Course: Ms. Gilliland is a 57-year-old female who was admitted for COPD exacerbation. She was started on IV antibiotics, IV steroids and breathing treatments. She did have gradual improvement with her respiratory status. Because of her recurrent and recent COPD exacerbation and concerning T-wave inversions on the anterior leads, chest CTA was pursued to rule out PE. Chest CT was negative for PE. The of discharge, patient was back to her baseline. She will be sent home on tapering steroid dosing. She will be resumed on her home COPD regimen. She will follow-up with Dr. Hernandez, her air pumper. Physical Exam Vital Signs: Temp Pulse Resp BP Pulse Ox 97.8 F 87 16 152/92 H 97 03/01/18 13:00 03/01/18 13:00 03/01/18 13:00 03/01/18 13:00 03/01/18 13:00 Intake & Output 02/28/18 03/01/18 03/02/18 06:59 06:59 06:59 Intake Total 2459 2918 Balance 2459 2918 Weight 185 lb 3.013 oz 183 lb 13.848 oz General appearance: PRESENT: no acute distress, well-developed, well-nourished Eye exam: PRESENT: conjunctiva pink, EOMI, PERRLA. ABSENT: scleral icterus Neck exam: ABSENT: carotid bruit, JVD, lymphadenopathy, thyromegaly Respiratory exam: PRESENT: clear to auscultation carlin, wheezes - Minimal occasional wheezes. ABSENT: rales, rhonchi Cardiovascular exam: PRESENT: RRR. ABSENT: diastolic murmur, rubs, systolic murmur Pulses: PRESENT: normal dorsalis pedis pul GI/Abdominal exam: PRESENT: normal bowel sounds, soft. ABSENT: distended, guarding, mass, organolmegaly, rebound, tenderness Rectal exam: PRESENT: deferred Neurological exam: PRESENT: alert, awake, oriented to person, oriented to place , oriented to time, oriented to situation, CN II-XII grossly intact. ABSENT: motor sensory deficit Results Laboratory Results: 03/01/18 06:14 03/01/18 06:14 03/01/18 03/01/18 03/01/18 06:14 06:14 06:14 WBC 15.8 H RBC 4.61 Hgb 12.9 Hct 39.0 MCV 85 MCH 28.1 MCHC 33.2 RDW 14.6 H Plt Count 399 Seg Neutrophils % Not Reportable Lymphocytes % Not Reportable Monocytes % Not Reportable Eosinophils % Not Reportable Basophils % Not Reportable Absolute Neutrophils Not Reportable Absolute Lymphocytes Not Reportable Absolute Monocytes Not Reportable Absolute Eosinophils Not Reportable Absolute Basophils Not Reportable Sodium 137.3 Potassium 4.9 Chloride 97 L Carbon Dioxide 30 Anion Gap 10 BUN 21 H Creatinine 0.55 Est GFR ( Amer) > 60 Est GFR (Non-Af Amer) > 60 Glucose 116 H Calcium 9.3 TSH 0.06 L Free T4 0.99 Free T3 pg/mL 2.43 L 02/27/18 02/27/18 02/27/18 08:10 08:10 14:50 Creatine Kinase 23 L 26 L CK-MB (CK-2) 0.82 Troponin I < 0.012 02/27/18 02/27/18 02/27/18 14:50 20:17 20:17 Creatine Kinase 24 L CK-MB (CK-2) 0.72 0.61 Troponin I < 0.012 < 0.012 Impressions: Chest X-Ray 02/27/18 00:04 IMPRESSION: No significant change. Chest/Abdomen CTA 02/28/18 14:18 IMPRESSION: NORMAL CTA OF THE CHEST. NO PULMONARY EMBOLI. Qualifiers - * PATIENT BEING DISCHARGED WITH ANY OF THE FOLLOWING DIAGNOSIS: No
--- NOTE | 2018-03-02 07:20 | PROGRESS NOTE E ---
Progress Note NAME: MAXWELL GREEN : 1960 AGE: 57Y DATE: 03/01/2018 ROOM: 334 SUBJECTIVE: Note that the patient feels much better. She is off the BiPAP. Her cough is much improved. She has occasional cough with very scanty yellowish sputum. There is no PND, orthopnea. There is no leg edema. There is no chest pain at rest, but occurs only when she coughs a lot, but her coughing is also much improved. There is no PND or orthopnea. There is no arrhythmia seen. There are no palpitations, syncope, or near syncope. There are no TIA or CVA symptoms. OBJECTIVE: GENERAL: The patient is slightly overweight, but well groomed, in no acute distress. VITAL SIGNS: She is afebrile with a temperature of 97.8 degrees Fahrenheit, pulse is 93 beats per minute, blood pressure is 149/89, respirations are 18 per minute, O2 saturations are 94% on room air. HEAD: Atraumatic, normocephalic. EYES: Pupils are equal, round, regular, reactive to light and accommodation. Extraocular movements are normal. There is no conjunctival pallor. There is no scleral icterus. ENT: Negative. NECK: Supple. There is no JVD. There are no accessory muscles of respiration in use. There is no goiter. Carotids are equal. There is no bruit. There is no lymphadenopathy. Trachea is central. LUNGS: Diminished air entry and prolonged expiration without any wheezing. There are no rales. There is a few scattered rhonchi. There is diminished air entry, prolonged expiration. CARDIOVASCULAR: S1 and S2 are heard. There is no S3 gallop. There is no S4 gallop. There is systolic murmur in the left sternal border of the apex. There is no rub. ABDOMEN: Soft, nontender. There is no hepatosplenomegaly. Bowel sounds are well heard. There is no tender area or masses. EXTREMITIES: Femorals are diminished. There are no femoral bruits. Leg pulses are diminished. There is no DVT or cellulitis. There is no calf tenderness. CENTRAL NERVOUS SYSTEM: The patient is conscious, awake, alert, oriented x3 with no focal deficit. PSYCHIATRIC: The patient's judgment and insight appear to be intact. She is not anxious any more. Her judgment and insight are intact. DIAGNOSTIC STUDIES: The patient's EKG shows sinus rhythm with the same nonspecific anterolateral T-wave changes. The patient's white count is 15,800, hemoglobin is 12.9, hematocrit is 39, platelet count is 399,000. The patient's sodium is 137.3, potassium 4.9, chloride is 97, CO2 is 30. The patient's BUN is 21, creatinine 0.55. GFR is greater than 60. Glucose is 116. Calcium is 9.3. The patient's free T3 is 2.43, her TSH is low at 0.06, and her free T4 is 0.99. IMPRESSION: 1. CHEST WALL PAIN, NONCARDIAC SECONDARY TO COUGHING, MUCH IMPROVED. 2. ABNORMAL EKG WITH SUBTLE EKG CHANGES, BUT NEGATIVE IL. PATIENT DOES HAVE RISK FACTOR FOR CAD, MAINLY AGE, FAMILY HISTORY OF CORONARY ARTERY DISEASE, HYPERTENSION, HYPERLIPIDEMIA, AND TOBACCO ABUSE. 3. COPD, ACUTE EXACERBATION, AT PRESENT MUCH IMPROVED. 4. ACUTE HYPOXIC AND HYPERCAPNIC RESPIRATORY FAILURE, NOW MUCH IMPROVED. PATIENT'S O2 SATURATIONS ARE NORMAL. 5. DEPRESSION AND ANXIETY. 6. HYPERTENSION. 7. HYPOTHYROIDISM. 8. BORDERLINE DIABETES MELLITUS. 9. DYSLIPIDEMIA. 10. TOBACCO ABUSE DISORDER. RECOMMENDATIONS: Cardiac status at present is stable in spite of the EKG changes. Would recommend getting a stress test as an outpatient. The patient will follow up with me as she so desires. Will discuss this with the hospitalist. Medications were reviewed. No new changes made. NOTE: Medical decision making is of moderate to high complexity. Discussed with the hospitalist. NOTE: Forty minutes spent on this patient with more than 50% of the time spent in direct patient care. Discussed this with the hospitalist taking care of the patient. Will sign off the case and follow the patient in the office. DICTATING PHYSICIAN: CASANDRA FRANK M.D. [id number] KARYNY#: [id number] ID: [id number] JOB#: [id number] ACCT: [id number] cc: >
== END 2018-03-01 14:43 | disposition home or self-care (01) | DRG 189 ==
LOC: ER 23:13 → EH 02-27 04:33 → OBSVTOIN 02-27 04:33 → 3S 02-27 07:34
PROVIDERS: ADMIT Family Medicine; ATTEND Family Medicine
DX: J96.21 Acute and chronic respiratory failure with hypoxia (principal); J44.1 Chronic obstructive pulmonary disease with (acute) exacerbation; J96.22 Acute and chronic respiratory failure with hypercapnia; E78.5 Hyperlipidemia, unspecified; I10 Essential (primary) hypertension; E03.9 Hypothyroidism, unspecified; K21.9 Gastro-esophageal reflux disease without esophagitis; F17.210 Nicotine dependence, cigarettes, uncomplicated; F41.8 Other specified anxiety disorders; Z99.81 Dependence on supplemental oxygen; Z79.82 Long term (current) use of aspirin; Z79.51 Long term (current) use of inhaled steroids; Z79.899 Other long term (current) drug therapy
CPT/HCPCS: 36415; 36600; 71045; 71275; 80048; 80053; 82550; 82553; 82803; 84439; 84443; 84481; 84484; 85025; 87040; 87070; 87077; 87186; 87205; 93005; 93010; 94640; 94660; 96365; 99285; J0696; J1650; J2405; J2920; J3475; J3490; J7030; J7620

== ENCOUNTER → 2019-03-06 | Outpatient (CLI) | payer MEDICARE ==
--- NOTE | 2019-03-06 14:20 | RADIOLOGY REPORT (SQ) ---
EXAM DESCRIPTION: FOOT LEFT COMPLETE COMPLETED DATE/TIME: 03/06/2019 1:50 pm REASON FOR STUDY: M79.672 PAIN IN LEFT FOOT M79.89 OTHER SPECIFIED SOFT TISSUE DISORDERS M79.672 P AIN IN LEFT FOOT R91.8 OTHER NONSPECIFIC ABNORMAL FINDING OF LUNG FIELD COMPARISON: None. NUMBER OF VIEWS: Three views. TECHNIQUE: AP, lateral and oblique radiographic images acquired of the left foot. LIMITATIONS: None. FINDINGS: MINERALIZATION: Normal. BONES: No fracture dislocation. Mild periosteal thickening along the mid aspect of the 1st metatarsa l. JOINTS: No effusions. SOFT TISSUES: Soft tissue swelling about the dorsal foot. OTHER: No other significant finding. IMPRESSION: 1. No fracture or dislocation. 2. Soft tissue swelling about the dorsal midfoot with mild cortical thickening along the 1st metatar isabel possibly related to prior injury. TECHNICAL DOCUMENTATION: JOB ID: [id number] [employer]- All Rights Reserved Reading location - IP/workstation name: [email or web address]
--- NOTE | 2019-03-06 14:22 | RADIOLOGY REPORT (SQ) ---
EXAM DESCRIPTION: VENOUS UNILATERAL LOWER COMPLETED DATE/TIME: 03/06/2019 2:07 pm REASON FOR STUDY: LLE PAIN/SWELLING M79.89 OTHER SPECIFIED SOFT TISSUE DISORDERS M79.672 PAIN IN L EFT FOOT R91.8 OTHER NONSPECIFIC ABNORMAL FINDING OF LUNG FIELD COMPARISON: None. TECHNIQUE: Dynamic and static olson scale and color images acquired of the left leg venous system. Se lected spectral images acquired with additional compression and augmentation maneuvers. The contralat eral common femoral vein and saphenofemoral junction were also imaged. Images stored on PACS. LIMITATIONS: None. FINDINGS: COMMON FEMORAL: Normal phasicity, compression and augmentation. No visualized echogenic ma terial on olson scale. No defects on color images. FEMORAL: Normal compression and augmentation. No visualized echogenic material on olson scale. No defe cts on color images. POPLITEAL: Normal compression, augmentation. No visualized echogenic material on olson scale. No defec ts on color images. CALF VESSELS: Normal compression, augmentation. No visualized echogenic material on olson scale. No de fects on color images. GSV: Normal compression, augmentation. No visualized echogenic material on olson scale. No defects on color images. ANY DEEP VENOUS INSUFFICIENCY: Not evaluated. ANY EVIDENCE OF POPLITEAL CYST: No. OTHER: No other significant finding. CONTRALATERAL COMMON FEMORAL VEIN AND SAPHENOFEMORAL JUNCTION: Normal phasicity, compression and augmentation. No visualized echogenic material on olson scale. No de fects on color images. IMPRESSION: NO EVIDENCE OF DVT OR SVT IN THE LEFT LEG. TECHNICAL DOCUMENTATION: JOB ID: [id number] [employer] ([facility])- All Rights Reserved Reading location - IP/workstation name: [email or web address]
--- NOTE | 2019-03-06 14:26 | RADIOLOGY REPORT (SQ) ---
EXAM DESCRIPTION: CT CHEST WITHOUT COMPLETED DATE/TIME: 03/06/2019 1:50 pm REASON FOR STUDY: R91.8 OTHER NONSPECIFIC ABNORMAL FINDING OF LUNG FIELD M79.89 OTHER SPECIFIED SOF T TISSUE DISORDERS M79.672 PAIN IN LEFT FOOT R91.8 OTHER NONSPECIFIC ABNORMAL FINDING OF LUNG FIELD COMPARISON: 11/07/2018 TECHNIQUE: CT scan performed of the chest without intravenous contrast. Images reviewed with lung, soft tissue and bone windows. Reconstructed coronal and sagittal MPR images reviewed. All images st ored on PACS. All CT scanners at this facility use dose modulation, iterative reconstruction, and/or weight based d osing when appropriate to reduce radiation dose to as low as reasonably achievable (ALARA). [facility]: Dose Right [facility]: CareDose [facility]: Dose Right [facility]: Teradose 4D [facility]: HealthyRoad RADIATION DOSE: CT Rad equipment meets quality standard of care and radiation dose reduction techniq ues were employed. CTDIvol: 11.3 mGy. DLP: 456 mGy-cm. mGy. LIMITATIONS: No technical limitations. FINDINGS: LUNGS AND PLEURA: Resolution of previously seen right-side predominant reticulonodular opa cities. No new airspace disease. No pleural effusion or pneumothorax. No discrete pulmonary masses . Upper lobe predominant emphysema. HILAR AND MEDIASTINAL STRUCTURES: Stable shotty mediastinal nodes, largest pretracheal node measures 9 mm in short axis. No new adenopathy. HEART AND VASCULAR STRUCTURES: Normal heart size. No aneurysm. Scattered coronary atherosclerosis. No pericardial effusion. UPPER ABDOMEN: Prior cholecystectomy. No acute findings. THYROID AND OTHER SOFT TISSUES: Coarse calcification within the right thyroid, stable. No soft tissu e masses. BONES: No acute bony abnormality. No suspicious lytic or blastic osseous lesions. HARDWARE: None in the chest. OTHER: No other significant findings. IMPRESSION: 1. Improved aeration with near complete resolution of previously seen reticulonodular o pacities from prior. No new airspace disease or other acute cardiopulmonary process. 2. Mild upper lobe emphysematous change. TECHNICAL DOCUMENTATION: JOB ID: [id number] Quality ID # [id number]: Final reports with documentation of one or more dose reduction techniques (e.g., Au tomated exposure control, adjustment of the mA and/or kV according to patient size, use of iterative reconstruction technique) 2010 [employer]- All Rights Reserved Reading location - IP/workstation name: [email or web address]
== END ==
LOC: WI 13:04
PROVIDERS: ATTEND Physician Assistant
DX: M79.672 Pain in left foot (principal); M79.89 Other specified soft tissue disorders; R91.8 Other nonspecific abnormal finding of lung field; J43.9 Emphysema, unspecified
CPT/HCPCS: 71250; 93971

== ENCOUNTER → 2019-03-26 | Outpatient (CLI) | payer MEDICARE ==
--- NOTE | 2019-03-26 14:16 | RADIOLOGY REPORT (SQ) ---
EXAM DESCRIPTION: MRI CERVICAL SPINE WITHOUT COMPLETED DATE/TIME: 03/26/2019 1:47 pm REASON FOR STUDY: M50.80 OTHER CERVICAL DISC DISORDERS, UNSPECIFIED CERVICAL REGION M50.80 OTHER CE RVICAL DISC DISORDERS, UNSPECIFIED CERVICAL R COMPARISON: None. TECHNIQUE: Sagittal and Axial imaging includes T1, T2, STIR and gradient echo sequences. LIMITATIONS: None. FINDINGS: ALIGNMENT: Normal. VERTEBRAE: Intact. BONE MARROW: Normal. No marrow replacement or reactive changes. DISCS: Normal height. Some loss of normal water signal throughout the cervical spine consistent with desiccation. HARDWARE: None in the spine. CORD AND BASE OF BRAIN: Normal in size and signal intensity. SOFT TISSUES: No soft tissue masses. C1-C2: No significant spinal stenosis or exit foraminal stenosis. C2-C3: No significant spinal stenosis or exit foraminal stenosis. C3-C4: No significant spinal stenosis or exit foraminal stenosis. C4-C5: No significant spinal stenosis or exit foraminal stenosis. C5-C6: Broad-based disc/osteophyte complex. Mild central canal narrowing. No significant foraminal narrowing. C6-C7: No significant spinal stenosis or exit foraminal stenosis. C7-T1: No significant spinal stenosis or exit foraminal stenosis. UPPER THORACIC: Incompletely imaged. No significant spinal stenosis or exit foraminal stenosis. OTHER: No other significant finding. IMPRESSION: Mild degenerative changes most marked at C5-C6. There is mild central canal narrowing a t this level. No significant foraminal stenosis. TECHNICAL DOCUMENTATION: JOB ID: [id number] [employer]- All Rights Reserved Reading location - IP/workstation name: [email or web address]
== END ==
LOC: RAD 12:22
PROVIDERS: ATTEND Physician Assistant
DX: M54.12 Radiculopathy, cervical region (principal); M50.80 Other cervical disc disorders, unspecified cervical region
CPT/HCPCS: 72141

== ENCOUNTER 2019-04-09 19:42 | Inpatient (IN) | payer MEDICARE ==
--- NOTE | 2019-04-09 20:18 | ER Document Report ---
ED Medical Screen (RME) - General Chief Complaint: Shortness Of Breath Stated Complaint: CHEST PAIN Time Seen by Provider: 04/09/19 20:14 Primary Care Provider: KOFI VELAZCO PA-C [Primary Care Provider] - Follow up as needed Mode of Arrival: Wheelchair Information source: Patient Notes: This 58-year-old female with history of COPD and home oxygen presents emergency department with not feeling very well. Reports her chest hurts her lungs hurt coughing more fever today. Reports has not been feeling well for the last couple days. I have greeted and performed a rapid initial assessment of this patient. A comprehensive ED assessment and evaluation of the patient, analysis of test results and completion of the medical decision making process will be conducted by additional ED providers. Dictation of this chart was performed using voice recognition software; therefore, there may be some unintended grammatical errors. TRAVEL OUTSIDE OF THE [place] IN LAST 30 DAYS: No - Related Data Allergies/Adverse Reactions: adhesive tape Allergy (Verified 11/07/18 14:52) roflumilast Adverse Reaction (Verified 11/07/18 14:52) Past Medical History - Past Medical History Cardiac Medical History: Reports: Hx Hypercholesterolemia, Hx Hypertension Denies: Hx Congestive Heart Failure, Hx Coronary Artery Disease, Hx DVT, Hx Pulmonary Embolism Pulmonary Medical History: Reports: Hx COPD, Hx Pneumonia Denies: Hx Sleep Apnea Neurological Medical History: Denies: Hx Seizures Endocrine Medical History: Reports: Hx Hypothyroidism. Denies: Hx Diabetes Mellitus Type 1 - boarderline, Hx Diabetes Mellitus Type 2, Hx Hyperthyroidism Renal/ Medical History: Denies: Hx Peritoneal Dialysis GI Medical History: Reports: Hx Gastroesophageal Reflux Disease. Denies: Hx Cirrhosis, Hx Hepatitis Musculoskeltal Medical History: Reports Hx Arthritis, Reports Hx Fibromyalgia, Reports Hx Musculoskeletal Deformity, Reports Hx Musculoskeletal Trauma Psychiatric Medical History: Reports: Hx Depression Infectious Medical History: Denies: Hx C-Diff, Hx Hepatitis, Hx MRSA Past Surgical History: Reports: Hx Cholecystectomy, Hx Hysterectomy - Immunizations Immunizations up to date: No Hx Diphtheria, Pertussis, Tetanus Vaccination: No Physical Exam - Vital signs Vitals: Temp Pulse Resp BP Pulse Ox 101.1 F H 106 H 32 H 167/87 H 91 L 04/09/19 20:03 04/09/19 20:03 04/09/19 20:03 04/09/19 20:03 04/09/19 20:03 Course - Vital Signs Vital signs: Temp Pulse Resp BP Pulse Ox 101.1 F H 106 H 32 H 167/87 H 91 L 04/09/19 20:03 04/09/19 20:03 04/09/19 20:03 04/09/19 20:03 04/09/19 20:03 Doctor's Discharge - Discharge Referrals: KOFI VELAZCO PA-C [Primary Care Provider] - Follow up as needed
[2019-04-09] MEDS ORDERED: METHYLPREDNISOLONE INJ 125 MG/2 ML SDV IV ONE (20:33)
[2019-04-09] MEDS ORDERED: IPRATROPIUM/ALBUTEROL 0.5-2.5 MG/3 ML AMPUL NEB ONE (20:33)
[2019-04-09] MEDS ORDERED: ACETAMINOPHEN 325 MG TABLET PO ONE (20:34)
[2019-04-09] MEDS ORDERED: ONDANSETRON HCL INJ/PF 4 MG/2 ML SDV IV ONE (20:40)
--- NOTE | 2019-04-09 20:43 | ER Document Report ---
ED Respiratory Problem - General Chief Complaint: Shortness Of Breath Stated Complaint: CHEST PAIN Time Seen by Provider: 04/09/19 20:14 Mode of Arrival: Wheelchair Notes: Patient is a 58 year old female that comes to the emergency department for chief complaint of difficulty breathing, fever, productive cough with yellowish sputum. She states she has not felt well and has felt weak for about 1 week now. She is a history of COPD, on home oxygen 2 L, continues to smoke. Denies history of intubation. Past medical history also includes hypertension, hyperlipidemia, hypothyroidism. TRAVEL OUTSIDE OF THE [place] IN LAST 30 DAYS: No - Related Data Allergies/Adverse Reactions: adhesive tape Allergy (Verified 11/07/18 14:52) roflumilast Adverse Reaction (Verified 11/07/18 14:52) Past Medical History - General Information source: Patient - Social History Smoking Status: Current Every Day Smoker Chew tobacco use (# tins/day): No Frequency of alcohol use: None Drug Abuse: None Lives with: Family Family History: CAD, CVA, Malignancy - In both parents Patient has suicidal ideation: No Patient has homicidal ideation: No - Past Medical History Cardiac Medical History: Reports: Hx Hypercholesterolemia, Hx Hypertension Denies: Hx Congestive Heart Failure, Hx Coronary Artery Disease, Hx DVT, Hx Pulmonary Embolism Pulmonary Medical History: Reports: Hx COPD, Hx Pneumonia Denies: Hx Sleep Apnea Neurological Medical History: Denies: Hx Seizures Endocrine Medical History: Reports: Hx Hypothyroidism. Denies: Hx Diabetes Mellitus Type 1 - boarderline, Hx Diabetes Mellitus Type 2, Hx Hyperthyroidism Renal/ Medical History: Denies: Hx Peritoneal Dialysis GI Medical History: Reports: Hx Gastroesophageal Reflux Disease. Denies: Hx Cirrhosis, Hx Hepatitis Musculoskeletal Medical History: Reports Hx Arthritis, Reports Hx Fibromyalgia, Reports Hx Musculoskeletal Deformity, Reports Hx Musculoskeletal Trauma Psychiatric Medical History: Reports: Hx Depression Infectious Medical History: Denies: Hx C-Diff, Hx Hepatitis, Hx MRSA Past Surgical History: Reports: Hx Cholecystectomy, Hx Hysterectomy - Immunizations Immunizations up to date: No Hx Diphtheria, Pertussis, Tetanus Vaccination: No Hx Pneumococcal Vaccination: 07/11/11 Review of Systems - Review of Systems Constitutional: See HPI EENT: No symptoms reported Cardiovascular: See HPI Respiratory: See HPI Gastrointestinal: No symptoms reported Genitourinary: No symptoms reported Female Genitourinary: No symptoms reported Musculoskeletal: No symptoms reported Skin: No symptoms reported Hematologic/Lymphatic: No symptoms reported Neurological/Psychological: No symptoms reported Physical Exam - Vital signs Vitals: Temp Pulse Resp BP Pulse Ox 101.1 F H 106 H 32 H 167/87 H 91 L 04/09/19 20:03 04/09/19 20:03 04/09/19 20:03 04/09/19 20:03 04/09/19 20:03 - Notes Notes: GENERAL: Flushed, ill-appearing HEAD: Normocephalic, atraumatic. EYES: Pupils equal, round, and reactive to light. Extraocular movements intact. ENT: Oral mucosa moist, tongue midline. Oropharynx unremarkable. Airway patent. NECK: Full range of motion. Supple. Trachea midline. LUNGS: Loud scattered rhonchi, scattered expiratory wheezes, noted tachypnea with respiratory distress, occasional cough HEART: Tachycardia with normal rhythm, no murmur ABDOMEN: Soft, non-tender. Non-distended. EXTREMITIES: Moves all 4 extremities spontaneously. No edema, normal radial and dorsalis pedis pulses bilaterally. No cyanosis. BACK: no cervical, thoracic, lumbar midline tenderness. No saddle anesthesia, normal distal neurovascular exam. Moves all extremities in full range of motion. NEUROLOGICAL: Alert and oriented x3. Normal speech. Cranial nerves II through XII grossly intact. SKIN: Warm, dry, normal turgor. No rashes or lesions noted. Course - Re-evaluation Re-evalutation: 04/09/19 20:35 On my initial evaluation patient had tachypnea at a rate of 35, scattered wheezes and rhonchi throughout, she is febrile and tachycardic. Clinical impression is COPD exacerbation with pneumonia. Concern for possible sepsis without shock. Blood pressure is normal. Starting duo nebs, steroids, IV placement, fever treatment, placing on BiPAP. Starting antibiotic coverage for community-acquired pneumonia, patient has not had any recent admissions. Patient will be closely reevaluated. CBC shows leukocytosis with elevation of neutrophils but no bandemia. Chemistry nonspecific, troponin negative, chest x-ray is read as negative but by appearance this appears to be right lower lobe pneumonia per my read. Patient's presentation with rhonchi, fever, leukocytosis, and worsening symptoms over the course of almost a week is very suggestive of pneumonia. Patient has been reevaluated, she is much improved on BiPAP, hypoxia has resolved, tachypnea has resolved, lung sounds improved after DuoNeb's and steroids. Patient stating that she is having difficulty relaxing on the BiPAP and she was given 0.5 mg of Ativan for this. I did discuss her full work-up, di scussed treatment plan, patient will be admitted to the hospital. Patient states agreement with plan. Discussed with Dr. Mckeon, internal medicine, patient admitted to telemetry full admission. - Vital Signs Vital signs: Temp Pulse Resp BP Pulse Ox 97.5 F 100 22 H 102/50 L 96 04/10/19 03:53 04/10/19 03:53 04/10/19 03:53 04/10/19 03:53 04/10/19 03:53 - Laboratory Result Diagrams: 04/10/19 04:22 04/10/19 04:22 Laboratory results interpreted by me: 04/09/19 04/09/19 20:30 20:30 WBC 16.9 H RDW 16.6 H Lymph % (Auto) 9.2 L Absolute Neuts (auto) 14.4 H Seg Neutrophils % 85.1 H Chloride 97 L Carbon Dioxide 32 H Discharge - Discharge Clinical Impression: Productive cough, Respiratory distress Fever Qualifiers: Fever type: unspecified Qualified Code(s): R50.9 - Fever, unspecified Leukocytosis Qualifiers: Leukocytosis type: unspecified Qualified Code(s): D72.829 - Elevated white blood cell count, unspecified Condition: Stable Disposition: ADMITTED INPATIENT Admitting Provider: Mike (Hospitalist) Unit Admitted: Telemetry
[2019-04-09 20:48] LABS: VENOUS BLOOD BASE EXCESS 4.6 mmol/L; VENOUS BLOOD PCO2 53.3 mmHg (35-63); VENOUS BLOOD PH 7.38 (7.30-7.42)
[2019-04-09 20:50] LABS: ABSOLUTE BASOPHILS # (AUTO) 0.1 10^3/uL (0.0-0.2); ABSOLUTE EOSINOPHILS # (AUTO) 0.1 10^3/uL (0.0-0.6); ABSOLUTE LYMPHOCYTES (AUTO) 1.6 10^3/uL (0.5-4.7); ABSOLUTE MONOCYTES (AUTO) 0.8 10^3/uL (0.1-1.4); ABSOLUTE NEUT (AUTO) 14.4 10^3/uL (1.7-8.2); BASOPHILS % (AUTO) 0.4 % (0-2); EOSINOPHILS % (AUTO) 0.6 % (0-6); HEMOGLOBIN 12.7 g/dL (12.0-15.5); LYMPHOCYTES % (AUTO) 9.2 % (13-45); MEAN CORPUSCULAR HEMOGLOBIN 27.1 pg (27.0-33.4); MEAN CORPUSCULAR HGB CONC 33.5 g/dL (32.0-36.0); MEAN CORPUSCULAR VOLUME 81 fl (80-97); MONOCYTES % (AUTO) 4.7 % (3-13); PLATELET COUNT 374 10^3/uL (150-450); RED CELL DISTRIBUTION WIDTH 16.6 % (11.5-14.0); SEGMENTED NEUTROPHILS % (AUTO) 85.1 % (42-78); TOTAL CELLS COUNTED % (AUTO) 100 %; WHITE BLOOD COUNT 16.9 10^3/uL (4.0-10.5)
[2019-04-09 21:02] LABS: PROTHROMBIN TIME 14.2 SEC (11.4-15.4)
[2019-04-09] MEDS ORDERED: CEFTRIAXONE 1 GM/D5W RTU 1 GM/50 ML RTUPB IV ONE (21:07)
[2019-04-09] MEDS ORDERED: OXYCODONE HCL IR 5 MG TABLET PO ONE (21:08)
[2019-04-09] MEDS ORDERED: AZITHROMYCIN INJ 500 MG VIAL IV ONE (21:08)
[2019-04-09 21:10] LABS: ALBUMIN 4.1 g/dL (3.5-5.0); ALKALINE PHOSPHATASE 126 U/L (38-126); ANION GAP 9 (5-19); ASPARTATE AMINO TRANSFERASE 25 U/L (14-36); BILIRUBIN,DIRECT 0.2 mg/dL (0.0-0.4); BILIRUBIN,TOTAL 0.3 mg/dL (0.2-1.3); BLOOD UREA NITROGEN 10 mg/dL (7-20); CALCIUM 10.1 mg/dL (8.4-10.2); CARBON DIOXIDE 32 mmol/L (22-30); CHLORIDE 97 mmol/L (98-107); GLUCOSE 104 mg/dL (75-110); POTASSIUM 3.6 mmol/L (3.6-5.0); TOTAL PROTEIN 7.2 g/dL (6.3-8.2)
--- NOTE | 2019-04-09 21:35 | RADIOLOGY REPORT (SQ) ---
XR CHEST 1 VIEW EXAM DATE: 04/09/2019 8:34 PM CDT HISTORY: Shortness of breath. COMPARISON: 11/07/2018 FINDINGS: The heart size is within normal limits. No consolidation, pleural effusion, or pneumothorax is seen. The bony thorax is intact. IMPRESSION: No evidence of acute cardiopulmonary disease.
[2019-04-09] MEDS ORDERED: IPRATROPIUM/ALBUTEROL 0.5-2.5 MG/3 ML AMPUL NEB PRN (21:57)
[2019-04-09] MEDS ORDERED: KETOROLAC TROMETHAMINE INJ/PF 30 MG/1 ML SDV IV PRN (22:13)
[2019-04-09] MEDS ORDERED: LORAZEPAM INJ 2 MG/1 ML VIAL IV ONE (23:00)
[2019-04-09] MEDS: HEPARIN SOD (PORCINE) 5,000 UNIT/ML 1 ML VIAL SUBCUT SCH (23:04)
[2019-04-09] MEDS: AZITHROMYCIN 500 MG in DEXTROSE 5%-WATER 250 ML IV SCH (23:11)
[2019-04-09] MEDS ORDERED: FLUTICASONE NASAL SPRAY 50 MCG/SPRY 120 SPRAY/16 GM ONE (23:22)
[2019-04-09] MEDS: FLUTICASONE NASAL SPRAY 50 MCG/SPRY 120 SPRAY/16 GM NASL SCH (23:32)
[2019-04-10] MEDS: IPRATROPIUM/ALBUTEROL 0.5-2.5 MG/3 ML AMPUL NEB SCH ×4 (02:25→20:35)
[2019-04-10 04:50] LABS: HEMATOCRIT 35.6 % (36.0-47.0); HEMOGLOBIN 11.7 g/dL (12.0-15.5); MEAN CORPUSCULAR HEMOGLOBIN 26.6 pg (27.0-33.4); MEAN CORPUSCULAR HGB CONC 32.8 g/dL (32.0-36.0); MEAN CORPUSCULAR VOLUME 81 fl (80-97); PLATELET COUNT 332 10^3/uL (150-450); RED BLOOD COUNT 4.39 10^6/uL (3.72-5.28); RED CELL DISTRIBUTION WIDTH 16.7 % (11.5-14.0); WHITE BLOOD COUNT 16.8 10^3/uL (4.0-10.5)
[2019-04-10 05:06] LABS: ANION GAP 7 (5-19); BLOOD UREA NITROGEN 13 mg/dL (7-20); CALCIUM 9.5 mg/dL (8.4-10.2); CARBON DIOXIDE 30 mmol/L (22-30); CHLORIDE 100 mmol/L (98-107); GLUCOSE 208 mg/dL (75-110); POTASSIUM 3.6 mmol/L (3.6-5.0)
[2019-04-10 05:27] LABS: ABSOLUTE LYMPHOCYTES# (MANUAL) 0.7 10^3/uL (0.5-4.7); ABSOLUTE MONOCYTES # (MANUAL) 0.2 10^3/uL (0.1-1.4); ANISOCYTOSIS 1+; BAND NEUTROPHILS % (MANUAL) 1 % (3-5); BASOPHILS % (MANUAL) 0 % (0-2); EOSINOPHILS % (MANUAL) 0 % (0-6); LYMPHOCYTES % (MANUAL) 3 % (13-45); MONOCYTES % (MANUAL) 1 % (3-13); SEGMENTED NEUTROPHILS % (MAN) 94 % (42-78); TOTAL CELLS COUNTED 100
[2019-04-10 05:28] LABS: PLATELET COMMENT ADEQUATE; STOMATOCYTES SLIGHT
--- NOTE | 2019-04-10 06:01 | PDOC H&P ---
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 She presents with 3 days of increasing shortness of breath developing leg swelling and fever prompting him to seek evaluation emergency room. She is found to have fever, tachycardia, leukocytosis and an infiltrate in the left base. She is placed on BiPAP ordered duo nebs and empiric antibiotics and referred to the hospitalist for admission. Patient admits multiple recurrences of COPD exacerbation. She denies recent antibiotic use. Past Medical History Cardiac Medical History: Reports: Hyperlipidema, Hypertension Denies: Congestive Heart Failure, Coronary Artery Disease, DVT, Pulmonary Embolism Pulmonary Medical History: Reports: Bronchitis, Chronic Obstructive Pulmonary Disease (COPD), Pneumonia, Respiratory Failure, Sleep Apnea Neurological Medical History: Denies: Seizures Endocrine Medical History: Reports: Hypothyroidism Denies: Diabetes Mellitus Type 1 - boarderline, Diabetes Mellitus Type 2, Hyperthyroidism GI Medical History: Reports: Gastroesophageal Reflux Disease Denies: Cirrhosis, Hepatitis Musculoskeltal Medical History: Reports: Arthritis, Fibromyalgia Psychiatric Medical History: Reports: Depression, Tobacco Dependency Infectious Medical History: Denies: Clostridium Difficile, Methicillin-Resistant Staph Aureus Past Surgical History Past Surgical History: Reports: Cholecystectomy, Hysterectomy Social History Information Source: Patient, [facility] Records Smoking Status: Current Every Day Smoker Cigarettes Packs Per Day: 1 Number of Years Smokin Last Time Smoked: 04/09/2019 Frequency of Alcohol Use: None Hx Recreational Drug Use: No Drugs: None Hx Prescription Drug Abuse: No - Advance Directive Resuscitation Status: Full Code Family History Family History: CAD, CVA, Malignancy - In both parents Parental Family History Reviewed: Yes Children Family History Reviewed: Yes Sibling(s) Family History Reviewed.: Yes Medication/Allergy Home Medications: Albuterol Sulfate [Proair HFA Inhalation Aerosol 8.5 gm MDI] 1 puff IH Q6HP PRN 11/07/18 Alprazolam [Xanax 0.5 mg Tablet] 0.5 mg PO Q12 11/07/18 Amlodipine Besylate [Norvasc 10 mg Tablet] 10 mg PO DAILY 11/07/18 Cyclobenzaprine HCl [Flexeril 10 mg Tablet] 10 mg PO Q8HP PRN 11/07/18 Dexlansoprazole [Dexilant 60 mg Capsule] 60 mg PO DAILY 11/07/18 Estrogens,Conjugated [Premarin 1.25 mg Tablet] 1.25 mg PO DAILY 11/07/18 Fluticasone Propionate [Flonase Nasal [place] 50 Mcg/[place] 16 gm] 1 spray NASL BID 11/07/18 Fluticasone/Salmeterol [Advair 500-50 Diskus 14 Dose/Diskus] 1 puff IH Q12 11/07/18 Montelukast Sodium [Singulair 10 mg Tablet] 10 mg PO DAILY 11/07/18 Oxycodone HCl [Oxycodone HCl 10 MG Tablet] 10 mg PO Q6HP PRN 11/07/18 Oxycodone HCl [Oxycontin] 20 mg PO Q12 11/07/18 Umeclidinium [place] [Incruse Ellipta] 1 puff IH DAILY 11/07/18 Duloxetine HCl [Cymbalta 30 mg Capsule.dr] 90 mg PO DAILY 11/09/18 Levothyroxine Sodium [Synthroid 0.112 mg Tablet] 0.112 mg PO Q6AM 11/09/18 Acetaminophen [Tylenol 325 mg Tablet] 650 mg PO Q6HP PRN tablet 11/11/18 Levofloxacin [Levaquin 750 mg Tablet] 750 mg PO DAILY #5 tablet 11/11/18 Prednisone [Deltasone 20 mg Tablet] 40 mg PO DAILY #10 tablet 11/11/18 Allergies/Adverse Reactions: adhesive tape Allergy (Verified 11/07/18 14:52) roflumilast Adverse Reaction (Verified 11/07/18 14:52) Review of Systems Constitutional: PRESENT: as per HPI, anorexia, fatigue, weakness. ABSENT: chills, fever(s), headache(s), weight gain, weight loss Eyes: ABSENT: visual disturbances Ears: ABSENT: hearing changes Cardiovascular: PRESENT: dyspnea on exertion, edema. ABSENT: chest pain, orthropnea, palpitations Respiratory: ABSENT: cough, hemoptysis Gastrointestinal: ABSENT: abdominal pain, constipation, diarrhea, hematemesis, hematochezia, nausea, vomiting Genitourinary: ABSENT: dysuria, hematuria Musculoskeletal: ABSENT: joint swelling Integumentary: ABSENT: rash, wounds Neurological: ABSENT: abnormal gait, abnormal speech, confusion, dizziness, focal weakness, syncope Psychiatric: ABSENT: anxiety, depression, homidical ideation, suicidal ideation Endocrine: ABSENT: cold intolerance, heat intolerance, polydipsia, polyuria Hematologic/Lymphatic: ABSENT: easy bleeding, easy bruising Physical Exam Vital Signs: Temp Pulse Resp BP Pulse Ox 97.5 F 100 22 H 102/50 L 96 04/10/19 03:53 04/10/19 03:53 04/10/19 03:53 04/10/19 03:53 04/10/19 03:53 Intake & Output 04/08/19 04/09/19 04/10/19 11:59 11:59 11:59 Intake Total 50 Balance 50 Weight 108.8 kg General appearance: PRESENT: cooperative, obese, severe distress, well- developed. ABSENT: disheveled Head exam: PRESENT: atraumatic, normocephalic Eye exam: PRESENT: conjunctiva pink, EOMI, PERRLA. ABSENT: scleral icterus Ear exam: PRESENT: normal external ear exam Mouth exam: PRESENT: moist, tongue midline Neck exam: ABSENT: carotid bruit, JVD, lymphadenopathy, thyromegaly Respiratory exam: PRESENT: accessory muscle use, crackles, rales, retraction, rhonchi, tachypnea Cardiovascular exam: PRESENT: gallop, +S1, +S2, systolic murmur, tachycardia Pulses: PRESENT: normal dorsalis pedis pul Vascular exam: PRESENT: normal capillary refill GI/Abdominal exam: PRESENT: normal bowel sounds, soft. ABSENT: distended, guarding, mass, organolmegaly, rebound, tenderness Rectal exam: PRESENT: deferred Extremities exam: PRESENT: +1 edema. ABSENT: joint swelling, pedal edema, tenderness Neurological exam: PRESENT: alert, awake, oriented to person, oriented to place, oriented to time, oriented to situation, CN II-XII grossly intact. ABSENT: motor sensory deficit Psychiatric exam: PRESENT: appropriate affect, normal mood. ABSENT: homicidal ideation, suicidal ideation Skin exam: PRESENT: dry, intact, warm. ABSENT: cyanosis, rash Results Laboratory Results: 04/10/19 04:22 04/10/19 04:22 04/09/19 04/09/19 04/09/19 20:30 20:30 20:30 WBC 16.9 H RBC 4.70 Hgb 12.7 Hct 38.0 MCV 81 MCH 27.1 MCHC 33.5 RDW 16.6 H Plt Count 374 Seg Neutrophils % 85.1 H VBG pH VBG pCO2 VBG HCO3 VBG Base Excess Sodium 138.0 Potassium 3.6 Chloride 97 L Carbon Dioxide 32 H Anion Gap 9 BUN 10 Creatinine 0.68 Est GFR ( Amer) > 60 Glucose 104 Lactic Acid 1.0 Calcium 10.1 Total Bilirubin 0.3 AST 25 Alkaline Phosphatase 126 Total Protein 7.2 Albumin 4.1 04/09/19 04/10/19 04/10/19 20:30 04:22 04:22 WBC 16.8 H RBC 4.39 Hgb 11.7 L Hct 35.6 L MCV 81 MCH 26.6 L MCHC 32.8 RDW 16.7 H Plt Count 332 Seg Neutrophils % Not Reportable VBG pH 7.38 VBG pCO2 53.3 VBG HCO3 31.0 VBG Base Excess 4.6 Sodium 136.8 L Potassium 3.6 Chloride 100 Carbon Dioxide 30 Anion Gap 7 BUN 13 Creatinine 0.65 Est GFR ( Amer) > 60 Glucose 208 H Lactic Acid Calcium 9.5 Total Bilirubin AST Alkaline Phosphatase Total Protein Albumin 04/09/19 20:30 Troponin I < 0.012 Impressions: Chest X-Ray 04/09/19 20:34 IMPRESSION: No evidence of acute cardiopulmonary disease. Assessment and Plan - Diagnosis (1) Pneumonia Qualifiers: Pneumonia type: due to unspecified organism Laterality: unspecified laterality Lung location: unspecified part of lung Qualified Code(s): J18.9 - Pneumonia, unspecified organism Is this a current diagnosis for this admission?: Yes Plan: Pneumonia care set deployed, empiric antibiotics, follow-up CBC and blood c ulture, low threshold for ABG if any altered mental status (2) Acute on chronic respiratory failure with hypoxia and hypercapnia Is this a current diagnosis for this admission?: Yes Plan: Continue trilogy, supplemental oxygen albuterol and Atrovent (3) COPD exacerbation Is this a current diagnosis for this admission?: Yes Plan: Flutter valve, incentive spirometry, aggressive pulmonary toilet. Prednisone and antibiotics ordered (4) Tobacco abuse counseling Is this a current diagnosis for this admission?: Yes Plan: 15 minutes of cessation counseling, offered nicotine replacement options offered. - Time Time Spent with patient: 35 or more minutes - Inpatient Certification Medical Necessity: Need Close Monitoring Due to Risk of Patient Decompensation
[2019-04-10] MEDS: HEPARIN SOD (PORCINE) 5,000 UNIT/ML 1 ML VIAL SUBCUT SCH ×3 (06:07→21:12)
[2019-04-10] MEDS: ACETAMINOPHEN 325 MG TABLET PO PRN ×2 (09:29→16:30)
[2019-04-10] MEDS: METHYLPREDNISOLONE INJ 40 MG/1 ML SDV IV SCH ×2 (09:29→21:11)
[2019-04-10] MEDS: NICOTINE 14 MG/24 HR PATCH.TD24 TD SCH (09:30)
[2019-04-10] MEDS: FLUTICASONE NASAL SPRAY 50 MCG/SPRY 120 SPRAY/16 GM NASL SCH ×2 (09:30→21:32)
[2019-04-10] MEDS ORDERED: PREDNISONE 20 MG TABLET PO SCH (10:00)
[2019-04-10 10:39] LABS: APPEARANCE,URINE SLIGHTLY-CLOUDY; BILIRUBIN,URINE NEGATIVE (NEGATIVE); COLOR,URINE YELLOW; GLUCOSE, URINE NEGATIVE (NEGATIVE); KETONES,URINE NEGATIVE (NEGATIVE); LEUKOCYTE ESTERASE,URINE NEGATIVE (NEGATIVE); NITRITE,URINE NEGATIVE (NEGATIVE); PROTEIN,URINE NEGATIVE (NEGATIVE); URINE SPECIFIC GRAVITY 1.021; UROBILINOGEN,URINE NEGATIVE mg/dL (<2.0)
--- NOTE | 2019-04-10 11:00 | EKG REPORT ---
SEVERITY:- OTHERWISE NORMAL ECG - SINUS TACHYCARDIA : Confirmed by: Marcelle Esteves 10-Apr-2019 11:00:04
[2019-04-10] MEDS: OXYCODONE HCL IR 5 MG TABLET PO PRN ×2 (14:51→22:58)
[2019-04-10] MEDS ORDERED: AMLODIPINE BESYLATE 10 MG TABLET PO ONE (15:00)
--- NOTE | 2019-04-10 15:09 | PDOC PROGRESS REPORT ---
Subjective Progress Note for:: 04/10/19 Subjective:: This is a 58 year old female with a past medical history of obesity, obstructive sleep apnea, oxygen and trilogy dependent COPD with ongoing tobacco abuse who presented with increasing shortness of breath. Admitted for COPD exacerbation, pneumonia. She was started on IV antibiotics and IV steroids. No acute event overnight. She says her shortness of breath is better this morning. Denies chest pain. She says that she has been having mildly productive yellowish sputum. Reason For Visit: COPD,EXACERBATION PNUEMONIA Physical Exam Vital Signs: Temp Pulse Resp BP Pulse Ox 97.1 F 71 20 101/46 L 100 04/10/19 08:34 04/10/19 08:34 04/10/19 08:34 04/10/19 08:34 04/10/19 08:34 Intake & Output 04/09/19 04/10/19 04/11/19 06:59 06:59 06:59 Intake Total 50 480 Output Total 0 Balance 50 480 Weight 180 lb 5.41 oz General appearance: PRESENT: no acute distress, well-developed, well-nourished Head exam: PRESENT: atraumatic, normocephalic Eye exam: PRESENT: conjunctiva pink, EOMI, PERRLA. ABSENT: scleral icterus Ear exam: PRESENT: normal external ear exam Mouth exam: PRESENT: moist, tongue midline Neck exam: ABSENT: carotid bruit, JVD, lymphadenopathy, thyromegaly Respiratory exam: PRESENT: rhonchi, wheezes. ABSENT: rales Cardiovascular exam: PRESENT: RRR. ABSENT: diastolic murmur, rubs, systolic murmur Pulses: PRESENT: normal dorsalis pedis pul GI/Abdominal exam: PRESENT: normal bowel sounds, soft. ABSENT: distended, guarding, mass, organolmegaly, rebound, tenderness Rectal exam: PRESENT: deferred Extremities exam: PRESENT: +1 edema Neurological exam: PRESENT: alert, awake, oriented to person, oriented to place, oriented to time, oriented to situation, CN II-XII grossly intact. ABSENT: motor sensory deficit Results Laboratory Results: 04/10/19 04:22 04/10/19 04:22 04/09/19 04/09/19 04/09/19 20:30 20:30 20:30 WBC 16.9 H RBC 4.70 Hgb 12.7 Hct 38.0 MCV 81 MCH 27.1 MCHC 33.5 RDW 16.6 H Plt Count 374 Seg Neutrophils % 85.1 H VBG pH VBG pCO2 VBG HCO3 VBG Base Excess Sodium 138.0 Potassium 3.6 Chloride 97 L Carbon Dioxide 32 H Anion Gap 9 BUN 10 Creatinine 0.68 Est GFR ( Amer) > 60 Glucose 104 Lactic Acid 1.0 Calcium 10.1 Total Bilirubin 0.3 AST 25 Alkaline Phosphatase 126 Total Protein 7.2 Albumin 4.1 Urine Color Urine Appearance Urine pH Ur Specific [place] Urine Protein Urine Glucose (UA) Urine Ketones Urine Blood Urine Nitrite Ur Leukocyte Esterase Urine WBC (Auto) Urine RBC (Auto) 04/09/19 04/10/19 04/10/19 20:30 04:22 04:22 WBC 16.8 H RBC 4.39 Hgb 11.7 L Hct 35.6 L MCV 81 MCH 26.6 L MCHC 32.8 RDW 16.7 H Plt Count 332 Seg Neutrophils % Not Reportable VBG pH 7.38 VBG pCO2 53.3 VBG HCO3 31.0 VBG Base Excess 4.6 Sodium 136.8 L Potassium 3.6 Chloride 100 Carbon Dioxide 30 Anion Gap 7 BUN 13 Creatinine 0.65 Est GFR ( Amer) > 60 Glucose 208 H Lactic Acid Calcium 9.5 Total Bilirubin AST Alkaline Phosphatase Total Protein Albumin Urine Color Urine Appearance Urine pH Ur Specific [place] Urine Protein Urine Glucose (UA) Urine Ketones Urine Blood Urine Nitrite Ur Leukocyte Esterase Urine WBC (Auto) Urine RBC (Auto) 04/10/19 10:00 WBC RBC Hgb Hct MCV MCH MCHC RDW Plt Count Seg Neutrophils % VBG pH VBG pCO2 VBG HCO3 VBG Base Excess Sodium Potassium Chloride Carbon Dioxide Anion Gap BUN Creatinine Est GFR ( Amer) Glucose Lactic Acid Calcium Total Bilirubin AST Alkaline Phosphatase Total Protein Albumin Urine Color YELLOW Urine Appearance SLIGHTLY-CLOUDY Urine pH 6.0 Ur Specific [place] 1.021 Urine Protein NEGATIVE Urine Glucose (UA) NEGATIVE Urine Ketones NEGATIVE Urine Blood NEGATIVE Urine Nitrite NEGATIVE Ur Leukocyte Esterase NEGATIVE Urine WBC (Auto) 2 Urine RBC (Auto) 0 04/09/19 20:30 Troponin I < 0.012 Impressions: Chest X-Ray 04/09/19 20:34 IMPRESSION: No evidence of acute cardiopulmonary disease. Assessment and Plan - Diagnosis (1) Acute and chronic respiratory failure with hypoxia Is this a current diagnosis for this admission?: Yes Plan: Currently saturating well and comfortable on BiPAP. Try to wean off BiPAP and switch to nasal cannula. She uses trilogy at night at home. (2) Acute exacerbation of chronic obstructive pulmonary disease (COPD) Is this a current diagnosis for this admission?: Yes Plan: Switch prednisone to IV Solu-Medrol. Continue breathing treatments. (3) HTN (hypertension) Qualifiers: Hypertension type: essential hypertension Qualified Code(s): I10 - Essential (primary) hypertension Is this a current diagnosis for this admission?: Yes Plan: Resume home meds. She reports bipedal edema. Will switch amlodipine to losartan. (4) Hypothyroid Qualifiers: Hypothyroidism type: acquired Qualified Code(s): E03.9 - Hypothyroidism, unspecified Is this a current diagnosis for this admission?: Yes Plan: Resume Synthroid. (5) Opiate dependence, continuous Is this a current diagnosis for this admission?: Yes - Time Time Spent with patient: 25-34 minutes
[2019-04-10] MEDS: LOSARTAN POTASSIUM 50 MG TABLET PO SCH (15:37)
[2019-04-10] MEDS ORDERED: METOPROLOL SUCCINATE 50 MG TAB.SR.24H PO ONE (16:00)
[2019-04-10] MEDS ORDERED: DULOXETINE HCL 30 MG CAPSULE.DR PO ONE (16:00)
[2019-04-10] MEDS ORDERED: ONDANSETRON 4 MG TAB.RAPDIS PO PRN (20:34)
[2019-04-10] MEDS ORDERED: ONDANSETRON 4 MG TAB.RAPDIS ONE (20:40)
[2019-04-10] MEDS: OXYCODONE HCL SR 10 MG TABLET PO SCH (21:09)
[2019-04-10] MEDS: ALPRAZOLAM 0.5 MG TABLET PO PRN (21:10)
[2019-04-10] MEDS: CEFTRIAXONE 1 GM/D5W RTU 1 GM/50 ML RTUPB IV SCH (21:26)
[2019-04-10] MEDS: AZITHROMYCIN 500 MG in DEXTROSE 5%-WATER 250 ML IV SCH (21:58)
[2019-04-10] MEDS ORDERED: (PENDING PHARMACY ID) (Oxycodone Hcl [Oxycontin] 15 MG) PO SCH (22:00)
[2019-04-11] MEDS: IPRATROPIUM/ALBUTEROL 0.5-2.5 MG/3 ML AMPUL NEB SCH ×4 (02:08→21:16)
[2019-04-11] MEDS: LEVOTHYROXINE SODIUM 0.112 MG TABLET PO SCH (06:07)
[2019-04-11] MEDS: HEPARIN SOD (PORCINE) 5,000 UNIT/ML 1 ML VIAL SUBCUT SCH ×3 (06:08→22:05)
[2019-04-11] MEDS: OXYCODONE HCL IR 5 MG TABLET PO PRN ×3 (06:13→18:38)
[2019-04-11] MEDS ORDERED: AMLODIPINE BESYLATE 10 MG TABLET PO SCH (10:00)
[2019-04-11] MEDS: DULOXETINE HCL 30 MG CAPSULE.DR PO SCH (10:20)
[2019-04-11] MEDS: METHYLPREDNISOLONE INJ 40 MG/1 ML SDV IV SCH ×2 (10:20→22:06)
[2019-04-11] MEDS: METOPROLOL SUCCINATE 50 MG TAB.SR.24H PO SCH (10:22)
[2019-04-11] MEDS: NICOTINE 14 MG/24 HR PATCH.TD24 TD SCH (10:22)
[2019-04-11] MEDS: OXYCODONE HCL SR 10 MG TABLET PO SCH ×2 (10:24→22:05)
[2019-04-11] MEDS: FLUTICASONE NASAL SPRAY 50 MCG/SPRY 120 SPRAY/16 GM NASL SCH ×2 (10:30→22:06)
[2019-04-11] MEDS: ACETAMINOPHEN 325 MG TABLET PO PRN ×2 (10:33→18:12)
[2019-04-11] MEDS: ESTROGENS,CONJUGATED 1.25 MG TABLET PO SCH (10:34)
[2019-04-11] MEDS: LOSARTAN POTASSIUM 50 MG TABLET PO SCH (12:30)
[2019-04-11] MEDS: FAMOTIDINE 20 MG TABLET PO SCH ×2 (16:11→22:05)
--- NOTE | 2019-04-11 17:13 | PDOC PROGRESS REPORT ---
Subjective Progress Note for:: 04/11/19 Subjective:: This is a 58 year old female with a past medical history of obesity, obstructive sleep apnea, oxygen and trilogy dependent COPD with ongoing tobacco abuse who presented with increasing shortness of breath. Admitted for COPD exacerbation, pneumonia. She was started on IV antibiotics and IV steroids. 04/10: She says her shortness of breath is better this morning. Denies chest pain. She says that she has been having mildly productive yellowish sputum. 04/11: No acute event overnight. She says her shortness of breath has significantly improved today but she is not at her baseline yet. Denies chest pain. Wheezing has improved today. She has not required BiPAP overnight. Reason For Visit: COPD,EXACERBATION PNUEMONIA Physical Exam Vital Signs: Temp Pulse Resp BP Pulse Ox 97.6 F 73 16 140/73 H 93 04/11/19 12:32 04/11/19 14:00 04/11/19 13:57 04/11/19 12:32 04/11/19 12:32 Intake & Output 04/10/19 04/11/19 04/12/19 06:59 06:59 06:59 Intake Total 50 1362 Output Total 0 Balance 50 1362 Weight 180 lb 5.41 oz 191 lb 5.78 oz General appearance: PRESENT: no acute distress, well-developed, well-nourished Head exam: PRESENT: atraumatic, normocephalic Eye exam: PRESENT: conjunctiva pink, EOMI, PERRLA. ABSENT: scleral icterus Ear exam: PRESENT: normal external ear exam Mouth exam: PRESENT: moist, tongue midline Neck exam: ABSENT: carotid bruit, JVD, lymphadenopathy, thyromegaly Respiratory exam: PRESENT: wheezes. ABSENT: rales, rhonchi Cardiovascular exam: PRESENT: RRR. ABSENT: diastolic murmur, rubs, systolic murmur Pulses: PRESENT: normal dorsalis pedis pul GI/Abdominal exam: PRESENT: normal bowel sounds, soft. ABSENT: distended, guarding, mass, organolmegaly, rebound, tenderness Rectal exam: PRESENT: deferred Neurological exam: PRESENT: alert, awake, oriented to person, oriented to place, oriented to time, oriented to situation, CN II-XII grossly intact. ABSENT: motor sensory deficit Results Laboratory Results: 04/10/19 04:22 04/10/19 04:22 04/09/19 04/10/19 20:30 04:22 Troponin I < 0.012 NT-Pro-B Natriuret Pep 137 Impressions: Chest X-Ray 04/09/19 20:34 IMPRESSION: No evidence of acute cardiopulmonary disease. Assessment and Plan - Diagnosis (1) Acute and chronic respiratory failure with hypoxia Is this a current diagnosis for this admission?: Yes Plan: Currently saturating well on nasal cannula. She uses trilogy at night at home. (2) Acute exacerbation of chronic obstructive pulmonary disease (COPD) Is this a current diagnosis for this admission?: Yes Plan: Improving. Continue Solu-Medrol and breathing treatments. (3) HTN (hypertension) Qualifiers: Hypertension type: essential hypertension Qualified Code(s): I10 - Essential (primary) hypertension Is this a current diagnosis for this admission?: Yes Plan: 04/10: Resume home meds. She reports bipedal edema. Will switch amlodipine to losartan. (4) Hypothyroid Qualifiers: Hypothyroidism type: acquired Qualified Code(s): E03.9 - Hypothyroidism, unspecified Is this a current diagnosis for this admission?: Yes Plan: Continue Synthroid. (5) Opiate dependence, continuous Is this a current diagnosis for this admission?: Yes - Time Time Spent with patient: 25-34 minutes
[2019-04-11] MEDS ORDERED: AZITHROMYCIN 250 MG TABLET PO SCH (22:00)
[2019-04-11] MEDS: CEFTRIAXONE 1 GM/D5W RTU 1 GM/50 ML RTUPB IV SCH (22:04)
[2019-04-11] MEDS: ALPRAZOLAM 0.5 MG TABLET PO PRN (22:19)
[2019-04-12] MEDS: OXYCODONE HCL IR 5 MG TABLET PO PRN ×2 (01:20→12:51)
[2019-04-12] MEDS: IPRATROPIUM/ALBUTEROL 0.5-2.5 MG/3 ML AMPUL NEB SCH ×3 (02:02→14:15)
[2019-04-12] MEDS: HEPARIN SOD (PORCINE) 5,000 UNIT/ML 1 ML VIAL SUBCUT SCH ×2 (05:42→13:38)
[2019-04-12] MEDS: LEVOTHYROXINE SODIUM 0.112 MG TABLET PO SCH (05:44)
[2019-04-12] MEDS: ACETAMINOPHEN 325 MG TABLET PO PRN (08:29)
--- NOTE | 2019-04-12 09:32 | XCELERA REPORT ---
[address] [address] Transthoracic Echocardiogram Report Name: MAXWELL GREEN Age: 58 yrs Gender: Female : 1960 Patient Status: Inpatient Patient Location: [address] [place], [place] [id number] Study Date: 04/10/2019 05:48 PM Height: 66 in Weight: 239 lb BSA: 2.2 m2 Procedure: A two-dimensional transthoracic echocardiogram with color flow and Doppler was performed. Study Quality: Poor. Reason For Study: Systolic murmur History: Systolic murmur. Ordering Physician: JANIYA MENENDEZ Performed By: Leila Spears Interpretation Summary Probably no LVH.Probably no regional wall motion abnormality. LV EF is probably 60% The left ventricular ejection fraction is within normal limits. Doppler measurements suggest impaired left ventricular relaxation, which is associated with grade I/IV or mild diastolic dysfunction Probably no ASD ,VSD , or PFO sen. The right ventricle is not well visualized secondary to technical limitations Right atrium not well visualized secondary to technical limitations The left atrial size is normal. There is no evidence of mitral valve prolapse. There is no mitral valve stenosis. There is a trace amount of mitral regurgitation There is no aortic valve stenosis No aortic regurgitation is present. There is no tricuspid stenosis. There is a trace amount of tricuspid regurgitation Tricuspid regurgitation jet envelope not well defined to measure RV systolic pressure accurately. The pulmonic valve is not well visualized. The aortic root is not well visualized but is probably normal size. The inferior vena cava appeared normal and decreased > 50% with respiration (RAP 5-10 mmHg) There is no pericardial effusion. MMode/2D Measurements & Calculations RVDd: 2.8 cm LVIDd: 5.2 cm FS: 28.1 % Ao root diam: 2.0 cm IVSd: 0.77 cm LVIDs: 3.7 cm EDV(Teich): 129.1 ml Ao root area: 3.2 cm2 LVPWd: 0.94 cm ESV(Teich): 59.4 ml LA dimension: 3.1 cm EF(Teich): 54.0 % Doppler Measurements & Calculations MV E max andrew: MV P1/2t max andrew: Ao V2 max: LV V1 max P.5 cm/sec 118.1 cm/sec 152.0 cm/sec 6.0 mmHg MV A max andrew: MV P1/2t: 51.6 msec Ao max PG: LV V1 max: 108.0 cm/sec MVA(P1/2t): 4.3 cm2 9.2 mmHg 122.8 cm/sec MV E/A: 0.89 MV dec slope: 670.8 cm/sec2 MV dec time: 0.16 sec PA V2 max: MV P1/2t-pr_phl: 118.1 cm/sec 51.6 msec PA max P.6 mmHg Left Ventricle The left ventricle is normal in size. Probably no LVH.Probably no regional wall motion abnormality. LV EF is probably 60%. The left ventricular ejection fraction is within normal limits. Doppler measurements suggest impaired left ventricular relaxation, which is associated with grade I/IV or mild diastolic dysfunction. Probably no ASD ,VSD , or PFO sen. Right Ventricle The right ventricle is not well visualized secondary to technical limitations. Atria Right atrium not well visualized secondary to technical limitations. The left atrial size is normal. Mitral Valve There is no evidence of mitral valve prolapse. There is no mitral valve stenosis. There is a trace amount of mitral regurgitation. Aortic Valve There is no aortic valve stenosis. No aortic regurgitation is present. Tricuspid Valve There is no tricuspid stenosis. There is a trace amount of tricuspid regurgitation. Tricuspid regurgitation jet envelope not well defined to measure RV systolic pressure accurately. Pulmonic Valve The pulmonic valve is not well visualized. Great Vessels The aortic root is not well visualized but is probably normal size. The inferior vena cava appeared normal and decreased > 50% with respiration (RAP 5-10 mmHg). Effusions There is no pericardial effusion. : JANIYA MENENDEZ Lakshmi
[2019-04-12] MEDS: FLUTICASONE NASAL SPRAY 50 MCG/SPRY 120 SPRAY/16 GM NASL SCH (10:02)
[2019-04-12] MEDS: DULOXETINE HCL 30 MG CAPSULE.DR PO SCH (10:02)
[2019-04-12] MEDS: OXYCODONE HCL SR 10 MG TABLET PO SCH (10:03)
[2019-04-12] MEDS: LOSARTAN POTASSIUM 50 MG TABLET PO SCH (10:08)
[2019-04-12] MEDS: METOPROLOL SUCCINATE 50 MG TAB.SR.24H PO SCH (10:09)
[2019-04-12] MEDS: FAMOTIDINE 20 MG TABLET PO SCH (10:09)
[2019-04-12] MEDS: ESTROGENS,CONJUGATED 1.25 MG TABLET PO SCH (10:10)
[2019-04-12] MEDS: NICOTINE 14 MG/24 HR PATCH.TD24 TD SCH (10:10)
[2019-04-12] MEDS: METHYLPREDNISOLONE INJ 40 MG/1 ML SDV IV SCH (10:23)
[2019-04-12] MEDS: ALPRAZOLAM 0.5 MG TABLET PO PRN (15:26)
[2019-04-12 15:47] VITALS: BP 137/73
--- NOTE | 2019-04-13 16:29 | PDOC DISCHARGE SUMMARY ---
Impression - Admit/DC Date/PCP Admission Date/Primary Care Provider: 04/09/19 21:56 KOFI VELAZCO PA-C Discharge Date: 04/12/19 - Discharge Diagnosis (1) Acute and chronic respiratory failure with hypoxia Is this a current diagnosis for this admission?: Yes (2) Acute exacerbation of chronic obstructive pulmonary disease (COPD) Is this a current diagnosis for this admission?: Yes (3) HTN (hypertension) Is this a current diagnosis for this admission?: Yes (4) Hypothyroid Is this a current diagnosis for this admission?: Yes (5) Opiate dependence, continuous Is this a current diagnosis for this admission?: Yes - Additional Information Resuscitation Status: Full Code Discharge Diet: As Tolerated Discharge Activity: Activity As Tolerated, Balance Activity w/Rest Referrals: KOFI VELAZCO PA-C [Primary Care Provider] - Follow up as needed (Office is closed - follow-up appointment is in follow-up book.) Prescriptions: Prednisone [Deltasone 20 mg Tablet] 20 mg PO BID 5 Days #10 tablet Levofloxacin [Levaquin 500 mg Tablet] 500 mg PO DAILY 5 Days #5 tablet Alprazolam [Xanax 0.5 mg Tablet] 0.5 mg PO DAILYP PRN #5 tab PRN Reason: Anxiety Home Medications: Albuterol Sulfate [Ventolin Hfa 8 gm Mdi (1 Mdi/ER Disp)] 2 puff IH Q4HP PRN 04/10/19 Amlodipine Besylate [Norvasc 10 mg Tablet] 10 mg PO DAILY 04/10/19 Duloxetine HCl [Cymbalta 30 mg Capsule.dr] 90 mg PO DAILY 04/10/19 Ergocalciferol (Vitamin D2) [Drisdol 50,000 unit (1.25MG) Capsule] 50,000 unit PO PETTY@1000 04/10/19 Estrogens,Conjugated [Premarin 1.25 mg Tablet] 1.25 mg PO DAILY 04/10/19 Fluticasone Propionate [Flonase Nasal Freeland 50 Mcg/Freeland 16 gm] 1 spray NASL DAILY 04/10/19 Fluticasone/Salmeterol [Advair 500-50 Diskus 14 Dose/Diskus] 1 puff IH Q12 04/10/19 Ipratropium/Albuterol Sulfate [Duoneb 3 ml Ampul] 3 ml NEB RTQ6 04/10/19 Levothyroxine Sodium [Synthroid 0.112 mg Tablet] 0.112 mg PO Q6AM 04/10/19 Metoprolol Succinate [Toprol Xl 50 mg Tab.sr] 50 mg PO DAILY 04/10/19 Montelukast Sodium [Singulair 10 mg Tablet] 10 mg PO QHS 04/10/19 Oxycodone HCl [Oxy-Ir 5 mg Tablet] 10 mg PO Q6HP PRN 04/10/19 Oxycodone HCl [Oxycontin] 15 mg PO Q8 04/10/19 Tizanidine HCl [Zanaflex] 2 mg PO Q8HP PRN 04/10/19 Umeclidinium Nixa [Incruse Ellipta] 1 puff IH DAILY 04/10/19 Alprazolam [Xanax 0.5 mg Tablet] 0.5 mg PO DAILYP PRN #5 tab 04/12/19 Levofloxacin [Levaquin 500 mg Tablet] 500 mg PO DAILY 5 Days #5 tablet 04/12/19 Prednisone [Deltasone 20 mg Tablet] 20 mg PO BID 5 Days #10 tablet 04/12/19 History of Present Illiness History of Present Illness: Admitting hospitalist's H&P: MAXWELL GREEN is a 58 year old female with a past medical history of obesity, obstructive sleep apnea, oxygen and trilogy dependent COPD with ongoing tobacco abuse. She presents with 3 days of increasing shortness of breath developing leg swelling and fever prompting him to seek evaluation emergency room. She is found to have fever, tachycardia, leukocytosis and an infiltrate in the left base. She is placed on BiPAP ordered duo nebs and empiric antibiotics and referred to the hospitalist for admission. Patient admits multiple recurrences of COPD exacerbation. She denies recent antibiotic use. Hospital Course Hospital Course: This is a 58 year old female with a past medical history of obesity, obstructive sleep apnea, oxygen and trilogy dependent severe COPD with ongoing tobacco abuse who presented with increasing shortness of breath. She was admitted for COPD exacerbation. She was started on IV antibiotics and IV steroids. She has had slow but gradual improvement in her symptoms. She did return to his baseline. She is at her baseline she gets short of breath from walking from her bedroom to the living room. Sputum culture grew [place]a. She will be discharged on 5 more days of prednisone and levofloxacin. She complains of mild pedal edema. Hence her amlodipine was switched to losartan. She had an echocardiogram which came back unremarkable. Physical Exam Vital Signs: Temp Pulse Resp BP Pulse Ox 98.3 F 81 18 101/46 L 94 04/12/19 14:35 04/12/19 14:35 04/12/19 14:35 04/12/19 14:35 04/12/19 14:35 Intake & Output 04/12/19 04/13/19 04/14/19 06:59 06:59 06:59 Intake Total 1092 Output Total 0 Balance 1092 Weight 189 lb 9.561 oz General appearance: PRESENT: no acute distress, well-developed, well-nourished Head exam: PRESENT: atraumatic, normocephalic Eye exam: PRESENT: conjunctiva pink, EOMI, PERRLA. ABSENT: scleral icterus Ear exam: PRESENT: normal external ear exam Mouth exam: PRESENT: moist, tongue midline Neck exam: ABSENT: carotid bruit, JVD, lymphadenopathy, thyromegaly Respiratory exam: PRESENT: wheezes - minimal wheezes. ABSENT: rales, rhonchi Cardiovascular exam: PRESENT: RRR. ABSENT: diastolic murmur, rubs, systolic murmur Pulses: PRESENT: normal dorsalis pedis pul GI/Abdominal exam: PRESENT: normal bowel sounds, soft. ABSENT: distended, guarding, mass, organolmegaly, rebound, tenderness Rectal exam: PRESENT: deferred Extremities exam: PRESENT: full ROM. ABSENT: calf tenderness, clubbing, pedal edema Neurological exam: PRESENT: alert, awake, oriented to person, oriented to place, oriented to time, oriented to situation, CN II-XII grossly intact. ABSENT: motor sensory deficit Results Laboratory Results: WBC 16.8 10^3/uL (4.0-10.5) H 04/10/19 04:22 RBC 4.39 10^6/uL (3.72-5.28) 04/10/19 04:22 Hgb 11.7 g/dL (12.0-15.5) L 04/10/19 04:22 Hct 35.6 % (36.0-47.0) L 04/10/19 04:22 MCV 81 fl (80-97) 04/10/19 04:22 MCH 26.6 pg (27.0-33.4) L 04/10/19 04:22 MCHC 32.8 g/dL (32.0-36.0) 04/10/19 04:22 RDW 16.7 % (11.5-14.0) H 04/10/19 04:22 Plt Count 332 10^3/uL (150-450) 04/10/19 04:22 Lymph % (Auto) Not Reportable 04/10/19 04:22 [place] % (Auto) Not Reportable 04/10/19 04:22 Eos % (Auto) Not Reportable 04/10/19 04:22 Baso % (Auto) Not Reportable 04/10/19 04:22 Absolute Neuts (auto) Not Reportable 04/10/19 04:22 Absolute Lymphs (auto) Not Reportable 04/10/19 04:22 Absolute Monos (auto) Not Reportable 04/10/19 04:22 Absolute Eos (auto) Not Reportable 04/10/19 04:22 Absolute Basos (auto) Not Reportable 04/10/19 04:22 Total Counted 100 04/10/19 04:22 Seg Neutrophils % Not Reportable 04/10/19 04:22 Seg Neuts % (Manual) 94 % (42-78) H 04/10/19 04:22 Band Neutrophils % 1 % (3-5) L 04/10/19 04:22 Lymphocytes % (Manual) 3 % (13-45) L 04/10/19 04:22 Atypical Lymphs % 1 % (0) 04/10/19 04:22 Monocytes % (Manual) 1 % (3-13) L 04/10/19 04:22 Eosinophils % (Manual) 0 % (0-6) 04/10/19 04:22 Basophils % (Manual) 0 % (0-2) 04/10/19 04:22 Abs Neuts (Manual) 16.0 10^3/uL (1.7-8.2) H 04/10/19 04:22 Abs Lymphs (Manual) 0.7 10^3/uL (0.5-4.7) 04/10/19 04:22 Abs Monocytes (Manual) 0.2 10^3/uL (0.1-1.4) 04/10/19 04:22 Absolute Eos (Manual) 0.0 10^3/uL (0.0-0.6) 04/10/19 04:22 Abs Basophils (Manual) 0.0 10^3/uL (0.0-0.2) 04/10/19 04:22 Platelet Comment ADEQUATE 04/10/19 04:22 Anisocytosis 1+ 04/10/19 04:22 Stomatocytes SLIGHT 04/10/19 04:22 PT 14.2 SEC (11.4-15.4) 04/09/19 20:30 INR 1.10 04/09/19 20:30 VBG pH 7.38 (7.30-7.42) 04/09/19 20:30 VBG pCO2 53.3 mmHg (35-63) 04/09/19 20:30 VBG HCO3 31.0 mmol/L (20-32) 04/09/19 20:30 VBG Base Excess 4.6 mmol/L 04/09/19 20:30 Sodium 136.8 mmol/L (137-145) L 04/10/19 04:22 Potassium 3.6 mmol/L (3.6-5.0) 04/10/19 04:22 Chloride 100 mmol/L (98-107) 04/10/19 04:22 Carbon Dioxide 30 mmol/L (22-30) 04/10/19 04:22 Anion Gap 7 (5-19) 04/10/19 04:22 BUN 13 mg/dL (7-20) 04/10/19 04:22 Creatinine 0.65 mg/dL (0.52-1.25) 04/10/19 04:22 Est GFR ( Amer) > 60 (>60) 04/10/19 04:22 Est GFR (MDRD) Non-Af > 60 (>60) 04/10/19 04:22 Glucose 208 mg/dL (75-110) H 04/10/19 04:22 Lactic Acid 1.0 mmol/L (0.7-2.1) 04/09/19 20:30 Calcium 9.5 mg/dL (8.4-10.2) 04/10/19 04:22 Total Bilirubin 0.3 mg/dL (0.2-1.3) 04/09/19 20:30 Direct Bilirubin 0.2 mg/dL (0.0-0.4) 04/09/19 20:30 Neonat Total Bilirubin Not Reportable 04/09/19 20:30 Neonat Direct Bilirubin Not Reportable 04/09/19 20:30 Neonat Indirect Bili Not Reportable 04/09/19 20:30 AST 25 U/L (14-36) 04/09/19 20:30 ALT 21 U/L (<35) 04/09/19 20:30 Alkaline Phosphatase 126 U/L (38-126) 04/09/19 20:30 Troponin I < 0.012 ng/mL 04/09/19 20:30 NT-Pro-B Natriuret Pep 137 pg/mL (5-900) 04/10/19 04:22 Total Protein 7.2 g/dL (6.3-8.2) 04/09/19 20:30 Albumin 4.1 g/dL (3.5-5.0) 04/09/19 20:30 Urine Color YELLOW 04/10/19 10:00 Urine Appearance SLIGHTLY-CLOUDY 04/10/19 10:00 Urine pH 6.0 (5.0-9.0) 04/10/19 10:00 Ur Specific [place] 1.021 04/10/19 10:00 Urine Protein NEGATIVE mg/dL (NEGATIVE) 04/10/19 10:00 Urine Glucose (UA) NEGATIVE mg/dL (NEGATIVE) 04/10/19 10:00 Urine Ketones NEGATIVE mg/dL (NEGATIVE) 04/10/19 10:00 Urine Blood NEGATIVE (NEGATIVE) 04/10/19 10:00 Urine Nitrite NEGATIVE (NEGATIVE) 04/10/19 10:00 Urine Bilirubin NEGATIVE (NEGATIVE) 04/10/19 10:00 Urine Urobilinogen NEGATIVE mg/dL (<2.0) 04/10/19 10:00 Ur Leukocyte Esterase NEGATIVE (NEGATIVE) 04/10/19 10:00 Urine WBC (Auto) 2 /HPF 04/10/19 10:00 Urine RBC (Auto) 0 /HPF 04/10/19 10:00 Urine Bacteria (Auto) TRACE /HPF 04/10/19 10:00 Squamous Epi Cells Auto 4 /HPF 04/10/19 10:00 Urine Mucus (Auto) OCC /LPF 04/10/19 10:00 Urine Ascorbic Acid NEGATIVE (NEGATIVE) 04/10/19 10:00 04/09/19 04/10/19 20:30 04:22 Troponin I < 0.012 NT-Pro-B Natriuret Pep 137 Impressions: Chest X-Ray 04/09/19 20:34 IMPRESSION: No evidence of acute cardiopulmonary disease. Stroke Is this a Stroke Patient?: No Acute Heart Failure - Is this a Heart Failure Patient?: No LVEF < 40%?: No- if no continue to question #3
== END 2019-04-12 15:43 | disposition home or self-care (01) | DRG 190 ==
LOC: ER 19:42 → EH 21:56 → 3W 04-10 01:00
PROVIDERS: ADMIT Internal Medicine; ATTEND Internal Medicine
PROC: 5A09457 Assistance with Respiratory Ventilation, 24-96 Consecutive Hours, Continuous Positive Airway Pressure (ICD-10-PCS; principal; 2019-04-09)
DX: J44.1 Chronic obstructive pulmonary disease with (acute) exacerbation (principal); J96.22 Acute and chronic respiratory failure with hypercapnia; J96.21 Acute and chronic respiratory failure with hypoxia; F11.20 Opioid dependence, uncomplicated; E78.5 Hyperlipidemia, unspecified; I10 Essential (primary) hypertension; Z99.81 Dependence on supplemental oxygen; E03.9 Hypothyroidism, unspecified; K21.9 Gastro-esophageal reflux disease without esophagitis; Z90.49 Acquired absence of other specified parts of digestive tract; E66.9 Obesity, unspecified; Z90.710 Acquired absence of both cervix and uterus; G47.33 Obstructive sleep apnea (adult) (pediatric); M79.7 Fibromyalgia; M19.90 Unspecified osteoarthritis, unspecified site; F17.210 Nicotine dependence, cigarettes, uncomplicated; Z79.51 Long term (current) use of inhaled steroids; Z79.82 Long term (current) use of aspirin; Z79.899 Other long term (current) drug therapy; Z82.49 Family history of ischemic heart disease and other diseases of the circulatory system; Z82.3 Family history of stroke; Z79.890 Hormone replacement therapy
CPT/HCPCS: 36415; 71045; 80048; 80053; 81001; 82803; 83605; 83880; 84484; 85025; 85610; 87040; 87070; 87077; 87086; 87205; 93005; 93010; 93306; 94640; 94660; 94667; 94668; 94799; 96374; 96375; 99285; J0456; J0696; J1644; J1885; J2060; J2405; J2920; J2930; J3490; J7060; J7620; S0119

== ENCOUNTER 2019-05-08 07:56 | Emergency (ER) | payer MEDICARE, MEDICAID ==
[2019-05-08 08:30] LABS: ABSOLUTE EOSINOPHILS # (AUTO) 0.2 10^3/uL (0.0-0.6); ABSOLUTE LYMPHOCYTES (AUTO) 1.2 10^3/uL (0.5-4.7); ABSOLUTE MONOCYTES (AUTO) 0.5 10^3/uL (0.1-1.4); ABSOLUTE NEUT (AUTO) 3.5 10^3/uL (1.7-8.2); BASOPHILS % (AUTO) 0.6 % (0-2); EOSINOPHILS % (AUTO) 2.9 % (0-6); HEMATOCRIT 39.1 % (36.0-47.0); HEMOGLOBIN 12.9 g/dL (12.0-15.5); LYMPHOCYTES % (AUTO) 21.9 % (13-45); MEAN CORPUSCULAR HEMOGLOBIN 27.2 pg (27.0-33.4); MEAN CORPUSCULAR HGB CONC 33.1 g/dL (32.0-36.0); MEAN CORPUSCULAR VOLUME 82 fl (80-97); MONOCYTES % (AUTO) 9.5 % (3-13); PLATELET COUNT 331 10^3/uL (150-450); RED BLOOD COUNT 4.76 10^6/uL (3.72-5.28); RED CELL DISTRIBUTION WIDTH 16.8 % (11.5-14.0); SEGMENTED NEUTROPHILS % (AUTO) 65.1 % (42-78); TOTAL CELLS COUNTED % (AUTO) 100 %; WHITE BLOOD COUNT 5.3 10^3/uL (4.0-10.5)
[2019-05-08 08:48] LABS: ALBUMIN 3.9 g/dL (3.5-5.0); ALKALINE PHOSPHATASE 103 U/L (38-126); ANION GAP 8 (5-19); ASPARTATE AMINO TRANSFERASE 22 U/L (14-36); BILIRUBIN,DIRECT 0.1 mg/dL (0.0-0.4); BILIRUBIN,TOTAL 0.3 mg/dL (0.2-1.3); BLOOD UREA NITROGEN 11 mg/dL (7-20); CALCIUM 9.5 mg/dL (8.4-10.2); CARBON DIOXIDE 31 mmol/L (22-30); CHLORIDE 99 mmol/L (98-107); GLUCOSE 94 mg/dL (75-110); POTASSIUM 4.2 mmol/L (3.6-5.0); TOTAL PROTEIN 6.9 g/dL (6.3-8.2)
--- NOTE | 2019-05-08 09:13 | RADIOLOGY REPORT (SQ) ---
EXAM DESCRIPTION: CHEST SINGLE VIEW COMPLETED DATE/TIME: 05/08/2019 8:55 am REASON FOR STUDY: SOB COMPARISON: 04/09/2019 EXAM PARAMETERS: NUMBER OF VIEWS: One view. TECHNIQUE: Single frontal radiographic view of the chest acquired. RADIATION DOSE: NA LIMITATIONS: None. FINDINGS: LUNGS AND PLEURA: No opacities, masses or pneumothorax. No pleural effusion. MEDIASTINUM AND HILAR STRUCTURES: No masses. Contour normal. HEART AND VASCULAR STRUCTURES: Heart normal in size. Unchanged prominence of the pulmonary vasculatu re. BONES: No acute findings. HARDWARE: None in the chest. OTHER: No other significant finding. IMPRESSION: No acute abnormality of the lungs. Unchanged prominence of the pulmonary vasculature. TECHNICAL DOCUMENTATION: JOB ID: [id number] [employer]- All Rights Reserved Reading location - IP/workstation name: [email or web address]
--- NOTE | 2019-05-08 09:40 | ER Document Report ---
ED General - General Chief Complaint: Shortness Of Breath Stated Complaint: SHORTNESS OF BREATH Time Seen by Provider: 05/08/19 08:33 Primary Care Provider: AILEEN GRIFFIN PA-C [Primary Care Provider] - Follow up as needed Information source: Patient TRAVEL OUTSIDE OF THE [place] IN LAST 30 DAYS: No - HPI Notes: Patient presents with shortness of breath. She states she was recently diagnosed with pneumonia. She states she has been taking Augmentin but stopped about 3 days ago because she felt that she was not getting better. She states she still has a cough with burning in her chest. She states this is the main reason she felt she was not getting better. This pain is mild to moderate and occurs with coughing. It is intermittent. It is moderate in intensity. It is worse when she coughs and better when she does not. It is a burning sensation. She also states she feels short of breath however she still is using 2 L at home. This is her baseline she has not increased her oxygen. Patient states she has had fever and chills at home as well. - Related Data Allergies/Adverse Reactions: adhesive tape Allergy (Verified 05/08/19 08:17) pregabalin [From Lyrica] Adverse Reaction (Verified 05/08/19 08:17) swelling roflumilast Adverse Reaction (Verified 05/08/19 08:18) severe pain Past Medical History - General Information source: Patient - Social History Smoking Status: Current Every Day Smoker Frequency of alcohol use: None Drug Abuse: None Family History: Reviewed & Not Pertinent, CAD, CVA, Malignancy - In both parents Patient has suicidal ideation: No Patient has homicidal ideation: No - Past Medical History Cardiac Medical History: Reports: Hx Hypercholesterolemia, Hx Hypertension Denies: Hx Congestive Heart Failure, Hx Coronary Artery Disease, Hx DVT, Hx Pulmonary Embolism Pulmonary Medical History: Reports: Hx Bronchitis, Hx COPD, Hx Pneumonia, Hx Respiratory Failure Denies: Hx Sleep Apnea Neurological Medical History: Denies: Hx Seizures Endocrine Medical History: Reports: Hx Hypothyroidism. Denies: Hx Diabetes Mellitus Type 1 - boarderline, Hx Diabetes Mellitus Type 2, Hx Hyperthyroidism Renal/ Medical History: Denies: Hx Peritoneal Dialysis GI Medical History: Reports: Hx Gastroesophageal Reflux Disease. Denies: Hx Cirrhosis, Hx Hepatitis Musculoskeletal Medical History: Reports Hx Arthritis, Reports Hx Fibromyalgia, Reports Hx Musculoskeletal Deformity, Reports Hx Musculoskeletal Trauma Psychiatric Medical History: Reports: Hx Depression Infectious Medical History: Denies: Hx C-Diff, Hx Hepatitis, Hx MRSA Past Surgical History: Reports: Hx Cholecystectomy, Hx Hysterectomy - Immunizations Immunizations up to date: No Hx Diphtheria, Pertussis, Tetanus Vaccination: No Hx Pneumococcal Vaccination: 07/11/11 Review of Systems - Review of Systems Constitutional: Chills, Fever, Malaise, Weakness Cardiovascular: Chest pain, Dyspnea. denies: Palpitations Respiratory: Cough, Short of breath Gastrointestinal: denies: Diarrhea, Vomiting -: Yes All other systems reviewed and negative Physical Exam - Vital signs Vitals: Temp Resp Pulse Ox 99 F 26 H 97 05/08/19 08:00 05/08/19 08:00 05/08/19 08:00 Interpretation: Tachypneic - General General appearance: Appears well, Alert - HEENT Head: Normocephalic, Atraumatic Eyes: Normal Pupils: PERRL - Respiratory Respiratory status: No respiratory distress Chest status: Nontender Breath sounds: Decreased air movement, Rhonchi Chest palpation: Normal - Cardiovascular Rhythm: Regular Heart sounds: Normal auscultation Murmur: No - Abdominal Inspection: Normal Distension: No distension Bowel sounds: Normal Tenderness: Nontender Organomegaly: No organomegaly - Back Back: Normal, Nontender - Extremities General upper extremity: Normal inspection, Nontender, Normal color, Normal ROM, Normal temperature General lower extremity: Normal inspection, Nontender, Normal color, Normal ROM, Normal temperature, Normal weight bearing. No: Lilliam's sign - Neurological Neuro grossly intact: Yes Cognition: Normal Orientation: AAOx4 [place] Coma Scale Eye Opening: Spontaneous [place] Coma Scale Verbal: Oriented [place] Coma Scale Motor: Obeys Commands [place] Coma Scale Total: 15 Speech: Normal Motor strength normal: LUE, RUE, LLE, RLE Sensory: Normal - Psychological Associated symptoms: Normal affect, Normal mood - Skin Skin Temperature: Warm Skin Moisture: Dry Skin Color: Normal Course - Re-evaluation Re-evalutation: 05/08/19 09:43 Patient presents stating that she was recently diagnosed with pneumonia and does not feel that she is getting better. She states she still feels short of breath mainly with exertion. Here at rest she is slightly tachypneic but otherwise has unlabored respirations. Her sats are 97 to 98% on 2 L. 2 L is her baseline. Her laboratories are unremarkable her chest x-ray is clear. Her EKG is unremarkable for any ischemic changes. No evidence of congestive heart failure. I am going to send the patient home with cough medicine, steroids, and I will change her antibiotics since she did not feel that the other antibiotic was helpful and stopped taking it. - Vital Signs Vital signs: Temp Pulse Resp BP Pulse Ox 99 F 27 H 140/86 H 99 05/08/19 08:00 05/08/19 09:01 05/08/19 09:01 05/08/19 09:01 - Laboratory Result Diagrams: 05/08/19 08:14 05/08/19 08:14 Laboratory results interpreted by me: 05/08/19 05/08/19 08:14 08:14 RDW 16.8 H Carbon Dioxide 31 H - Diagnostic Test Radiology reviewed: Image reviewed, Reports reviewed - EKG Interpretation by Me EKG shows normal: Sinus rhythm Rate: Normal - 76 Rhythm: NSR [place]/QRS: No: Right axis deviation, Left axis deviation Discharge - Discharge Clinical Impression: COPD exacerbation, Acute exacerbation of chronic obstructive pulmonary disease (COPD) Condition: Stable Disposition: HOME, SELF-CARE Instructions: Chronic Obstructive Lung Disease ([facility]) Additional Instructions: Please call your lung doctor as soon as possible to arrange follow-up. Stop taking the Augmentin (amoxicillinclavulanic acid) and start taking the new antibiotic, Suprax. Prescriptions: Benzonatate [Tessalon Perle 100 mg Capsule] 100 mg PO Q8HP PRN #40 cap PRN Reason: Prednisone 50 mg PO DAILY 5 Days #5 tablet Cefixime [Suprax] 200 mg PO BID 7 Days #14 tab.chew Referrals: AILEEN GRIFFIN PA-C [Primary Care Provider] - Follow up in 3-5 days
--- NOTE | 2019-05-08 09:59 | EKG REPORT ---
SEVERITY:- NORMAL ECG - SINUS RHYTHM : Confirmed by: Janina Lund MD 08-May-2019 09:57:58
[2019-05-08 10:06] VITALS: BP 139/88
== END 2019-05-08 10:09 | disposition home or self-care (01) ==
LOC: ER 07:56
DX: J44.1 Chronic obstructive pulmonary disease with (acute) exacerbation (principal); Z99.81 Dependence on supplemental oxygen; R06.02 Shortness of breath; R05 Cough; R53.1 Weakness; R53.81 Other malaise; R07.9 Chest pain, unspecified; R50.9 Fever, unspecified; R00.0 Tachycardia, unspecified; I10 Essential (primary) hypertension; F17.200 Nicotine dependence, unspecified, uncomplicated; Z91.048 Other nonmedicinal substance allergy status
CPT/HCPCS: 36415; 71045; 80053; 83605; 83880; 84484; 85025; 87040; 93005; 93010; 99285

== ENCOUNTER 2019-08-03 19:22 | Inpatient (IN) | payer MEDICARE, MEDICAID ==
[2019-08-03 19:40] LABS: ABSOLUTE BASOPHILS # (AUTO) 0.1 10^3/uL (0.0-0.2); ABSOLUTE LYMPHOCYTES (AUTO) 2.1 10^3/uL (0.5-4.7); ABSOLUTE MONOCYTES (AUTO) 1.1 10^3/uL (0.1-1.4); ABSOLUTE NEUT (AUTO) 13.6 10^3/uL (1.7-8.2); BASOPHILS % (AUTO) 0.5 % (0-2); EOSINOPHILS % (AUTO) 0.2 % (0-6); HEMATOCRIT 36.6 % (36.0-47.0); HEMOGLOBIN 12.3 g/dL (12.0-15.5); LYMPHOCYTES % (AUTO) 12.3 % (13-45); MEAN CORPUSCULAR HEMOGLOBIN 28.7 pg (27.0-33.4); MEAN CORPUSCULAR HGB CONC 33.6 g/dL (32.0-36.0); MEAN CORPUSCULAR VOLUME 85 fl (80-97); MONOCYTES % (AUTO) 6.3 % (3-13); PLATELET COUNT 326 10^3/uL (150-450); RED BLOOD COUNT 4.29 10^6/uL (3.72-5.28); RED CELL DISTRIBUTION WIDTH 16.1 % (11.5-14.0); SEGMENTED NEUTROPHILS % (AUTO) 80.7 % (42-78); TOTAL CELLS COUNTED % (AUTO) 100 %; WHITE BLOOD COUNT 16.8 10^3/uL (4.0-10.5)
[2019-08-03 19:58] LABS: ALBUMIN 3.8 g/dL (3.5-5.0); ALKALINE PHOSPHATASE 176 U/L (38-126); ANION GAP 9 (5-19); ASPARTATE AMINO TRANSFERASE 20 U/L (14-36); BILIRUBIN,DIRECT 0.4 mg/dL (0.0-0.4); BILIRUBIN,TOTAL 0.6 mg/dL (0.2-1.3); BLOOD UREA NITROGEN 5 mg/dL (7-20); CALCIUM 9.4 mg/dL (8.4-10.2); CARBON DIOXIDE 30 mmol/L (22-30); CHLORIDE 93 mmol/L (98-107); GLUCOSE 125 mg/dL (75-110); POTASSIUM 3.4 mmol/L (3.6-5.0)
--- NOTE | 2019-08-03 20:34 | RADIOLOGY REPORT (SQ) ---
XR CHEST 1 VIEW EXAM DATE: 08/03/2019 7:32 PM [employer] HISTORY: Shortness of breath. COMPARISON: 05/08/2019 FINDINGS: Normal heart size with mild pulmonary vascular congestion. There are increased patchy airspace opacities at the lung bases. No pleural effusions or pneumothorax. IMPRESSION: Mildly increased pulmonary edema. No large pleural effusions are seen.
[2019-08-03] MEDS ORDERED: CEFTRIAXONE 1 GM/D5W RTU 1 GM/50 ML RTUPB IV SCH (21:30)
[2019-08-03 22:36] LABS: A TYPE INFLUENZA AG NEGATIVE (NEGATIVE); B INFLUENZA AG NEGATIVE (NEGATIVE)
[2019-08-03 22:41] LABS: APPEARANCE,URINE SLIGHTLY-CLOUDY; BILIRUBIN,URINE NEGATIVE (NEGATIVE); COLOR,URINE YELLOW; GLUCOSE, URINE NEGATIVE (NEGATIVE); KETONES,URINE TRACE mg/dL (NEGATIVE); LEUKOCYTE ESTERASE,URINE NEGATIVE (NEGATIVE); NITRITE,URINE NEGATIVE (NEGATIVE); PROTEIN,URINE NEGATIVE (NEGATIVE); URINE SPECIFIC GRAVITY 1.008; UROBILINOGEN,URINE NEGATIVE mg/dL (<2.0)
[2019-08-03] MEDS ORDERED: IBUPROFEN 600 MG TABLET PO ONE (23:16)
[2019-08-03] MEDS ORDERED: KETOROLAC TROMETHAMINE INJ/PF 30 MG/1 ML SDV IV ONE (23:16)
--- NOTE | 2019-08-03 23:16 | ER Document Report ---
ED General - General Chief Complaint: Shortness Of Breath Stated Complaint: SHORTNESS OF BREATH Time Seen by Provider: 08/03/19 21:02 Primary Care Provider: AILEEN GRIFFIN PA-C [Primary Care Provider] - Follow up as needed Notes: 58-year-old woman presents to the emergency department with a complaint of shortness of breath, fever and aching all over. States that her symptoms began last night and have worsened during the day today. She has a history of COPD and uses nebulizer treatments at home. EMS has given her Solu-Medrol 125mg, 3 nebulizer treatments, Zofran 4 mg IV and 975 mg of acetaminophen. She presents with 103 temperature and headache body aches and pains with shortness of breath. She is a smoker approximately a pack per day, she uses chronic pain medication oxycodone 3 times a day. She has not taken the medication over the past 24 hours during this illness. TRAVEL OUTSIDE OF THE [place] IN LAST 30 DAYS: No - Related Data Allergies/Adverse Reactions: adhesive tape Allergy (Verified 05/08/19 08:17) pregabalin [From Lyrica] Adverse Reaction (Verified 05/08/19 08:17) swelling roflumilast Adverse Reaction (Verified 05/08/19 08:18) severe pain Home Medications: Metformin. Lisinopril. Lopressor. Albuterol Past Medical History - Social History Smoking Status: Current Every Day Smoker Family History: Reviewed & Not Pertinent, CAD, CVA, Malignancy - In both parents Patient has suicidal ideation: No Patient has homicidal ideation: No - Past Medical History Cardiac Medical History: Reports: Hx Hypercholesterolemia, Hx Hypertension Denies: Hx Congestive Heart Failure, Hx Coronary Artery Disease, Hx DVT, Hx Pulmonary Embolism Pulmonary Medical History: Reports: Hx Bronchitis, Hx COPD, Hx Pneumonia, Hx Respiratory Failure Denies: Hx Sleep Apnea Neurological Medical History: Denies: Hx Seizures Endocrine Medical History: Reports: Hx Hypothyroidism. Denies: Hx Diabetes Mellitus Type 1, Hx Diabetes Mellitus Type 2 - borderline, Hx Hyperthyroidism Renal/ Medical History: Denies: Hx Peritoneal Dialysis GI Medical History: Reports: Hx Gastroesophageal Reflux Disease. Denies: Hx Cirrhosis, Hx Hepatitis Musculoskeletal Medical History: Reports Hx Arthritis, Reports Hx Fibromyalgia, Reports Hx Musculoskeletal Deformity, Reports Hx Musculoskeletal Trauma Psychiatric Medical History: Reports: Hx Depression Infectious Medical History: Denies: Hx C-Diff, Hx Hepatitis, Hx MRSA Past Surgical History: Reports: Hx Cholecystectomy, Hx Hysterectomy - Immunizations Immunizations up to date: No Hx Diphtheria, Pertussis, Tetanus Vaccination: No Hx Pneumococcal Vaccination: 07/11/11 Review of Systems - Review of Systems Notes: Constitutional: + Fever. HENT: Negative for sore throat. Eyes: Negative for visual changes. Cardiovascular: Negative for chest pain. Respiratory: + shortness of breath. Gastrointestinal: Negative for abdominal pain, vomiting or diarrhea. Genitourinary: Negative for dysuria. Musculoskeletal: Negative for back pain. Skin: Negative for rash. Neurological: + Migraine with name headaches, weakness or numbness. 10 point ROS negative except as marked above and in HPI. Physical Exam - Vital signs Vitals: Resp 29 H 08/03/19 19:25 - Notes Notes: PHYSICAL EXAMINATION: Physical Exam: General: Chronically ill woman and mild distress secondary to fever and tachycardia shortness of breath. HEENT: NC/AT, pupils equal round and reactive to light, MM moist,nares clear, no meningismus findings. Neck: supple, no adenopathy, no masses. Lungs: Bilateral wheezing, no rales no rhonchi CVS: Regular rate and rhythm no murmur gallop or rub Abdomen: Soft active nontender, no masses, no hepatosplenomegaly Ext: No edema clubbing or cyanosis. Neuro: Alert and responsive, moving all 4 extremities on command, cranial nerves intact. Skin: Intact no open lesions, no rash PSYCH: Normal mood, normal affect. Course - Re-evaluation Re-evalutation: 08/04/19 00:43 Patient has improved her heart rate has increased in the blood pressure has stabilized. She continues to complain of headache and notes that she has not t aken oxycodone in the past 24 hours. Migraine headache treatment is being given with Compazine IV. I discussed with the patient the need to be brought into the hospital for further evaluation and treatment and she is in agreement with that plan. 08/04/19 00:48 - Vital Signs Vital signs: Temp Pulse Resp BP Pulse Ox 100.4 F 26 H 118/73 96 08/03/19 21:40 08/03/19 22:01 08/03/19 22:00 08/03/19 22:01 - Laboratory Result Diagrams: 08/03/19 19:29 08/03/19 19:29 Laboratory results interpreted by me: 08/03/19 08/03/19 08/03/19 19:29 19:29 21:31 WBC 16.8 H RDW 16.1 H Lymph % (Auto) 12.3 L Absolute Neuts (auto) 13.6 H Seg Neutrophils % 80.7 H Carbonic Acid ABG pCO2 ABG pO2 ABG HCO3 ABG Total CO2 Sodium 131.6 L Potassium 3.4 L Chloride 93 L BUN 5 L Glucose 125 H Alkaline Phosphatase 176 H NT-Pro-B Natriuret Pep 163 H Urine Ketones 08/03/19 08/03/19 22:05 23:05 WBC RDW Lymph % (Auto) Absolute Neuts (auto) Seg Neutrophils % Carbonic Acid 1.41 H ABG pCO2 47.0 H ABG pO2 79.1 L ABG HCO3 28.4 H ABG Total CO2 29.8 H Sodium Potassium Chloride BUN Glucose Alkaline Phosphatase NT-Pro-B Natriuret Pep Urine Ketones TRACE H 08/04/19 00:42 I have reviewed laboratory data and used this information for the treatment decisions regarding the patient. - Diagnostic Test Radiology reviewed: Image reviewed, Reports reviewed - Chest x-ray: No acute infiltrate Discharge - Discharge Clinical Impression: COPD with exacerbation, Productive cough, Opiate dependence, continuous Fever Qualifiers: Fever type: unspecified Qualified Code(s): R50.9 - Fever, unspecified Acute bronchitis Qualifiers: Bronchitis organism: other organism Qualified Code(s): J20.8 - Acute bronchitis due to other specified organisms Leukocytosis Qualifiers: Leukocytosis type: lymphocytosis Qualified Code(s): D72.820 - Lymphocytosis (symptomatic) Condition: Good Disposition: ADMITTED INPATIENT Admitting Provider: Mike (Hospitalist) Unit Admitted: Telemetry Referrals: AILEEN GRIFFIN PA-C [Primary Care Provider] - Follow up as needed
[2019-08-03] MEDS ORDERED: NORMAL SALINE 1000 ML 1,000 ML IV ONE (23:47)
[2019-08-03] MEDS ORDERED: IPRATROPIUM/ALBUTEROL 0.5-2.5 MG/3 ML AMPUL NEB ONE (23:54)
[2019-08-03] MEDS ORDERED: METHYLPREDNISOLONE INJ 125 MG/2 ML SDV IV ONE (23:55)
[2019-08-04 00:05] LABS: ARTERIAL BLOOD BASE EXCESS 2.8 mmol/L; ARTERIAL BLOOD H2CO3 1.41 mmol/L (1.05-1.35); ARTERIAL BLOOD HCO3 28.4 mmol/L (20-24); ARTERIAL BLOOD O2 SATURATION 95.6 % (94-98); ARTERIAL BLOOD PO2 79.1 mmHg (80-100); ARTERIAL BLOOD TOTAL CO2 29.8 mmol/L (21-25)
[2019-08-04 00:06] LABS: ARTERIAL BLOOD FIO2 3L
[2019-08-04] MEDS ORDERED: PROCHLORPERAZINE EDISYLATE INJ 10 MG/2 ML VIAL IV ONE (00:45)
[2019-08-04 01:29] LABS: CREATINE KINASE MB 0.38 ng/mL (<4.55); NT PRO BNP 163 pg/mL (<125)
[2019-08-04 01:36] LABS: TROPONIN I < 0.012 ng/mL
[2019-08-04] MEDS ORDERED: HYDRALAZINE HCL INJ/PF 20 MG/1 ML SDV IV PRN (02:01)
[2019-08-04] MEDS ORDERED: GUAIFENESIN SYRP 200 MG/10 ML UDC PO PRN (02:02)
[2019-08-04] MEDS ORDERED: CLONIDINE HCL 0.2 MG TABLET PO ONE (02:30)
[2019-08-04] MEDS ORDERED: PREDNISONE 20 MG TABLET PO ONE (02:30)
[2019-08-04] MEDS ORDERED: AZITHROMYCIN 500 MG in DEXTROSE 5%-WATER 250 ML IV ONE (03:00)
--- NOTE | 2019-08-04 03:16 | PDOC H&P ---
History of Present Illness Admission Date/PCP: 08/04/19 02:16 AILEEN GRIFFIN PA-C Patient complains of: Arthralgias and shortness of breath History of Present Illness: MAXWELL GREEN is a 58 year old female with a history of , COPD, obesity, obstructive sleep apnea, fibromyalgia with chronic pain, oxygen and trilogy dependent complicated by tobacco and narcotic dependence. She presents with 24 hours of arthralgia and shortness of breath, in the emergency department she has a low-grade fever hypercapnic respiratory failure and tachypnea. She receives albuterol, Atrovent, Solu-Medrol, Zofran and Tylenol. She denies recent change in her medication regiment that includes oxycodone 3 times daily however this is not verified. Presentation differential of opiate withdrawal. Past Medical History Cardiac Medical History: Reports: Hyperlipidema, Hypertension Denies: Congestive Heart Failure, Coronary Artery Disease, DVT, Pulmonary Embolism Pulmonary Medical History: Reports: Bronchitis, Chronic Obstructive Pulmonary Disease (COPD), Pneumonia, Respiratory Failure Denies: Sleep Apnea Neurological Medical History: Denies: Seizures Endocrine Medical History: Reports: Hypothyroidism Denies: Diabetes Mellitus Type 1, Diabetes Mellitus Type 2 - borderline, Hyperthyroidism GI Medical History: Reports: Gastroesophageal Reflux Disease Denies: Cirrhosis, Hepatitis Musculoskeltal Medical History: Reports: Arthritis, Fibromyalgia Psychiatric Medical History: Reports: Depression, Tobacco Dependency Infectious Medical History: Denies: Clostridium Difficile, Methicillin-Resistant Staph Aureus Past Surgical History Past Surgical History: Reports: Cholecystectomy, Hysterectomy Social History Information Source: Patient, H Records Smoking Status: Current Every Day Smoker Frequency of Alcohol Use: None Hx Recreational Drug Use: No Drugs: None Hx Prescription Drug Abuse: No - Advance Directive Resuscitation Status: Full Code Family History Family History: CAD, CVA, Malignancy - In both parents Parental Family History Reviewed: Yes Children Family History Reviewed: Yes Sibling(s) Family History Reviewed.: Yes Medication/Allergy Home Medications: Albuterol Sulfate [Ventolin Hfa 8 gm Mdi (1 Mdi/ER Disp)] 2 puff IH Q4HP PRN Amlodipine Besylate [Norvasc 10 mg Tablet] 10 mg PO DAILY 04/10/19 Duloxetine HCl [Cymbalta 30 mg Capsule.dr] 90 mg PO DAILY 04/10/19 Ergocalciferol (Vitamin D2) [Drisdol 50,000 unit (1.25MG) Capsule] 50,000 unit PO PETTY@1000 04/10/19 Estrogens,Conjugated [Premarin 1.25 mg Tablet] 1.25 mg PO DAILY 04/10/19 Fluticasone Propionate [Flonase Nasal [place] 50 Mcg/[place] 16 gm] 1 spray NASL DAILY 04/10/19 Fluticasone/Salmeterol [Advair 500-50 Diskus 14 Dose/Diskus] 1 puff IH Q12 04/10/19 Ipratropium/Albuterol Sulfate [Duoneb 3 ml Ampul] 3 ml NEB RTQ6 04/10/19 Levothyroxine Sodium [Synthroid 0.112 mg Tablet] 0.112 mg PO Q6AM 04/10/19 Metoprolol Succinate [Toprol Xl 50 mg Tab.sr] 50 mg PO DAILY 04/10/19 Montelukast Sodium [Singulair 10 mg Tablet] 10 mg PO QHS 04/10/19 Oxycodone HCl [Oxy-Ir 5 mg Tablet] 10 mg PO Q6HP PRN 04/10/19 Oxycodone HCl [Oxycontin] 15 mg PO Q8 04/10/19 Tizanidine HCl [Zanaflex] 2 mg PO Q8HP PRN 04/10/19 Umeclidinium [place] [Incruse Ellipta] 1 puff IH DAILY 04/10/19 Alprazolam [Xanax 0.5 mg Tablet] 0.5 mg PO DAILYP PRN #5 tab 04/12/19 Levofloxacin [Levaquin 500 mg Tablet] 500 mg PO DAILY 5 Days #5 tablet 04/12/19 Prednisone [Deltasone 20 mg Tablet] 20 mg PO BID 5 Days #10 tablet 04/12/19 Benzonatate [Tessalon Perle 100 mg Capsule] 100 mg PO Q8HP PRN #40 cap 05/08/19 Cefixime [Suprax] 200 mg PO BID 7 Days #14 tab.chew 05/08/19 Prednisone 50 mg PO DAILY 5 Days #5 tablet 05/08/19 Allergies/Adverse Reactions: adhesive tape Allergy (Verified 05/08/19 08:17) pregabalin [From Lyrica] Adverse Reaction (Verified 05/08/19 08:17) swelling roflumilast Adverse Reaction (Verified 05/08/19 08:18) severe pain Review of Systems ROS unobtainable: Due to mental status Physical Exam Vital Signs: Temp Pulse Resp BP Pulse Ox 100.4 F 28 H 110/60 97 08/03/19 21:40 08/04/19 02:01 08/04/19 02:01 08/04/19 02:01 Intake & Output 08/02/19 08/03/19 08/04/19 11:59 11:59 11:59 Intake Total 1050 Balance 1050 Weight 86.183 kg General appearance: PRESENT: cooperative, disheveled, mild distress, obese Head exam: PRESENT: atraumatic, normocephalic Eye exam: PRESENT: conjunctiva pink, EOMI, PERRLA, other. ABSENT: scleral icterus Ear exam: PRESENT: normal external ear exam Mouth exam: PRESENT: moist, tongue midline Neck exam: ABSENT: carotid bruit, JVD, lymphadenopathy, thyromegaly Respiratory exam: PRESENT: accessory muscle use, crackles, decreased breath sounds, prolonged expiratory phas, rales, retraction, tachypnea Cardiovascular exam: PRESENT: RRR, tachycardia. ABSENT: diastolic murmur, rubs, systolic murmur Pulses: PRESENT: normal dorsalis pedis pul Vascular exam: PRESENT: normal capillary refill GI/Abdominal exam: PRESENT: normal bowel sounds, soft. ABSENT: distended, guarding, mass, organolmegaly, rebound, tenderness Rectal exam: PRESENT: deferred Extremities exam: PRESENT: full ROM. ABSENT: calf tenderness, clubbing, pedal edema Neurological exam: PRESENT: alert, awake, oriented to person, oriented to place, CN II-XII grossly intact Psychiatric exam: PRESENT: agitated Skin exam: PRESENT: dry, intact, warm. ABSENT: cyanosis, rash Results Laboratory Results: 08/03/19 19:29 08/03/19 19:29 08/03/19 08/03/19 08/03/19 19:29 19:29 19:29 WBC 16.8 H RBC 4.29 Hgb 12.3 Hct 36.6 MCV 85 MCH 28.7 MCHC 33.6 RDW 16.1 H Plt Count 326 Seg Neutrophils % 80.7 H Carbonic Acid HCO3/H2CO3 Ratio ABG pH ABG pCO2 ABG pO2 ABG HCO3 ABG O2 Saturation ABG Base Excess FiO2 Sodium 131.6 L Potassium 3.4 L Chloride 93 L Carbon Dioxide 30 Anion Gap 9 BUN 5 L Creatinine 0.53 Est GFR ( Amer) > 60 Glucose 125 H Lactic Acid 1.2 Calcium 9.4 Total Bilirubin 0.6 AST 20 Alkaline Phosphatase 176 H Total Protein 7.0 Albumin 3.8 Urine Color Urine Appearance Urine pH Ur Specific [place] Urine Protein Urine Glucose (UA) Urine Ketones Urine Blood Urine Nitrite Ur Leukocyte Esterase Urine WBC (Auto) Urine RBC (Auto) 08/03/19 08/03/19 08/03/19 21:31 22:05 23:05 WBC RBC Hgb Hct MCV MCH MCHC RDW Plt Count Seg Neutrophils % Carbonic Acid 1.41 H HCO3/H2CO3 Ratio 20:1 ABG pH 7.40 ABG pCO2 47.0 H ABG pO2 79.1 L ABG HCO3 28.4 H ABG O2 Saturation 95.6 ABG Base Excess 2.8 FiO2 3L Sodium Potassium Chloride Carbon Dioxide Anion Gap BUN Creatinine Est GFR ( Amer) Glucose Lactic Acid 0.9 Calcium Total Bilirubin AST Alkaline Phosphatase Total Protein Albumin Urine Color YELLOW Urine Appearance SLIGHTLY-CLOUDY Urine pH 6.0 Ur Specific [place] 1.008 Urine Protein NEGATIVE Urine Glucose (UA) NEGATIVE Urine Ketones TRACE H Urine Blood NEGATIVE Urine Nitrite NEGATIVE Ur Leukocyte Esterase NEGATIVE Urine WBC (Auto) 2 Urine RBC (Auto) 1 08/03/19 08/03/19 21:31 21:31 Creatine Kinase 39 CK-MB (CK-2) 0.38 Troponin I < 0.012 NT-Pro-B Natriuret Pep 163 H Impressions: Chest X-Ray 08/03/19 19:32 IMPRESSION: Mildly increased pulmonary edema. No large pleural effusions are seen. Assessment and Plan - Diagnosis (1) Acute bronchitis Qualifiers: Bronchitis organism: other organism Qualified Code(s): J20.8 - Acute bronchitis due to other specified organisms Is this a current diagnosis for this admission?: Yes Plan: Flutter valve, steroids, empiric antibiotics and supplemental oxygen (2) Acute exacerbation of chronic obstructive pulmonary disease (COPD) Is this a current diagnosis for this admission?: Yes Plan: Secondary to #1, steroids, incentive spirometry and trilogy (3) Opiate dependence, continuous Is this a current diagnosis for this admission?: Yes Plan: Complicated by acute on chronic respiratory failure, wean narcotic dependence (4) Acute and chronic respiratory failure with hypercapnia Is this a current diagnosis for this admission?: Yes Plan: Trilogy, limit narcotics depressing respiratory rate (5) Tobacco abuse counseling Is this a current diagnosis for this admission?: Yes Plan: Education and counseling yet again patient declines nicotine replacement options - Time Time Spent with patient: 25-34 minutes - Inpatient Certification Medical Necessity: Need Close Monitoring Due to Risk of Patient Decompensation
[2019-08-04] MEDS ORDERED: AZITHROMYCIN INJ 500 MG VIAL IV ONE (03:22)
[2019-08-04] MEDS: CHLORPHENIRAMINE MALEATE 4 MG TABLET PO SCH ×4 (03:34→21:12)
[2019-08-04] MEDS ORDERED: MAGNESIUM SULFATE 4 GM/100 ML RTUPB IV ONE (04:23)
[2019-08-04] MEDS ORDERED: INFLUENZA QUAD (6MOS+) 2019-20 VAC 0.5 ML SYR IM ONE (04:55)
[2019-08-04] MEDS: CLONIDINE HCL 0.2 MG TABLET PO SCH ×4 (05:44→18:02)
[2019-08-04] MEDS ORDERED: IPRATROPIUM/ALBUTEROL 0.5-2.5 MG/3 ML AMPUL NEB PRN (05:45)
[2019-08-04] MEDS: HEPARIN SOD (PORCINE) 5,000 UNIT/ML 1 ML VIAL SUBCUT SCH ×3 (05:46→21:16)
[2019-08-04] MEDS: MAGNESIUM SULFATE/D5W 1 GM/100 ML RTUPB IV SCH ×4 (05:48→13:12)
[2019-08-04] MEDS: LEVALBUTEROL HCL NEB 1.25 MG/3 ML AMPUL NEB SCH ×3 (07:59→20:54)
[2019-08-04] MEDS: IPRATROPIUM BROMIDE 0.02% NEB 0.5 MG/2.5 ML AMPUL NEB SCH ×3 (07:59→20:53)
[2019-08-04] MEDS ORDERED: IPRATROPIUM/ALBUTEROL 0.5-2.5 MG/3 ML AMPUL NEB SCH (08:00)
[2019-08-04 09:10] LABS: HEMATOCRIT 32.6 % (36.0-47.0); MEAN CORPUSCULAR HEMOGLOBIN 28.6 pg (27.0-33.4); MEAN CORPUSCULAR HGB CONC 33.9 g/dL (32.0-36.0); MEAN CORPUSCULAR VOLUME 85 fl (80-97); PLATELET COUNT 293 10^3/uL (150-450); RED BLOOD COUNT 3.86 10^6/uL (3.72-5.28); RED CELL DISTRIBUTION WIDTH 15.8 % (11.5-14.0); WHITE BLOOD COUNT 15.8 10^3/uL (4.0-10.5)
[2019-08-04 09:33] LABS: ALBUMIN 3.1 g/dL (3.5-5.0); ALKALINE PHOSPHATASE 148 U/L (38-126); ANION GAP 7 (5-19); ASPARTATE AMINO TRANSFERASE 15 U/L (14-36); BILIRUBIN,TOTAL 0.2 mg/dL (0.2-1.3); BLOOD UREA NITROGEN 6 mg/dL (7-20); CALCIUM 9.2 mg/dL (8.4-10.2); CARBON DIOXIDE 29 mmol/L (22-30); CHLORIDE 97 mmol/L (98-107); GLUCOSE 188 mg/dL (75-110); POTASSIUM 3.6 mmol/L (3.6-5.0)
[2019-08-04] MEDS ORDERED: FLUTICASONE NASAL SPRAY 50 MCG/SPRY 120 SPRAY/16 GM NASL SCH (10:00)
[2019-08-04 10:05] LABS: ABSOLUTE LYMPHOCYTES# (MANUAL) 0.6 10^3/uL (0.5-4.7); ABSOLUTE MONOCYTES # (MANUAL) 0.2 10^3/uL (0.1-1.4); BASOPHILS % (MANUAL) 0 % (0-2); EOSINOPHILS % (MANUAL) 0 % (0-6); LYMPHOCYTES % (MANUAL) 4 % (13-45); MONOCYTES % (MANUAL) 1 % (3-13); SEGMENTED NEUTROPHILS % (MAN) 95 % (42-78); TOTAL CELLS COUNTED 100
[2019-08-04 10:07] LABS: PLATELET COMMENT ADEQUATE
[2019-08-04] MEDS: ACETAMINOPHEN 325 MG TABLET PO PRN (11:01)
--- NOTE | 2019-08-04 11:23 | PDOC PROGRESS REPORT ---
Subjective Progress Note for:: 08/04/19 Subjective:: 58 year old female with a history of , COPD, obesity, obstructive sleep apnea, fibromyalgia with chronic pain, oxygen and trilogy dependent complicated by tobacco and narcotic dependence. She presents with 24 hours of arthralgia and shortness of breath, in the emergency department she has a low-grade fever hypercapnic respiratory failure and tachypnea. She receives albuterol, Atrovent, Solu-Medrol, Zofran and Tylenol. She denies recent change in her medication regiment that includes oxycodone 3 times daily however this is not verified. Presentation differential of opiate withdrawal. Reason For Visit: COPD EXACBERATION,BRONCHITIS Physical Exam Vital Signs: Temp Pulse Resp BP Pulse Ox 98.1 F 96 22 H 107/58 L 100 08/04/19 08:25 08/04/19 08:25 08/04/19 08:25 08/04/19 08:25 08/04/19 08:25 Intake & Output 08/03/19 08/04/19 08/05/19 06:59 06:59 06:59 Intake Total 1260 450 Balance 1260 450 Weight 86.8 kg General appearance: PRESENT: no acute distress, obese Head exam: PRESENT: atraumatic Eye exam: PRESENT: PERRLA Mouth exam: PRESENT: dry mucosa Teeth exam: PRESENT: poor dentation Respiratory exam: PRESENT: clear to auscultation carlin. ABSENT: rales, rhonchi, wheezes Cardiovascular exam: PRESENT: RRR. ABSENT: diastolic murmur, rubs, systolic murmur Pulses: PRESENT: normal dorsalis pedis pul GI/Abdominal exam: PRESENT: normal bowel sounds, soft. ABSENT: distended, guarding, mass, organolmegaly, rebound, tenderness Rectal exam: PRESENT: deferred Neurological exam: PRESENT: alert, awake, oriented to person, oriented to place, oriented to time, oriented to situation, CN II-XII grossly intact. ABSENT: motor sensory deficit Psychiatric exam: PRESENT: appropriate affect, normal mood. ABSENT: homicidal ideation, suicidal ideation Results Laboratory Results: 08/04/19 09:02 08/04/19 09:02 08/03/19 08/03/19 08/03/19 19:29 19:29 19:29 WBC 16.8 H RBC 4.29 Hgb 12.3 Hct 36.6 MCV 85 MCH 28.7 MCHC 33.6 RDW 16.1 H Plt Count 326 Seg Neutrophils % 80.7 H Carbonic Acid HCO3/H2CO3 Ratio ABG pH ABG pCO2 ABG pO2 ABG HCO3 ABG O2 Saturation ABG Base Excess FiO2 Sodium 131.6 L Potassium 3.4 L Chloride 93 L Carbon Dioxide 30 Anion Gap 9 BUN 5 L Creatinine 0.53 Est GFR ( Amer) > 60 Glucose 125 H Lactic Acid 1.2 Calcium 9.4 Magnesium Total Bilirubin 0.6 AST 20 Alkaline Phosphatase 176 H Total Protein 7.0 Albumin 3.8 Urine Color Urine Appearance Urine pH Ur Specific [place] Urine Protein Urine Glucose (UA) Urine Ketones Urine Blood Urine Nitrite Ur Leukocyte Esterase Urine WBC (Auto) Urine RBC (Auto) 08/03/19 08/03/19 08/03/19 21:31 21:31 22:05 WBC RBC Hgb Hct MCV MCH MCHC RDW Plt Count Seg Neutrophils % Carbonic Acid HCO3/H2CO3 Ratio ABG pH ABG pCO2 ABG pO2 ABG HCO3 ABG O2 Saturation ABG Base Excess FiO2 Sodium Potassium Chloride Carbon Dioxide Anion Gap BUN Creatinine Est GFR ( Amer) Glucose Lactic Acid 0.9 Calcium Magnesium 1.1 L* Total Bilirubin AST Alkaline Phosphatase Total Protein Albumin Urine Color YELLOW Urine Appearance SLIGHTLY-CLOUDY Urine pH 6.0 Ur Specific [place] 1.008 Urine Protein NEGATIVE Urine Glucose (UA) NEGATIVE Urine Ketones TRACE H Urine Blood NEGATIVE Urine Nitrite NEGATIVE Ur Leukocyte Esterase NEGATIVE Urine WBC (Auto) 2 Urine RBC (Auto) 1 08/03/19 08/04/19 08/04/19 23:05 09:02 09:02 WBC 15.8 H RBC 3.86 Hgb 11.0 L Hct 32.6 L MCV 85 MCH 28.6 MCHC 33.9 RDW 15.8 H Plt Count 293 Seg Neutrophils % Not Reportable Carbonic Acid 1.41 H HCO3/H2CO3 Ratio 20:1 ABG pH 7.40 ABG pCO2 47.0 H ABG pO2 79.1 L ABG HCO3 28.4 H ABG O2 Saturation 95.6 ABG Base Excess 2.8 FiO2 3L Sodium 132.7 L Potassium 3.6 Chloride 97 L Carbon Dioxide 29 Anion Gap 7 BUN 6 L Creatinine 0.48 L Est GFR ( Amer) > 60 Glucose 188 H Lactic Acid Calcium 9.2 Magnesium 2.1 D Total Bilirubin 0.2 AST 15 Alkaline Phosphatase 148 H Total Protein 6.0 L Albumin 3.1 L Urine Color Urine Appearance Urine pH Ur Specific [place] Urine Protein Urine Glucose (UA) Urine Ketones Urine Blood Urine Nitrite Ur Leukocyte Esterase Urine WBC (Auto) Urine RBC (Auto) 08/03/19 08/03/19 21:31 21:31 Creatine Kinase 39 CK-MB (CK-2) 0.38 Troponin I < 0.012 NT-Pro-B Natriuret Pep 163 H Impressions: Chest X-Ray 08/03/19 19:32 IMPRESSION: Mildly increased pulmonary edema. No large pleural effusions are seen. Assessment and Plan - Diagnosis (1) Acute bronchitis Qualifiers: Bronchitis organism: other organism Qualified Code(s): J20.9 - Acute bronchitis, unspecified Is this a current diagnosis for this admission?: Yes Plan: Flutter valve, steroids, empiric antibiotics and supplemental oxygen 07/25/19- on rocephin and ceftriaxone , afebrile (2) Acute exacerbation of chronic obstructive pulmonary disease (COPD) Is this a current diagnosis for this admission?: Yes Plan: Secondary to #1, steroids, incentive spirometry and trilogy (3) Opiate dependence, continuous Is this a current diagnosis for this admission?: No Plan: Complicated by acute on chronic respiratory failure, wean narcotic dependence (4) Acute and chronic respiratory failure with hypercapnia Is this a current diagnosis for this admission?: Yes Plan: Trilogy, limit narcotics depressing respiratory rate
[2019-08-04] MEDS ORDERED: MAGNESIUM SULFATE/D5W 1 GM/100 ML RTUPB IV ONE (13:08)
[2019-08-04] MEDS ORDERED: OXYCODONE HCL SR 10 MG TABLET PO SCH (14:00)
[2019-08-04] MEDS ORDERED: (PENDING PHARMACY ID) (Oxycodone Hcl [Oxycontin] 15 MG) PO SCH (14:00)
[2019-08-04] MEDS: OXYCODONE HCL IR 5 MG TABLET PO PRN ×2 (14:55→22:28)
--- NOTE | 2019-08-04 15:21 | RADIOLOGY REPORT (SQ) ---
EXAM DESCRIPTION: CHEST 2 VIEWS COMPLETED DATE/TIME: 08/04/2019 2:32 pm REASON FOR STUDY: chf COMPARISON: 08/03/2019 NUMBER OF VIEWS: Two view TECHNIQUE: Frontal and lateral radiographic images of the chest acquired. LIMITATIONS: None. FINDINGS: LUNGS AND PLEURA: Improved aeration with residual airspace disease in the right costophren ic angle. MEDIASTINUM AND HILAR STRUCTURES: Stable heart size and mediastinal structures. HEART AND VASCULAR STRUCTURES: Stable appearance. BONES: No acute findings. HARDWARE: None in the chest. OTHER: No other significant finding. IMPRESSION: Improving CHF. TECHNICAL DOCUMENTATION: JOB ID: [id number]- All Rights Reserved Reading location - IP/workstation name: [email or web address]
[2019-08-04] MEDS: PREDNISONE 20 MG TABLET PO SCH (17:55)
--- NOTE | 2019-08-04 18:28 | EKG REPORT ---
SEVERITY:- OTHERWISE NORMAL ECG - SINUS TACHYCARDIA BORDERLINE RIGHT AXIS DEVIATION : Confirmed by: Janina Lund MD 04-Aug-2019 18:28:20
[2019-08-04] MEDS: CEFTRIAXONE 1 GM/D5W RTU 1 GM/50 ML RTUPB IV SCH (21:10)
[2019-08-04] MEDS: MONTELUKAST SODIUM 10 MG TABLET PO SCH (21:12)
[2019-08-04] MEDS: OXYCODONE HCL SR 10 MG TABLET PO SCH (21:12)
[2019-08-04] MEDS: METOPROLOL SUCCINATE 50 MG TAB.SR.24H PO SCH (21:12)
[2019-08-04] MEDS ORDERED: (PENDING PHARMACY ID) (Fluticasone/Salmeterol 1 PUFF) IH SCH (22:00)
[2019-08-04] MEDS: ALPRAZOLAM 0.5 MG TABLET PO PRN (22:28)
[2019-08-05] MEDS: LEVALBUTEROL HCL NEB 1.25 MG/3 ML AMPUL NEB SCH ×4 (02:18→20:08)
[2019-08-05] MEDS: IPRATROPIUM BROMIDE 0.02% NEB 0.5 MG/2.5 ML AMPUL NEB SCH ×4 (02:18→20:08)
[2019-08-05 05:15] LABS: ABSOLUTE BASOPHILS # (AUTO) 0.1 10^3/uL (0.0-0.2); ABSOLUTE LYMPHOCYTES (AUTO) 1.2 10^3/uL (0.5-4.7); ABSOLUTE MONOCYTES (AUTO) 0.6 10^3/uL (0.1-1.4); BASOPHILS % (AUTO) 0.5 % (0-2); EOSINOPHILS % (AUTO) 0.1 % (0-6); HEMATOCRIT 33.1 % (36.0-47.0); LYMPHOCYTES % (AUTO) 8.9 % (13-45); MEAN CORPUSCULAR HEMOGLOBIN 28.3 pg (27.0-33.4); MEAN CORPUSCULAR HGB CONC 33.2 g/dL (32.0-36.0); MEAN CORPUSCULAR VOLUME 85 fl (80-97); MONOCYTES % (AUTO) 4.4 % (3-13); PLATELET COUNT 336 10^3/uL (150-450); RED BLOOD COUNT 3.88 10^6/uL (3.72-5.28); RED CELL DISTRIBUTION WIDTH 15.9 % (11.5-14.0); SEGMENTED NEUTROPHILS % (AUTO) 86.1 % (42-78); TOTAL CELLS COUNTED % (AUTO) 100 %; WHITE BLOOD COUNT 13.9 10^3/uL (4.0-10.5)
[2019-08-05] MEDS: LEVOTHYROXINE SODIUM 0.112 MG TABLET PO SCH (05:33)
[2019-08-05] MEDS: HEPARIN SOD (PORCINE) 5,000 UNIT/ML 1 ML VIAL SUBCUT SCH ×3 (05:34→21:40)
[2019-08-05 05:47] LABS: ANION GAP 9 (5-19); BLOOD UREA NITROGEN 12 mg/dL (7-20); CALCIUM 8.9 mg/dL (8.4-10.2); CARBON DIOXIDE 29 mmol/L (22-30); CHLORIDE 97 mmol/L (98-107); GLUCOSE 159 mg/dL (75-110); POTASSIUM 4.1 mmol/L (3.6-5.0)
[2019-08-05] MEDS: DULOXETINE HCL 30 MG CAPSULE.DR PO SCH (09:15)
[2019-08-05] MEDS: PREDNISONE 20 MG TABLET PO SCH ×2 (09:16→18:53)
[2019-08-05] MEDS: AMLODIPINE BESYLATE 10 MG TABLET PO SCH (09:16)
[2019-08-05] MEDS: ASPIRIN 81 MG TABLET, ENT COATED PO SCH (09:16)
[2019-08-05] MEDS: LISINOPRIL 5 MG TABLET PO SCH (09:17)
[2019-08-05] MEDS: ESTROGENS,CONJUGATED 1.25 MG TABLET PO SCH (09:17)
[2019-08-05] MEDS: OXYCODONE HCL SR 10 MG TABLET PO SCH ×2 (09:18→21:40)
[2019-08-05] MEDS: FLUTICASONE NASAL SPRAY 50 MCG/SPRY 120 SPRAY/16 GM NASL SCH (09:20)
[2019-08-05] MEDS: FLUTICASONE/VILANTEROL 200-25 MCG/DOSE IH SCH (09:20)
[2019-08-05] MEDS: AZITHROMYCIN 500 MG in DEXTROSE 5%-WATER 250 ML IV SCH (09:28)
[2019-08-05] MEDS: UMECLIDINIUM BROMIDE 62.5 MCG/DOSE IH SCH (09:30)
[2019-08-05] MEDS ORDERED: PANTOPRAZOLE SODIUM 40 MG TABLET.DR PO SCH (10:00)
--- NOTE | 2019-08-05 10:46 | PDOC PROGRESS REPORT ---
Subjective Progress Note for:: 08/05/19 Subjective:: 58 year old female with a history of , COPD, obesity, obstructive sleep apnea, fibromyalgia with chronic pain, oxygen and trilogy dependent complicated by tobacco and narcotic dependence. She presents with 24 hours of arthralgia and shortness of breath, in the emergency department she has a low-grade fever hypercapnic respiratory failure and tachypnea. She receives albuterol, Atrovent, Solu-Medrol, Zofran and Tylenol. She denies recent change in her medication regiment that includes oxycodone 3 times daily however this is not verified. Presentation differential of opiate withdrawal. 08/05/[id number]-old female with history of COPD admitted for COPD exacerbation and acute bronchitis. Patient is presently on IV Rocephin and azithromycin. Chest x-ray initially indicated of pulmonary edema plan to do the echocardiogram today. Patient is comfortable in the bed communicating well. Pulse ox is 98% on 2 L. She uses 2 L home oxygen at home. Reason For Visit: COPD EXACBERATION,BRONCHITIS Physical Exam Vital Signs: Temp Pulse Resp BP Pulse Ox 97.9 F 89 16 120/67 98 08/05/19 01:01 08/05/19 08:28 08/05/19 08:28 08/05/19 01:01 08/05/19 08:28 Intake & Output 08/04/19 08/05/19 08/06/19 06:59 06:59 06:59 Intake Total 1260 2720 Balance 1260 2720 Weight 86.8 kg 86.8 kg General appearance: PRESENT: no acute distress, well-developed, well-nourished Head exam: PRESENT: atraumatic Eye exam: PRESENT: PERRLA Mouth exam: PRESENT: moist, tongue midline Teeth exam: PRESENT: poor dentation Neck exam: ABSENT: carotid bruit, JVD, lymphadenopathy, thyromegaly Respiratory exam: PRESENT: decreased breath sounds Cardiovascular exam: PRESENT: RRR. ABSENT: diastolic murmur, rubs, systolic murmur GI/Abdominal exam: PRESENT: normal bowel sounds, soft. ABSENT: distended, guarding, mass, organolmegaly, rebound, tenderness Rectal exam: PRESENT: deferred Extremities exam: PRESENT: full ROM. ABSENT: calf tenderness, clubbing, pedal edema Neurological exam: PRESENT: alert, awake, oriented to person, oriented to place, oriented to time, oriented to situation, CN II-XII grossly intact. ABSENT: motor sensory deficit Psychiatric exam: PRESENT: appropriate affect, normal mood. ABSENT: homicidal ideation, suicidal ideation Results Laboratory Results: 08/05/19 04:32 08/05/19 04:32 08/05/19 08/05/19 04:32 04:32 WBC 13.9 H RBC 3.88 Hgb 11.0 L Hct 33.1 L MCV 85 MCH 28.3 MCHC 33.2 RDW 15.9 H Plt Count 336 Seg Neutrophils % 86.1 H Sodium 134.7 L Potassium 4.1 Chloride 97 L Carbon Dioxide 29 Anion Gap 9 BUN 12 Creatinine 0.49 L Est GFR ( Amer) > 60 Glucose 159 H Calcium 8.9 08/03/19 08/03/19 21:31 21:31 Creatine Kinase 39 CK-MB (CK-2) 0.38 Troponin I < 0.012 NT-Pro-B Natriuret Pep 163 H Impressions: Chest X-Ray 08/04/19 00:00 IMPRESSION: Improving CHF. Assessment and Plan - Diagnosis (1) Acute bronchitis Qualifiers: Bronchitis organism: other organism Qualified Code(s): J20.8 - Acute bronchitis due to other specified organisms Is this a current diagnosis for this admission?: Yes Plan: Flutter valve, steroids, empiric antibiotics and supplemental oxygen 08/04/19- on rocephin and ceftriaxone , afebrile 08/05/19-patient admitted with acute bronchitis presently on IV Rocephin and Zithromax. Blood cultures are negative. Pulse ox 98% on 2 L. Blood pressure stable. Plan is to continue the antibiotic therapy. (2) Acute exacerbation of chronic obstructive pulmonary disease (COPD) Is this a current diagnosis for this admission?: Yes Plan: Secondary to #1, steroids, incentive spirometry and trilogy (3) Opiate dependence, continuous Is this a current diagnosis for this admission?: No (4) Acute and chronic respiratory failure with hypercapnia Is this a current diagnosis for this admission?: Yes Plan: Trilogy, limit narcotics depressing respiratory rate 08/05/2019-patient admitted with acute on chronic respiratory failure with hypoxia resolving. Pulse ox 98% on 2 L. (5) CHF (congestive heart failure) Is this a current diagnosis for this admission?: Yes Plan: 2020-chest x-ray suggestive of pulmonary edema patient denies any history of congestive heart failure. Echocardiogram is requested. Most likely she has chronic systolic heart failure with acute acute exacerbation.
[2019-08-05] MEDS: OXYCODONE HCL IR 5 MG TABLET PO PRN (13:03)
[2019-08-05] MEDS: MONTELUKAST SODIUM 10 MG TABLET PO SCH (21:39)
[2019-08-05] MEDS: CEFTRIAXONE 1 GM/D5W RTU 1 GM/50 ML RTUPB IV SCH (21:39)
[2019-08-05] MEDS: METOPROLOL SUCCINATE 50 MG TAB.SR.24H PO SCH (21:40)
[2019-08-05] MEDS: ACETAMINOPHEN 325 MG TABLET PO PRN (21:49)
[2019-08-05] MEDS ORDERED: NICOTINE 7 MG/24 HR PATCH.TD24 TD ONE (23:45)
[2019-08-06] MEDS: ALPRAZOLAM 0.5 MG TABLET PO PRN
[2019-08-06] MEDS: IPRATROPIUM BROMIDE 0.02% NEB 0.5 MG/2.5 ML AMPUL NEB SCH ×3 (02:06→14:02)
[2019-08-06] MEDS: LEVALBUTEROL HCL NEB 1.25 MG/3 ML AMPUL NEB SCH ×3 (02:06→14:02)
[2019-08-06 04:44] LABS: ABSOLUTE BASOPHILS # (AUTO) 0.1 10^3/uL (0.0-0.2); ABSOLUTE LYMPHOCYTES (AUTO) 1.5 10^3/uL (0.5-4.7); ABSOLUTE MONOCYTES (AUTO) 0.5 10^3/uL (0.1-1.4); ABSOLUTE NEUT (AUTO) 9.2 10^3/uL (1.7-8.2); BASOPHILS % (AUTO) 0.5 % (0-2); EOSINOPHILS % (AUTO) 0.1 % (0-6); HEMATOCRIT 33.1 % (36.0-47.0); HEMOGLOBIN 11.1 g/dL (12.0-15.5); MEAN CORPUSCULAR HEMOGLOBIN 28.7 pg (27.0-33.4); MEAN CORPUSCULAR HGB CONC 33.5 g/dL (32.0-36.0); MEAN CORPUSCULAR VOLUME 86 fl (80-97); MONOCYTES % (AUTO) 4.6 % (3-13); PLATELET COUNT 402 10^3/uL (150-450); RED BLOOD COUNT 3.85 10^6/uL (3.72-5.28); RED CELL DISTRIBUTION WIDTH 16.1 % (11.5-14.0); SEGMENTED NEUTROPHILS % (AUTO) 81.8 % (42-78); TOTAL CELLS COUNTED % (AUTO) 100 %; WHITE BLOOD COUNT 11.2 10^3/uL (4.0-10.5)
[2019-08-06 04:57] LABS: ALBUMIN 3.2 g/dL (3.5-5.0); ALKALINE PHOSPHATASE 141 U/L (38-126); ANION GAP 6 (5-19); ASPARTATE AMINO TRANSFERASE 22 U/L (14-36); BILIRUBIN,DIRECT 0.2 mg/dL (0.0-0.4); BILIRUBIN,TOTAL 0.2 mg/dL (0.2-1.3); BLOOD UREA NITROGEN 14 mg/dL (7-20); CALCIUM 9.1 mg/dL (8.4-10.2); CARBON DIOXIDE 32 mmol/L (22-30); CHLORIDE 98 mmol/L (98-107); GLUCOSE 117 mg/dL (75-110); POTASSIUM 4.7 mmol/L (3.6-5.0); TOTAL PROTEIN 6.1 g/dL (6.3-8.2)
[2019-08-06] MEDS ORDERED: PANTOPRAZOLE SODIUM 40 MG TABLET.DR PO SCH (06:00)
[2019-08-06] MEDS: HEPARIN SOD (PORCINE) 5,000 UNIT/ML 1 ML VIAL SUBCUT SCH ×2 (06:10→14:20)
[2019-08-06] MEDS: LEVOTHYROXINE SODIUM 0.112 MG TABLET PO SCH (06:11)
[2019-08-06] MEDS: AZITHROMYCIN 500 MG in DEXTROSE 5%-WATER 250 ML IV SCH (09:12)
[2019-08-06] MEDS: AMLODIPINE BESYLATE 10 MG TABLET PO SCH (09:17)
[2019-08-06] MEDS: LISINOPRIL 5 MG TABLET PO SCH (09:17)
[2019-08-06] MEDS: ASPIRIN 81 MG TABLET, ENT COATED PO SCH (09:17)
[2019-08-06] MEDS: DULOXETINE HCL 30 MG CAPSULE.DR PO SCH (09:17)
[2019-08-06] MEDS: OXYCODONE HCL SR 10 MG TABLET PO SCH (09:18)
[2019-08-06] MEDS: PREDNISONE 20 MG TABLET PO SCH (09:18)
[2019-08-06] MEDS: UMECLIDINIUM BROMIDE 62.5 MCG/DOSE IH SCH (09:19)
[2019-08-06] MEDS: FLUTICASONE/VILANTEROL 200-25 MCG/DOSE IH SCH (09:19)
[2019-08-06] MEDS: FLUTICASONE NASAL SPRAY 50 MCG/SPRY 120 SPRAY/16 GM NASL SCH (09:24)
[2019-08-06] MEDS: ESTROGENS,CONJUGATED 1.25 MG TABLET PO SCH (09:27)
[2019-08-06] MEDS ORDERED: NICOTINE 7 MG/24 HR PATCH.TD24 TD SCH ×2 (10:00→22:00)
--- NOTE | 2019-08-06 12:51 | PDOC DISCHARGE SUMMARY ---
Impression - Admit/DC Date/PCP Admission Date/Primary Care Provider: 08/04/19 02:16 AILEEN GRIFFIN PA-C Discharge Date: 08/06/19 - Discharge Diagnosis (1) Acute and chronic respiratory failure with hypercapnia Is this a current diagnosis for this admission?: Yes (2) Acute exacerbation of chronic obstructive pulmonary disease (COPD) Is this a current diagnosis for this admission?: Yes (3) Acute bronchitis Is this a current diagnosis for this admission?: Yes (4) Opiate dependence, continuous Is this a current diagnosis for this admission?: Yes (5) CHF (congestive heart failure) Is this a current diagnosis for this admission?: Yes - Additional Information Resuscitation Status: Full Code Discharge Diet: Cardiac Discharge Activity: Activity As Tolerated, Slowly Increase Activity Referrals: AILEEN GRIFFIN PA-C [Primary Care Provider] - 08/13/19 8:15 am KAREN DICKERSON MD [ACTIVE STAFF] - 09/11/19 3:15 pm () SAV HOPE MD [ACTIVE PROVISIONAL STAFF] - 08/19/19 2:00 pm (PLEASE ARRIVE 15-20 MINUTES PRIOR TO APPT. SO PATIENT INFO CAN BE UPDATED) Prescriptions: Azithromycin 250 mg PO DAILY 5 Days #5 tablet Cefuroxime Axetil [Ceftin 250 mg Tablet] 1 tab PO BID 8 Days #16 tablet Prednisone [Deltasone 5 mg Tablet] 5 mg PO ASDIR #32 tablet Ergocalciferol (Vitamin D2) [Drisdol 50,000 unit (1.25MG) Capsule] 50,000 unit PO FR@1000 14 Days #2 Home Medications: Albuterol Sulfate [Ventolin Hfa 8 gm Mdi (1 Mdi/ER Disp)] 2 puff IH Q4HP PRN 04/10/19 Amlodipine Besylate [Norvasc 10 mg Tablet] 10 mg PO DAILY 04/10/19 Duloxetine HCl [Cymbalta 30 mg Capsule.dr] 90 mg PO DAILY 04/10/19 Estrogens,Conjugated [Premarin 1.25 mg Tablet] 1.25 mg PO DAILY 04/10/19 Fluticasone Propionate [Flonase Nasal [place] 50 Mcg/[place] 16 gm] 1 spray NASL DAILY 04/10/19 Fluticasone/Salmeterol [Advair 500-50 Diskus 14 Dose/Diskus] 1 puff IH Q12 04/10/19 Levothyroxine Sodium [Synthroid 0.112 mg Tablet] 0.112 mg PO Q6AM 04/10/19 Metoprolol Succinate [Toprol Xl 50 mg Tab.sr] 50 mg PO QHS 04/10/19 Montelukast Sodium [Singulair 10 mg Tablet] 10 mg PO QHS 04/10/19 Oxycodone HCl [Oxy-Ir 5 mg Tablet] 10 mg PO Q6HP PRN 04/10/19 Oxycodone HCl [Oxycontin] 15 mg PO Q8 04/10/19 Umeclidinium [place] [Incruse Ellipta] 1 puff IH DAILY 04/10/19 Alprazolam [Xanax 0.5 mg Tablet] 0.5 mg PO DAILYP PRN #5 tab 04/12/19 Aspirin [Ecotrin 81 mg EC Tablet] 81 mg PO DAILY 08/04/19 Dexlansoprazole [Dexilant 60 mg Capsule] 60 mg PO DAILY 08/04/19 Lisinopril [Prinivil 5 mg Tablet] 5 mg PO DAILY 08/04/19 Metformin HCl [Glucophage 500 mg Tablet] 500 mg PO QPM 08/04/19 Azithromycin 250 mg PO DAILY 5 Days #5 tablet 08/06/19 Cefuroxime Axetil [Ceftin 250 mg Tablet] 1 tab PO BID 8 Days #16 tablet 08/06/19 Ergocalciferol (Vitamin D2) [Drisdol 50,000 unit (1.25MG) Capsule] 50,000 unit PO FR@1000 14 Days #2 08/06/19 Nicotine [Nicoderm 7 mg/24 Hr Transdermal Patch] 1 each TD QHS patch.td24 08/06/19 Prednisone [Deltasone 5 mg Tablet] 5 mg PO ASDIR #32 tablet 08/06/19 History of Present Illiness History of Present Illness: MAXWELL GREEN is a 58 year old female with a history of COPD, obesity, obstructive sleep apnea, fibromyalgia with opiate dependence, on continuous oxygen during the day and oxygen bleed and on her trilogy at night who continues to smoke. She presents with increasing shortness of breath. Evaluation the emergency department revealed low-grade fever and hypercapnia. She was also tachypneic. She was given steroids and nebulizer treatments and referred to the hospitalist service for admission Hospital Course Hospital Course: Fairly unremarkable hospital course. I believe the etiology was infectious more than an exacerbation of her heart failure. She did have an elevated white blood cell count and abnormal chest x- ray. Her brain natruretic peptide was only 163 and she improved without aggressive diuresis. Infection is the likely cause of her hospitalization. On antibiotic therapy her white blood cell count has improved and she is feeling better. She is back to her baseline oxygen therapy and will complete a short course of steroids at home. We discussed her smoking and the fact that it is related to multiple factors most of which are stress related. Physical Exam Vital Signs: Temp Pulse Resp BP Pulse Ox 98.2 F 78 24 H 133/76 H 93 08/05/19 17:36 08/06/19 07:55 08/06/19 07:55 08/05/19 17:36 08/06/19 07:55 Intake & Output 08/05/19 08/06/19 08/07/19 06:59 06:59 06:59 Intake Total 2720 1945 Balance 2720 1945 Weight 86.8 kg 84.7 kg General appearance: PRESENT: no acute distress, cooperative, well-developed Head exam: PRESENT: atraumatic, normocephalic Ear exam: PRESENT: normal external ear exam. ABSENT: bleeding, drainage Respiratory exam: PRESENT: rhonchi - Rhonchi at right base, symmetrical, unlabored, wheezes - Occasional sporadic wheezes bilaterally. ABSENT: accessory muscle use, prolonged expiratory phas, rales, tachypnea Cardiovascular exam: PRESENT: RRR, +S1, +S2 GI/Abdominal exam: PRESENT: normal bowel sounds, soft. ABSENT: distended, tenderness Rectal exam: PRESENT: deferred Neurological exam: PRESENT: alert, awake, oriented to person, oriented to place, oriented to time, oriented to situation, CN II-XII grossly intact Psychiatric exam: PRESENT: appropriate affect. ABSENT: agitated, anxious Results Laboratory Results: WBC 11.2 10^3/uL (4.0-10.5) H 08/06/19 03:58 RBC 3.85 10^6/uL (3.72-5.28) 08/06/19 03:58 Hgb 11.1 g/dL (12.0-15.5) L 08/06/19 03:58 Hct 33.1 % (36.0-47.0) L 08/06/19 03:58 MCV 86 fl (80-97) 08/06/19 03:58 MCH 28.7 pg (27.0-33.4) 08/06/19 03:58 MCHC 33.5 g/dL (32.0-36.0) 08/06/19 03:58 RDW 16.1 % (11.5-14.0) H 08/06/19 03:58 Plt Count 402 10^3/uL (150-450) 08/06/19 03:58 Lymph % (Auto) 13.0 % (13-45) 08/06/19 03:58 [place] % (Auto) 4.6 % (3-13) 08/06/19 03:58 Eos % (Auto) 0.1 % (0-6) 08/06/19 03:58 Baso % (Auto) 0.5 % (0-2) 08/06/19 03:58 Absolute Neuts (auto) 9.2 10^3/uL (1.7-8.2) H 08/06/19 03:58 Absolute Lymphs (auto) 1.5 10^3/uL (0.5-4.7) 08/06/19 03:58 Absolute Monos (auto) 0.5 10^3/uL (0.1-1.4) 08/06/19 03:58 Absolute Eos (auto) 0.0 10^3/uL (0.0-0.6) 08/06/19 03:58 Absolute Basos (auto) 0.1 10^3/uL (0.0-0.2) 08/06/19 03:58 Total Counted 100 08/04/19 09:02 Seg Neutrophils % 81.8 % (42-78) H 08/06/19 03:58 Seg Neuts % (Manual) 95 % (42-78) H 08/04/19 09:02 Lymphocytes % (Manual) 4 % (13-45) L 08/04/19 09:02 Monocytes % (Manual) 1 % (3-13) L 08/04/19 09:02 Eosinophils % (Manual) 0 % (0-6) 08/04/19 09:02 Basophils % (Manual) 0 % (0-2) 08/04/19 09:02 Abs Neuts (Manual) 15.0 10^3/uL (1.7-8.2) H 08/04/19 09:02 Abs Lymphs (Manual) 0.6 10^3/uL (0.5-4.7) 08/04/19 09:02 Abs Monocytes (Manual) 0.2 10^3/uL (0.1-1.4) 08/04/19 09:02 Absolute Eos (Manual) 0.0 10^3/uL (0.0-0.6) 08/04/19 09:02 Abs Basophils (Manual) 0.0 10^3/uL (0.0-0.2) 08/04/19 09:02 Platelet Comment ADEQUATE 08/04/19 09:02 Carbonic Acid 1.41 mmol/L (1.05-1.35) H 08/03/19 23:05 HCO3/H2CO3 Ratio 20:1 08/03/19 23:05 ABG pH 7.40 (7.35-7.45) 08/03/19 23:05 ABG pCO2 47.0 mmHg (35-45) H 08/03/19 23:05 ABG pO2 79.1 mmHg (80-100) L 08/03/19 23:05 ABG HCO3 28.4 mmol/L (20-24) H 08/03/19 23:05 ABG Total CO2 29.8 mmol/L (21-25) H 08/03/19 23:05 ABG O2 Saturation 95.6 % (94-98) 08/03/19 23:05 ABG Base Excess 2.8 mmol/L 08/03/19 23:05 FiO2 3L 08/03/19 23:05 Sodium 135.9 mmol/L (137-145) L 08/06/19 03:58 Potassium 4.7 mmol/L (3.6-5.0) 08/06/19 03:58 Chloride 98 mmol/L (98-107) 08/06/19 03:58 Carbon Dioxide 32 mmol/L (22-30) H 08/06/19 03:58 Anion Gap 6 (5-19) 08/06/19 03:58 BUN 14 mg/dL (7-20) 08/06/19 03:58 Creatinine 0.57 mg/dL (0.52-1.25) 08/06/19 03:58 Est GFR ( Amer) > 60 (>60) 08/06/19 03:58 Est GFR (MDRD) Non-Af > 60 (>60) 08/06/19 03:58 Glucose 117 mg/dL (75-110) H 08/06/19 03:58 Lactic Acid 0.9 mmol/L (0.7-2.1) 08/03/19 21:31 Calcium 9.1 mg/dL (8.4-10.2) 08/06/19 03:58 Magnesium 1.9 mg/dL (1.6-2.3) 08/06/19 03:58 Total Bilirubin 0.2 mg/dL (0.2-1.3) 08/06/19 03:58 Direct Bilirubin 0.2 mg/dL (0.0-0.4) 08/06/19 03:58 Neonat Total Bilirubin Not Reportable 08/06/19 03:58 Neonat Direct Bilirubin Not Reportable 08/06/19 03:58 Neonat Indirect Bili Not Reportable 08/06/19 03:58 AST 22 U/L (14-36) 08/06/19 03:58 ALT 20 U/L (<35) 08/06/19 03:58 Alkaline Phosphatase 141 U/L (38-126) H 08/06/19 03:58 Creatine Kinase 39 U/L (30-135) 08/03/19 21:31 CK-MB (CK-2) 0.38 ng/mL (<4.55) 08/03/19 21:31 Troponin I < 0.012 ng/mL 08/03/19 21:31 NT-Pro-B Natriuret Pep 163 pg/mL (<125) H 08/03/19 21:31 Total Protein 6.1 g/dL (6.3-8.2) L 08/06/19 03:58 Albumin 3.2 g/dL (3.5-5.0) L 08/06/19 03:58 Urine Color YELLOW 08/03/19 22:05 Urine Appearance SLIGHTLY-CLOUDY 08/03/19 22:05 Urine pH 6.0 (5.0-9.0) 08/03/19 22:05 Ur Specific [place] 1.008 08/03/19 22:05 Urine Protein NEGATIVE mg/dL (NEGATIVE) 08/03/19 22:05 Urine Glucose (UA) NEGATIVE mg/dL (NEGATIVE) 08/03/19 22:05 Urine Ketones TRACE mg/dL (NEGATIVE) H 08/03/19 22:05 Urine Blood NEGATIVE (NEGATIVE) 08/03/19 22:05 Urine Nitrite NEGATIVE (NEGATIVE) 08/03/19 22:05 Urine Bilirubin NEGATIVE (NEGATIVE) 08/03/19 22:05 Urine Urobilinogen NEGATIVE mg/dL (<2.0) 08/03/19 22:05 Ur Leukocyte Esterase NEGATIVE (NEGATIVE) 08/03/19 22:05 Urine WBC (Auto) 2 /HPF 08/03/19 22:05 Urine RBC (Auto) 1 /HPF 08/03/19 22:05 Squamous Epi Cells Auto 7 /HPF 08/03/19 22:05 Urine Mucus (Auto) RARE /LPF 08/03/19 22:05 Urine Ascorbic Acid NEGATIVE (NEGATIVE) 08/03/19 22:05 Influenza A (Rapid) NEGATIVE (NEGATIVE) 08/03/19 22:05 Influenza B (Rapid) NEGATIVE (NEGATIVE) 08/03/19 22:05 08/03/19 21:31 CK-MB (CK-2) 0.38 Troponin I < 0.012 NT-Pro-B Natriuret Pep 163 H Impressions: Chest X-Ray 08/03/19 19:32 IMPRESSION: Mildly increased pulmonary edema. No large pleural effusions are seen. Chest X-Ray 08/04/19 00:00 IMPRESSION: Improving CHF. Plan Health Concerns: The patient needs to establish and continue to follow with her primary care provider as well as her newspaper deliverer and hospice social worker. Her son also brought up the fact that she has multiple dogs, there is water under the house most of the time and they worry about mold and the fact that she still smokes all contribute to her poor health. He is trying to be supportive of tobacco cessation as well. She does have a history of coronary disease and an echocardiogram was obtained today. The results were not available at the time of discharge but she is going to follow-up with her newspaper deliverer Dr. Hope who will have access to those results. Plan of Treatment: As noted above I believe this was acute respiratory failure secondary to an exacerbation of COPD. I do not believe there is an acute exacerbation of heart failure but she does have a history and an echocardiogram is pending. She will have follow-up appointment scheduled with her primary care provider, newspaper deliverer and hospice social worker. She will return to her baseline medications and she will complete a prednisone taper as well as dual antibiotic therapy. Goals: Better compliance with medical providers and tobacco cessation Time Spent: Greater than 30 Minutes Stroke Is this a Stroke Patient?: No Acute Heart Failure - Is this a Heart Failure Patient?: No
[2019-08-06] MEDS: OXYCODONE HCL IR 5 MG TABLET PO PRN (12:53)
[2019-08-06 13:56] VITALS: BP 101/54
--- NOTE | 2019-08-07 21:47 | XCELERA REPORT ---
[address] [address] Transthoracic Echocardiogram Report Name: MXAWELL GREEN Age: 58 yrs Gender: Female : 1960 Patient Status: Inpatient Patient Location: [address] [place] [address] Study Date: 08/06/2019 10:36 AM Height: 66 in Weight: 191 lb BSA: 2.0 m2 Procedure: A two-dimensional transthoracic echocardiogram with color flow and Doppler was performed. The study was technically difficult with many images being suboptimal in quality. The study was technically limited with all images being suboptimal in quality. Reason For Study: chf History: CHF. Ordering Physician: DARRELL CHEN Performed By: Leila Spears Interpretation Summary The left ventricle is normal in size. There is normal left ventricular wall thickness. LV EF is 60% Left ventricular systolic function is normal. Doppler measurements suggest impaired left ventricular relaxation, which is associated with grade I/IV or mild diastolic dysfunction The left ventricular wall motion is normal. There is no thrombus. No defenite ASD ,VSD , or PFOseen. The right ventricle is normal in size and function. The right atrium is normal. The left atrial size is normal. There is no evidence of mitral valve prolapse. There is no vegetation seen on the mitral valve. There is no mitral valve stenosis. Moderate eccentric posteriorly directed MR jet. There is no aortic valvular vegetation. There is no aortic valve stenosis There is no LVOT obstruction. No aortic regurgitation is present. There is no tricuspid stenosis. No tricuspid regurgitation. Tricuspid regurgitation jet envelope not well defined to measure RV systolic pressure accurately. There is no pulmonic valvular stenosis. There is no pulmonic valvular regurgitation. The aortic root is normal size. The inferior vena cava appeared normal and decreased > 50% with respiration (RAP 5-10 mmHg) There is no pericardial effusion. MMode/2D Measurements & Calculations RVDd: 2.4 cm LVIDd: 4.7 cm FS: 31.0 % Ao root diam: 2.3 cm IVSd: 1.1 cm LVIDs: 3.2 cm EDV(Teich): 100.7 ml Ao root area: 4.2 cm2 LVPWd: 1.1 cm ESV(Teich): 41.5 ml LA dimension: 3.0 cm EF(Teich): 58.8 % Doppler Measurements & Calculations MV E max andrew: MV P1/2t max andrew: Ao V2 max: LV V1 max P.2 cm/sec 133.7 cm/sec 160.0 cm/sec 4.8 mmHg MV A max andrew: MV P1/2t: 70.2 msec Ao max PG: LV V1 max: 124.9 cm/sec MVA(P1/2t): 3.1 cm2 10.2 mmHg 109.6 cm/sec MV E/A: 0.81 MV dec slope: 557.3 cm/sec2 MV dec time: 0.21 sec PA V2 max: MV P1/2t-pr_phl: 94.1 cm/sec 70.2 msec PA max P.5 mmHg Left Ventricle The left ventricle is normal in size. There is normal left ventricular wall thickness. LV EF is 60%. Left ventricular systolic function is normal. Doppler measurements suggest impaired left ventricular relaxation, which is associated with grade I/IV or mild diastolic dysfunction. The left ventricular wall motion is normal. There is no thrombus. No defenite ASD ,VSD , or PFOseen. Right Ventricle The right ventricle is normal in size and function. The right ventricle is not well visualized secondary to technical limitations. Atria The right atrium is normal. The left atrial size is normal. Mitral Valve There is no evidence of mitral valve prolapse. There is no vegetation seen on the mitral valve. There is no mitral valve stenosis. Moderate eccentric posteriorly directed MR jet. Aortic Valve There is no aortic valvular vegetation. There is no aortic valve stenosis. There is no LVOT obstruction. No aortic regurgitation is present. Tricuspid Valve There is no tricuspid stenosis. No tricuspid regurgitation. Tricuspid regurgitation jet envelope not well defined to measure RV systolic pressure accurately. Pulmonic Valve There is no pulmonic valvular stenosis. There is no pulmonic valvular regurgitation. Great Vessels The aortic root is normal size. The inferior vena cava appeared normal and decreased > 50% with respiration (RAP 5-10 mmHg). Effusions There is no pericardial effusion. : DARRELL CHEN Lakshmi
[2019-08-09] MEDS ORDERED: ERGOCALCIFEROL (VITAMIN D2) 50000 UNIT (1.25 MG) CAPSULE PO SCH (10:00)
== END 2019-08-06 14:30 | disposition home or self-care (01) | DRG 190 ==
LOC: ER 19:22 → EH 08-04 02:16 → 5 08-04 04:21
PROVIDERS: ADMIT Internal Medicine; ATTEND Internal Medicine
DX: J44.0 Chronic obstructive pulmonary disease with (acute) lower respiratory infection (principal); J96.22 Acute and chronic respiratory failure with hypercapnia; F11.20 Opioid dependence, uncomplicated; J44.1 Chronic obstructive pulmonary disease with (acute) exacerbation; J20.9 Acute bronchitis, unspecified; G47.33 Obstructive sleep apnea (adult) (pediatric); M79.7 Fibromyalgia; G89.29 Other chronic pain; Z99.81 Dependence on supplemental oxygen; E78.5 Hyperlipidemia, unspecified; E03.9 Hypothyroidism, unspecified; I50.9 Heart failure, unspecified; I11.0 Hypertensive heart disease with heart failure; K21.9 Gastro-esophageal reflux disease without esophagitis; M19.90 Unspecified osteoarthritis, unspecified site; I25.10 Atherosclerotic heart disease of native coronary artery without angina pectoris; F32.9 Major depressive disorder, single episode, unspecified; Z90.710 Acquired absence of both cervix and uterus; Z90.49 Acquired absence of other specified parts of digestive tract; F17.200 Nicotine dependence, unspecified, uncomplicated; Z82.49 Family history of ischemic heart disease and other diseases of the circulatory system; Z82.3 Family history of stroke; Z79.51 Long term (current) use of inhaled steroids; Z79.52 Long term (current) use of systemic steroids; Z79.899 Other long term (current) drug therapy
CPT/HCPCS: 36415; 36600; 71045; 71046; 80048; 80053; 81001; 82550; 82553; 82803; 83605; 83735; 83880; 84484; 85025; 87040; 87804; 93005; 93010; 93306; 94640; 94667; 94668; 94799; 96361; 96365; 96375; 99285; J0456; J0696; J0780; J1644; J1885; J3475; J3490; J7030; J7060; J7512; J7620

== ENCOUNTER → 2019-10-31 | Outpatient (CLI) | payer MEDICARE, MEDICAID ==
--- NOTE | 2019-10-31 15:14 | RADIOLOGY REPORT (SQ) ---
EXAM DESCRIPTION: CHEST PA/LATERAL IMAGES COMPLETED DATE/TIME: 10/31/2019 2:35 pm REASON FOR STUDY: DYSPNEA, UNSPECIFIED COMPARISON: 08/04/2019 EXAM PARAMETERS: NUMBER OF VIEWS: two views TECHNIQUE: Digital Frontal and Lateral radiographic views of the chest acquired. RADIATION DOSE: NA LIMITATIONS: none FINDINGS: LUNGS AND PLEURA: No opacities, masses or pneumothorax. No pleural effusion. MEDIASTINUM AND HILAR STRUCTURES: No masses or contour abnormalities. HEART AND VASCULAR STRUCTURES: Heart normal size. No evidence for failure. BONES: No acute findings. HARDWARE: None in the chest. OTHER: No other significant finding. IMPRESSION: NO SIGNIFICANT RADIOGRAPHIC FINDING IN THE CHEST. TECHNICAL DOCUMENTATION: JOB ID: [id number] 2010 [employer]- All Rights Reserved Reading location - IP/workstation name: [email or web address]
[2019-10-31 15:16] LABS: ABSOLUTE BASOPHILS # (AUTO) 0.1 10^3/uL (0.0-0.2); ABSOLUTE EOSINOPHILS # (AUTO) 0.2 10^3/uL (0.0-0.6); ABSOLUTE LYMPHOCYTES (AUTO) 2.4 10^3/uL (0.5-4.7); ABSOLUTE MONOCYTES (AUTO) 0.8 10^3/uL (0.1-1.4); ABSOLUTE NEUT (AUTO) 5.5 10^3/uL (1.7-8.2); BASOPHILS % (AUTO) 0.7 % (0-2); EOSINOPHILS % (AUTO) 2.6 % (0-6); HEMATOCRIT 37.5 % (36.0-47.0); HEMOGLOBIN 12.7 g/dL (12.0-15.5); LYMPHOCYTES % (AUTO) 27.2 % (13-45); MEAN CORPUSCULAR HEMOGLOBIN 28.5 pg (27.0-33.4); MEAN CORPUSCULAR VOLUME 84 fl (80-97); MONOCYTES % (AUTO) 8.5 % (3-13); PLATELET COUNT 337 10^3/uL (150-450); RED BLOOD COUNT 4.47 10^6/uL (3.72-5.28); RED CELL DISTRIBUTION WIDTH 15.5 % (11.5-14.0); TOTAL CELLS COUNTED % (AUTO) 100 %
== END ==
LOC: OD 13:57
PROVIDERS: ATTEND Internal Medicine Pulmonary Disease
DX: J43.2 Centrilobular emphysema (principal); R05 Cough; R06.00 Dyspnea, unspecified
CPT/HCPCS: 36415; 71046; 85025

== ENCOUNTER 2019-11-21 14:38 | Observation (INO) | payer MEDICARE, MEDICAID ==
[2019-11-21 15:13] LABS: ABSOLUTE BASOPHILS # (AUTO) 0.1 10^3/uL (0.0-0.2); ABSOLUTE EOSINOPHILS # (AUTO) 0.2 10^3/uL (0.0-0.6); ABSOLUTE LYMPHOCYTES (AUTO) 2.6 10^3/uL (0.5-4.7); ABSOLUTE MONOCYTES (AUTO) 0.7 10^3/uL (0.1-1.4); ABSOLUTE NEUT (AUTO) 4.2 10^3/uL (1.7-8.2); BASOPHILS % (AUTO) 1.4 % (0-2); HEMATOCRIT 37.8 % (36.0-47.0); HEMOGLOBIN 12.8 g/dL (12.0-15.5); LYMPHOCYTES % (AUTO) 32.9 % (13-45); MEAN CORPUSCULAR HEMOGLOBIN 28.4 pg (27.0-33.4); MEAN CORPUSCULAR VOLUME 84 fl (80-97); MONOCYTES % (AUTO) 8.8 % (3-13); PLATELET COUNT 449 10^3/uL (150-450); RED BLOOD COUNT 4.52 10^6/uL (3.72-5.28); RED CELL DISTRIBUTION WIDTH 15.3 % (11.5-14.0); SEGMENTED NEUTROPHILS % (AUTO) 53.9 % (42-78); TOTAL CELLS COUNTED % (AUTO) 100 %; WHITE BLOOD COUNT 7.8 10^3/uL (4.0-10.5)
[2019-11-21 15:26] LABS: ALKALINE PHOSPHATASE 93 U/L (38-126); ASPARTATE AMINO TRANSFERASE 18 U/L (14-36); BILIRUBIN,TOTAL 0.3 mg/dL (0.2-1.3); BLOOD UREA NITROGEN 10 mg/dL (7-20); CALCIUM 9.7 mg/dL (8.4-10.2); CARBON DIOXIDE 36 mmol/L (22-30); CHLORIDE 93 mmol/L (98-107); CREATINE KINASE 56 U/L (30-135); GLUCOSE 95 mg/dL (75-110); TOTAL PROTEIN 6.9 g/dL (6.3-8.2)
[2019-11-21 15:33] LABS: ANION GAP 4 (5-19)
[2019-11-21 15:39] LABS: CREATINE KINASE MB 1.33 ng/mL (<4.55)
[2019-11-21 15:43] LABS: TROPONIN I < 0.012 ng/mL
--- NOTE | 2019-11-21 15:47 | RADIOLOGY REPORT (SQ) ---
EXAM DESCRIPTION: CHEST SINGLE VIEW IMAGES COMPLETED DATE/TIME: 11/21/2019 3:22 pm REASON FOR STUDY: shortness of breath COMPARISON: 10/31/2019 EXAM PARAMETERS: NUMBER OF VIEWS: One view. TECHNIQUE: Single frontal radiographic view of the chest acquired. RADIATION DOSE: NA LIMITATIONS: None. FINDINGS: LUNGS AND PLEURA: No opacities, masses or pneumothorax. No pleural effusion. MEDIASTINUM AND HILAR STRUCTURES: No masses. Contour normal. HEART AND VASCULAR STRUCTURES: Heart normal in size. Normal vasculature. BONES: No acute findings. HARDWARE: None in the chest. OTHER: No other significant finding. IMPRESSION: NO ACUTE RADIOGRAPHIC FINDING IN THE CHEST. TECHNICAL DOCUMENTATION: JOB ID: [id number] 2010 [employer]- All Rights Reserved Reading location - IP/workstation name: [email or web address]
[2019-11-21] MEDS ORDERED: IPRATROPIUM/ALBUTEROL 0.5-2.5 MG/3 ML AMPUL NEB ONE ×2 (15:51→21:13)
[2019-11-21] MEDS ORDERED: ACETAMINOPHEN 325 MG TABLET PO ONE (19:28)
[2019-11-21 19:45] LABS: A TYPE INFLUENZA AG NEGATIVE (NEGATIVE); B INFLUENZA AG NEGATIVE (NEGATIVE)
[2019-11-21] MEDS ORDERED: METHYLPREDNISOLONE INJ 125 MG/2 ML SDV IV ONE (20:13)
[2019-11-21 20:45] LABS: VENOUS BLOOD BASE EXCESS 5.4 mmol/L; VENOUS BLOOD HCO3 33.5 mmol/L (20-32); VENOUS BLOOD PH 7.32 (7.30-7.42)
[2019-11-21 20:47] LABS: VENOUS BLOOD PCO2 66.9 mmHg (35-63)
[2019-11-21] MEDS ORDERED: ONDANSETRON HCL INJ/PF 4 MG/2 ML SDV IV ONE (21:32)
[2019-11-21] MEDS ORDERED: HYDRALAZINE HCL INJ/PF 20 MG/1 ML SDV IV PRN (21:33)
[2019-11-21] MEDS ORDERED: IPRATROPIUM/ALBUTEROL 0.5-2.5 MG/3 ML AMPUL NEB PRN (21:35)
--- NOTE | 2019-11-21 21:43 | ER Document Report ---
Entered by KARI WILSON SCRIBE 11/21/19 2133 Acting as scribe for:LOS MIXON DO ED General - General Chief Complaint: Chest Pain Stated Complaint: SHORTNESS OF BREATH Time Seen by Provider: 11/21/19 17:22 Information source: Patient Notes: This 58 year old female patient with COPD who continues to smoke presents to the emergency department today with complaints of shortness of breath for the last two days with associated intermittent chest tightness. Patient reports that she is on 2L of home oxygen at baseline and today she was short of breath despite the oxygen therapy. Patient denies any fevers or COVID contacts. TRAVEL OUTSIDE OF THE [place] IN LAST 30 DAYS: No - Related Data Allergies/Adverse Reactions: adhesive tape Allergy (Verified 11/21/19 15:03) pregabalin [From Lyrica] Adverse Reaction (Verified 11/21/19 15:03) swelling roflumilast Adverse Reaction (Verified 11/21/19 15:03) severe pain Past Medical History - General Information source: Patient - Social History Smoking Status: Current Every Day Smoker Cigarette use (# per day): Yes Frequency of alcohol use: None Drug Abuse: None Lives with: Family Family History: Reviewed & Not Pertinent, CAD, CVA, Malignancy - In both parents Patient has homicidal ideation: No - Past Medical History Cardiac Medical History: Reports: Hx Hypercholesterolemia, Hx Hypertension Pulmonary Medical History: Reports: Hx Bronchitis, Hx COPD, Hx Pneumonia, Hx Respiratory Failure Endocrine Medical History: Reports: Hx Hypothyroidism GI Medical History: Reports: Hx Gastroesophageal Reflux Disease Musculoskeletal Medical History: Reports Hx Arthritis, Reports Hx Fibromyalgia, Reports Hx Musculoskeletal Deformity, Reports Hx Musculoskeletal Trauma Psychiatric Medical History: Reports: Hx Depression Past Surgical History: Reports: Hx Cholecystectomy, Hx Hysterectomy - Immunizations Immunizations up to date: No Hx Diphtheria, Pertussis, Tetanus Vaccination: No Hx Pneumococcal Vaccination: 07/11/11 Review of Systems - Review of Systems Constitutional: denies: Fever EENT: No symptoms reported Cardiovascular: See HPI, Chest pain Respiratory: See HPI, Short of breath Gastrointestinal: No symptoms reported Genitourinary: No symptoms reported Female Genitourinary: No symptoms reported Musculoskeletal: No symptoms reported Skin: No symptoms reported Hematologic/Lymphatic: No symptoms reported Neurological/Psychological: No symptoms reported -: Yes All other systems reviewed and negative Physical Exam - Vital signs Vitals: Pulse Ox 96 11/21/19 14:43 - Notes Notes: Physical Exam: General: Alert. HEENT: Normocephalic. Atraumatic. PERRL. Extraocular movements intact. Oropharynx clear. Neck: Supple. Non-tender. Respiratory: Mild respiratory distress. Wheezing bilaterally. Tachypneic. On nasal cannula. Cardiovascular: Regular rate and rhythm. Abdominal: Normal Inspection. Non-tender. No distension. Normal Bowel Sounds. Back: No gross abnormalities. Extremities: Moves all four extremities. Upper extremities: Normal inspection. Normal ROM. Lower extremities: Normal inspection. No edema. Normal ROM. Neurological: Normal cognition. AAOx4. Normal speech. Psychological: Normal affect. Normal Mood. Skin: Warm. Dry. Normal color. Course - Re-evaluation Re-evalutation: Patient is a 58-year-old female who comes in complaining of chest tightness, trouble breathing and wheezing on exam. Patient saw her pain management doctor on Monday. States increased trouble breathing over the last 2 days and much worse today. Patient with wheezing on exam and increased work of breathing despite being on her home 2 L nasal cannula. COVID PCR negative. Chest x-ray within normal limits. Continued wheezing despite Solu-Medrol and neb. Will give magnesium and admit to the hospital service. Patient is agreeable to this plan. Stable at the time of admission. - Vital Signs Vital signs: Temp Pulse Resp BP Pulse Ox 98.2 F 101 H 20 167/88 H 92 11/22/19 00:31 11/22/19 00:52 11/22/19 00:52 11/22/19 00:31 11/22/19 00:52 - Laboratory Result Diagrams: 11/21/19 14:45 11/21/19 14:45 Laboratory results interpreted by me: 11/21/19 11/21/19 11/21/19 14:45 14:45 20:32 RDW 15.3 H VBG pCO2 66.9 H* VBG HCO3 33.5 H Sodium 132.6 L Chloride 93 L Carbon Dioxide 36 H Anion Gap 4 L - Diagnostic Test Radiology reviewed: Reports reviewed - EKG Interpretation by [place] EKG shows normal: Sinus rhythm Critical Care Note - Critical Care Note Total time excluding time spent on procedures (mins): 45 - Evaluation and management of respiratory distress, treatment of COPD exacerbation, coordination of admission, counseling patient Discharge - Discharge Clinical Impression: Acute exacerbation of chronic obstructive pulmonary disease (COPD), Respiratory distress Condition: Stable Disposition: ADMITTED OBSERVATION Admitting Provider: Mike (Hospitalist) Unit Admitted: Telemetry I personally performed the services described in the documentation, reviewed and edited the documentation which was dictated to the scribe in my presence, and it accurately records my words and actions.
[2019-11-21] MEDS: MAGNESIUM SULFATE/D5W 1 GM/100 ML RTUPB IV SCH ×2 (21:47→22:58)
[2019-11-21] MEDS: CHLORPHENIRAMINE MALEATE 4 MG TABLET PO SCH (22:50)
[2019-11-21] MEDS: FAMOTIDINE 20 MG TABLET PO SCH (22:50)
[2019-11-21] MEDS: PREDNISONE 20 MG TABLET PO SCH (22:50)
[2019-11-21] MEDS: FLUTICASONE NASAL SPRAY 50 MCG/SPRY 120 SPRAY/16 GM NASL SCH (22:51)
[2019-11-21] MEDS: HEPARIN SOD (PORCINE) 5,000 UNIT/ML 1 ML VIAL SUBCUT SCH (22:51)
[2019-11-21] MEDS: ACETAMINOPHEN 325 MG TABLET PO PRN (23:24)
[2019-11-22] MEDS: IPRATROPIUM/ALBUTEROL 0.5-2.5 MG/3 ML AMPUL NEB SCH ×4 (00:51→19:35)
[2019-11-22 00:56] LABS: ARTERIAL BLOOD BASE EXCESS 5.5 mmol/L; ARTERIAL BLOOD FIO2 28%; ARTERIAL BLOOD H2CO3 1.57 mmol/L (1.05-1.35); ARTERIAL BLOOD HCO3 31.6 mmol/L (20-24); ARTERIAL BLOOD O2 SATURATION 92.6 % (94-98); ARTERIAL BLOOD PCO2 52.2 mmHg (35-45); ARTERIAL BLOOD PO2 65.6 mmHg (80-100); ARTERIAL BLOOD TOTAL CO2 33.2 mmol/L (21-25)
[2019-11-22] MEDS: KETOROLAC TROMETHAMINE INJ/PF 30 MG/1 ML SDV IV PRN ×2 (01:45→10:09)
[2019-11-22] MEDS ORDERED: METOPROLOL TARTRATE 50 MG TABLET PO ONE (01:45)
[2019-11-22] MEDS ORDERED: HYDRALAZINE HCL INJ/PF 20 MG/1 ML SDV IV ONE (01:45)
--- NOTE | 2019-11-22 05:29 | PDOC H&P ---
History of Present Illness Admission Date/PCP: 11/21/19 21:59 KAREN DICKERSON MD Patient complains of: Shortness of breath History of Present Illness: MAXWELL GREEN is a 58 year old female with a past medical history of COPD, chronic bronchitis, obstructive sleep apnea, oxygen, opiate, benzodiazepine and tobacco dependence. She presents with 48 hours of shortness of breath with intermittent chest tightness. In the emergency department she is found to have a reduced respiratory rate though oxygen saturation of 100%. PCO2 is elevated at 66. She admits to inconsistent use of trilogy. She otherwise denies recent changes in medication regiment. Repeat blood gas shows reduction in PCO2 with supportive care. She admits nonproductive cough, denies fever chills nausea vomiting. Past Medical History Cardiac Medical History: Reports: Hyperlipidema, Hypertension Denies: Congestive Heart Failure, Coronary Artery Disease, DVT, Pulmonary Embolism Pulmonary Medical History: Reports: Bronchitis, Chronic Obstructive Pulmonary Disease (COPD), Pneumonia, Respiratory Failure Denies: Sleep Apnea Neurological Medical History: Denies: Seizures Endocrine Medical History: Reports: Hypothyroidism Denies: Diabetes Mellitus Type 1, Diabetes Mellitus Type 2 - borderline, Hyperthyroidism GI Medical History: Reports: Gastroesophageal Reflux Disease Denies: Cirrhosis, Hepatitis Musculoskeltal Medical History: Reports: Arthritis, Fibromyalgia Psychiatric Medical History: Reports: Depression, Tobacco Dependency Infectious Medical History: Denies: Clostridium Difficile, Methicillin-Resistant Staph Aureus Past Surgical History Past Surgical History: Reports: Cholecystectomy, Hysterectomy Social History Information Source: Patient Lives with: Family Smoking Status: Current Every Day Smoker Cigarettes Packs Per Day: 1 Number of Years Smokin Frequency of Alcohol Use: None Hx Recreational Drug Use: No Drugs: None Hx Prescription Drug Abuse: No - Advance Directive Resuscitation Status: Full Code Family History Family History: Reviewed & Not Pertinent, CAD, CVA, Malignancy - In both parents Parental Family History Reviewed: Yes Children Family History Reviewed: Yes Sibling(s) Family History Reviewed.: Yes Medication/Allergy Home Medications: Albuterol Sulfate [Ventolin Hfa 8 gm Mdi (1 Mdi/ER Disp)] 2 puff IH Q4HP PRN 04/10/19 Amlodipine Besylate [Norvasc 10 mg Tablet] 10 mg PO DAILY 04/10/19 Duloxetine HCl [Cymbalta 30 mg Capsule.dr] 90 mg PO DAILY 04/10/19 Estrogens,Conjugated [Premarin 1.25 mg Tablet] 1.25 mg PO DAILY 04/10/19 Fluticasone Propionate [Flonase Nasal [place] 50 Mcg/[place] 16 gm] 1 spray NASL DAILY 04/10/19 Fluticasone/Salmeterol [Advair 500-50 Diskus 14 Dose/Diskus] 1 puff IH Q12 04/10/19 Levothyroxine Sodium [Synthroid 0.112 mg Tablet] 0.112 mg PO Q6AM 04/10/19 Metoprolol Succinate [Toprol Xl 50 mg Tab.sr] 50 mg PO QHS 04/10/19 Montelukast Sodium [Singulair 10 mg Tablet] 10 mg PO QHS 04/10/19 Oxycodone HCl [Oxy-Ir 5 mg Tablet] 10 mg PO Q6HP PRN 04/10/19 Oxycodone HCl [Oxycontin] 15 mg PO Q8 04/10/19 Umeclidinium [place] [Incruse Ellipta] 1 puff IH DAILY 04/10/19 Alprazolam [Xanax 0.5 mg Tablet] 0.5 mg PO DAILYP PRN #5 tab 04/12/19 Aspirin [Ecotrin 81 mg EC Tablet] 81 mg PO DAILY 08/04/19 Dexlansoprazole [Dexilant 60 mg Capsule] 60 mg PO DAILY 08/04/19 Lisinopril [Prinivil 5 mg Tablet] 5 mg PO DAILY 08/04/19 Metformin HCl [Glucophage 500 mg Tablet] 500 mg PO QPM 08/04/19 Azithromycin 250 mg PO DAILY 5 Days #5 tablet 08/06/19 Cefuroxime Axetil [Ceftin 250 mg Tablet] 1 tab PO BID 8 Days #16 tablet 08/06/19 Ergocalciferol (Vitamin D2) [Drisdol 50,000 unit (1.25MG) Capsule] 50,000 unit PO FR@1000 14 Days #2 08/06/19 Nicotine [Nicoderm 7 mg/24 Hr Transdermal Patch] 1 each TD QHS patch.td24 08/06/19 Prednisone [Deltasone 5 mg Tablet] 5 mg PO ASDIR #32 tablet 08/06/19 Allergies/Adverse Reactions: adhesive tape Allergy (Verified 11/21/19 15:03) pregabalin [From Lyrica] Adverse Reaction (Verified 11/21/19 15:03) swelling roflumilast Adverse Reaction (Verified 11/21/19 15:03) severe pain Review of Systems Constitutional: ABSENT: chills, fever(s), headache(s), weight gain, weight loss Eyes: ABSENT: visual disturbances Ears: ABSENT: hearing changes Cardiovascular: ABSENT: chest pain, dyspnea on exertion, edema, orthropnea, palpitations Respiratory: ABSENT: cough, hemoptysis Gastrointestinal: ABSENT: abdominal pain, constipation, diarrhea, hematemesis, hematochezia, nausea, vomiting Genitourinary: ABSENT: dysuria, hematuria Musculoskeletal: ABSENT: joint swelling Integumentary: ABSENT: rash, wounds Neurological: ABSENT: abnormal gait, abnormal speech, confusion, dizziness, focal weakness, syncope Psychiatric: ABSENT: anxiety, depression, homidical ideation, suicidal ideation Endocrine: ABSENT: cold intolerance, heat intolerance, polydipsia, polyuria Hematologic/Lymphatic: ABSENT: easy bleeding, easy bruising Physical Exam Vital Signs: Temp Pulse Resp BP Pulse Ox 97.4 F 77 18 117/69 96 11/22/19 03:57 11/22/19 03:57 11/22/19 03:58 11/22/19 03:57 11/22/19 03:57 Intake & Output 11/20/19 11/21/19 11/22/19 11:59 11:59 11:59 Intake Total 200 Balance 200 Weight 87.4 kg General appearance: PRESENT: no acute distress, well-developed, well-nourished Head exam: PRESENT: atraumatic, normocephalic Eye exam: PRESENT: conjunctiva pink, EOMI, PERRLA. ABSENT: scleral icterus Ear exam: PRESENT: normal external ear exam Mouth exam: PRESENT: moist, tongue midline Neck exam: ABSENT: carotid bruit, JVD, lymphadenopathy, thyromegaly Respiratory exam: PRESENT: crackles, decreased breath sounds, prolonged expiratory phas. ABSENT: accessory muscle use, rales, rhonchi, wheezes Cardiovascular exam: PRESENT: RRR. ABSENT: diastolic murmur, rubs, systolic murmur Pulses: PRESENT: normal dorsalis pedis pul Vascular exam: PRESENT: normal capillary refill GI/Abdominal exam: PRESENT: normal bowel sounds, soft. ABSENT: distended, guarding, mass, organolmegaly, rebound, tenderness Rectal exam: PRESENT: deferred Extremities exam: PRESENT: full ROM. ABSENT: calf tenderness, clubbing, pedal edema Neurological exam: PRESENT: alert, awake, oriented to person, oriented to place, oriented to time, oriented to situation, CN II-XII grossly intact. ABSENT: motor sensory deficit Psychiatric exam: PRESENT: appropriate affect, normal mood. ABSENT: homicidal ideation, suicidal ideation Skin exam: PRESENT: dry, intact, warm. ABSENT: cyanosis, rash Results Laboratory Results: 11/21/19 14:45 11/21/19 14:45 11/21/19 11/21/19 11/21/19 14:45 14:45 20:32 WBC 7.8 RBC 4.52 Hgb 12.8 Hct 37.8 MCV 84 MCH 28.4 MCHC 34.0 RDW 15.3 H Plt Count 449 Seg Neutrophils % 53.9 Carbonic Acid HCO3/H2CO3 Ratio ABG pH ABG pCO2 ABG pO2 ABG HCO3 ABG O2 Saturation ABG Base Excess VBG pH 7.32 VBG pCO2 66.9 H* VBG HCO3 33.5 H VBG Base Excess 5.4 FiO2 Sodium 132.6 L Potassium 4.0 Chloride 93 L Carbon Dioxide 36 H Anion Gap 4 L BUN 10 Creatinine 0.57 Est GFR ( Amer) > 60 Glucose 95 Calcium 9.7 Total Bilirubin 0.3 AST 18 Alkaline Phosphatase 93 Total Protein 6.9 Albumin 4.0 11/22/19 00:50 WBC RBC Hgb Hct MCV MCH MCHC RDW Plt Count Seg Neutrophils % Carbonic Acid 1.57 H HCO3/H2CO3 Ratio 20:1 ABG pH 7.40 ABG pCO2 52.2 H ABG pO2 65.6 L ABG HCO3 31.6 H ABG O2 Saturation 92.6 L ABG Base Excess 5.5 VBG pH VBG pCO2 VBG HCO3 VBG Base Excess FiO2 28% Sodium Potassium Chloride Carbon Dioxide Anion Gap BUN Creatinine Est GFR ( Amer) Glucose Calcium Total Bilirubin AST Alkaline Phosphatase Total Protein Albumin 11/21/19 11/21/19 11/21/19 14:45 14:45 14:45 Creatine Kinase 56 CK-MB (CK-2) 1.33 Troponin I < 0.012 NT-Pro-B Natriuret Pep 51 11/21/19 19:28 Creatine Kinase CK-MB (CK-2) Troponin I < 0.012 NT-Pro-B Natriuret Pep Impressions: Chest X-Ray 11/21/19 15:03 IMPRESSION: NO ACUTE RADIOGRAPHIC FINDING IN THE CHEST. Assessment and Plan - Diagnosis (1) Acute bronchitis Qualifiers: Is this a current diagnosis for this admission?: Yes Plan: Complicated by COPD, persistent tobacco, narcotic, benzodiazepine dependence. Trial prednisone, albuterol, Atrovent, incentive spirometry and flutter valve. (2) Acute exacerbation of chronic obstructive pulmonary disease (COPD) Is this a current diagnosis for this admission?: Yes Plan: Please see #1 (3) Acute and chronic respiratory failure with hypercapnia Is this a current diagnosis for this admission?: Yes Plan: Limit narcotics and benzodiazepines avoiding respiratory depression, patient educated (4) Tobacco abuse counseling Is this a current diagnosis for this admission?: Yes Plan: Tobacco cessation counseling performed, nicotine replacement options discussed. - Time Time Spent with patient: 25-34 minutes - Inpatient Certification Medical Necessity: Need Close Monitoring Due to Risk of Patient Decompensation
[2019-11-22] MEDS ORDERED: CHLORPHENIRAMINE MALEATE 4 MG TABLET ONE (05:41)
[2019-11-22] MEDS: CHLORPHENIRAMINE MALEATE 4 MG TABLET PO SCH ×3 (05:49→17:09)
[2019-11-22] MEDS: HEPARIN SOD (PORCINE) 5,000 UNIT/ML 1 ML VIAL SUBCUT SCH ×3 (05:50→21:11)
[2019-11-22 06:29] LABS: ABSOLUTE LYMPHOCYTES (AUTO) 0.8 10^3/uL (0.5-4.7); ABSOLUTE NEUT (AUTO) 5.6 10^3/uL (1.7-8.2); BASOPHILS % (AUTO) 0.4 % (0-2); HEMATOCRIT 37.3 % (36.0-47.0); HEMOGLOBIN 12.7 g/dL (12.0-15.5); LYMPHOCYTES % (AUTO) 12.5 % (13-45); MEAN CORPUSCULAR HEMOGLOBIN 28.3 pg (27.0-33.4); MEAN CORPUSCULAR VOLUME 83 fl (80-97); MONOCYTES % (AUTO) 0.6 % (3-13); PLATELET COUNT 419 10^3/uL (150-450); RED BLOOD COUNT 4.48 10^6/uL (3.72-5.28); RED CELL DISTRIBUTION WIDTH 16.2 % (11.5-14.0); SEGMENTED NEUTROPHILS % (AUTO) 86.5 % (42-78); TOTAL CELLS COUNTED % (AUTO) 100 %; WHITE BLOOD COUNT 6.5 10^3/uL (4.0-10.5)
[2019-11-22 06:55] LABS: ANION GAP 6 (5-19); BLOOD UREA NITROGEN 12 mg/dL (7-20); CALCIUM 9.5 mg/dL (8.4-10.2); CARBON DIOXIDE 31 mmol/L (22-30); CHLORIDE 94 mmol/L (98-107); GLUCOSE 175 mg/dL (75-110); POTASSIUM 4.2 mmol/L (3.6-5.0)
[2019-11-22] MEDS: ACETAMINOPHEN 325 MG TABLET PO PRN ×2 (07:21→17:15)
--- NOTE | 2019-11-22 07:30 | EKG REPORT ---
SEVERITY:- NORMAL ECG - SINUS RHYTHM : Confirmed by: Paulie Juarez MD 22-Nov-2019 07:30:18
[2019-11-22] MEDS ORDERED: METOPROLOL TARTRATE 50 MG TABLET PO SCH (10:00)
[2019-11-22] MEDS: FLUTICASONE NASAL SPRAY 50 MCG/SPRY 120 SPRAY/16 GM NASL SCH ×2 (10:06→21:11)
[2019-11-22] MEDS: PREDNISONE 20 MG TABLET PO SCH ×2 (10:07→17:09)
[2019-11-22] MEDS: FAMOTIDINE 20 MG TABLET PO SCH ×2 (10:07→21:12)
[2019-11-22] MEDS ORDERED: CYCLOBENZAPRINE HCL 10 MG TABLET PO PRN (10:39)
[2019-11-22] MEDS ORDERED: OXYCODONE HCL IR 5 MG TABLET PO PRN (10:39)
[2019-11-22] MEDS ORDERED: NICOTINE 14 MG/24 HR PATCH.TD24 TD PRN (11:00)
[2019-11-22] MEDS ORDERED: NICOTINE 14 MG/24 HR PATCH.TD24 TD SCH (11:00)
--- NOTE | 2019-11-22 11:01 | PDOC PROGRESS REPORT ---
Subjective Progress Note for:: 11/22/19 Subjective:: Patient still having some shortness of breath today but a little bit better from prior. States she is having a headache and back pain. She has chronic back pain and takes OxyContin and oxycodone which she would like to be restarted on. Reason For Visit: COPD EXACERBATION, BRONCHITIS OPIATE BENZO DEP Physical Exam Vital Signs: Temp Pulse Resp BP Pulse Ox 98.3 F 99 16 129/80 H 94 11/22/19 07:21 11/22/19 08:07 11/22/19 08:07 11/22/19 07:21 11/22/19 08:07 Intake & Output 11/21/19 11/22/19 11/23/19 06:59 06:59 06:59 Intake Total 420 Output Total 450 Balance -30 Weight 87.4 kg General appearance: PRESENT: no acute distress, cooperative Neck exam: ABSENT: JVD Respiratory exam: PRESENT: clear to auscultation carlin, prolonged expiratory phas, unlabored. ABSENT: tachypnea, wheezes Cardiovascular exam: PRESENT: RRR, +S1, +S2. ABSENT: tachycardia GI/Abdominal exam: PRESENT: soft. ABSENT: rebound, rigid, tenderness Neurological exam: PRESENT: alert, awake, oriented to person, oriented to place, oriented to time Results Laboratory Results: 11/22/19 05:42 11/22/19 05:42 11/21/19 11/21/19 11/21/19 14:45 14:45 20:32 WBC 7.8 RBC 4.52 Hgb 12.8 Hct 37.8 MCV 84 MCH 28.4 MCHC 34.0 RDW 15.3 H Plt Count 449 Seg Neutrophils % 53.9 Carbonic Acid HCO3/H2CO3 Ratio ABG pH ABG pCO2 ABG pO2 ABG HCO3 ABG O2 Saturation ABG Base Excess VBG pH 7.32 VBG pCO2 66.9 H* VBG HCO3 33.5 H VBG Base Excess 5.4 FiO2 Sodium 132.6 L Potassium 4.0 Chloride 93 L Carbon Dioxide 36 H Anion Gap 4 L BUN 10 Creatinine 0.57 Est GFR ( Amer) > 60 Glucose 95 Calcium 9.7 Total Bilirubin 0.3 AST 18 Alkaline Phosphatase 93 Total Protein 6.9 Albumin 4.0 11/22/19 11/22/19 11/22/19 00:50 05:42 05:42 WBC 6.5 RBC 4.48 Hgb 12.7 Hct 37.3 MCV 83 MCH 28.3 MCHC 34.0 RDW 16.2 H Plt Count 419 Seg Neutrophils % 86.5 H Carbonic Acid 1.57 H HCO3/H2CO3 Ratio 20:1 ABG pH 7.40 ABG pCO2 52.2 H ABG pO2 65.6 L ABG HCO3 31.6 H ABG O2 Saturation 92.6 L ABG Base Excess 5.5 VBG pH VBG pCO2 VBG HCO3 VBG Base Excess FiO2 28% Sodium 131.0 L Potassium 4.2 Chloride 94 L Carbon Dioxide 31 H Anion Gap 6 BUN 12 Creatinine 0.52 Est GFR ( Amer) > 60 Glucose 175 H Calcium 9.5 Total Bilirubin AST Alkaline Phosphatase Total Protein Albumin 11/21/19 11/21/19 11/21/19 14:45 14:45 14:45 Creatine Kinase 56 CK-MB (CK-2) 1.33 Troponin I < 0.012 NT-Pro-B Natriuret Pep 51 11/21/19 11/22/19 19:28 05:42 Creatine Kinase CK-MB (CK-2) Troponin I < 0.012 0.013 NT-Pro-B Natriuret Pep Impressions: Chest X-Ray 11/21/19 15:03 IMPRESSION: NO ACUTE RADIOGRAPHIC FINDING IN THE CHEST. Assessment and Plan - Diagnosis (1) Acute exacerbation of chronic obstructive pulmonary disease (COPD) Is this a current diagnosis for this admission?: Yes Plan: Duo nebs every 6 hours standing. Will supplement as needed. Prednisone 20 mg twice daily. Laba/lama/ICS ordered. She uses trilogy at nighttime so on BiPAP nocturnally while inpatient. (2) Acute bronchitis Qualifiers: Is this a current diagnosis for this admission?: Yes Plan: Complicated by COPD, persistent tobacco, narcotic, benzodiazepine dependence. Flonase. Continue nebulizer treatments. (3) Acute and chronic respiratory failure with hypoxia Is this a current diagnosis for this admission?: Yes Plan: Uses 2 L nasal cannula at home. Currently maintaining adequate SPO2 on 2 L. (4) Chronic pain Qualifiers: Chronic pain type: chronic pain syndrome Qualified Code(s): G89.4 - Chronic pain syndrome Is this a current diagnosis for this admission?: Yes Plan: We will cautiously resume patient's narcotics. She has a history of chronic back pain for which she takes OxyContin 15 mg twice daily with supplemental oxycodone as needed. I will restart her OxyContin at a reduced dose and reduce the frequency of PRN oxycodone. We will try to supplement with other nonnarcotic pain medications in the interim. (5) Tobacco dependence Is this a current diagnosis for this admission?: Yes Plan: Chantix resumed. Nicotine patch as needed offered. - Time Time Spent with patient: 15-24 minutes
[2019-11-22] MEDS: LISINOPRIL 5 MG TABLET PO SCH (11:03)
[2019-11-22] MEDS: OXYCODONE HCL SR 10 MG TABLET PO SCH ×2 (11:03→21:12)
[2019-11-22] MEDS: AMLODIPINE BESYLATE 5 MG TABLET PO SCH (11:04)
[2019-11-22] MEDS: FLUTICASONE/UMECLIDIN/VILANTER 100-62.5-25 MCG/DOSE IH SCH (12:05)
[2019-11-22] MEDS: OXYCODONE HCL IR 5 MG TABLET PO PRN (14:40)
[2019-11-22] MEDS: VARENICLINE TARTRATE 0.5 MG TABLET PO SCH (17:09)
[2019-11-22] MEDS ORDERED: METFORMIN HCL 500 MG TABLET PO SCH (18:00)
[2019-11-22] MEDS ORDERED: ATORVASTATIN CALCIUM 40 MG TABLET PO SCH (22:00)
[2019-11-22] MEDS ORDERED: METOPROLOL SUCCINATE 50 MG TAB.SR.24H PO SCH (22:00)
[2019-11-22] MEDS ORDERED: MONTELUKAST SODIUM 10 MG TABLET PO SCH (22:00)
[2019-11-23] MEDS: IPRATROPIUM/ALBUTEROL 0.5-2.5 MG/3 ML AMPUL NEB SCH ×2 (02:00→07:51)
[2019-11-23] MEDS: OXYCODONE HCL IR 5 MG TABLET PO PRN (03:41)
[2019-11-23] MEDS: HEPARIN SOD (PORCINE) 5,000 UNIT/ML 1 ML VIAL SUBCUT SCH (05:36)
[2019-11-23] MEDS ORDERED: LEVOTHYROXINE SODIUM 0.112 MG TABLET PO SCH (06:00)
[2019-11-23] MEDS ORDERED: PANTOPRAZOLE SODIUM 20 MG TABLET.DR PO SCH (06:00)
[2019-11-23 06:41] LABS: ANION GAP 6 (5-19); BLOOD UREA NITROGEN 14 mg/dL (7-20); CARBON DIOXIDE 31 mmol/L (22-30); CHLORIDE 94 mmol/L (98-107); GLUCOSE 110 mg/dL (75-110); POTASSIUM 3.9 mmol/L (3.6-5.0)
[2019-11-23 08:37] VITALS: BP 142/82
--- NOTE | 2019-11-23 09:20 | PDOC DISCHARGE SUMMARY ---
Impression - Admit/DC Date/PCP Admission Date/Primary Care Provider: 11/21/19 21:59 KAREN HERNANDEZ MD Discharge Date: 11/23/19 - Discharge Diagnosis (1) Acute exacerbation of chronic obstructive pulmonary disease (COPD) Is this a current diagnosis for this admission?: Yes (2) Acute bronchitis Is this a current diagnosis for this admission?: Yes (3) Acute and chronic respiratory failure with hypoxia Is this a current diagnosis for this admission?: Yes (4) Chronic pain Is this a current diagnosis for this admission?: Yes (5) Tobacco dependence Is this a current diagnosis for this admission?: Yes - Additional Information Resuscitation Status: Full Code Referrals: KAREN HERNANDEZ MD [Primary Care Provider] - Follow up as needed Prescriptions: Prednisone [Deltasone 20 mg Tablet] 20 mg PO BID #6 tablet Nicotine [Nicoderm 14 mg/24 Hr Transdermal Patch] 1 each TD DAILYP PRN #20 patch.td24 PRN Reason: Home Medications: Duloxetine HCl [Cymbalta 30 mg Capsule.dr] 90 mg PO DAILY 04/10/19 Estrogens,Conjugated [Premarin 1.25 mg Tablet] 1.25 mg PO DAILY 04/10/19 Fluticasone Propionate [Flonase Nasal [place] 50 Mcg/[place] 16 gm] 1 spray NASL DAILY 04/10/19 Fluticasone/Salmeterol [Advair 500-50 Diskus 14 Dose/Diskus] 1 puff IH Q12 04/10/19 Levothyroxine Sodium [Synthroid 0.112 mg Tablet] 0.112 mg PO Q6AM 04/10/19 Metoprolol Succinate [Toprol Xl 50 mg Tab.sr] 50 mg PO QHS 04/10/19 Montelukast Sodium [Singulair 10 mg Tablet] 10 mg PO QHS 04/10/19 Oxycodone HCl [Oxy-Ir 5 mg Tablet] 10 mg PO Q6HP PRN 04/10/19 Oxycodone HCl [Oxycontin] 15 mg PO Q8 04/10/19 Umeclidinium [place] [Incruse Ellipta] 1 puff IH DAILY 04/10/19 Alprazolam [Xanax 0.5 mg Tablet] 0.5 mg PO DAILYP PRN #5 tab 04/12/19 Aspirin [Ecotrin 81 mg EC Tablet] 81 mg PO DAILY 08/04/19 Dexlansoprazole [Dexilant 60 mg Capsule] 60 mg PO DAILY 08/04/19 Lisinopril [Prinivil 5 mg Tablet] 5 mg PO DAILY 08/04/19 Metformin HCl [Glucophage 500 mg Tablet] 500 mg PO QPM 08/04/19 Amlodipine Besylate [Norvasc 5 mg Tablet] 5 mg PO DAILY 11/22/19 Atorvastatin Calcium [Lipitor 40 mg Tablet] 40 mg PO QHS 11/22/19 Cyclobenzaprine HCl [Flexeril 10 mg Tablet] 10 mg PO TIDP PRN 11/22/19 Varenicline Tartrate [Chantix 0.5 mg Tablet] 0.5 mg PO BID 11/22/19 Nicotine [Nicoderm 14 mg/24 Hr Transdermal Patch] 1 each TD DAILYP PRN #20 patch.td24 11/23/19 Prednisone [Deltasone 20 mg Tablet] 20 mg PO BID #6 tablet 11/23/19 History of Present Illiness History of Present Illness: MAXWELL GREEN is a 58 year old female with a past medical history of COPD, chronic bronchitis, obstructive sleep apnea, oxygen, opiate, benzodiazepine and tobacco dependence. She presents with 48 hours of shortness of breath with intermittent chest tightness. In the emergency department she is found to have a reduced respiratory rate though oxygen saturation of 100%. PCO2 is elevated at 66. She admits to inconsistent use of trilogy. She otherwise denies recent changes in medication regiment. Repeat blood gas shows reduction in PCO2 with supportive care. She admits nonproductive cough, denies fever chills nausea vom iting. Hospital Course Hospital Course: Patient was admitted for evaluation of shortness of breath. Chest x-ray showed no evidence of pneumonia. Influenza test was negative. SARS-CoV-2 rapid test was negative. Patient was admitted for treatment of acute exacerbation of COPD and acute bronchitis. She was started on nebulizer treatments, steroids. She w as also put on a BiPAP at nighttime as she uses trilogy at home. Patient's symptoms have improved significantly. Her narcotics were thought to have contributed to patient's COPD but patient insists on continuing her narcotics. Today patient is breathing a lot better and her lungs sound clear. She states that she feels close to her baseline today. Patient was ambulated around the hallway on 2 L nasal cannula which she uses at home without any significant dyspnea nor hypoxia. Patient is set for discharge and is being set up with Dr. Hernandez for a follow-up visit. Physical Exam Vital Signs: Temp Pulse Resp BP Pulse Ox 98.3 F 81 16 142/82 H 92 11/23/19 08:17 11/23/19 08:17 11/23/19 08:17 11/23/19 08:17 11/23/19 08:17 Intake & Output 11/22/19 11/23/19 11/24/19 06:59 06:59 06:59 Intake Total 420 1704 Output Total 450 1900 Balance -30 -196 Weight 87.4 kg 90 kg General appearance: PRESENT: no acute distress, cooperative Neck exam: ABSENT: JVD Respiratory exam: PRESENT: chest wall tenderness, symmetrical, unlabored. ABSENT: accessory muscle use, retraction, tachypnea, wheezes Neurological exam: PRESENT: alert, awake, oriented to person, oriented to place, oriented to time, oriented to situation Results Laboratory Results: WBC 6.5 10^3/uL (4.0-10.5) 11/22/19 05:42 RBC 4.48 10^6/uL (3.72-5.28) 11/22/19 05:42 Hgb 12.7 g/dL (12.0-15.5) 11/22/19 05:42 Hct 37.3 % (36.0-47.0) 11/22/19 05:42 MCV 83 fl (80-97) 11/22/19 05:42 MCH 28.3 pg (27.0-33.4) 11/22/19 05:42 MCHC 34.0 g/dL (32.0-36.0) 11/22/19 05:42 RDW 16.2 % (11.5-14.0) H 11/22/19 05:42 Plt Count 419 10^3/uL (150-450) 11/22/19 05:42 Lymph % (Auto) 12.5 % (13-45) L 11/22/19 05:42 [place] % (Auto) 0.6 % (3-13) L 11/22/19 05:42 Eos % (Auto) 0.0 % (0-6) 11/22/19 05:42 Baso % (Auto) 0.4 % (0-2) 11/22/19 05:42 Absolute Neuts (auto) 5.6 10^3/uL (1.7-8.2) 11/22/19 05:42 Absolute Lymphs (auto) 0.8 10^3/uL (0.5-4.7) 11/22/19 05:42 Absolute Monos (auto) 0.0 10^3/uL (0.1-1.4) L 11/22/19 05:42 Absolute Eos (auto) 0.0 10^3/uL (0.0-0.6) 11/22/19 05:42 Absolute Basos (auto) 0.0 10^3/uL (0.0-0.2) 11/22/19 05:42 Seg Neutrophils % 86.5 % (42-78) H 11/22/19 05:42 Carbonic Acid 1.57 mmol/L (1.05-1.35) H 11/22/19 00:50 HCO3/H2CO3 Ratio 20:1 11/22/19 00:50 ABG pH 7.40 (7.35-7.45) 11/22/19 00:50 ABG pCO2 52.2 mmHg (35-45) H 11/22/19 00:50 ABG pO2 65.6 mmHg (80-100) L 11/22/19 00:50 ABG HCO3 31.6 mmol/L (20-24) H 11/22/19 00:50 ABG Total CO2 33.2 mmol/L (21-25) H 11/22/19 00:50 ABG O2 Saturation 92.6 % (94-98) L 11/22/19 00:50 ABG Base Excess 5.5 mmol/L 11/22/19 00:50 VBG pH 7.32 (7.30-7.42) 11/21/19 20:32 VBG pCO2 66.9 mmHg (35-63) H* 11/21/19 20:32 VBG HCO3 33.5 mmol/L (20-32) H 11/21/19 20:32 VBG Base Excess 5.4 mmol/L 11/21/19 20:32 FiO2 28% 11/22/19 00:50 Sodium 130.6 mmol/L (137-145) L 11/23/19 05:27 Potassium 3.9 mmol/L (3.6-5.0) 11/23/19 05:27 Chloride 94 mmol/L (98-107) L 11/23/19 05:27 Carbon Dioxide 31 mmol/L (22-30) H 11/23/19 05:27 Anion Gap 6 (5-19) 11/23/19 05:27 BUN 14 mg/dL (7-20) 11/23/19 05:27 Creatinine 0.55 mg/dL (0.52-1.25) 11/23/19 05:27 Est GFR ( Amer) > 60 (>60) 11/23/19 05:27 Est GFR (MDRD) Non-Af > 60 (>60) 11/23/19 05:27 Glucose 110 mg/dL (75-110) 11/23/19 05:27 Calcium 9.0 mg/dL (8.4-10.2) 11/23/19 05:27 Total Bilirubin 0.3 mg/dL (0.2-1.3) 11/21/19 14:45 Direct Bilirubin 0.0 mg/dL (0.0-0.4) 11/21/19 14:45 Neonat Total Bilirubin Not Reportable 11/21/19 14:45 Neonat Direct Bilirubin Not Reportable 11/21/19 14:45 Neonat Indirect Bili Not Reportable 11/21/19 14:45 AST 18 U/L (14-36) 11/21/19 14:45 ALT 13 U/L (<35) 11/21/19 14:45 Alkaline Phosphatase 93 U/L (38-126) 11/21/19 14:45 Creatine Kinase 56 U/L (30-135) 11/21/19 14:45 CK-MB (CK-2) 1.33 ng/mL (<4.55) 11/21/19 14:45 Troponin I 0.013 ng/mL 11/22/19 05:42 NT-Pro-B Natriuret Pep 51 pg/mL (<125) 11/21/19 14:45 Total Protein 6.9 g/dL (6.3-8.2) 11/21/19 14:45 Albumin 4.0 g/dL (3.5-5.0) 11/21/19 14:45 COVID-19 Source Cancelled 11/21/19 15:17 COVID-19 (JANICE) Cancelled 11/21/19 15:17 Influenza A (Rapid) NEGATIVE (NEGATIVE) 11/21/19 15:17 Influenza B (Rapid) NEGATIVE (NEGATIVE) 11/21/19 15:17 SARS-CoV-2 (PCR) NEGATIVE (NEGATIVE) 11/21/19 18:42 11/21/19 11/21/19 11/21/19 14:45 14:45 19:28 CK-MB (CK-2) 1.33 Troponin I < 0.012 < 0.012 NT-Pro-B Natriuret Pep 51 11/22/19 05:42 CK-MB (CK-2) Troponin I 0.013 NT-Pro-B Natriuret Pep Impressions: Chest X-Ray 11/21/19 15:03 IMPRESSION: NO ACUTE RADIOGRAPHIC FINDING IN THE CHEST. Plan Time Spent: Less than 30 Minutes Stroke Is this a Stroke Patient?: No Acute Heart Failure - Is this a Heart Failure Patient?: No
[2019-11-23] MEDS: PREDNISONE 20 MG TABLET PO SCH (09:30)
[2019-11-23] MEDS: VARENICLINE TARTRATE 0.5 MG TABLET PO SCH (09:30)
[2019-11-23] MEDS: FAMOTIDINE 20 MG TABLET PO SCH (09:30)
[2019-11-23] MEDS: LISINOPRIL 5 MG TABLET PO SCH (09:31)
[2019-11-23] MEDS: AMLODIPINE BESYLATE 5 MG TABLET PO SCH (09:31)
[2019-11-23] MEDS: OXYCODONE HCL SR 10 MG TABLET PO SCH (09:31)
[2019-11-23] MEDS: FLUTICASONE/UMECLIDIN/VILANTER 100-62.5-25 MCG/DOSE IH SCH (09:32)
[2019-11-23] MEDS: FLUTICASONE NASAL SPRAY 50 MCG/SPRY 120 SPRAY/16 GM NASL SCH (09:32)
[2019-11-23] MEDS ORDERED: FLUTICASONE NASAL SPRAY 50 MCG/SPRY 120 SPRAY/16 GM NASL SCH (10:00)
[2019-11-23] MEDS ORDERED: ESTROGENS,CONJUGATED 1.25 MG TABLET PO SCH (10:00)
[2019-11-23] MEDS ORDERED: ASPIRIN 81 MG TABLET, ENT COATED PO SCH (10:00)
[2019-11-23] MEDS ORDERED: DULOXETINE HCL 30 MG CAPSULE.DR PO SCH (10:00)
== END 2019-11-23 11:48 | disposition home or self-care (01) ==
LOC: ER 14:38 → EH 21:59 → 3W 11-22 00:26
PROVIDERS: ADMIT Internal Medicine; ATTEND Internal Medicine
DX: J44.1 Chronic obstructive pulmonary disease with (acute) exacerbation (principal); J20.9 Acute bronchitis, unspecified; J44.0 Chronic obstructive pulmonary disease with (acute) lower respiratory infection; J96.21 Acute and chronic respiratory failure with hypoxia; G89.4 Chronic pain syndrome; M54.9 Dorsalgia, unspecified; F17.210 Nicotine dependence, cigarettes, uncomplicated; F11.20 Opioid dependence, uncomplicated; F13.20 Sedative, hypnotic or anxiolytic dependence, uncomplicated; R51 Headache; I10 Essential (primary) hypertension; G47.33 Obstructive sleep apnea (adult) (pediatric); M19.90 Unspecified osteoarthritis, unspecified site; E03.9 Hypothyroidism, unspecified; Z99.81 Dependence on supplemental oxygen; Z79.51 Long term (current) use of inhaled steroids; Z79.899 Other long term (current) drug therapy; Z79.82 Long term (current) use of aspirin; Z03.818 Encounter for observation for suspected exposure to other biological agents ruled out; Z79.890 Hormone replacement therapy
CPT/HCPCS: 93005; 94640 ×4; 99285; 96375; 96365; 96366; 36415 ×3; 82553; 82803 ×2; 82550; 85025 ×2; 80048 ×2; 80053; 84484 ×2; 87804; 83880; 71045; 94799; 93010; 36600; 94660 ×2; 94667; 94668; U0003; A9270 ×35; J1644 ×3; J0360 ×2; J2930; J1885; J3475; J3490 ×3; J2405; 87635; J7512; J7620

== ENCOUNTER 2019-12-24 20:52 | Inpatient (IN) | payer MEDICARE, MEDICAID ==
[2019-12-24 21:22] LABS: ABSOLUTE EOSINOPHILS # (AUTO) 0.2 10^3/uL (0.0-0.6); ABSOLUTE LYMPHOCYTES (AUTO) 2.7 10^3/uL (0.5-4.7); ABSOLUTE MONOCYTES (AUTO) 0.8 10^3/uL (0.1-1.4); BASOPHILS % (AUTO) 0.5 % (0-2); EOSINOPHILS % (AUTO) 1.8 % (0-6); HEMATOCRIT 36.3 % (36.0-47.0); HEMOGLOBIN 11.9 g/dL (12.0-15.5); LYMPHOCYTES % (AUTO) 31.4 % (13-45); MEAN CORPUSCULAR HEMOGLOBIN 27.4 pg (27.0-33.4); MEAN CORPUSCULAR HGB CONC 32.8 g/dL (32.0-36.0); MEAN CORPUSCULAR VOLUME 84 fl (80-97); MONOCYTES % (AUTO) 9.1 % (3-13); PLATELET COUNT 407 10^3/uL (150-450); RED BLOOD COUNT 4.34 10^6/uL (3.72-5.28); RED CELL DISTRIBUTION WIDTH 15.7 % (11.5-14.0); SEGMENTED NEUTROPHILS % (AUTO) 57.2 % (42-78); TOTAL CELLS COUNTED % (AUTO) 100 %; WHITE BLOOD COUNT 8.7 10^3/uL (4.0-10.5)
[2019-12-24] MEDS ORDERED: ALBUTEROL SULFATE 0.083% NEB 2.5 MG/3 ML AMPUL NEB ONE (21:33)
[2019-12-24 21:34] LABS: ALBUMIN 3.7 g/dL (3.5-5.0); ALKALINE PHOSPHATASE 111 U/L (38-126); ASPARTATE AMINO TRANSFERASE 18 U/L (14-36); BILIRUBIN,TOTAL 0.2 mg/dL (0.2-1.3); BLOOD UREA NITROGEN 8 mg/dL (7-20); CALCIUM 9.7 mg/dL (8.4-10.2); CARBON DIOXIDE 33 mmol/L (22-30); CHLORIDE 98 mmol/L (98-107); GLUCOSE 121 mg/dL (75-110); POTASSIUM 3.7 mmol/L (3.6-5.0); TOTAL PROTEIN 6.5 g/dL (6.3-8.2)
[2019-12-24 21:40] LABS: ANION GAP 4 (5-19)
[2019-12-24 21:53] LABS: VENOUS BLOOD BASE EXCESS 4.1 mmol/L; VENOUS BLOOD HCO3 31.6 mmol/L (20-32); VENOUS BLOOD PCO2 61.5 mmHg (35-63); VENOUS BLOOD PH 7.33 (7.30-7.42)
--- NOTE | 2019-12-24 21:56 | ER Document Report ---
ED General - General Chief Complaint: Shortness Of Breath Stated Complaint: SHORTNESS OF BREATH Time Seen by Provider: 12/24/19 21:09 Notes: 59-year-old female with history of COPD and bronchitis presents emergency department stating that her chest has been feeling increasingly tight and she has been having increasing shortness of breath with frequent cough but decreasing sputum production since this weekend. Patient states like she is hav ing an exacerbation of her COPD. States the last time she had one was approximately 3 weeks ago and she had to be hospitalized. Was not sent home on steroids or antibiotics. Denies using steroids in over a month. She is not certain what she got during her hospitalization. States she feels like she is having some fevers, admits sweats, has not actually taken her temperature. Brought in by EMS, given 1 albuterol and Atrovent treatment as well as 125 mg of Solu-Medrol. TRAVEL OUTSIDE OF THE [place] IN LAST 30 DAYS: No - Related Data Allergies/Adverse Reactions: adhesive tape Allergy (Verified 11/21/19 15:03) pregabalin [From Lyrica] Adverse Reaction (Verified 11/21/19 15:03) swelling roflumilast Adverse Reaction (Verified 11/21/19 15:03) severe pain Home Medications: Duoneb, Metroprolol, albuterol Past Medical History - General Information source: Patient - Social History Smoking Status: Current Every Day Smoker Frequency of alcohol use: None Drug Abuse: None Family History: CAD, CVA, Malignancy - In both parents Patient has homicidal ideation: No - Past Medical History Cardiac Medical History: Reports: Hx Hypercholesterolemia, Hx Hypertension Denies: Hx Congestive Heart Failure, Hx Coronary Artery Disease, Hx DVT, Hx Pulmonary Embolism Pulmonary Medical History: Reports: Hx Bronchitis, Hx COPD, Hx Pneumonia, Hx Respiratory Failure Denies: Hx Sleep Apnea Neurological Medical History: Denies: Hx Seizures Endocrine Medical History: Reports: Hx Hypothyroidism. Denies: Hx Diabetes Mellitus Type 1, Hx Diabetes Mellitus Type 2 - borderline, Hx Hyperthyroidism Renal/ Medical History: Denies: Hx Peritoneal Dialysis GI Medical History: Reports: Hx Gastroesophageal Reflux Disease. Denies: Hx Cirrhosis, Hx Hepatitis Musculoskeletal Medical History: Reports Hx Arthritis, Reports Hx Fibromyalgia, Reports Hx Musculoskeletal Deformity, Reports Hx Musculoskeletal Trauma Psychiatric Medical History: Reports: Hx Depression Infectious Medical History: Denies: Hx C-Diff, Hx Hepatitis, Hx MRSA Past Surgical History: Reports: Hx Cholecystectomy, Hx Hysterectomy - Immunizations Immunizations up to date: No Hx Diphtheria, Pertussis, Tetanus Vaccination: No Hx Pneumococcal Vaccination: 07/11/11 Review of Systems - Review of Systems Constitutional: See HPI, Diaphoresis, Fever - Subjective EENT: No symptoms reported Cardiovascular: See HPI, Chest pain - Tightness. Respiratory: See HPI, Cough -: Yes All other systems reviewed and negative Physical Exam - Vital signs Vitals: Resp Pulse Ox 30 H 98 12/24/19 20:58 12/24/19 20:58 Interpretation: Tachypneic - Notes Notes: GENERAL: Alert, interacts well. Appears moderately short of breath. HEAD: Normocephalic, atraumatic EYES: Pupils equal, round and reactive to light, extraocular movements intact. ENT: Oral mucosa moist, tongue midline. NECK: Full range of motion, supple, trachea midline. LUNGS: Diffuse expiratory wheezing, poor air movement, no rales or rhonchi, appears moderately short of breath. No cough. Using 3 L via nasal cannula, 98% with good waveform, normally uses 2 L. HEART: Regular rate and rhythm, no murmurs, gallops, rubs. ABDOMEN: Soft, nontender, nondistended, bowel sounds present in all 4 quadrants. EXTREMITIES: Moves all 4 extremities spontaneously, no edema, radial and dorsalis pedis pulses 2/4 bilaterally. No cyanosis. NEUROLOGICAL: Alert and oriented x3, normal speech. PSYCH: Normal mood, normal affect. SKIN: Warm, Dry, normal turgor, no rashes or lesions noted. Course - Re-evaluation Re-evalutation: 12/25/19 01:10 CBC shows anemia with a hemoglobin 11.9, venous blood gas shows somewhat elevated CO2 at 61.5, CMP shows slight low sodium and slightly elevated CO2 otherwise unremarkable, troponin is negative, chest x-ray shows chronic changes but nothing acute. EKG is not ischemic. Chest X-Ray 12/24/19 21:07 IMPRESSION: No acute cardiopulmonary process copyright 2011 [employer]- All Rights Reserved Patient given hour-long breathing treatment, had been given 1 albuterol and Atrovent by EMS as well as 125 mg of Solu-Medrol. Patient is rechecked and still has diffuse persistent wheezing. She only requires her baseline oxygen. When I ambulate her up and down the [place] to see if she can maybe be discharged to home she becomes more tachypneic, cannot hold a conversation, speaks in one- word sentences. Patient is quite concerned about her ability to get to the bathroom and back at home. Patient will be given another breathing treatment and discussed with Dr. Mckeon to the hospitalist for possible admission. 12/25/19 02:06 Dr. Mckeon agrees to come and consult on the patient and give an opinion on whether or not she needs to be admitted. 12/25/19 03:13 Dr. Mckeon agrees to accept the patient to his service in observation status. - Vital Signs Vital signs: Temp Pulse Resp BP Pulse Ox 98.6 F 17 142/74 H 98 12/24/19 21:07 12/25/19 01:01 12/25/19 01:01 12/25/19 01:01 - Laboratory Result Diagrams: 12/24/19 20:57 12/24/19 20:57 Laboratory results interpreted by me: 12/24/19 12/24/19 20:57 20:57 Hgb 11.9 L RDW 15.7 H Sodium 135.0 L Carbon Dioxide 33 H Anion Gap 4 L Glucose 121 H - EKG Interpretation by Me Additional EKG results interpreted by me: 12/25/19 01:11 EKG shows sinus rhythm at a rate of 83, slight right axis deviation, interventricular conduction delay, no ST segment elevations or depressions, no T wave inversions, normal R wave progression per my interpretation. Discharge - Discharge Clinical Impression: COPD exacerbation Condition: Fair Disposition: ADMITTED OBSERVATION Admitting Provider: Mike (Hospitalist) Unit Admitted: Telemetry
[2019-12-24] MEDS ORDERED: KETOROLAC TROMETHAMINE INJ/PF 30 MG/1 ML SDV IV ONE (22:35)
--- NOTE | 2019-12-24 22:39 | RADIOLOGY REPORT (SQ) ---
EXAM DESCRIPTION: XR CHEST 1 VIEW COMPLETED DATE/TME: 12/24/2019 21:07 CLINICAL HISTORY: 59 years, Female, SOB, productive cough COMPARISON: 11/21/2019 chest NUMBER OF VIEWS: 1 TECHNIQUE: Portable chest LIMITATIONS: None. FINDINGS: The heart size is normal. Lungs are hyperinflated but clear. No pneumothorax IMPRESSION: No acute cardiopulmonary process copyright 2011 [employer] [facility] [employer]- All Rights Reserved
[2019-12-25] MEDS ORDERED: ALBUTEROL SULFATE 0.083% NEB 2.5 MG/3 ML AMPUL NEB ONE (01:09)
[2019-12-25 01:26] LABS: APPEARANCE,URINE CLEAR; BILIRUBIN,URINE NEGATIVE (NEGATIVE); COLOR,URINE YELLOW; GLUCOSE, URINE NEGATIVE (NEGATIVE); KETONES,URINE NEGATIVE (NEGATIVE); LEUKOCYTE ESTERASE,URINE NEGATIVE (NEGATIVE); NITRITE,URINE NEGATIVE (NEGATIVE); PROTEIN,URINE NEGATIVE (NEGATIVE); URINE SPECIFIC GRAVITY 1.008; UROBILINOGEN,URINE NEGATIVE mg/dL (<2.0)
[2019-12-25 01:43] LABS: ADD MANUAL MICROSCOPIC YES; WBC,URINE 0-1 /HPF
[2019-12-25] MEDS ORDERED: IPRATROPIUM/ALBUTEROL 0.5-2.5 MG/3 ML AMPUL NEB PRN (02:45)
[2019-12-25] MEDS ORDERED: DEXTROSE 40% GEL 15 GM TUBE PO PRN ×2 (02:49)
[2019-12-25] MEDS ORDERED: GLUCAGON,HUMAN RECOMB 1 MG INJ IM PRN (02:49)
[2019-12-25] MEDS ORDERED: DEXTROSE 50%-WATER 25 GM/50 ML DISP.SYRIN IV PRN ×2 (02:49)
--- NOTE | 2019-12-25 02:59 | PDOC H&P ---
History of Present Illness Admission Date/PCP: AILEEN GRIFFIN PA-C Patient complains of: Shortness of breath History of Present Illness: MAXWELL GREEN is a 59 year old female with a past medical history of oxygen dependent COPD, chronic bronchitis, allergic sinusitis with persistent rhinorrhea, obstructive sleep apnea, obesity, opiate, benzodiazepine and tobacco dependence. She presents with 48 hours of shortness of breath with nonproductive cough but persistent rhinorrhea. In the emergency department she is found to have a respiratory rate in the 30s and rails. She admits inconsistent use of her Flonase but denies running out of medications. She den ies uncontrolled acid reflux, palpitations, chest pain or fever. She receives albuterol and referred to the hospitalist for admission Past Medical History Cardiac Medical History: Reports: Hyperlipidema, Hypertension Denies: Congestive Heart Failure, Coronary Artery Disease, DVT, Pulmonary Embolism Pulmonary Medical History: Reports: Bronchitis, Chronic Obstructive Pulmonary Disease (COPD), Pneumonia, Respiratory Failure Denies: Sleep Apnea Neurological Medical History: Denies: Seizures Endocrine Medical History: Reports: Hypothyroidism Denies: Diabetes Mellitus Type 1, Diabetes Mellitus Type 2 - borderline, Hyperthyroidism GI Medical History: Reports: Gastroesophageal Reflux Disease Denies: Cirrhosis, Hepatitis Musculoskeltal Medical History: Reports: Arthritis, Fibromyalgia Psychiatric Medical History: Reports: Depression, General Anxiety Disorder, Tobacco Dependency Infectious Medical History: Denies: Clostridium Difficile, Methicillin-Resistant Staph Aureus Past Surgical History Past Surgical History: Reports: Cholecystectomy, Hysterectomy Social History Information Source: Patient Smoking Status: Current Every Day Smoker Frequency of Alcohol Use: None Hx Recreational Drug Use: No Drugs: None Hx Prescription Drug Abuse: No - Advance Directive Resuscitation Status: Full Code Family History Family History: CAD, CVA, Malignancy - In both parents Parental Family History Reviewed: Yes Children Family History Reviewed: Yes Sibling(s) Family History Reviewed.: Yes Medication/Allergy Home Medications: Duloxetine HCl [Cymbalta 30 mg Capsule.dr] 90 mg PO DAILY 04/10/19 Estrogens,Conjugated [Premarin 1.25 mg Tablet] 1.25 mg PO DAILY 04/10/19 Fluticasone Propionate [Flonase Nasal [place] 50 Mcg/[place] 16 gm] 1 spray NASL DAILY 04/10/19 Fluticasone/Salmeterol [Advair 500-50 Diskus 14 Dose/Diskus] 1 puff IH Q12 04/10/19 Levothyroxine Sodium [Synthroid 0.112 mg Tablet] 0.112 mg PO Q6AM 04/10/19 Metoprolol Succinate [Toprol Xl 50 mg Tab.sr] 50 mg PO QHS 04/10/19 Montelukast Sodium [Singulair 10 mg Tablet] 10 mg PO QHS 04/10/19 Oxycodone HCl [Oxy-Ir 5 mg Tablet] 10 mg PO Q6HP PRN 04/10/19 Oxycodone HCl [Oxycontin] 15 mg PO Q8 04/10/19 Umeclidinium [place] [Incruse Ellipta] 1 puff IH DAILY 04/10/19 Alprazolam [Xanax 0.5 mg Tablet] 0.5 mg PO DAILYP PRN #5 tab 04/12/19 Aspirin [Ecotrin 81 mg EC Tablet] 81 mg PO DAILY 08/04/19 Dexlansoprazole [Dexilant 60 mg Capsule] 60 mg PO DAILY 08/04/19 Lisinopril [Prinivil 5 mg Tablet] 5 mg PO DAILY 08/04/19 Metformin HCl [Glucophage 500 mg Tablet] 500 mg PO QPM 08/04/19 Amlodipine Besylate [Norvasc 5 mg Tablet] 5 mg PO DAILY 11/22/19 Atorvastatin Calcium [Lipitor 40 mg Tablet] 40 mg PO QHS 11/22/19 Cyclobenzaprine HCl [Flexeril 10 mg Tablet] 10 mg PO TIDP PRN 11/22/19 Varenicline Tartrate [Chantix 0.5 mg Tablet] 0.5 mg PO BID 11/22/19 Nicotine [Nicoderm 14 mg/24 Hr Transdermal Patch] 1 each TD DAILYP PRN #20 patch.td24 11/23/19 Prednisone [Deltasone 20 mg Tablet] 20 mg PO BID #6 tablet 11/23/19 Allergies/Adverse Reactions: adhesive tape Allergy (Verified 11/21/19 15:03) pregabalin [From Lyrica] Adverse Reaction (Verified 11/21/19 15:03) swelling roflumilast Adverse Reaction (Verified 11/21/19 15:03) severe pain Review of Systems Constitutional: PRESENT: as per HPI, fatigue, weakness. ABSENT: chills, fever(s), headache(s), weight gain, weight loss Eyes: ABSENT: visual disturbances Ears: ABSENT: hearing changes Nose, Mouth, and Throat: PRESENT: other - Allergic sinusitis with uncontrolled rhinorrhea Cardiovascular: PRESENT: orthropnea. ABSENT: chest pain, dyspnea on exertion, edema, palpitations Respiratory: PRESENT: as per HPI, cough, dyspnea. ABSENT: hemoptysis, sputum Gastrointestinal: ABSENT: abdominal pain, constipation, diarrhea, hematemesis, hematochezia, nausea, vomiting Genitourinary: ABSENT: dysuria, hematuria Musculoskeletal: ABSENT: joint swelling Integumentary: ABSENT: rash, wounds Neurological: ABSENT: abnormal gait, abnormal speech, confusion, dizziness, focal weakness, syncope Psychiatric: ABSENT: anxiety, depression, homidical ideation, suicidal ideation Endocrine: ABSENT: cold intolerance, heat intolerance, polydipsia, polyuria Hematologic/Lymphatic: ABSENT: easy bleeding, easy bruising Physical Exam Vital Signs: Temp Pulse Resp BP Pulse Ox 98.6 F 17 142/74 H 98 12/24/19 21:07 12/25/19 01:01 12/25/19 01:01 12/25/19 01:01 Intake & Output 12/23/19 12/24/19 12/25/19 11:59 11:59 11:59 Weight 88 kg General appearance: PRESENT: cooperative, disheveled, mild distress, obese, well-developed, well-nourished Head exam: PRESENT: atraumatic, normocephalic Eye exam: PRESENT: conjunctiva pink, EOMI, PERRLA, other - Clear rhinorrhea. ABSENT: scleral icterus Ear exam: PRESENT: normal external ear exam Mouth exam: PRESENT: moist, tongue midline, other Neck exam: ABSENT: carotid bruit, JVD, lymphadenopathy, thyromegaly Respiratory exam: PRESENT: accessory muscle use, crackles, prolonged expiratory phas, rales, retraction, symmetrical, tachypnea Cardiovascular exam: PRESENT: RRR. ABSENT: diastolic murmur, rubs, systolic murmur Pulses: PRESENT: normal dorsalis pedis pul Vascular exam: PRESENT: normal capillary refill GI/Abdominal exam: PRESENT: normal bowel sounds, soft. ABSENT: distended, guarding, mass, organolmegaly, rebound, tenderness Rectal exam: PRESENT: deferred Extremities exam: PRESENT: full ROM. ABSENT: calf tenderness, clubbing, pedal edema Neurological exam: PRESENT: alert, awake, oriented to person, oriented to place, oriented to time, oriented to situation, CN II-XII grossly intact. ABSENT: motor sensory deficit Psychiatric exam: PRESENT: appropriate affect, normal mood. ABSENT: homicidal ideation, suicidal ideation Skin exam: PRESENT: dry, intact, warm. ABSENT: cyanosis, rash Results Laboratory Results: 12/24/19 20:57 12/24/19 20:57 12/24/19 12/24/19 12/24/19 20:57 20:57 20:57 WBC 8.7 RBC 4.34 Hgb 11.9 L Hct 36.3 MCV 84 MCH 27.4 MCHC 32.8 RDW 15.7 H Plt Count 407 Seg Neutrophils % 57.2 VBG pH 7.33 VBG pCO2 61.5 VBG HCO3 31.6 VBG Base Excess 4.1 Sodium 135.0 L Potassium 3.7 Chloride 98 Carbon Dioxide 33 H Anion Gap 4 L BUN 8 Creatinine 0.59 Est GFR ( Amer) > 60 Glucose 121 H Calcium 9.7 Total Bilirubin 0.2 AST 18 Alkaline Phosphatase 111 Total Protein 6.5 Albumin 3.7 Urine Color Urine Appearance Urine pH Ur Specific [place] Urine Protein Urine Glucose (UA) Urine Ketones Urine Blood Urine Nitrite Ur Leukocyte Esterase 12/25/19 00:57 WBC RBC Hgb Hct MCV MCH MCHC RDW Plt Count Seg Neutrophils % VBG pH VBG pCO2 VBG HCO3 VBG Base Excess Sodium Potassium Chloride Carbon Dioxide Anion Gap BUN Creatinine Est GFR ( Amer) Glucose Calcium Total Bilirubin AST Alkaline Phosphatase Total Protein Albumin Urine Color YELLOW Urine Appearance CLEAR Urine pH 6.0 Ur Specific [place] 1.008 Urine Protein NEGATIVE Urine Glucose (UA) NEGATIVE Urine Ketones NEGATIVE Urine Blood NEGATIVE Urine Nitrite NEGATIVE Ur Leukocyte Esterase NEGATIVE 12/24/19 20:57 Troponin I < 0.012 Impressions: Chest X-Ray 12/24/19 21:07 IMPRESSION: No acute cardiopulmonary process copyright 2011 [employer]- All Rights Reserved Assessment and Plan - Diagnosis (1) Acute and chronic respiratory failure with hypercapnia Is this a current diagnosis for this admission?: Yes Plan: Complicated by uncontrolled allergic sinusitis, tobacco, inconsistent compliance, opiate and benzodiazepine dependent. Telemetry observation, prednisone, flutter valve, incentive spirometry, supplemental oxygen, CPAP. (2) Allergic sinusitis Is this a current diagnosis for this admission?: Yes Plan: Flonase and education (3) Diabetes Is this a current diagnosis for this admission?: Yes Plan: Hold metformin, Humalog sliding scale q. before meals - Time Time Spent with patient: 25-34 minutes - Inpatient Certification Medical Necessity: Need Close Monitoring Due to Risk of Patient Decompensation
[2019-12-25] MEDS: CHLORPHENIRAMINE MALEATE 4 MG TABLET PO SCH ×4 (03:05→22:21)
[2019-12-25] MEDS: HEPARIN SOD (PORCINE) 5,000 UNIT/ML 1 ML VIAL SUBCUT SCH ×3 (06:12→22:25)
[2019-12-25] MEDS: IPRATROPIUM/ALBUTEROL 0.5-2.5 MG/3 ML AMPUL NEB SCH ×2 (08:11→16:30)
[2019-12-25] MEDS: FAMOTIDINE 20 MG TABLET PO SCH ×2 (09:21→22:23)
[2019-12-25] MEDS: PREDNISONE 20 MG TABLET PO SCH ×2 (09:21→17:47)
[2019-12-25] MEDS: ACETAMINOPHEN 325 MG TABLET PO PRN ×2 (09:21→22:27)
[2019-12-25] MEDS: INSULIN LISPRO 100 UNIT/ML 3 ML VIAL SUBCUT SCH ×4 (09:22→17:45)
[2019-12-25] MEDS: FLUTICASONE NASAL SPRAY 50 MCG/SPRY 120 SPRAY/16 GM NASL SCH ×2 (09:24→22:22)
--- NOTE | 2019-12-25 11:09 | EKG REPORT ---
SEVERITY:- OTHERWISE NORMAL ECG - SINUS RHYTHM BORDERLINE RIGHT AXIS DEVIATION : Confirmed by: Janina Lund MD 25-Dec-2019 11:08:22
[2019-12-25] MEDS: OXYCODONE HCL IR 5 MG TABLET PO PRN ×2 (12:37→20:28)
[2019-12-25] MEDS ORDERED: (PENDING PHARMACY ID) (Oxycodone Hcl [Oxycontin] 15 MG) PO SCH (14:00)
[2019-12-25] MEDS: NICOTINE 14 MG/24 HR PATCH.TD24 TD SCH (14:32)
[2019-12-25] MEDS: FLUTICASONE/VILANTEROL 200-25 MCG/DOSE IH SCH (14:34)
[2019-12-25] MEDS ORDERED: OXYCODONE HCL SR 10 MG TABLET PO ONE (15:30)
[2019-12-25] MEDS: VARENICLINE TARTRATE 0.5 MG TABLET PO SCH (17:47)
[2019-12-25] MEDS: KETOROLAC TROMETHAMINE INJ/PF 30 MG/1 ML SDV IV PRN (18:30)
[2019-12-25] MEDS ORDERED: (PENDING PHARMACY ID) (Fluticasone/Salmeterol 1 PUFF) IH SCH (22:00)
[2019-12-25] MEDS: ATORVASTATIN CALCIUM 40 MG TABLET PO SCH (22:22)
[2019-12-25] MEDS: METOPROLOL SUCCINATE 50 MG TAB.SR.24H PO SCH (22:22)
[2019-12-25] MEDS: MONTELUKAST SODIUM 10 MG TABLET PO SCH (22:22)
[2019-12-25] MEDS: OXYCODONE HCL SR 10 MG TABLET PO SCH (22:23)
[2019-12-26] MEDS: IPRATROPIUM/ALBUTEROL 0.5-2.5 MG/3 ML AMPUL NEB SCH ×3 (01:31→16:04)
[2019-12-26] MEDS: KETOROLAC TROMETHAMINE INJ/PF 30 MG/1 ML SDV IV PRN (02:06)
[2019-12-26] MEDS: HEPARIN SOD (PORCINE) 5,000 UNIT/ML 1 ML VIAL SUBCUT SCH ×3 (05:44→21:28)
[2019-12-26] MEDS: LEVOTHYROXINE SODIUM 0.112 MG TABLET PO SCH (05:44)
[2019-12-26] MEDS: OXYCODONE HCL SR 10 MG TABLET PO SCH ×3 (05:45→21:16)
[2019-12-26] MEDS: INSULIN LISPRO 100 UNIT/ML 3 ML VIAL SUBCUT SCH ×3 (08:21→16:06)
[2019-12-26] MEDS: FLUTICASONE/VILANTEROL 200-25 MCG/DOSE IH SCH (09:47)
[2019-12-26] MEDS: FLUTICASONE NASAL SPRAY 50 MCG/SPRY 120 SPRAY/16 GM NASL SCH ×2 (09:47→21:17)
[2019-12-26] MEDS: UMECLIDINIUM BROMIDE 62.5 MCG/DOSE IH SCH (09:47)
[2019-12-26] MEDS: DULOXETINE HCL 30 MG CAPSULE.DR PO SCH (09:48)
[2019-12-26] MEDS: OXYCODONE HCL IR 5 MG TABLET PO PRN ×2 (09:48→18:38)
[2019-12-26] MEDS: FAMOTIDINE 20 MG TABLET PO SCH ×2 (09:48→21:16)
[2019-12-26] MEDS: ASPIRIN 81 MG TABLET, ENT COATED PO SCH (09:48)
[2019-12-26] MEDS: NICOTINE 14 MG/24 HR PATCH.TD24 TD SCH (09:49)
[2019-12-26] MEDS: VARENICLINE TARTRATE 0.5 MG TABLET PO SCH ×2 (09:49→17:02)
[2019-12-26] MEDS: PREDNISONE 20 MG TABLET PO SCH ×2 (09:49→17:02)
[2019-12-26] MEDS ORDERED: LISINOPRIL 5 MG TABLET PO SCH (10:00)
--- NOTE | 2019-12-26 12:36 | PDOC PROGRESS REPORT ---
Subjective Progress Note for:: 12/26/19 Subjective:: MAXWELL GREEN is a 59 year old female with a past medical history of oxygen dependent COPD, chronic bronchitis, allergic sinusitis with persistent rhinorrhea, obstructive sleep apnea, obesity, opiate, benzodiazepine and tobacco dependence. She presents with 48 hours of shortness of breath with nonproductive cough but persistent rhinorrhea. In the emergency department she is found to have a respiratory rate in the 30s and rails. She admits inconsistent use of her Flonase but denies running out of medications. She denies uncontrolled acid reflux, palpitations, chest pain or fever. She receives albuterol and referred to the hospitalist for admission 12/26/2019. No acute events overnight. Still having significant wheezing on physical examination, so O2 dependent, denies any chest pain, nausea, vomiting, diarrhea, constipation or any urinary symptoms. Complaining of bilateral lower extremity diffuse nonspecific pain. Reason For Visit: ALLERGIC SINUSITIS, COPD EXACERBATION Physical Exam Vital Signs: Temp Pulse Resp BP Pulse Ox 97.9 F 57 L 20 177/93 H 99 12/26/19 08:00 12/26/19 08:00 12/26/19 08:00 12/26/19 08:00 12/26/19 08:00 Intake & Output 12/25/19 12/26/19 12/27/19 06:59 06:59 06:59 Intake Total 260 1542 Output Total 600 Balance 260 942 Weight 88.3 kg 88.3 kg General appearance: PRESENT: no acute distress, obese, well-developed, well- nourished Head exam: PRESENT: atraumatic, normocephalic Respiratory exam: PRESENT: clear to auscultation carlin, decreased breath sounds, prolonged expiratory phas, wheezes. ABSENT: rales, rhonchi GI/Abdominal exam: PRESENT: normal bowel sounds, soft. ABSENT: distended, guarding, mass, organolmegaly, rebound, tenderness Extremities exam: PRESENT: full ROM. ABSENT: calf tenderness, clubbing, pedal edema Neurological exam: PRESENT: alert, awake, oriented to person, oriented to place, oriented to time, oriented to situation, CN II-XII grossly intact. ABSENT: motor sensory deficit Results Laboratory Results: 12/24/19 20:57 12/24/19 20:57 12/24/19 20:57 Troponin I < 0.012 Impressions: Chest X-Ray 12/24/19 21:07 IMPRESSION: No acute cardiopulmonary process copyright 2011 [employer]- All Rights Reserved Assessment and Plan - Diagnosis (1) Acute and chronic respiratory failure with hypoxia Is this a current diagnosis for this admission?: Yes Plan: Mild improvement. SPO2 WNL on 2 L. Still having significant wheezing on physical examination. History of oxygen dependent COPD. Home O2 2 L/min. Continue p.o. steroids, flutter valve, incentive parameter, LABA, LABA, ICS. (2) Allergic sinusitis Is this a current diagnosis for this admission?: Yes Plan: Flonase and education (3) COPD exacerbation Is this a current diagnosis for this admission?: Yes Plan: Plan as per #1. (4) CAD (coronary artery disease) Qualifiers: Coronary Disease-Associated Artery/Lesion type: [place] artery [place] vs. transplanted heart: [place] heart Associated angina: without angina Qualified Code(s): I25.10 - Atherosclerotic heart disease of [place] coronary artery without angina pectoris Is this a current diagnosis for this admission?: Yes Plan: Denies any anginal symptoms. Continue antiplatelets, beta blockers and FRIDA. Outpatient PCP and cardiology follow-up. (5) Chronic pain Qualifiers: Chronic pain type: chronic pain syndrome Qualified Code(s): G89.4 - Chronic pain syndrome Is this a current diagnosis for this admission?: Yes Plan: Chronic nonspecific bilateral extremity pain. Restart home meds. Outpatient PCP and pain management follow-up. (6) HTN (hypertension) Qualifiers: Hypertension type: essential hypertension Qualified Code(s): I10 - Essential (primary) hypertension Is this a current diagnosis for this admission?: Yes Plan: Improving. Not optimized. Restart home meds. Adjust meds as needed. Outpatient PCP follow-up. (7) Tobacco abuse Is this a current diagnosis for this admission?: Yes Plan: Advised on quitting. Restart Chantix and NicoDerm patch. (8) Diabetes Qualifiers: Diabetes mellitus type: type 2 Is this a current diagnosis for this admission?: Yes Plan: Hold metformin, Humalog sliding scale q. before meals Resume home meds upon discharge. Continue diabetic diet. Adjust meds as needed. Hypoglycemic protocol.
[2019-12-26] MEDS: LISINOPRIL 5 MG TABLET PO SCH (13:59)
[2019-12-26] MEDS: HYDRALAZINE HCL INJ/PF 20 MG/1 ML SDV IV PRN (20:03)
[2019-12-26] MEDS ORDERED: NITROGLYCERIN 2% OINTMENT 1 GM PACKET ONE (21:10)
[2019-12-26] MEDS ORDERED: NITROGLYCERIN 2% OINTMENT 1 GM PACKET TP ONE (21:15)
[2019-12-26] MEDS: METOPROLOL SUCCINATE 50 MG TAB.SR.24H PO SCH (21:16)
[2019-12-26] MEDS: MONTELUKAST SODIUM 10 MG TABLET PO SCH (21:16)
[2019-12-26] MEDS: ATORVASTATIN CALCIUM 40 MG TABLET PO SCH (21:16)
[2019-12-26] MEDS: AMLODIPINE BESYLATE 5 MG TABLET PO SCH (21:28)
[2019-12-26] MEDS: ACETAMINOPHEN 325 MG TABLET PO PRN (21:32)
[2019-12-27] MEDS: IPRATROPIUM/ALBUTEROL 0.5-2.5 MG/3 ML AMPUL NEB SCH ×3 (00:45→15:56)
[2019-12-27] MEDS: OXYCODONE HCL IR 5 MG TABLET PO PRN ×3 (01:03→18:08)
[2019-12-27] MEDS: OXYCODONE HCL SR 10 MG TABLET PO SCH ×3 (05:19→21:09)
[2019-12-27] MEDS: LEVOTHYROXINE SODIUM 0.112 MG TABLET PO SCH (05:19)
[2019-12-27] MEDS: HEPARIN SOD (PORCINE) 5,000 UNIT/ML 1 ML VIAL SUBCUT SCH ×3 (05:20→21:10)
[2019-12-27] MEDS: INSULIN LISPRO 100 UNIT/ML 3 ML VIAL SUBCUT SCH ×3 (08:09→16:20)
[2019-12-27] MEDS: ACETAMINOPHEN 325 MG TABLET PO PRN ×2 (08:10→19:46)
[2019-12-27] MEDS: LISINOPRIL 5 MG TABLET PO SCH (09:26)
[2019-12-27] MEDS: VARENICLINE TARTRATE 0.5 MG TABLET PO SCH ×2 (09:26→18:03)
[2019-12-27] MEDS: NICOTINE 14 MG/24 HR PATCH.TD24 TD SCH (09:26)
[2019-12-27] MEDS: DULOXETINE HCL 30 MG CAPSULE.DR PO SCH (09:27)
[2019-12-27] MEDS: PREDNISONE 20 MG TABLET PO SCH ×2 (09:27→18:03)
[2019-12-27] MEDS: AMLODIPINE BESYLATE 5 MG TABLET PO SCH (09:27)
[2019-12-27] MEDS: UMECLIDINIUM BROMIDE 62.5 MCG/DOSE IH SCH (09:27)
[2019-12-27] MEDS: FAMOTIDINE 20 MG TABLET PO SCH ×2 (09:27→21:09)
[2019-12-27] MEDS: ASPIRIN 81 MG TABLET, ENT COATED PO SCH (09:27)
[2019-12-27] MEDS: FLUTICASONE NASAL SPRAY 50 MCG/SPRY 120 SPRAY/16 GM NASL SCH ×2 (09:28→21:11)
[2019-12-27] MEDS: FLUTICASONE/VILANTEROL 200-25 MCG/DOSE IH SCH (09:28)
[2019-12-27] MEDS: HYDRALAZINE HCL INJ/PF 20 MG/1 ML SDV IV PRN (11:26)
--- NOTE | 2019-12-27 12:13 | PDOC PROGRESS REPORT ---
Subjective Progress Note for:: 12/27/19 Subjective:: MAXWELL GREEN is a 59 year old female with a past medical history of oxygen dependent COPD, chronic bronchitis, allergic sinusitis with persistent rhinorrhea, obstructive sleep apnea, obesity, opiate, benzodiazepine and tobacco dependence. She presents with 48 hours of shortness of breath with nonproductive cough but persistent rhinorrhea. In the emergency department she is found to have a respiratory rate in the 30s and rails. She admits inconsistent use of her Flonase but denies running out of medications. She denies uncontrolled acid reflux, palpitations, chest pain or fever. She receives albuterol and referred to the hospitalist for admission 12/26/2019. No acute events overnight. Still having significant wheezing on physical examination, so O2 dependent, denies any chest pain, nausea, vomiting, diarrhea, constipation or any urinary symptoms. Complaining of bilateral lower extremity diffuse nonspecific pain. 12/27/2019. Patient complaining of abdominal pain, overnight noted to be very hypertensive, still having significant wheezing on physical examination, otherwise denies any chest pain, nausea, vomiting, fever, chills, diarrhea, constipation or any urinary symptoms. Reason For Visit: ALLERGIC SINUSITIS, COPD EXACERBATION Physical Exam Vital Signs: Temp Pulse Resp BP Pulse Ox 97.9 F 71 16 178/98 H 98 12/27/19 11:19 12/27/19 11:19 12/27/19 11:19 12/27/19 11:19 12/27/19 11:19 Intake & Output 12/26/19 12/27/19 12/28/19 06:59 06:59 06:59 Intake Total 1542 2340 Output Total 600 2250 Balance 942 90 Weight 88.3 kg General appearance: PRESENT: no acute distress, obese, well-developed, well- nourished Head exam: PRESENT: atraumatic, normocephalic Respiratory exam: PRESENT: decreased breath sounds, prolonged expiratory phas, wheezes. ABSENT: rales, rhonchi Cardiovascular exam: PRESENT: RRR. ABSENT: diastolic murmur, rubs, systolic murmur GI/Abdominal exam: PRESENT: normal bowel sounds, soft. ABSENT: distended, guarding, mass, organolmegaly, rebound, tenderness Neurological exam: PRESENT: alert, awake, oriented to person, oriented to place, oriented to time, oriented to situation, CN II-XII grossly intact. ABSENT: motor sensory deficit Results Laboratory Results: 12/24/19 20:57 12/24/19 20:57 12/24/19 20:57 Troponin I < 0.012 Impressions: Chest X-Ray 12/24/19 21:07 IMPRESSION: No acute cardiopulmonary process copyright 2011 [employer]- All Rights Reserved Assessment and Plan - Diagnosis (1) Acute and chronic respiratory failure with hypoxia Is this a current diagnosis for this admission?: Yes Plan: Mild improvement. SPO2 WNL on 2 L. Still having significant wheezing on physical examination. History of oxygen dependent COPD. Home O2 2 L/min. Continue p.o. steroids, flutter valve, incentive parameter, LABA, LABA, ICS. (2) Allergic sinusitis Is this a current diagnosis for this admission?: Yes Plan: Flonase and education (3) COPD exacerbation Is this a current diagnosis for this admission?: Yes Plan: Plan as per #1. (4) CAD (coronary artery disease) Qualifiers: Coronary Disease-Associated Artery/Lesion type: [place] artery [place] vs. transplanted heart: [place] heart Associated angina: without angina Qualified Code(s): I25.10 - Atherosclerotic heart disease of [place] coronary artery without angina pectoris Is this a current diagnosis for this admission?: Yes Plan: Denies any anginal symptoms. Continue antiplatelets, beta blockers and FRIDA. Outpatient PCP and cardiology follow-up. (5) Chronic pain Qualifiers: Chronic pain type: chronic pain syndrome Qualified Code(s): G89.4 - Chronic pain syndrome Is this a current diagnosis for this admission?: Yes Plan: Chronic nonspecific bilateral extremity pain. Restart home meds. Outpatient PCP and pain management follow-up. (6) HTN (hypertension) Qualifiers: Hypertension type: essential hypertension Qualified Code(s): I10 - Esse ntial (primary) hypertension Is this a current diagnosis for this admission?: Yes Plan: Improving. Not optimized. Restart home meds. Adjust meds as needed. Outpatient PCP follow-up. (7) Tobacco abuse Is this a current diagnosis for this admission?: Yes Plan: Advised on quitting. Restart Chantix and NicoDerm patch. (8) Diabetes Qualifiers: Diabetes mellitus type: type 2 Is this a current diagnosis for this admission?: Yes Plan: Hold metformin, Humalog sliding scale q. before meals Resume home meds upon discharge. Continue diabetic diet. Adjust meds as needed. Hypoglycemic protocol.
[2019-12-27] MEDS ORDERED: MAG HYDROX/AL HYDROX/SIMETH SUSP 30 ML UDCUP PO ONE (12:15)
[2019-12-27] MEDS ORDERED: LIDOCAINE 2% VISCOUS SOLN 15 ML UDCUP PO PRN (12:15)
[2019-12-27] MEDS ORDERED: LIDOCAINE 2% VISCOUS SOLN 15 ML UDCUP PO ONE (12:15)
[2019-12-27] MEDS ORDERED: METOCLOPRAMIDE HCL ORAL SOLN 10 MG/10 ML UDCUP PO ONE (12:15)
[2019-12-27] MEDS: SUCRALFATE 1 GM TABLET PO SCH ×2 (15:24→21:09)
[2019-12-27] MEDS: AMOXICILLIN TR/POT CLAVULANATE 875-125 MG TAB PO SCH (21:09)
[2019-12-27] MEDS: MONTELUKAST SODIUM 10 MG TABLET PO SCH (21:09)
[2019-12-27] MEDS: METOPROLOL SUCCINATE 50 MG TAB.SR.24H PO SCH (21:09)
[2019-12-27] MEDS: ATORVASTATIN CALCIUM 40 MG TABLET PO SCH (21:10)
[2019-12-28] MEDS: IPRATROPIUM/ALBUTEROL 0.5-2.5 MG/3 ML AMPUL NEB SCH ×3 (00:26→16:29)
[2019-12-28] MEDS: OXYCODONE HCL IR 5 MG TABLET PO PRN ×4 (00:45→20:31)
[2019-12-28] MEDS: OXYCODONE HCL SR 10 MG TABLET PO SCH ×3 (05:16→21:28)
[2019-12-28] MEDS: LEVOTHYROXINE SODIUM 0.112 MG TABLET PO SCH (05:16)
[2019-12-28] MEDS: HEPARIN SOD (PORCINE) 5,000 UNIT/ML 1 ML VIAL SUBCUT SCH ×3 (05:18→21:28)
[2019-12-28] MEDS: ACETAMINOPHEN 325 MG TABLET PO PRN ×2 (08:01→17:31)
[2019-12-28] MEDS: SUCRALFATE 1 GM TABLET PO SCH ×4 (08:01→21:27)
[2019-12-28] MEDS: INSULIN LISPRO 100 UNIT/ML 3 ML VIAL SUBCUT SCH ×3 (08:06→17:23)
[2019-12-28] MEDS: LISINOPRIL 5 MG TABLET PO SCH (09:51)
[2019-12-28] MEDS: DULOXETINE HCL 30 MG CAPSULE.DR PO SCH (09:52)
[2019-12-28] MEDS: AMOXICILLIN TR/POT CLAVULANATE 875-125 MG TAB PO SCH ×2 (09:52→21:27)
[2019-12-28] MEDS: NICOTINE 14 MG/24 HR PATCH.TD24 TD SCH (09:52)
[2019-12-28] MEDS: ASPIRIN 81 MG TABLET, ENT COATED PO SCH (09:52)
[2019-12-28] MEDS: PREDNISONE 20 MG TABLET PO SCH ×2 (09:52→17:28)
[2019-12-28] MEDS: AMLODIPINE BESYLATE 5 MG TABLET PO SCH (09:52)
[2019-12-28] MEDS: FAMOTIDINE 20 MG TABLET PO SCH ×2 (09:52→21:28)
[2019-12-28] MEDS: VARENICLINE TARTRATE 0.5 MG TABLET PO SCH ×2 (09:52→18:08)
[2019-12-28] MEDS: FLUTICASONE/VILANTEROL 200-25 MCG/DOSE IH SCH (09:57)
[2019-12-28] MEDS: FLUTICASONE NASAL SPRAY 50 MCG/SPRY 120 SPRAY/16 GM NASL SCH ×2 (09:58→21:29)
[2019-12-28] MEDS: UMECLIDINIUM BROMIDE 62.5 MCG/DOSE IH SCH (10:00)
[2019-12-28] MEDS ORDERED: LISINOPRIL 5 MG TABLET PO ONE ×2 (11:24→14:44)
[2019-12-28] MEDS: HYDRALAZINE HCL INJ/PF 20 MG/1 ML SDV IV PRN (17:28)
--- NOTE | 2019-12-28 17:29 | PDOC PROGRESS REPORT ---
Subjective Progress Note for:: 12/28/19 Subjective:: MAXWELL GREEN is a 59 year old female with a past medical history of oxygen dependent COPD, chronic bronchitis, allergic sinusitis with persistent rhinorrhea, obstructive sleep apnea, obesity, opiate, benzodiazepine and tobacco dependence. She presents with 48 hours of shortness of breath with nonproductive cough but persistent rhinorrhea. In the emergency department she is found to have a respiratory rate in the 30s and rails. She admits inconsistent use of her Flonase but denies running out of medications. She denies uncontrolled acid reflux, palpitations, chest pain or fever. She receives albuterol and referred to the hospitalist for admission 12/26/2019. No acute events overnight. Still having significant wheezing on physical examination, so O2 dependent, denies any chest pain, nausea, vomiting, diarrhea, constipation or any urinary symptoms. Complaining of bilateral lower extremity diffuse nonspecific pain. 12/27/2019. Patient complaining of abdominal pain, overnight noted to be very hypertensive, still having significant wheezing on physical examination, otherwise denies any chest pain, nausea, vomiting, fever, chills, diarrhea, constipation or any urinary symptoms. 12/28/2019. No acute events overnight. Significant improvement of respiratory symptoms, minimal wheezing on physical examination unfortunate patient blood pressure is not optimized, denies any fever, chills, nausea, vomiting, diarrhea, constipation or any urinary symptoms. Possible discharge home tomorrow if BP is optimized. Reason For Visit: ACUTE COPD EXACERBATION Physical Exam Vital Signs: Temp Pulse Resp BP Pulse Ox 98.3 F 83 18 174/96 H 96 12/28/19 16:15 12/28/19 16:29 12/28/19 16:29 12/28/19 16:15 12/28/19 16:29 Intake & Output 12/27/19 12/28/19 12/29/19 06:59 06:59 06:59 Intake Total 2340 225 480 Output Total 2250 Balance 90 225 480 Weight 88.3 kg General appearance: PRESENT: obese Head exam: PRESENT: atraumatic, normocephalic Respiratory exam: PRESENT: clear to auscultation carlin. ABSENT: rales, rhonchi, wheezes Cardiovascular exam: PRESENT: RRR. ABSENT: diastolic murmur, rubs, systolic murmur GI/Abdominal exam: PRESENT: normal bowel sounds, soft. ABSENT: distended, guarding, mass, organolmegaly, rebound, tenderness Neurological exam: PRESENT: alert, awake, oriented to person, oriented to place, oriented to time, oriented to situation, CN II-XII grossly intact. ABSENT: motor sensory deficit Results Laboratory Results: 12/24/19 20:57 12/24/19 20:57 12/24/19 20:57 Troponin I < 0.012 Impressions: Chest X-Ray 12/24/19 21:07 IMPRESSION: No acute cardiopulmonary process copyright 2010 [employer]- All Rights Reserved Assessment and Plan - Diagnosis (1) Acute and chronic respiratory failure with hypoxia Is this a current diagnosis for this admission?: Yes Plan: Moderate improvement. Back to baseline. History of oxygen dependent COPD. Home O2 2 L/min. Continue p.o. steroids, flutter valve, incentive parameter, LABA, LABA, ICS. (2) Allergic sinusitis Is this a current diagnosis for this admission?: Yes Plan: Flonase and education (3) COPD exacerbation Is this a current diagnosis for this admission?: Yes Plan: Plan as per #1. (4) CAD (coronary artery disease) Qualifiers: Coronary Disease-Associated Artery/Lesion type: [place] artery [place] vs. transplanted heart: [place] heart Associated angina: without angina Qualified Code(s): I25.10 - Atherosclerotic heart disease of [place] coronary artery without angina pectoris Is this a current diagnosis for this admission?: Yes Plan: Denies any anginal symptoms. Continue antiplatelets, beta blockers and FRIDA. Outpatient PCP and cardiology follow-up. (5) Chronic pain Qualifiers: Chronic pain type: chronic pain syndrome Qualified Code(s): G89.4 - Chronic pain syndrome Is this a current diagnosis for this admission?: Yes Plan: Chronic nonspecific bilateral extremity pain. Restart home meds. Outpatient PCP and pain management follow-up. (6) HTN (hypertension) Qualifiers: Hypertension type: essential hypertension Qualified Code(s): I10 - Essential (primary) hypertension Is this a current diagnosis for this admission?: Yes Plan: Not optimized. Restart home meds. Lisinopril to 20 g p.o. daily. Adjust meds as needed. Outpatient PCP follow-up. (7) Tobacco abuse Is this a current diagnosis for this admission?: Yes Plan: Advised on quitting. Restart Chantix and NicoDerm patch. (8) Diabetes Qualifiers: Diabetes mellitus type: type 2 Is this a current diagnosis for this admission?: Yes Plan: Hold metformin, Humalog sliding scale q. before meals Resume home meds upon discharge. Continue diabetic diet. Adjust meds as need ed. Hypoglycemic protocol.
[2019-12-28] MEDS: MONTELUKAST SODIUM 10 MG TABLET PO SCH (21:28)
[2019-12-28] MEDS: METOPROLOL SUCCINATE 50 MG TAB.SR.24H PO SCH (21:28)
[2019-12-28] MEDS: ATORVASTATIN CALCIUM 40 MG TABLET PO SCH (21:28)
[2019-12-29] MEDS: IPRATROPIUM/ALBUTEROL 0.5-2.5 MG/3 ML AMPUL NEB SCH ×3 (00:27→15:40)
[2019-12-29] MEDS: OXYCODONE HCL SR 10 MG TABLET PO SCH ×2 (05:54→14:09)
[2019-12-29] MEDS: HEPARIN SOD (PORCINE) 5,000 UNIT/ML 1 ML VIAL SUBCUT SCH ×2 (05:55→14:09)
[2019-12-29] MEDS: LEVOTHYROXINE SODIUM 0.112 MG TABLET PO SCH (05:55)
[2019-12-29] MEDS: INSULIN LISPRO 100 UNIT/ML 3 ML VIAL SUBCUT SCH ×2 (08:53→11:28)
[2019-12-29] MEDS: PREDNISONE 20 MG TABLET PO SCH (09:09)
[2019-12-29] MEDS: AMOXICILLIN TR/POT CLAVULANATE 875-125 MG TAB PO SCH (09:09)
[2019-12-29] MEDS: OXYCODONE HCL IR 5 MG TABLET PO PRN (09:10)
[2019-12-29] MEDS: ASPIRIN 81 MG TABLET, ENT COATED PO SCH (09:10)
[2019-12-29] MEDS: VARENICLINE TARTRATE 0.5 MG TABLET PO SCH (09:11)
[2019-12-29] MEDS: SUCRALFATE 1 GM TABLET PO SCH ×3 (09:11→15:57)
[2019-12-29] MEDS: FAMOTIDINE 20 MG TABLET PO SCH (09:11)
[2019-12-29] MEDS: DULOXETINE HCL 30 MG CAPSULE.DR PO SCH (09:13)
[2019-12-29] MEDS: NICOTINE 14 MG/24 HR PATCH.TD24 TD SCH (09:14)
[2019-12-29] MEDS: FLUTICASONE NASAL SPRAY 50 MCG/SPRY 120 SPRAY/16 GM NASL SCH (09:14)
[2019-12-29] MEDS: FLUTICASONE/VILANTEROL 200-25 MCG/DOSE IH SCH (09:15)
[2019-12-29] MEDS: UMECLIDINIUM BROMIDE 62.5 MCG/DOSE IH SCH (09:15)
[2019-12-29] MEDS ORDERED: LISINOPRIL 5 MG TABLET PO SCH (10:00)
[2019-12-29] MEDS ORDERED: AMLODIPINE BESYLATE 5 MG TABLET PO SCH (10:00)
--- NOTE | 2019-12-29 14:24 | PDOC DISCHARGE SUMMARY ---
Impression - Admit/DC Date/PCP Admission Date/Primary Care Provider: 12/25/19 02:51 AILEEN GRIFFIN PA-C Discharge Date: 12/29/19 - Discharge Diagnosis (1) Acute and chronic respiratory failure with hypoxia Is this a current diagnosis for this admission?: Yes (2) Allergic sinusitis Is this a current diagnosis for this admission?: Yes (3) COPD exacerbation Is this a current diagnosis for this admission?: Yes (4) CAD (coronary artery disease) Is this a current diagnosis for this admission?: Yes (5) Chronic pain Is this a current diagnosis for this admission?: Yes (6) HTN (hypertension) Is this a current diagnosis for this admission?: Yes (7) Tobacco abuse Is this a current diagnosis for this admission?: Yes (8) Diabetes Is this a current diagnosis for this admission?: Yes - Additional Information Resuscitation Status: Full Code Referrals: AILEEN GRIFFIN PA-C [Primary Care Provider] - 01/07/20 9:15 am Prescriptions: Amoxicillin/Potassium Clav [Augmentin 500-125 Tablet] 1 each PO BID 3 Days #6 tablet Sucralfate [Carafate 1 gm Tablet] 1 gm PO ACHS 5 Days #15 tablet Prednisone [Deltasone 20 mg Tablet] 20 mg PO BID 2 Days #4 tablet Lisinopril 20 mg PO DAILY 30 Days #30 tablet Home Medications: Duloxetine HCl [Cymbalta 30 mg Capsule.dr] 90 mg PO DAILY 04/10/19 Estrogens,Conjugated [Premarin 1.25 mg Tablet] 1.25 mg PO DAILY 04/10/19 Fluticasone/Salmeterol [Advair 500-50 Diskus 14 Dose/Diskus] 1 puff IH Q12 04/10/19 Levothyroxine Sodium [Synthroid 0.112 mg Tablet] 0.112 mg PO Q6AM 04/10/19 Metoprolol Succinate [Toprol Xl 50 mg Tab.sr] 50 mg PO QHS 04/10/19 Montelukast Sodium [Singulair 10 mg Tablet] 10 mg PO QHS 04/10/19 Oxycodone HCl [Oxy-Ir 5 mg Tablet] 10 mg PO Q6HP PRN 04/10/19 Oxycodone HCl [Oxycontin] 15 mg PO Q8 04/10/19 Umeclidinium [place] [Incruse Ellipta] 1 puff IH DAILY 04/10/19 Aspirin [Ecotrin 81 mg EC Tablet] 81 mg PO DAILY 08/04/19 Dexlansoprazole [Dexilant 60 mg Capsule] 60 mg PO DAILY 08/04/19 Metformin HCl [Glucophage 500 mg Tablet] 500 mg PO QPM 08/04/19 Amlodipine Besylate [Norvasc 5 mg Tablet] 5 mg PO DAILY 11/22/19 Atorvastatin Calcium [Lipitor 40 mg Tablet] 40 mg PO QHS 11/22/19 Varenicline Tartrate [Chantix 0.5 mg Tablet] 0.5 mg PO BID 11/22/19 Nicotine [Nicoderm 14 mg/24 Hr Transdermal Patch] 1 each TD DAILYP PRN #20 patch.td24 11/23/19 Alprazolam [Xanax 0.5 mg Tablet] 0.25 mg PO BIDP PRN 12/25/19 Ipratropium/Albuterol Sulfate [Duoneb 3 ml Ampul] 1 vial NEB Q6 12/25/19 Amoxicillin/Potassium Clav [Augmentin 500-125 Tablet] 1 each PO BID 3 Days #6 tablet 12/28/19 Lisinopril 20 mg PO DAILY 30 Days #30 tablet 12/28/19 Prednisone [Deltasone 20 mg Tablet] 20 mg PO BID 2 Days #4 tablet 12/28/19 Sucralfate [Carafate 1 gm Tablet] 1 gm PO ACHS 5 Days #15 tablet 12/28/19 History of Present Illiness History of Present Illness: MAXWELL GREEN is a 59 year old female with a past medical history of oxygen dependent COPD, chronic bronchitis, allergic sinusitis with persistent rhi norrhea, obstructive sleep apnea, obesity, opiate, benzodiazepine and tobacco dependence. She presents with 48 hours of shortness of breath with nonproductive cough but persistent rhinorrhea. In the emergency department she is found to have a respiratory rate in the 30s and rails. She admits inconsistent use of her Flonase but denies running out of medications. She denies uncontrolled acid reflux, palpitations, chest pain or fever. She receives albuterol and referred to the hospitalist for admission. Hospital Course Hospital Course: (1) Acute and chronic respiratory failure with hypoxia Moderate improvement. Back to baseline. History of oxygen dependent COPD. Home O2 2 L/min. Was started on p.o. steroids, flutter valve, incentive parameter, LABA, LABA, ICS. Discharged on p.o. steroids for another 2 days and advised to resume home meds upon discharge. (2) Allergic sinusitis Flonase and education (3) COPD exacerbation Plan as per #1. (4) CAD (coronary artery disease) Denied any anginal symptoms. Was started on antiplatelets, beta blockers and FRIDA. Outpatient PCP and cardiology follow-up. (5) Chronic pain Chronic nonspecific bilateral extremity pain. Restarted home meds. Outpatient PCP and pain management follow-up. (6) HTN (hypertension) Improved. Initially worsened likely due to steroid for underlying COPD exacerbation. Restarted home meds. Increased lisinopril to 20 g p.o. daily. Patient was counseled and strongly advised to monitor her BP and follow-up with PCP for readjustment of her BP meds. Patient voiced understanding. (7) Tobacco abuse Advised on quitting. Restarted Chantix and NicoDerm patch. (8) Diabetes Held metformin, Humalog sliding scale q. before meals Was started on diabetic diet. Advised to resume follow-up upon discharge. Follow-up with PCP. Physical Exam Vital Signs: Temp Pulse Resp BP Pulse Ox 98.2 F 73 16 142/92 H 98 12/29/19 11:22 12/29/19 11:22 12/29/19 07:53 12/29/19 11:22 12/29/19 11:22 Intake & Output 12/28/19 12/29/19 12/30/19 06:59 06:59 06:59 Intake Total 225 1440 480 Balance 225 1440 480 Weight 88.3 kg 87.9 kg General appearance: PRESENT: no acute distress, obese Head exam: PRESENT: atraumatic, normocephalic Respiratory exam: PRESENT: clear to auscultation carlin. ABSENT: rales, rhonchi, wheezes Cardiovascular exam: PRESENT: RRR. ABSENT: diastolic murmur, rubs, systolic murmur GI/Abdominal exam: PRESENT: normal bowel sounds, soft. ABSENT: distended, guarding, mass, organolmegaly, rebound, tenderness Extremities exam: PRESENT: full ROM. ABSENT: calf tenderness, clubbing, pedal edema Neurological exam: PRESENT: alert, awake, oriented to person, oriented to place, oriented to time, oriented to situation, CN II-XII grossly intact. ABSENT: motor sensory deficit Skin exam: PRESENT: dry, intact, warm. ABSENT: cyanosis, rash Results Laboratory Results: WBC 8.7 10^3/uL (4.0-10.5) 12/24/19 20:57 RBC 4.34 10^6/uL (3.72-5.28) 12/24/19 20:57 Hgb 11.9 g/dL (12.0-15.5) L 12/24/19 20:57 Hct 36.3 % (36.0-47.0) 12/24/19 20:57 MCV 84 fl (80-97) 12/24/19 20:57 MCH 27.4 pg (27.0-33.4) 12/24/19 20:57 MCHC 32.8 g/dL (32.0-36.0) 12/24/19 20:57 RDW 15.7 % (11.5-14.0) H 12/24/19 20:57 Plt Count 407 10^3/uL (150-450) 12/24/19 20:57 Lymph % (Auto) 31.4 % (13-45) 12/24/19 20:57 Edgar % (Auto) 9.1 % (3-13) 12/24/19 20:57 Eos % (Auto) 1.8 % (0-6) 12/24/19 20:57 Baso % (Auto) 0.5 % (0-2) 12/24/19 20:57 Absolute Neuts (auto) 5.0 10^3/uL (1.7-8.2) 12/24/19 20:57 Absolute Lymphs (auto) 2.7 10^3/uL (0.5-4.7) 12/24/19 20:57 Absolute Monos (auto) 0.8 10^3/uL (0.1-1.4) 12/24/19 20:57 Absolute Eos (auto) 0.2 10^3/uL (0.0-0.6) 12/24/19 20:57 Absolute Basos (auto) 0.0 10^3/uL (0.0-0.2) 12/24/19 20:57 Seg Neutrophils % 57.2 % (42-78) 12/24/19 20:57 VBG pH 7.33 (7.30-7.42) 12/24/19 20:57 VBG pCO2 61.5 mmHg (35-63) 12/24/19 20:57 VBG HCO3 31.6 mmol/L (20-32) 12/24/19 20:57 VBG Base Excess 4.1 mmol/L 12/24/19 20:57 Sodium 135.0 mmol/L (137-145) L 12/24/19 20:57 Potassium 3.7 mmol/L (3.6-5.0) 12/24/19 20:57 Chloride 98 mmol/L (98-107) 12/24/19 20:57 Carbon Dioxide 33 mmol/L (22-30) H 12/24/19 20:57 Anion Gap 4 (5-19) L 12/24/19 20:57 BUN 8 mg/dL (7-20) 12/24/19 20:57 Creatinine 0.59 mg/dL (0.52-1.25) 12/24/19 20:57 Est GFR ( Amer) > 60 (>60) 12/24/19 20:57 Est GFR (MDRD) Non-Af > 60 (>60) 12/24/19 20:57 Glucose 121 mg/dL (75-110) H 12/24/19 20:57 POC Glucose 102 mg/dL (70-110) 12/29/19 11:23 Calcium 9.7 mg/dL (8.4-10.2) 12/24/19 20:57 Total Bilirubin 0.2 mg/dL (0.2-1.3) 12/24/19 20:57 Direct Bilirubin 0.0 mg/dL (0.0-0.4) 12/24/19 20:57 Neonat Total Bilirubin Not Reportable 12/24/19 20:57 Neonat Direct Bilirubin Not Reportable 12/24/19 20:57 Neonat Indirect Bili Not Reportable 12/24/19 20:57 AST 18 U/L (14-36) 12/24/19 20:57 ALT 13 U/L (<35) 12/24/19 20:57 Alkaline Phosphatase 111 U/L (38-126) 12/24/19 20:57 Troponin I < 0.012 ng/mL 12/24/19 20:57 Total Protein 6.5 g/dL (6.3-8.2) 12/24/19 20:57 Albumin 3.7 g/dL (3.5-5.0) 12/24/19 20:57 Urine Color YELLOW 12/25/19 00:57 Urine Appearance CLEAR 12/25/19 00:57 Urine pH 6.0 (5.0-9.0) 12/25/19 00:57 Ur Specific [place] 1.008 12/25/19 00:57 Urine Protein NEGATIVE mg/dL (NEGATIVE) 12/25/19 00:57 Urine Glucose (UA) NEGATIVE mg/dL (NEGATIVE) 12/25/19 00:57 Urine Ketones NEGATIVE mg/dL (NEGATIVE) 12/25/19 00:57 Urine Blood NEGATIVE (NEGATIVE) 12/25/19 00:57 Urine Nitrite NEGATIVE (NEGATIVE) 12/25/19 00:57 Urine Bilirubin NEGATIVE (NEGATIVE) 12/25/19 00:57 Urine Urobilinogen NEGATIVE mg/dL (<2.0) 12/25/19 00:57 Ur Leukocyte Esterase NEGATIVE (NEGATIVE) 12/25/19 00:57 Urine WBC 0-1 /HPF 12/25/19 00:57 Urine Ascorbic Acid NEGATIVE (NEGATIVE) 12/25/19 00:57 COVID-19 Source NASOPHARYNGEAL 12/25/19 01:23 COVID-19 (JANICE) NOT DETECTED 12/25/19 01:23 12/24/19 20:57 Troponin I < 0.012 Impressions: Chest X-Ray 12/24/19 21:07 IMPRESSION: No acute cardiopulmonary process copyright 2011 [employer]- All Rights Reserved Stroke Is this a Stroke Patient?: No Acute Heart Failure - Is this a Heart Failure Patient?: No
[2019-12-29 15:48] VITALS: BP 140/78
== END 2019-12-29 16:57 | disposition home or self-care (01) | DRG 189 ==
LOC: ER 20:52 → OBSVTOIN 12-25 02:51 → EH 12-25 02:51 → 5 12-25 04:20 → 4W 12-27 13:28
PROVIDERS: ADMIT Internal Medicine; ATTEND Internal Medicine
DX: J96.21 Acute and chronic respiratory failure with hypoxia (principal); J44.1 Chronic obstructive pulmonary disease with (acute) exacerbation; F11.20 Opioid dependence, uncomplicated; F13.20 Sedative, hypnotic or anxiolytic dependence, uncomplicated; Z20.828 Contact with and (suspected) exposure to other viral communicable diseases; J30.9 Allergic rhinitis, unspecified; I25.10 Atherosclerotic heart disease of native coronary artery without angina pectoris; I10 Essential (primary) hypertension; F17.200 Nicotine dependence, unspecified, uncomplicated; E11.9 Type 2 diabetes mellitus without complications; Z79.82 Long term (current) use of aspirin; Z79.52 Long term (current) use of systemic steroids; Z79.899 Other long term (current) drug therapy; Z99.81 Dependence on supplemental oxygen; G47.33 Obstructive sleep apnea (adult) (pediatric); E66.9 Obesity, unspecified; Z71.6 Tobacco abuse counseling; E78.5 Hyperlipidemia, unspecified; E03.9 Hypothyroidism, unspecified; K21.9 Gastro-esophageal reflux disease without esophagitis; M19.90 Unspecified osteoarthritis, unspecified site; M79.7 Fibromyalgia; F32.9 Major depressive disorder, single episode, unspecified; F41.1 Generalized anxiety disorder; Z82.49 Family history of ischemic heart disease and other diseases of the circulatory system; Z88.8 Allergy status to other drugs, medicaments and biological substances; Z91.048 Other nonmedicinal substance allergy status; J96.22 Acute and chronic respiratory failure with hypercapnia; Z91.14 Patient's other noncompliance with medication regimen; G89.4 Chronic pain syndrome
CPT/HCPCS: 36415; 71045; 80053; 81001; 82803; 82962; 84484; 85025; 87635; 93005; 93010; 94640; 94660; 94799; 96374; 99285; C9803; G0378; J0360; J1644; J1815; J1885; J3490; J7512; J7620